=== PATIENT | male | born 1960 | race African-American/Black ===

== ENCOUNTER 2023-07-23 10:26 | Inpatient (IN) ==
[2023-07-23] MEDS ORDERED: ACETAMINOPHEN 1,000 MG/100 ML VIAL IV STA (10:36)
[2023-07-23] MEDS ORDERED: ONDANSETRON INJ 2 MG/ML 2 ML VIAL IV STA (10:36)
[2023-07-23] MEDS ORDERED: MoRPHine SULFATE 4 MG/ML 1 ML CARP\\VIAL IV STA (10:36)
[2023-07-23] MEDS ORDERED: CEFEPIME 2,000 MG/20 ML VIAL IV STA (10:36)
[2023-07-23] MEDS ORDERED: LIDOCAINE 2% JELLY 5 ML TUBE EXT ONE (10:36)
--- NOTE | 2023-07-23 10:43 | Emergency Department Note ---
Impression & Plan Sepsis, Cellulitis, Acute left flank pain, Atrial fibrillation with rapid ventricular response, Elevated lactic acid level, Leukocytosis ED Provider Note NAME: TAMERA ORELLANA AGE: 62 SEX: M : 1960 ARRIVES VIA: Ambulance INFORMANT: [Patient][nursing, guards] ED PROVIDER(S): [Manoj Campo MD] CHIEF COMPLAINT: Fever, weakness HISTORY OF PRESENT ILLNESS: The patient is a 62-year-old male who presents to the ER with 3 days of urinary frequency and back pain. He had a fever. 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 Patient complains of left flank pain. He states that the pain has been present since he has not felt well. He admits to a foul odor to the urine. He denies ever having issues with his kidneys or bladder. He does admit to being diabetic. The patient has a history of a clot in the right leg, he is not currently on blood thinners. He has noticed increasing pedal edema especially on the right. PMHx/PSHx/Social Hx: See Below PHYSICAL EXAM: GENERAL: Patient is in mild distress from pain. HEENT: No acute trauma, normocephalic atraumatic, mucous membranes dry, no nasal congestion. NECK: No stridor, no adenopathy, no meningismus, trachea is midline. LUNGS: Diminished breath sounds with some wheezing bilaterally, no crackles. Increased respiratory rate. HEART: Tachycardic with a regular rhythm, no obvious murmur. ABDOMEN: Soft, nontender, no peritonitis. Obese. EXTREMITIES: No cyanosis, full range of motion of all the joints without pain or difficulty. Moderate bilateral pedal edema, worse on the right. There is right leg warmth and erythema noted. The warmth and erythema extends from the foot to the knee. NEUROLOGIC: Oriented x 3, no acute motor or sensory deficits, no focal weakness. Poor historian. SKIN: No jaundice, no diaphoresis. Back: No flank discomfort with percussion. DIFFERENTIAL DIAGNOSIS: Sepsis or bacteremia, urinary obstruction, pyelonephritis, UTI, renal failure, pneumonia, diverticulitis or abscess, dehydration, among others. EMERGENCY DEPARTMENT PROCEDURES: MEDICAL DECISION MAKING: There is a moderate leukocytosis consistent with infection. A mild anemia was seen. The patient had a normal platelet count. INR was elevated at 2. The patient does have a lower sodium at 131. No renal failure. Lactic acid level was elevated consistent with infection. Repeat lactic acid level showed improvement. Magnesium was low at 1.5. There was some liver enzyme elevation. ECG showed a rapid atrial fibrillation without ST elevation. Cardiac enzyme testing x1 is slightly elevated. This troponin elevation could be secondary to cardiac injury or potentially just mismatch from his sepsis. Procalcitonin level was elevated consistent with bacterial infection. Chest film did not show pneumonia or CHF. Abdominal and pelvis CT did not show any urinary obstruction or acute surgical process. On exam, the patient did have a right lower extremity cellulitis. He was tachycardic. The patient was aggressively managed. He received IV cefepime as antibiotic coverage. He was given 2 L of IV saline. He received IV Zofran and IV morphine. He was given IV magnesium. He received IV Dilaudid for additional pain control as well as some IV Toradol. He received IV Tylenol. Patient was doing quite well. He was seen by the hospitalist team for admission. Vancomycin was started here in the ED for additional antibiotic cov erage and shortly thereafter, the patient was noted to be in a rapid atrial fibrillation. The vancomycin was held. Patient received a bolus of IV diltiazem was placed on a diltiazem drip. His blood pressure remained adequate. The patient is in need of a hospital stay. He is septic and now in a rapid atrial fibrillation. The source of the sepsis appears to be his right lower extremity. I did speak with the patient, the guards, case management as well as the on-call hospitalist. Prior/Outside records/notes reviewed: [employer] notations. ECG per my interpretation: Indication was sepsis and tachycardia. The ECG shows a rapid atrial fibrillation with a rate of 159. There is diffuse ST change/depression. There is no concerning ST elevation. No PVCs. The QTc is 458. Continuous Cardiac Monitoring per my interpretation: An order was placed for continuous cardiac monitoring. The monitor shows a rate of 155 with atrial fibrillation. Imaging/x-ray results per my interpretation: Chest ray does not show pneumonia or pneumothorax. No concerning CHF. Chronic Medical/Social conditions affecting care: Incarceration. Care/Management discussed with: Case management, on-call hospitalist Level of care consideration(s): After review of the information above and other included data: --requires escalation of care to admission Critical Care Note: I have personally spent 49 minutes of critical care time in the direct management of this patient. This includes bedside care, interpretation of diagnostic studies, and testing, discussion with consultants, patient, and family members, and other required patient management activities. This 49 minutes is in excess of all separately billable procedures. DISPOSITION: Admission Past Med/Surg History Medical History DM II (diabetes mellitus, type II), controlled History of fracture of right ankle HLD (hyperlipidemia) HTN (hypertension) Morbid obesity Surgical History Hx of right knee surgery Social History Smoking Status: Never smoker Hx Substance Use: Yes Non-Prescribed Medications: Marijuana Preferred Language: Romanian Feels Safe at Home: Yes Allergies Allergies Allergy/AdvReac Type Severity Reaction Status Date / Time lisinopril Allergy Intermediate Unknown Unverified 07/23/23 13:02 Home Meds Home Medications Medication Instructions Recorded Confirmed acetaminophen 500 mg tablet 500 mg PO TID PRN Other 07/23/23 07/23/23 albuterol sulfate 90 mcg/actuation 2 puff inhalation QID PRN Other 07/23/23 aerosol inhaler (Proventil HFA) amlodipine 10 mg tablet 10 mg PO DAILY 07/23/23 07/23/23 ciclesonide 160 mcg/actuation 1 puff inhalation BID 07/23/23 07/23/23 aerosol inhaler (Alvesco) hydrochlorothiazide 25 mg tablet 25 mg PO DAILY 07/23/23 07/23/23 losartan 50 mg tablet 50 mg PO DAILY 07/23/23 07/23/23 metformin 500 mg tablet 500 mg PO BID 07/23/23 07/23/23 rosuvastatin 5 mg tablet 5 mg PO DAILY 07/23/23 07/23/23 tamsulosin 0.4 mg capsule 0.8 mg PO HS 07/23/23 07/23/23 Results & Data (ED) Vital Signs Vital Signs - 24 hr 07/23/23 10:36 07/23/23 11:21 07/23/23 12:00 Pulse Rate 120 H 116 H 111 H Pulse Rate from SpO2 Sensor Respiratory Rate 36 H 20 Respiratory Effort / Characteristics Non-Labored Respiratory Depth Normal Blood Pressure 163/85 H Blood Pressure Mean 111 Pulse Oximetry 96 91 Oxygen Delivery Method Room Air Oxygen Flow Rate Sepsis Recent Fever Within 48 Hours Yes Sepsis New/Unexplained Change in Mental Status No Sepsis Action Taken by Nursing Physician Notified 07/23/23 13:48 07/23/23 14:14 07/23/23 14:43 Pulse Rate 146 H 142 H Pulse Rate from SpO2 Sensor 116 H Respiratory Rate 21 Respiratory Effort / Characteristics Respiratory Depth Blood Pressure 162/87 H 108/77 Blood Pressure Mean 112 87 Pulse Oximetry 94 100 Oxygen Delivery Method Nasal Cannula Oxygen Flow Rate 2 2 Sepsis Recent Fever Within 48 Hours Sepsis New/Unexplained Change in Mental Status Sepsis Action Taken by [facility] Medications Current Medication List: was personally reviewed by me Laboratory Data Attestation: I reviewed the patient's lab results. 07/23/23 10:45 07/23/23 10:45 Lab Results 07/23/23 07/23/23 07/23/23 Range/Units 10:45 10:45 10:45 WBC 16.20 H (4.8-10.8) K/ul RBC 4.82 (4.70-6.10) M/uL Hgb 13.6 L (14.0-18.0) g/dl Hct 41.8 L (42.0-52.0) % MCV 86.7 (80.0-100.0) fL MCH 28.2 (25.0-34.0) pg MCHC 32.5 (32.0-36.0) g/dL RDW Std Deviation 44.5 (36.4-46.3) fL RDW Coeff of Wilda 13.9 (11.5-14.5) % Plt Count 202 (130-400) K/uL MPV 9.9 (9.4-12.4) fL Immature Gran % (Auto) 4.0 % Neut % (Auto) 88.2 % Lymph % (Auto) 4.6 % [place] % (Auto) 2.8 % Eos % (Auto) 0.0 % Baso % (Auto) 0.4 % Neut # (Auto) 14.29 H (1.40-6.50) K/uL Lymph # (Auto) 0.74 L (1.20-3.40) K/uL [place] # (Auto) 0.45 (0.11-0.59) K/uL Eos # (Auto) 0.00 (0.00-0.50) K/uL Baso # (Auto) 0.07 (0.00-0.20) K/uL Immature Gran # (Auto) 0.65 H (0.01-0.20) K/uL Dohle Bodies 1+ PT 20.6 H (9.0-12.0) Seconds INR 2.0 H (0.9-1.1) APTT 33.6 H (21.0-31.0) Seconds PTT Ratio 1.2 Sodium 131 L (136-145) mmol/L Potassium 3.5 (3.5-5.1) mmol/L Chloride 98 (98-107) mmol/L Carbon Dioxide 24 (21-32) mmol/L Anion Gap 9 (3-11) BUN 20 (6-23) mg/dl Creatinine 1.25 (0.6-1.4) mg/dl Est Cr Clr Drug Dosing Not Reportable Est GFR ( Amer) 71.6 ml/min Est GFR (Non-Af Amer) 61.8 ml/min BUN/Creatinine Ratio 16.0 (10-20) Glucose 116 H (70-99(Fasting)) mg/dl Lactate (0.4-2.0) mmol/L Calcium 8.9 (8.6-10.3) mg/dl Magnesium 1.5 L (1.7-2.4) mg/dl Total Bilirubin 1.9 H (0.2-1.0) mg/dl Direct Bilirubin 0.8 H (0-0.2) mg/dl AST 39 (13-39) U/L ALT 27 (7-52) U/L Alkaline Phosphatase 73 (34-104) U/L Troponin I High Sens 57.7 H* (0-20) pg/ml Total Protein 7.4 (6.0-8.3) gm/dl Albumin 4.0 (3.4-5.0) gm/dl Procalcitonin (0-0.5) ng/ml Urine Color Urine Appearance (Clear) Urine pH (4.5-7.5) Ur Specific [place] (1.000-1.030) Urine Protein (Negative) Urine Glucose (UA) (Negative) Urine Ketones (Negative) Urine Blood (Negative) Urine Nitrite (Negative) Urine Bilirubin (Negative) Urine Urobilinogen (Negative) Ur Leukocyte Esterase (Negative) Urine WBC (Auto) (0-5) /hpf Urine RBC (Auto) (0-4) /hpf U Hyaline Cast (Auto) (0-5) /lpf U Epithel Cells (Auto) (0-5) /lpf Urine Bacteria (Auto) (Negative) Ur Renal Epithelial Cell SARS-CoV-2 (PCR) (Negative) Influenza Type A (PCR) (Neg) Influenza Type B (PCR) (Neg) RSV (RT-PCR) (Neg) 07/23/23 07/23/23 07/23/23 Range/Units 10:45 10:45 11:00 WBC (4.8-10.8) K/ul RBC (4.70-6.10) M/uL Hgb (14.0-18.0) g/dl Hct (42.0-52.0) % MCV (80.0-100.0) fL MCH (25.0-34.0) pg MCHC (32.0-36.0) g/dL RDW Std Deviation (36.4-46.3) fL RDW Coeff of Wilda (11.5-14.5) % Plt Count (130-400) K/uL MPV (9.4-12.4) fL Immature Gran % (Auto) % Neut % (Auto) % Lymph % (Auto) % [place] % (Auto) % Eos % (Auto) % Baso % (Auto) % Neut # (Auto) (1.40-6.50) K/uL Lymph # (Auto) (1.20-3.40) K/uL [place] # (Auto) (0.11-0.59) K/uL Eos # (Auto) (0.00-0.50) K/uL Baso # (Auto) (0.00-0.20) K/uL Immature Gran # (Auto) (0.01-0.20) K/uL Dohle Bodies PT (9.0-12.0) Seconds INR (0.9-1.1) APTT (21.0-31.0) Seconds PTT Ratio Sodium (136-145) mmol/L Potassium (3.5-5.1) mmol/L Chloride (98-107) mmol/L Carbon Dioxide (21-32) mmol/L Anion Gap (3-11) BUN (6-23) mg/dl Creatinine (0.6-1.4) mg/dl Est Cr Clr Drug Dosing Est GFR ( Amer) ml/min Est GFR (Non-Af Amer) ml/min BUN/Creatinine Ratio (10-20) Glucose (70-99(Fasting)) mg/dl Lactate 2.7 H* (0.4-2.0) mmol/L Calcium (8.6-10.3) mg/dl Magnesium (1.7-2.4) mg/dl Total Bilirubin (0.2-1.0) mg/dl Direct Bilirubin (0-0.2) mg/dl AST (13-39) U/L ALT (7-52) U/L Alkaline Phosphatase (34-104) U/L Troponin I High Sens (0-20) pg/ml Total Protein (6.0-8.3) gm/dl Albumin (3.4-5.0) gm/dl Procalcitonin 43.25 H (0-0.5) ng/ml Urine Color Dark Yellow Urine Appearance Clear (Clear) Urine pH 7.0 (4.5-7.5) Ur Specific [place] 1.027 (1.000-1.030) Urine Protein 2+ H (Negative) Urine Glucose (UA) Negative (Negative) Urine Ketones 2+ H (Negative) Urine Blood 3+ H (Negative) Urine Nitrite Positive A (Negative) Urine Bilirubin 1+ H (Negative) Urine Urobilinogen Positive H (Negative) Ur Leukocyte Esterase Trace H (Negative) Urine WBC (Auto) 1-5 (0-5) /hpf Urine RBC (Auto) 0-4 (0-4) /hpf U Hyaline Cast (Auto) 5-10 H (0-5) /lpf U Epithel Cells (Auto) >30 H (0-5) /lpf Urine Bacteria (Auto) 1+ H (Negative) Ur Renal Epithelial Cell Not Reportable SARS-CoV-2 (PCR) (Negative) Influenza Type A (PCR) (Neg) Influenza Type B (PCR) (Neg) RSV (RT-PCR) (Neg) 07/23/23 07/23/23 07/23/23 Range/Units 12:54 12:54 Unknown WBC (4.8-10.8) K/ul RBC (4.70-6.10) M/uL Hgb (14.0-18.0) g/dl Hct (42.0-52.0) % MCV (80.0-100.0) fL MCH (25.0-34.0) pg MCHC (32.0-36.0) g/dL RDW Std Deviation (36.4-46.3) fL RDW Coeff of Wilda (11.5-14.5) % Plt Count (130-400) K/uL MPV (9.4-12.4) fL Immature Gran % (Auto) % Neut % (Auto) % Lymph % (Auto) % [place] % (Auto) % Eos % (Auto) % Baso % (Auto) % Neut # (Auto) (1.40-6.50) K/uL Lymph # (Auto) (1.20-3.40) K/uL [place] # (Auto) (0.11-0.59) K/uL Eos # (Auto) (0.00-0.50) K/uL Baso # (Auto) (0.00-0.20) K/uL Immature Gran # (Auto) (0.01-0.20) K/uL Dohle Bodies PT (9.0-12.0) Seconds INR (0.9-1.1) APTT (21.0-31.0) Seconds PTT Ratio Sodium (136-145) mmol/L Potassium (3.5-5.1) mmol/L Chloride (98-107) mmol/L Carbon Dioxide (21-32) mmol/L Anion Gap (3-11) BUN (6-23) mg/dl Creatinine (0.6-1.4) mg/dl Est Cr Clr Drug Dosing Est GFR ( Amer) ml/min Est GFR (Non-Af Amer) ml/min BUN/Creatinine Ratio (10-20) Glucose (70-99(Fasting)) mg/dl Lactate 1.7 (0.4-2.0) mmol/L Calcium (8.6-10.3) mg/dl Magnesium (1.7-2.4) mg/dl Total Bilirubin (0.2-1.0) mg/dl Direct Bilirubin (0-0.2) mg/dl AST (13-39) U/L ALT (7-52) U/L Alkaline Phosphatase (34-104) U/L Troponin I High Sens 59.0 H* (0-20) pg/ml Total Protein (6.0-8.3) gm/dl Albumin (3.4-5.0) gm/dl Procalcitonin (0-0.5) ng/ml Urine Color Urine Appearance (Clear) Urine pH (4.5-7.5) Ur Specific [place] (1.000-1.030) Urine Protein (Negative) Urine Glucose (UA) (Negative) Urine Ketones (Negative) Urine Blood (Negative) Urine Nitrite (Negative) Urine Bilirubin (Negative) Urine Urobilinogen (Negative) Ur Leukocyte Esterase (Negative) Urine WBC (Auto) (0-5) /hpf Urine RBC (Auto) (0-4) /hpf U Hyaline Cast (Auto) (0-5) /lpf U Epithel Cells (Auto) (0-5) /lpf Urine Bacteria (Auto) (Negative) Ur Renal Epithelial Cell SARS-CoV-2 (PCR) NEGATIVE (Negative) Influenza Type A (PCR) Negative (Neg) Influenza Type B (PCR) Negative (Neg) RSV (RT-PCR) Negative (Neg) Administered Medications Diltiazem HCl 125 mg/ Dextrose 125 mls @ 5 mls/hr IV .Q24H NEGRITA; Protocol Stop: 08/22/23 14:14 Last Titration: 07/23/23 15:18 Dose: 7.5 mg/hr, 7.5 mls/hr Documented By: NRB Co-signed By: DAREK Admin: 07/23/23 14:24 Dose: 5 mg/hr, 5 mls/hr Documented By: NRB Co-signed By: ZA Metoprolol Tartrate (Metoprolol Tartrate 25 Mg Tab) 12.5 mg PO BID NEGRITA Stop: 08/22/23 14:24 Last Admin: 07/23/23 14:40 Dose: 12.5 mg Documented By: NRB Discontinued Medications Diltiazem HCl (Diltiazem Hcl 5 Mg/Ml 5 Ml Vial) 15 mg IV NOW STA Stop: 07/23/23 14:11 Last Admin: 07/23/23 14:16 Dose: 15 mg Documented By: KATHERINE Co-signed By: JANEL Hydromorphone HCl (Hydromorphone Inj 0.5 Mg/0.5 Ml Syr) 0.5 mg IV NOW STA Stop: 07/23/23 12:55 Last Admin: 07/23/23 13:43 Dose: 0.5 mg Documented By: KATHERINE Sodium Chloride (Nss) 1,000 mls @ 999 mls/hr IV .Q1H1M NEGRITA Stop: 07/23/23 11:45 Last Infusion: 07/23/23 13:38 Dose: 0 mls/hr Documented By: Admin: 07/23/23 12:01 Dose: 999 mls/hr Documented By: KATHERINE Cefepime HCl (Maxipime) 2,000 mg in 20 mls @ 5 mls/min IV NOW STA; Protocol Stop: 07/23/23 10:39 Last Admin: 07/23/23 11:59 Dose: 5 mls/min Documented By: KATHERINE Acetaminophen (Ofirmev) 1,000 mg in 100 mls @ 400 mls/hr IV NOW STA Stop: 07/23/23 10:50 Last Infusion: 07/23/23 11:57 Dose: 0 mls/hr Documented By: Admin: 07/23/23 10:51 Dose: 400 mls/hr Documented By: PETR Sodium Chloride (Nss) 1,000 mls @ 999 mls/hr IV .Q1H1M ONE Stop: 07/23/23 11:45 Last Infusion: 07/23/23 11:57 Dose: 0 mls/hr Documented By: Admin: 07/23/23 10:51 Dose: 999 mls/hr Documented By: PETR Magnesium Sulfate/Dextrose (Magnesium Sulfate / D5w) 1 gm in 100 mls @ 100 mls/hr IV NOW STA Stop: 07/23/23 12:29 Last Infusion: 07/23/23 13:01 Dose: 0 mls/hr Documented By: NRBenito Admin: 07/23/23 12:01 Dose: 100 mls/hr Documented By: KATHERINE Vancomycin HCl 2,750 mg/ (Sodium Chloride) 555 mls @ 200 mls/hr IV NOW ONE Stop: 07/23/23 14:54 Last Admin: 07/23/23 14:52 Dose: Not Given Documented By: NRB Ketorolac Tromethamine (Ketorolac Tromethamine 15 Mg/Ml Vial) 15 mg IV NOW STA Stop: 07/23/23 12:55 Last Admin: 07/23/23 13:40 Dose: 15 mg Documented By: NRB Lidocaine HCl (Lidocaine 2% Jelly 5 Ml Tube) 5 ml EXT NOW ONE Stop: 07/23/23 10:37 Last Admin: 07/23/23 12:44 Dose: Not Given Documented By: NRB Morphine Sulfate (Morphine Sulfate 4 Mg/Ml 1 Ml Carp\Vial) 4 mg IV NOW STA Stop: 07/23/23 10:37 Last Admin: 07/23/23 10:51 Dose: 4 mg Documented By: MES Ondansetron HCl (Ondansetron Inj 2 Mg/Ml 2 Ml Vial) 4 mg IV NOW STA Stop: 07/23/23 10:37 Last Admin: 07/23/23 10:51 Dose: 4 mg Documented By: MES Imaging Data Radiologist's Impression: Abdomen/Pelvis CT 07/23/23 10:[address] WITHOUT CONTRAST CT DOSE: 1467.66 mGy.cm HISTORY: Acute left-sided flank pain with fever and urinary incontinence poss urin obstr TECHNIQUE: Multiaxial CT images of the abdomen and pelvis were performed without contrast. A dose lowering technique was utilized adhering to the principles of ALARA. COMPARISON STUDY: None. FINDINGS: Cardiomegaly. Right hemidiaphragmatic elevation with the hepatic dome only partially imaged. There are a few scattered low suspicion solid nodules of the left lung base measuring up to 4 mm. No free air. Unremarkable unenhanced spleen. The liver is enlarged with hepatic steatosis. No evidence of cirrhosis. The gallbladder is mildly distended. Moderately atrophic pancreas. Unremarkable adrenal glands. Mild nonspecific bilateral perinephric stranding. No renal or ureteral calculi or hydronephrosis. Decompressed urinary bladder with Erazo catheter in place. No abdominal aortic aneurysm. Enlarged right iliac chain and right inguinal lymph nodes include right inguinal lymphadenopathy measuring up to 1.6 cm and right iliac chain lymph nodes measuring up to 1.4 cm. There is mild to moderate inflammatory stranding surrounding the right iliac and femoral veins. There is no bowel obstruction or bowel wall thickening. Mild to moderate colonic fecal retention. Colonic diverticulosis. Noninflamed appendix. Fat filled suprau mbilical hernia with diastases of 2.5 cm. Small fat filled umbilical hernia also noted containing a nonobstructed loop of ileum. Diastases recti. Degenerative changes of the spine, pelvis and hips. IMPRESSION: 1. No renal or ureteral calculi or hydronephrosis. 2. Right iliac and inguinal lymphadenopathy with adjacent inflammatory stranding. Findings should be correlated with lower extremity Doppler to exclude an underlying DVT. Additionally, follow-up ultrasound with possible tissue sampling of the lymph nodes should be considered in order to exclude a lymphoproliferative disorder. 3. No bowel obstruction or bowel wall thickening. 4. Hepatomegaly with hepatic steatosis. 5. Small fat filled umbilical hernia partially contains a loop of nonobstructed ileum. ACT 112: Positive. There are findings on this exam that require communication between the performing entity and the patient following Patient Test Result [place] Act [place] Act 112) guidelines. The above report was generated using voice recognition software. It may contain grammatical, syntax or spelling errors. Electronically signed by: Panfilo Melchor M.D. 07/23/2023 11:48 AM Chest X-Ray 07/23/23 10:37 XR chest 1V portable CLINICAL HISTORY: Sepsis. COMPARISON STUDY: No previous studies for comparison. FINDINGS: Postoperative findings within the spine are incidentally noted. There is no pneumothorax or pleural effusion. There is no evidence for pulmonary edema. There is mild cardiomegaly. IMPRESSION: No acute cardiopulmonary findings. Mild cardiomegaly. ACT 112: Negative or not required by law. Electronically signed by: Dev Fernandes M.D. 07/23/2023 11:31 AM Discharge Plan Visit Data Chief Complaint: Urinary Symptoms Stated Complaint: BACK PAIN, FEVER, ED Provider: Manoj Campo Discharge Problem: Sepsis, Cellulitis, Acute left flank pain, Atrial fibrillation with rapid ventricular response, Elevated lactic acid level, Leukocytosis Patient Disposition: Admitted As Inpatient Condition: Serious Forms Stand Alone Forms: My [employer] Prescriptions Prescriptions: No Action losartan 50 mg Tablet 50 mg PO DAILY metformin 500 mg Tablet 500 mg PO BID acetaminophen 500 mg Tablet 500 mg PO TID PRN (Reason: Other) Rx Instructions: Can take up to 4 times daily tamsulosin 0.4 mg Capsule 0.8 mg PO HS amlodipine 10 mg Tablet 10 mg PO DAILY hydrochlorothiazide 25 mg Tablet 25 mg PO DAILY albuterol sulfate [Proventil HFA] 90 mcg/actuation Hfa Aerosol Inhaler 2 puff INHALATION QID PRN (Reason: Other) rosuvastatin 5 mg Tablet 5 mg PO DAILY Alvesco 160 mcg/actuation Hfa Aerosol Inhaler 1 puff INHALATION BID Referrals Referrals: PCP,NO [Physician] -
[2023-07-23] MEDS ORDERED: SODIUM CHLORIDE 0.9% 1,000 ML IV SCH (10:45)
[2023-07-23] MEDS ORDERED: SODIUM CHLORIDE 0.9% 1,000 ML IV ONE (10:45)
[2023-07-23 11:14] LABS: Appearance Urine Clear (Clear); Blood Urine 3+ (Negative); Color Urine Dark Yellow; Epithelial Cell Urine Auto >30 /lpf (0-5); Glucose Urine UA Negative (Negative); Ketones Urine 2+ (Negative); Leukocyte Esterase Urine Trace (Negative); Nitrite Urine Positive (Negative); Protein Urine 2+ (Negative); RBC Urine Automated 0-4 /hpf (0-4); Specific Gravity Urine 1.027 (1.000-1.030); Urobilinogen Urine Positive (Negative)
[2023-07-23 11:21] LABS: Bilirubin Urine 1+ (Negative)
[2023-07-23 11:23] LABS: Hematocrit (blood only) 41.8 % (42.0-52.0); Hemoglobin 13.6 g/dl (14.0-18.0); Mean Corpuscular Hemoglobin 28.2 pg (25.0-34.0); Mean Corpuscular Hgb Conc 32.5 g/dL (32.0-36.0); Mean Corpuscular Volume 86.7 fL (80.0-100.0); Mean Platelet Volume 9.9 fL (9.4-12.4); Platelet Count 202 K/uL (130-400); RDW Coefficient of Variation 13.9 % (11.5-14.5); RDW Standard Deviation 44.5 fL (36.4-46.3); Red Blood Count 4.82 M/uL (4.70-6.10)
[2023-07-23 11:26] LABS: Alanine Aminotransferase 27 U/L (7-52); Alkaline Phosphatase 73 U/L (34-104); Anion Gap 9 (3-11); Aspartate Aminotransferase 39 U/L (13-39); Bilirubin Direct 0.8 mg/dl (0-0.2); Bilirubin,Total 1.9 mg/dl (0.2-1.0); Blood Urea Nitrogen 20 mg/dl (6-23); Calcium 8.9 mg/dl (8.6-10.3); Carbon Dioxide 24 mmol/L (21-32); Chloride 98 mmol/L (98-107); Est GFR (African American) 71.6 ml/min; Est GFR (Non-African American) 61.8 ml/min; Glucose 116 mg/dl (70-99(Fasting)); Magnesium 1.5 mg/dl (1.7-2.4); Potassium 3.5 mmol/L (3.5-5.1); Sodium 131 mmol/L (136-145); Total Protein 7.4 gm/dl (6.0-8.3)
[2023-07-23] MEDS ORDERED: MAGNESIUM SULFATE / D5W 1 GM/100 ML BAG IV STA (11:30)
--- NOTE | 2023-07-23 11:32 | XRay Report ---
XR chest 1V portable CLINICAL HISTORY: Sepsis. COMPARISON STUDY: No previous studies for comparison. FINDINGS: Postoperative findings within the spine are incidentally noted. There is no pneumothorax or pleural effusion. There is no evidence for pulmonary edema. There is mild cardiomegaly. IMPRESSION: No acute cardiopulmonary findings. Mild cardiomegaly. ACT 112: Negative or not required by law. Electronically signed by: Dev Fernandes M.D. 07/23/2023 11:31 AM
[2023-07-23 11:35] LABS: Partial Thromboplastin Ratio 1.2; Partial Thromboplastin Time 33.6 Seconds (21.0-31.0); Prothrombin Time 20.6 Seconds (9.0-12.0)
[2023-07-23 11:41] LABS: Bacteria Urine Automated 1+ (Negative)
[2023-07-23 11:43] LABS: Troponin I High Sensitivity 57.7 pg/ml (0-20)
[2023-07-23 11:47] LABS: Basophils # (auto) 0.07 K/uL (0.00-0.20); Basophils % (auto) 0.4 %; Dohle Bodies 1+; Immature Granulocytes # (auto) 0.65 K/uL (0.01-0.20); Lymphocytes # (auto) 0.74 K/uL (1.20-3.40); Lymphocytes % (auto) 4.6 %; Monocytes # (auto) 0.45 K/uL (0.11-0.59); Monocytes % (auto) 2.8 %; Neutrophils # (auto) 14.29 K/uL (1.40-6.50); Neutrophils % (auto) 88.2 %
--- NOTE | 2023-07-23 11:49 | CT Scan Report ---
ABDOMEN AND PELVIS CT WITHOUT CONTRAST CT DOSE: 1467.66 mGy.cm HISTORY: Acute left-sided flank pain with fever and urinary incontinence poss urin obstr TECHNIQUE: Multiaxial CT images of the abdomen and pelvis were performed without contrast. A dose lo wering technique was utilized adhering to the principles of ALARA. COMPARISON STUDY: None. FINDINGS: Cardiomegaly. Right hemidiaphragmatic elevation with the hepatic dome only partially imaged . There are a few scattered low suspicion solid nodules of the left lung base measuring up to 4 mm. N o free air. Unremarkable unenhanced spleen. The liver is enlarged with hepatic steatosis. No evidence of cirrhosi s. The gallbladder is mildly distended. Moderately atrophic pancreas. Unremarkable adrenal glands. Mi ld nonspecific bilateral perinephric stranding. No renal or ureteral calculi or hydronephrosis. Decom pressed urinary bladder with Erazo catheter in place. No abdominal aortic aneurysm. Enlarged right iliac chain and right inguinal lymph nodes include right inguinal lymphadenopathy measuring up to 1.6 cm and right iliac chain lymph nodes measuring up to 1. 4 cm. There is mild to moderate inflammatory stranding surrounding the right iliac and femoral veins. There is no bowel obstruction or bowel wall thickening. Mild to moderate colonic fecal retention. Col onic diverticulosis. Noninflamed appendix. Fat filled supraumbilical hernia with diastases of 2.5 cm. Small fat filled umbilical hernia also noted containing a nonobstructed loop of ileum. Diastases rec ti. Degenerative changes of the spine, pelvis and hips. IMPRESSION: 1. No renal or ureteral calculi or hydronephrosis. 2. Right iliac and inguinal lymphadenopathy with adjacent inflammatory stranding. Findings should be correlated with lower extremity Doppler to exclude an underlying DVT. Additionally, follow-up ultraso und with possible tissue sampling of the lymph nodes should be considered in order to exclude a lymph oproliferative disorder. 3. No bowel obstruction or bowel wall thickening. 4. Hepatomegaly with hepatic steatosis. 5. Small fat filled umbilical hernia partially contains a loop of nonobstructed ileum. ACT 112: Positive. There are findings on this exam that require communication between the performing entity and the patient following Patient Test Result [place] Act [place] Act 112) guidelines. The above report was generated using voice recognition software. It may contain grammatical, syntax o r spelling errors. Electronically signed by: Panfilo Melchor M.D. 07/23/2023 11:48 AM
[2023-07-23] MEDS ORDERED: VANCOMYCIN CONSULT ACTIVE PRN ×2 (12:25→18:41)
[2023-07-23] MEDS ORDERED: HYDROmorphone INJ 0.5 MG/0.5 ML SYR IV STA ×2 (12:54→13:15)
[2023-07-23] MEDS ORDERED: KETOROLAC TROMETHAMINE 15 MG/ML VIAL IV STA (12:54)
--- NOTE | 2023-07-23 13:26 | History & Physical Report ---
Date of Service July 23, 2023 Assessment & Plan (1) Sepsis: (2) Cellulitis: (3) Urinary tract infection: Plan: - Admit to med tele - Pt meets sepsis criteria with fever, tachycardia, source likely RLE cellulitis, r/o DVT pending, as well as UTI - Pt has received 2 L NSS so far, continue LR at 150 ml/hr. mild hyponatremia will be followed. Repeat BMP this afternoon - Troponin is elevated at 47 on admission, trending, likley demand ischemia as EKG without acute findings, no cardiac complaints, no shortness of breath. - Lactate initially elevated at 2.7, improved to 1.7, WBC 16.2, procal 43 - R ankle fracture 2013, R knee surgery in 2016 causes some enlargement in general in the RLE but this is much more swollen and tender in the calf compared to previously. - Follow doppler U/S to r/o DVT - CT abd/pelvis reviewed as above - BCx x 2, urine culture pending - Continue on cefepime IV and vancomycin IV with hx of DM and being in close quarters in facility - Check MRSA swab (4) Hypomagnesemia: Plan: - Replace mag as was 1.5 on admission with 2 g IV. - Trend with am labs (5) DM II (diabetes mellitus, type II), controlled: Plan: - Check A1C with am labs - Holding metformin for now, ISS with accuchecks achs (6) HLD (hyperlipidemia): Plan: - Chronic, stable, cont statin - Check lipid panel with am labs (7) HTN (hypertension): Plan: - Elevated currently likely due to pain, acute infection, will hold on po meds today, resume tomorrow if BP remains high and infection responds adequately to antibiotics. (8) Morbid obesity: Plan: - BMI of 45, diet and exercise to be encouraged throughout hospital stay DVT ppx: lovenox subq GI/FEN: HH/Diabetic diet, LR at 150 ml/hr x 1 more bag above Lines: 2 PIV CODE: FULL Dispo: From [facility] drug reha, likely to remain in the hospital x 1-2 days (9) New onset a-fib: Plan: After initial evaluation the patient - he went into from what we can tell, new onset afib with RVR with rates of 140-150. Pt is noted to have INR that is slightly high on admission at 2.0, but does not appear he is on any form of anticoagulation. - Started on diltiazem bolus and gtt in the ER - metoprolol 12.5 mg PO now first dose, then BID - Cardiology consulted - Check 2 D echo - Troponin 59-->57, trending q6H -CHADsVasc 2, will need to discuss formal anticoagulation with cards/day team History of Present Illness Chief Complaint: Weakness, fever Primary Care Provider: YURIDIA Traci This is a 62 yo black male with PMHx of obesity, HTN, HLD, DM II, marijuana use (denies other drug or alcohol use) currently in [facility] for drug rehab program x past 2 years, who presents to the hospital with 3 days of worsening RLE swelling, pain, weakness, and fever which started 2 days ago. States that he has been not feeling well enough to eat for the past 2 days, but has been tolerating fluids. He reports significant weakness, and was unable to walk today also due to pain. His R leg is significantly more swollen than the left, and states that there was minimal swelling in in 3 days ago, but that since R ankle fracture in 2013 and R knee surgery in 2016 the right leg has always been a little more swollen. He admits to hx of having DVT in the R leg previously. Surgical Hx: R ankle fixation s/p fracture, R knee surgery (not a total replacement) Social Hx: Incarcerated, Denies current alcohol or drug use, previous marijuana use Family Hx: Denies known family history. Allergies Allergy/AdvReac Type Severity Reaction Status Date / Time lisinopril Allergy Intermediate Unknown Unverified 07/23/23 13:02 Home Medications Medication Instructions Recorded Confirmed Type acetaminophen 500 mg tablet 500 mg PO TID PRN Other 07/23/23 07/23/23 History albuterol sulfate 90 mcg/actuation 2 puff inhalation QID PRN Other 07/23/23 07/23/23 History aerosol inhaler (Proventil HFA) amlodipine 10 mg tablet 10 mg PO DAILY 07/23/23 07/23/23 History ciclesonide 160 mcg/actuation 1 puff inhalation BID 07/23/23 07/23/23 History aerosol inhaler (Alvesco) hydrochlorothiazide 25 mg tablet 25 mg PO DAILY 07/23/23 07/23/23 History losartan 50 mg tablet 50 mg PO DAILY 07/23/23 07/23/23 History metformin 500 mg tablet 500 mg PO BID 07/23/23 07/23/23 History rosuvastatin 5 mg tablet 5 mg PO DAILY 07/23/23 07/23/23 History tamsulosin 0.4 mg capsule 0.8 mg PO HS 07/23/23 07/23/23 History Past Med/Surg History Medical History DM II (diabetes mellitus, type II), controlled History of fracture of right ankle HLD (hyperlipidemia) HTN (hypertension) Morbid obesity Surgical History Hx of right knee surgery Social History Smoking Status: Never smoker Hx Substance Use: Yes Non-Prescribed Medications: Marijuana Preferred Language: Citizen Of [place] Feels Safe at Home: Yes Review of Systems Review of Systems: Constitutional: +fever, sweats and chills, + diffuse weakness Eyes: No diplopia, no worsening or blurred vision ENT: normal hearing, no trouble swallowing Respiratory: No cough, sputum, dyspnea at rest or on exertion Cardiovascular: No chest pain, tightness or palpitations Abdomen: No pain, nausea, vomiting, diarrhea or constipation : denies dysuria Musculoskeletal: RLE swelling and warmth as per HPI, otherwise No joint pain Neurologic: +generalized weakness, no numbness/tingling, or balance problems Psychiatric: No anxiety or depression Skin: No rash or itch Physical Exam Physical Exam: General: awake, alert, Appears in mild distress, obese, black male Head: Normocephalic, atraumatic ENT: PERRL, EOMI, no pharyngeal exudate, mucous membranes slightly dry Chest: Clear to auscultation, on room air, no adventitious breath sounds Cardiac: +Sinus tachycardia, no murmur, no JVD, normal peripheral pulses, good capillary refill Abdominal: NABS x 4 quadrants, soft, nondistended, nontender to palpation, no rebound or guarding Extremities: RLE diffusely edematous up to groin, +warmth, + difficult to assess erythema due to skin color, no open wounds or obvious source of infection, LLE with trace edema as well, otherwise Normal inspection, no peripheral edema or erythema, calfs tender to palpation Psych: Normal mood and affect Neuro: AAO x 3, strength intact bilaterally and rated 5/5, no motor deficits, speech is clear, no peripheral sensory deficits Results & Data Results & Data Vital Signs (Past 12 Hours) Vital Signs Pulse Resp BP Pulse Ox O2 Del Method 07/23/23 11:21 116 H 07/23/23 10:36 120 H 36 H 163/85 H 96 Room Air Laboratory Results 07/23/23 10:45 Urine Culture - Pending Urine,Straight Cath 07/23/23 11:00 Aerobic Blood Culture - Pending Blood Anaerobic Blood Culture - Pending 07/23/23 10:45 Aerobic Blood Culture - Pending Blood Anaerobic Blood Culture - Pending 07/23/23 07/23/23 07/23/23 12:54 11:00 10:45 WBC RBC Hgb Hct MCV MCH MCHC RDW Std Deviation RDW Coeff of Wilda Plt Count MPV Immature Gran % (Auto) Neut % (Auto) Lymph % (Auto) [place] % (Auto) Eos % (Auto) Baso % (Auto) Neut # (Auto) Lymph # (Auto) [place] # (Auto) Eos # (Auto) Baso # (Auto) Immature Gran # (Auto) Dohle Bodies PT INR APTT PTT Ratio Sodium Potassium Chloride Carbon Dioxide Anion Gap BUN Creatinine Est Cr Clr Drug Dosing Est GFR ( Amer) Est GFR (Non-Af Amer) BUN/Creatinine Ratio Glucose Lactate 1.7 2.7 H* Calcium Magnesium Total Bilirubin Direct Bilirubin AST ALT Alkaline Phosphatase Troponin I High Sens Total Protein Albumin Procalcitonin Urine Color Dark Yellow Urine Appearance Clear Urine pH 7.0 Ur Specific [place] 1.027 Urine Protein 2+ H Urine Glucose (UA) Negative Urine Ketones 2+ H Urine Blood 3+ H Urine Nitrite Positive A Urine Bilirubin 1+ H Urine Urobilinogen Positive H Ur Leukocyte Esterase Trace H Urine WBC (Auto) 1-5 Urine RBC (Auto) 0-4 U Hyaline Cast (Auto) 5-10 H U Epithel Cells (Auto) >30 H Urine Bacteria (Auto) 1+ H Ur Renal Epithelial Cell Not Reportable 07/23/23 07/23/23 07/23/23 10:45 10:45 10:45 WBC RBC Hgb Hct MCV MCH MCHC RDW Std Deviation RDW Coeff of Wilda Plt Count MPV Immature Gran % (Auto) Neut % (Auto) Lymph % (Auto) [place] % (Auto) Eos % (Auto) Baso % (Auto) Neut # (Auto) Lymph # (Auto) [place] # (Auto) Eos # (Auto) Baso # (Auto) Immature Gran # (Auto) Dohle Bodies PT 20.6 H INR 2.0 H APTT 33.6 H PTT Ratio 1.2 Sodium 131 L Potassium 3.5 Chloride 98 Carbon Dioxide 24 Anion Gap 9 BUN 20 Creatinine 1.25 Est Cr Clr Drug Dosing Not Reportable Est GFR ( Amer) 71.6 Est GFR (Non-Af Amer) 61.8 BUN/Creatinine Ratio 16.0 Glucose 116 H Lactate Calcium 8.9 Magnesium 1.5 L Total Bilirubin 1.9 H Direct Bilirubin 0.8 H AST 39 ALT 27 Alkaline Phosphatase 73 Troponin I High Sens 57.7 H* Total Protein 7.4 Albumin 4.0 Procalcitonin 43.25 H Urine Color Urine Appearance Urine pH Ur Specific [place] Urine Protein Urine Glucose (UA) Urine Ketones Urine Blood Urine Nitrite Urine Bilirubin Urine Urobilinogen Ur Leukocyte Esterase Urine WBC (Auto) Urine RBC (Auto) U Hyaline Cast (Auto) U Epithel Cells (Auto) Urine Bacteria (Auto) Ur Renal Epithelial Cell 07/23/23 10:45 WBC 16.20 H RBC 4.82 Hgb 13.6 L Hct 41.8 L MCV 86.7 MCH 28.2 MCHC 32.5 RDW Std Deviation 44.5 RDW Coeff of Wilda 13.9 Plt Count 202 MPV 9.9 Immature Gran % (Auto) 4.0 Neut % (Auto) 88.2 Lymph % (Auto) 4.6 [place] % (Auto) 2.8 Eos % (Auto) 0.0 Baso % (Auto) 0.4 Neut # (Auto) 14.29 H Lymph # (Auto) 0.74 L [place] # (Auto) 0.45 Eos # (Auto) 0.00 Baso # (Auto) 0.07 Immature Gran # (Auto) 0.65 H Dohle Bodies 1+ PT INR APTT PTT Ratio Sodium Potassium Chloride Carbon Dioxide Anion Gap BUN Creatinine Est Cr Clr Drug Dosing Est GFR ( Amer) Est GFR (Non-Af Amer) BUN/Creatinine Ratio Glucose Lactate Calcium Magnesium Total Bilirubin Direct Bilirubin AST ALT Alkaline Phosphatase Troponin I High Sens Total Protein Albumin Procalcitonin Urine Color Urine Appearance Urine pH Ur Specific [place] Urine Protein Urine Glucose (UA) Urine Ketones Urine Blood Urine Nitrite Urine Bilirubin Urine Urobilinogen Ur Leukocyte Esterase Urine WBC (Auto) Urine RBC (Auto) U Hyaline Cast (Auto) U Epithel Cells (Auto) Urine Bacteria (Auto) Ur Renal Epithelial Cell Diagnostic Findings Abdomen/Pelvis CT 07/23/23 10:[address] WITHOUT CONTRAST CT DOSE: 1467.66 mGy.cm HISTORY: Acute left-sided flank pain with fever and urinary incontinence poss urin obstr TECHNIQUE: Multiaxial CT images of the abdomen and pelvis were performed without contrast. A dose lowering technique was utilized adhering to the principles of ALARA. COMPARISON STUDY: None. FINDINGS: Cardiomegaly. Right hemidiaphragmatic elevation with the hepatic dome only partially imaged. There are a few scattered low suspicion solid nodules of the left lung base measuring up to 4 mm. No free air. Unremarkable unenhanced spleen. The liver is enlarged with hepatic steatosis. No evidence of cirrhosis. The gallbladder is mildly distended. Moderately atrophic pancreas. Unremarkable adrenal glands. Mild nonspecific bilateral perinephric stranding. No renal or ureteral calculi or hydronephrosis. Decompressed urinary bladder with Erazo catheter in place. No abdominal aortic aneurysm. Enlarged right iliac chain and right inguinal lymph nodes include right inguinal lymphadenopathy measuring up to 1.6 cm and right iliac chain lymph nodes measuring up to 1.4 cm. There is mild to moderate inflammatory stranding surrounding the right iliac and femoral veins. There is no bowel obstruction or bowel wall thickening. Mild to moderate colonic fecal retention. Colonic diverticulosis. Noninflamed appendix. Fat filled supraumbilical hernia with diastases of 2.5 cm. Small fat filled umbilical hernia also noted containing a nonobstructed loop of ileum. Diastases recti. Degenerative changes of the spine, pelvis and hips. IMPRESSION: 1. No renal or ureteral calculi or hydronephrosis. 2. Right iliac and inguinal lymphadenopathy with adjacent inflammatory stranding. Findings should be correlated with lower extremity Doppler to exclude an underlying DVT. Additionally, follow-up ultrasound with possible tissue sampling of the lymph nodes should be considered in order to exclude a lymphoproliferative disorder. 3. No bowel obstruction or bowel wall thickening. 4. Hepatomegaly with hepatic steatosis. 5. Small fat filled umbilical hernia partially contains a loop of nonobstructed ileum. ACT 112: Positive. There are findings on this exam that require communication between the performing entity and the patient following Patient Test Result [place] Act [place] Act 112) guidelines. The above report was generated using voice recognition software. It may contain grammatical, syntax or spelling errors. Electronically signed by: Panfilo Melchor M.D. 07/23/2023 11:48 AM Chest X-Ray 07/23/23 10:37 XR chest 1V portable CLINICAL HISTORY: Sepsis. COMPARISON STUDY: No previous studies for comparison. FINDINGS: Postoperative findings within the spine are incidentally noted. There is no pneumothorax or pleural effusion. There is no evidence for pulmonary edema. There is mild cardiomegaly. IMPRESSION: No acute cardiopulmonary findings. Mild cardiomegaly. ACT 112: Negative or not required by law. Electronically signed by: Dev Fernandes M.D. 07/23/2023 11:31 AM Code Status & VTE Plan Code Status Full code - discussed with the patient at bedside VTE Prophylaxis Plan VTE Prophylaxis will be ordered: Yes Supervising Physician Co-Signing Physician Notes 62 yo black male with PMHx of obesity, HTN, HLD, DM II, marijuana use currently in [facility] for drug rehab program x past 2 years, who presents to the hospital with 3 days of worsening RLE swelling, pain, weakness and fever which started within the past 3 days Reported urinary frequency on ROS Reports chronic RLE swelling since ankle fracture 9 years ago Exam notable for obese man in painful distress, chronic edema of RLE, chronic changes with hyperpigmentation, some tenderness over right calf and medial thigh, no open wound, tachycardia, rigors Labs notable for leukocytosis, elevated lactate (now normalized), INR 2, Na 131, hypomagnesemia 1.5, Bilirubin 1.9, Elevated procal of 43.25 Sepsis Sources: Cellulitis, possible UTI Continue vanc and cefepime Follow up infectious workup Hold home metformin Check A1c. ISS Pain control F/u LE Doppler CT abd/P noted Rt iliac and inguinal lymphadenopathy with adjacent inflammatory stranding, hepatomegaly with hepatic steatosis Get RUQ USS Follow up LFT/INR EKG is showing Afib with RVR ER started cardizem drip Start lopressor Cards c/s. TTE Trend trop CHADVASc is 2. Recheck INR in AM as it is 2 at this time though not on warfarin/anticoag per med list. Patient reports he was on anticoag when he had DVT some years ago. Defer anticoag for now based on this
[2023-07-23] MEDS: VANCOMYCIN HCL 2,750 MG in SODIUM CHLORIDE 0.9% 500 ML IV ONE ×3 (13:44→17:49)
[2023-07-23] MEDS ORDERED: LACTATED RINGER'S 1,000 ML IV SCH (13:45)
[2023-07-23] MEDS ORDERED: dilTIAZem HCl 5 MG/ML 5 ML VIAL IV STA (14:10)
[2023-07-23] MEDS ORDERED: STAT IV Infusion **Titration per Protocol STA (14:10)
[2023-07-23] MEDS: dilTIAZem HCL 125 MG in DEXTROSE 5% 100 ML IV SCH (14:24)
[2023-07-23] MEDS ORDERED: METOPROLOL TARTRATE 25 MG TAB PO SCH (14:25)
[2023-07-23 14:46] LABS: Influenza A virus by PCR Negative (Neg); Influenza B virus by PCR Negative (Neg); RSV by PCR Negative (Neg); SARS CoV2 RNA(COVID-19) Ceph NEGATIVE (Negative)
[2023-07-23] MEDS: oxyCODONE HCL IR 5 MG TAB (IMMEDIATE RELEASE) PO PRN ×2 (15:59→23:17)
--- NOTE | 2023-07-23 15:59 | Cardiology Consultation ---
Date of Consultation July 23, 2023 Assessment & Plan (1) Septic shock: (2) Atrial fibrillation with rapid ventricular response: (3) New onset a-fib: (4) HTN (hypertension): (5) Morbid obesity: 62 year old male admitted from the [facility] with sepsis. Antibiotic coverage provided. Blood and urine cultures pending. Cardiology consultation requested due to new onset atrial fibrillation with a rapid ventricular response. Plan - Hold prior to arrival amlodipine, HCTZ, losartan - Agree with fluid resuscitation - Supplement potassium orally and magnesium IV - Continue IV diltiazem infusion for rate control for now - Add metoprolol tartrate 12.5 mg QID, as blood pressure permits - Add IV digoxin if unable to utilize metoprolol - Patient is "auto-anticoagulated" Hold off on adding anticoagulation therapy. - DVT/PE evaluation pending. - Echo pending. - Recommend evaluation for suspected underlying liver disease Supervising Physician Co-Signing Physician Notes Supervising Physician Attestation: I have personally performed a history and physical examination on the patient. I agree with the physician traffic assistant's findings and plan as documented with the following additions. Subjective: Patient seen in the emergency department, room B 6 with energy control officer present. Patient in bed, ill-appearing. Telemetry reveals atrial fibrillation with rate in the 120s at the time my assessment. Per his nurse, heart rate is much improved than what it had been prior to titrating diltiazem to 12.5 mg/h. Exam: Cardiovascular: Tachycardic, irregular rhythm, no murmurs, right lower extremity edema/lymphedema in appearance with superimposed cellulitis Data: INR 2 Assessment and Plan: Problem list as noted above -Maintain IV diltiazem as blood pressure allows. -Admit Toprol tartrate 12.5 mg 4 times daily -Antibiotics as per admitting team -Holding off on anticoagulation due to INR. Question if patient has underlying liver disease, or if coagulopathy is due to underlying sepsis. Jose Juan Beck, History of Present Illness Reason for Consultation: New onset atrial fibrillation with a rapid ventricular response Requesting Physician: Kailee Attending Physician: KACI History of Present Illness Information somewhat difficult to discern, obtained via interviewing the patient as able, chart review including ER provider documentation, admission H&P, and the EMS report. Patient enrolled in the drug rehabilitation program at the [facility] EMS summoned for a patient with groin and lower back pain, incontinence x 3 days, low grade fever. [facility] provider documentation notes 3 days of left flank pain, fever, urinary frequency, lethargy, worsening right lower extremity swelling and pain Patient febrile and tachycardic on presentation. Right lower extremity cellulitis suspected along with possible urinary tract infection. Procalcitonin 43.25 ng/mL Patient received fluid resuscitation with 2 L of normal saline solution, currently receiving LR at 150 mL/h Initial rhythm was sinus/sinus tachycardia with admission EKG revealing presumably new onset atrial fibrillation with a rapid ventricular response, 159 bpm with diffuse STT wave depression. Initial rate lowering measures included 15 mg of IV diltiazem followed by diltiazem infusion and oral metoprolol tartrate at 12.5 mg twice per day. INR notably 2.0. Patient denies current anticoagulation use. He notes "heavy" use of alcohol in the past. High-sensitivity troponin elevated at 57.7 and 59.0 pg/mL Admission chest x-ray showed no acute cardiopulmonary findings Serology negative for COVID, influenza, and RSV. Patient denies chest pain or discomfort, shortness of breath, or overt palpitations. Patient denies history of atrial fibrillation, arrhythmia, congestive heart failure, CAD/CA, heart murmur, rheumatic fever or scarlet fever. Past Medical and Surgical History: Morbid obesity History of right knee and right ankle surgery History of right lower extremity DVT Hypertension Dyslipidemia Type 2 diabetes mellitus Prior marijuana use Social History: Prior heavy alcohol use. Non-smoker. See above. Family History: Unable to be obtained. Allergies Allergy/AdvReac Type Severity Reaction Status Date / Time lisinopril Allergy Intermediate Unknown Unverified 07/23/23 13:02 Home Medications Medication Instructions Recorded Confirmed Type acetaminophen 500 mg tablet 500 mg PO TID PRN Other 07/23/23 07/23/23 History albuterol sulfate 90 mcg/actuation 2 puff inhalation QID PRN Other 07/23/23 07/23/23 History aerosol inhaler (Proventil HFA) amlodipine 10 mg tablet 10 mg PO DAILY 07/23/23 07/23/23 History ciclesonide 160 mcg/actuation 1 puff inhalation BID 07/23/23 07/23/23 History aerosol inhaler (Alvesco) hydrochlorothiazide 25 mg tablet 25 mg PO DAILY 07/23/23 07/23/23 History losartan 50 mg tablet 50 mg PO DAILY 07/23/23 07/23/23 History metformin 500 mg tablet 500 mg PO BID 07/23/23 07/23/23 History rosuvastatin 5 mg tablet 5 mg PO DAILY 07/23/23 07/23/23 History tamsulosin 0.4 mg capsule 0.8 mg PO HS 07/23/23 07/23/23 History Patient History Medical History DM II (diabetes mellitus, type II), controlled History of fracture of right ankle HLD (hyperlipidemia) HTN (hypertension) Morbid obesity Surgical History Hx of right knee surgery Social History Smoking Status: Never smoker Hx Substance Use: Yes Non-Prescribed Medications: Marijuana Preferred Language: [place] Feels Safe at Home: Yes Review of Systems Review of Systems: Complete Review of Systems unable to be obtained Physical Exam Physical Exam: General: Alert to person and place. Lethargic, intermittently falling asleep, snoring, without observed apneic episodes. HEENT: Normocephalic. Atraumatic. Eyes: PER. Conjunctiva pink, sclera clear. Neck: Unable to appreciate neck veins. Heart: Irregularly irregular at 130 bpm. No murmur appreciated. No rub. Lungs: Clear to auscultation anteriorly. Abdomen: Obese. Distended. +BS. Nontender. Extremities: Diffusely tender right lower extremity with stasis changes and 2-3+ edema. No open wounds. Left leg shackled to the bed. No cyanosis Limited neurological examination is without focal deficits. Pulses: radial=1/4, posterior tibial=0/4. Results & Data Vital Signs (Past 12 Hours) Vital Signs Pulse Resp BP Pulse Ox O2 Del Method O2 Flow Rate 07/23/23 14:43 142 H 21 108/77 100 Nasal Cannula 2 07/23/23 14:14 146 H 07/23/23 13:48 162/87 H 94 2 07/23/23 12:00 111 H 20 91 07/23/23 11:21 116 H 07/23/23 10:36 120 H 36 H 163/85 H 96 Room Air Laboratory Results Cardiac Enzymes 07/23/23 07/23/23 Range/Units 10:45 12:54 AST 39 (13-39) U/L Troponin I High Sens 57.7 H* 59.0 H* (0-20) pg/ml Coagulation 07/23/23 Range/Units 10:45 PT 20.6 H (9.0-12.0) Seconds APTT 33.6 H (21.0-31.0) Seconds CBC 07/23/23 Range/Units 10:45 WBC 16.20 H (4.8-10.8) K/ul RBC 4.82 (4.70-6.10) M/uL Hgb 13.6 L (14.0-18.0) g/dl Hct 41.8 L (42.0-52.0) % Plt Count 202 (130-400) K/uL Neut # (Auto) 14.29 H (1.40-6.50) K/uL Lymph # (Auto) 0.74 L (1.20-3.40) K/uL [place] # (Auto) 0.45 (0.11-0.59) K/uL Eos # (Auto) 0.00 (0.00-0.50) K/uL Baso # (Auto) 0.07 (0.00-0.20) K/uL Comprehensive Metabolic Panel 07/23/23 Range/Units 10:45 Sodium 131 L (136-145) mmol/L Potassium 3.5 (3.5-5.1) mmol/L Chloride 98 (98-107) mmol/L Carbon Dioxide 24 (21-32) mmol/L BUN 20 (6-23) mg/dl Creatinine 1.25 (0.6-1.4) mg/dl Glucose 116 H (70-99(Fasting)) mg/dl Calcium 8.9 (8.6-10.3) mg/dl Direct Bilirubin 0.8 H (0-0.2) mg/dl AST 39 (13-39) U/L ALT 27 (7-52) U/L Alkaline Phosphatase 73 (34-104) U/L Total Protein 7.4 (6.0-8.3) gm/dl Albumin 4.0 (3.4-5.0) gm/dl Intake and Output 07/23/23 07/23/23 07/23/23 06:59 14:59 22:59 Intake Total 0 / 9.125 9.125 / 2209.125 Balance 2200 / 2208.125 9.125 / 9.125 Intake: IV 2200 / 9.125 9.125 / 9.125 Acetaminophen 1,000 mg In 100 100 / 100 ml @ 400 mls/hr IV NOW STA Rx#: [id number] Magnesium Sulfate / D5w 1 gm In 100 / 100 100 ml @ 100 mls/hr IV NOW STA Rx#:[id number] Sodium Chloride 0.9% 1,000 ml @ 2000 / 2000 999 mls/hr IV .Q1H1M NEGRITA Rx#: [id number] dilTIAZem HCL 125 mg In 9.125 / 9.125 Dextrose 5% 100 ml @ 5 MG/HR 5 mls/hr IV .Q24H NEGRITA Rx#: [id number] Other: Weight 168.2 kg Weight Measurement Method Built in [facility] Patient Weight 07/24/23 06:59 Weight 168.2 kg
[2023-07-23] MEDS ORDERED: POTASSIUM CHLORIDE 10 MEQ TABCR PO ONE ×2 (16:48→20:12)
--- NOTE | 2023-07-23 17:51 | Ultrasound Report ---
US venous doppler LE BI CLINICAL HISTORY: swollen, hist clots TECHNIQUE: Right lower extremity real-time compression venous ultrasound with Color Doppler imaging. Utilizing real-time ultrasonic imaging multiple real time high-resolution ultrasonic images with comp ression and noncompression maneuvers of the deep venous system in addition to color doppler imaging w ere performed from the common femoral vein through the proximal calf veins. COMPARISON: None available at the time of this dictation. FINDINGS/IMPRESSION: A deep venous thrombosis in the right common femoral vein, superficial femoral vein, and popliteal ve in, this appears nonocclusive and is age-indeterminate. The calf vessels are not well evaluated due t o soft tissue swelling. No left-sided thrombus is seen. Incidental note is made of a large right ingu inal lymph node measuring 3.5 x 2.6 cm. There is suggestion of a fatty hilum. ACT 112: Negative or not required by law. Electronically signed by: David Snyder M.D. 07/23/2023 5:50 PM
[2023-07-23] MEDS ORDERED: ONDANSETRON INJ 2 MG/ML 2 ML VIAL IV PRN (18:41)
[2023-07-23] MEDS ORDERED: GLUCOSE 40% GEL 15 GM TUBE PO PRN (18:41)
[2023-07-23] MEDS ORDERED: GLUCAGON FOR INJ 1 MG VIAL SQ PRN (18:41)
[2023-07-23] MEDS ORDERED: CARBOHYDRATES FOR HYPOGLYCEMIA PO PRN (18:41)
[2023-07-23] MEDS ORDERED: GLUCOSE 10 TAB/TUBE PO PRN (18:41)
[2023-07-23] MEDS ORDERED: DEXTROSE 50% 50 ML SYRINGE IV PRN (18:41)
[2023-07-23] MEDS: ACETAMINOPHEN 325 MG TAB PO SCH ×2 (18:56→20:14)
[2023-07-23] MEDS ORDERED: Heparin IV Adult Wt-Based Standard *NO* Bolus Protocol IV STA (18:58)
[2023-07-23] MEDS: METOPROLOL TARTRATE 25 MG TAB PO SCH ×2 (20:15→22:11)
[2023-07-23] MEDS: CEFEPIME 2,000 MG in SYRINGE 0 ML IV SCH (20:33)
[2023-07-23] MEDS: HEPARIN SODIUM/DEXTROSE 25,000 UNITS/500 ML BAG IV SCH (20:50)
[2023-07-23] MEDS: MAGNESIUM SULFATE / D5W 1 GM/100 ML BAG IV SCH ×2 (20:58→22:09)
[2023-07-23] MEDS ORDERED: DAPTOmycin 725 MG in SYRINGE 0 ML IV SCH (21:00)
[2023-07-23 21:35] LABS: A calco-baum cmplx NotReported Not Detected (NotDetected); Bact fragilis Not Reported Not Detected (NotDetected); C auris Not Reported Not Detected (NotDetected); Calbicans Not Reported Not Detected (NotDetected); Candida glabrata Not Reported Not Detected (NotDetected); Candida krusei Not Reported Not Detected (NotDetected); Cneoformans/gatti Not Reported Not Detected (NotDetected); Cparapsilosis Not Reported Not Detected (NotDetected); E cloacae compx Not Reported Not Detected (NotDetected); Efaecalis Not Reported Not Detected (NotDetected); Efaecium Not Reported Not Detected (NotDetected); Enterobacterales Not Reported Not Detected (NotDetected); Escherichia coli Not Reported Not Detected (NotDetected); H influenzae Not Reported Not Detected (NotDetected); K aerogenes Not Reported Not Detected (NotDetected); Koxytoca Not Reported Not Detected (NotDetected); Kpneumoniae grp Not Reported Not Detected (NotDetected); Lmonocyt Not Reported Not Detected (NotDetected); N meningitidis Not Reported Not Detected (NotDetected); P aeruginosa Not Reported Not Detected (NotDetected); Proteus spp Not Reported Not Detected (NotDetected); Salmonella spp Not Reported Not Detected (NotDetected); Smarcescens Not Reported Not Detected (NotDetected); Staph lugdunensis Not Reported Not Detected (NotDetected); Staph spp. Not Reported Not Detected (NotDetected); Staphaureus Not Reported Not Detected (NotDetected); Staphepi Not Reported Not Detected (NotDetected); Stenmaltophilia Not Reported Not Detected (NotDetected); Strep agal(GrpB) Not Reported Not Detected (NotDetected); Strep pneum Not Reported Not Detected (NotDetected); Strep pyog (GrpA) Not Reported DETECTED (NotDetected); Strep spp Not Reported DETECTED (NotDetected); Streptococcus spp DETECTED (NotDetected)
[2023-07-23 21:48] LABS: BUN Creatinine Ratio 18.9 (10-20); Calcium 5.3 mg/dl (8.6-10.3); Creatinine Clr Calc Pharmacy 145.5 ml/min; Est GFR (African American) 106.5 ml/min; Est GFR (Non-African American) 91.9 ml/min; Potassium 2.9 mmol/L (3.5-5.1); Troponin I High Sensitivity 42.7 pg/ml (0-20)
[2023-07-23 22:01] LABS: INR 1.9 (0.9-1.1); Partial Thromboplastin Ratio 1.5; Prothrombin Time 19.8 Seconds (9.0-12.0)
[2023-07-23] MEDS ORDERED: STAT IV/IM STA (22:01)
[2023-07-23] MEDS: INSULIN ASPART PER UNIT CHARGE SC SCH ×2 (22:01→22:15)
[2023-07-23] MEDS ORDERED: POTASSIUM CHLORIDE CRTAB 20 MEQ TABCR PO STA (22:01)
[2023-07-23 22:03] LABS: Partial Thromboplastin Time 41.6 Seconds (21.0-31.0)
[2023-07-23 22:11] LABS: Streptococcus pyogenes (GrpA) DETECTED (NotDetected)
[2023-07-23] MEDS: TAMSULOSIN HCL 0.4 MG CAP PO SCH (22:11)
[2023-07-23] MEDS: POTASSIUM CHLORIDE / WTR 10 MEQ/100 ML PLCT IV SCH (23:47)
[2023-07-24] MEDS: CALCIUM GLUCONATE 10% 1,000 MG in SODIUM CHLOR 0.9% MINI-B 50 ML IV SCH ×2 (00:07→00:32)
[2023-07-24] MEDS: dilTIAZem HCL 125 MG in DEXTROSE 5% 100 ML IV SCH (00:56)
[2023-07-24] MEDS: POTASSIUM CHLORIDE / WTR 10 MEQ/100 ML PLCT IV SCH ×3 (01:46→05:48)
[2023-07-24 02:58] LABS: Hematocrit (blood only) 36.2 % (42.0-52.0); Hemoglobin 11.7 g/dl (14.0-18.0); Mean Corpuscular Hemoglobin 28.3 pg (25.0-34.0); Mean Corpuscular Hgb Conc 32.3 g/dL (32.0-36.0); Mean Corpuscular Volume 87.4 fL (80.0-100.0); Platelet Count 145 K/uL (130-400); RDW Coefficient of Variation 14.1 % (11.5-14.5); RDW Standard Deviation 45.6 fL (36.4-46.3); Red Blood Count 4.14 M/uL (4.70-6.10); White Blood Count 13.26 K/ul (4.8-10.8)
[2023-07-24] MEDS: LACTATED RINGER'S 1,000 ML IV SCH ×3 (03:29→09:17)
[2023-07-24 03:38] LABS: INR 1.5 (0.9-1.1); Partial Thromboplastin Ratio 2.3; Prothrombin Time 15.7 Seconds (9.0-12.0)
[2023-07-24 03:41] LABS: Partial Thromboplastin Time 63.8 Seconds (21.0-31.0)
[2023-07-24] MEDS: CEFEPIME 2,000 MG in SYRINGE 0 ML IV SCH (04:23)
[2023-07-24] MEDS: ACETAMINOPHEN 325 MG TAB PO SCH ×4 (04:24→20:27)
[2023-07-24 05:22] LABS: Albumin Globulin Ratio 1.1 (0.9-2); Albumin Level 3.3 gm/dl (3.4-5.0); BUN Creatinine Ratio 15.1 (10-20); Bilirubin,Total 2.7 mg/dl (0.2-1.0); Calcium 8.1 mg/dl (8.6-10.3); Chol HDL Ratio 4.4 (0-5); Creatinine Clr Calc Pharmacy 70.8 ml/min; Est GFR (African American) 44.6 ml/min; Est GFR (Non-African American) 38.4 ml/min; Globulin 3.1 gm/dl (2.5-4.0); Phosphorus 2.9 mg/dl (2.5-4.9); Potassium 4.3 mmol/L (3.5-5.1); Total Protein 6.4 gm/dl (6.0-8.3)
[2023-07-24] MEDS ORDERED: POTASSIUM CHLORIDE 10 MEQ / 100ML WTR IV ONE (05:47)
[2023-07-24] MEDS ORDERED: STAT IV/IM STA (06:49)
[2023-07-24] MEDS ORDERED: CALCIUM GLUCONATE 10% 1,000 MG in SODIUM CHLOR 0.9% MINI-B 50 ML IV ONE (07:00)
[2023-07-24 07:14] LABS: Estimated Average Glucose 131 mg/dl; Hemoglobin A1C 6.2 % (4.5-5.6)
[2023-07-24] MEDS: HEPARIN SODIUM/DEXTROSE 25,000 UNITS/500 ML BAG IV SCH ×2 (07:20→17:29)
--- NOTE | 2023-07-24 08:30 | Cardiology Progress Note ---
Date of Service July 24, 2023 Assessment & Plan (1) Septic shock: (2) Atrial fibrillation with rapid ventricular response: (3) New onset a-fib: (4) HTN (hypertension): (5) Morbid obesity: Plan: 62 year old male admitted from the [facility] with groin pain, incontinence, low-grade fever -> sepsis; bacteremia, gram-positive cocci in chains. Cardiology consultation requested due to new onset atrial fibrillation with a rapid ventricular response. Plan - Hold prior to arrival amlodipine, HCTZ, losartan - Maintain normokalemia and normomagnesemia. - Decrease IV diltiazem infusion to 5 mg/hr and wean off if able today. - Continue metoprolol tartrate 12.5 mg QID as blood pressure permits (hold for SBP < 90) - Utilize IV digoxin if hypotension does not permit the above. - IV heparin initiated after the venous duplex revealed age-indeterminate nonocclusive deep venous thrombosis in the right common femoral vein, superficial femoral vein, and popliteal vein. Admission and Anticipated Discharge Date Admission Date: July 23, 2023 Supervising Physician Co-Signing Physician Notes Supervising Physician Attestation: I have personally performed a history and physical examination on the patient. I agree with the physician assistant business manager's findings and plan as documented with the following additions. Subjective: Patient seen by the undersigned at approximately 1700 today having been seen by Malcolm this morning. At the time my assessment, the diltiazem infusion which had been at 12.5 mg/min yesterday afternoon had been titrated to off. Most recent vital signs performed at 1634 included blood pressure 133/73, and at the time of my assessment on telemetry atrial fibrillation with controlled rates in the range of 100 205 bpm observed. Patient still ill in appearance. Tmax 39 C 07/23/2023 at 20: 06. Exam: General: Ill in appearance Cardiovascular: Irregular rhythm, right lower extremity, severe edema Data: Venous duplex: A deep venous thrombosis in the right common femoral vein, superficial femoral vein, and popliteal vein, this appears nonocclusive and is age-indeterminate. The calf vessels are not well evaluated due to soft tissue swelling. No left- sided thrombus is seen. Incidental note is made of a large right inguinal lymph node measuring 3.5 x 2.6 cm. There is suggestion of a fatty hilum. CT of the abdomen and pelvis also revealed right iliac and inguinal lymphadenopathy EKG 07/24/2023 9:27 AM: Atrial fibrillation 88 bpm, mild nonspecific repolarization changes improved compared to 07/23/2023 2/2 blood cultures positive for group a beta strep Assessment and Plan: Group A beta streptococcal bacteremia Resultant sepsis-presumably due to cellulitis, occult abscess not excluded Atrial fibrillation Right lower extremity DVT Initially presented with coagulopathy, INR 2 which is trended down to 1.5 -Diltiazem infusion titrated off -Patient had a single systolic blood pressure was elevated at 167/75, remaining blood pressures today have been on the lower side, and he certainly looks like he is at risk for developing worsening sepsis and septic shock. -Continue metoprolol tartrate 12.5 mg 4 times daily. -I counseled the patient's nurse not to administer the previous dose of labetalol. -Discontinue plan to start ESTIMATOR BINDING amlodipine tomorrow in favor of metoprolol -LDL cholesterol 37 mg/dL, okay from my standpoint to resume rosuvastatin unless there is a concern or contraindication. -Infectious disease input noted and appreciated. Noted concern with regards to inguinal lymphadenopathy. Transthoracic echocardiogram performed admission without evidence of vegetation. Continue serial blood cultures. Consideration made with regards to transesophageal cardiogram if his blood cultures were to remain persistently positive. Patient morbidly obese and felt to have a high risk airway, and this would need to be taken into account with regards to benefits of the information versus risks as hospitalization progresses. -Agree with heparin for stroke prophylaxis and DVT prophylaxis. Question if INR had been high on admission due to underlying sepsis. DVT prophylaxis: [] I spent a total of [] minutes on the date of service in preparation, delivery, and documentation of the care provided to this patient, excluding any time spent in the performance of separately billed services. Jose Juan Beck, Subjective Chart reviewed. Patient interviewed and examined. Provider nurse and provider documentation reviewed. Spoke with patient's nurse this morning. Cardizem increased to 12.5 mg/hour overnight for rate control Telemetry reveals rate controlled atrial fibrillation, currently with heart rates in the 90s. Systolic blood pressure 86 Blood cultures revealing gram-positive cocci in chains. IV heparin initiated last evening after venous duplex revealed age-indeterminate nonocclusive deep venous thrombosis in the right common femoral vein, superficial femoral vein, and popliteal vein. No left-sided thrombus observed. Resting echocardiography on July 23, 2023, as interpreted by Dr. Beck, demonstrated the following: To hyperdynamic systolic function, EF 65 to 70%. Mild pulmonary hypertension, estimated PASP 40 mmHg. No regional wall motion abnormalities. Atrial fibrillation with rapid ventricular response present during echocardiogram study. Patient sleeping/snoring upon evaluation. Does eventually answer questions appropriately. No chest pain. No palpitations. No shortness of breath. Chronic back pain and chronic leg pain, both present for years. Review of Systems Review of Systems: Complete review of systems is otherwise as stated above, negative, or noncontributory Physical Exam Physical Exam: General: Alert to person and place. Lethargic, intermittently falling asleep, snoring, without observed apneic episodes. HEENT: Normocephalic. Atraumatic. Eyes: PER. Conjunctiva pink, sclera clear. Neck: Bearded. Thick. Unable to appreciate neck veins. Heart: Irregularly irregular at 90 bpm. No murmur appreciated. No rub. Lungs: Faint expiratory wheezing. Abdomen: Obese. Distended. +BS. Nontender. Extremities: Right lower extremity appears less swollen and erythematous, 1-2+ edema. Left leg shackled to the bed. No cyanosis. Limited neurological examination is without focal deficits. Pulses: radial=1/4, posterior tibial=0/4. Results & Data Vital Signs (Past 12 Hours) Vital Signs Temp Pulse Pulse Resp BP BP Pulse Ox 07/24/23 08:09 96 H 20 99/55 L 92 07/24/23 08:01 94 H 23 86/51 L 93 07/24/23 08:01 94 H 23 93 07/24/23 08:00 91 H 19 92 07/24/23 07:16 90/68 L 07/24/23 07:02 81/46 L 07/24/23 08:11 37.3 C 101 H 16 99/55 L 97 07/24/23 07:38 85 07/24/23 05:01 91 H 20 114/65 95 07/24/23 05:00 91 H 21 93/63 L 94 07/24/23 05:38 37.2 C 07/24/23 04:31 106/67 07/24/23 04:31 97 H 21 07/24/23 04:00 91 H 19 94 07/24/23 03:30 95 H 23 92 07/24/23 04:37 38.9 C H 07/24/23 03:00 88 21 97/72 L 96 07/24/23 02:30 95 H 20 111/76 94 07/24/23 02:00 88 21 103/65 94 07/23/23 23:00 78 07/23/23 23:59 07/23/23 22:00 93 07/24/23 01:30 83 20 110/68 93 07/24/23 01:00 88 24 94/75 L 96 07/24/23 00:30 81 19 118/73 97 07/24/23 00:00 72 18 103/77 96 07/23/23 23:40 83 22 122/71 96 07/23/23 23:00 87 20 115/64 94 07/23/23 22:30 90 15 112/65 95 07/23/23 22:00 98 H 21 125/85 95 07/23/23 21:30 106 H 20 111/73 95 07/23/23 21:54 07/23/23 21:15 98 H 22 96 07/23/23 21:00 101 H 23 105/68 95 07/23/23 20:45 98 H 18 104/74 96 07/23/23 20:33 98 H 25 H 114/90 96 07/23/23 20:30 100 H 24 95 Pulse Ox O2 Del Method O2 Del Method O2 Flow Rate O2 Flow Rate 07/24/23 08:09 07/24/23 08:01 07/24/23 08:01 07/24/23 08:00 07/24/23 07:16 07/24/23 07:02 07/24/23 08:11 Nasal Cannula 2 07/24/23 07:38 07/24/23 05:01 07/24/23 05:00 07/24/23 05:38 07/24/23 04:31 07/24/23 04:31 07/24/23 04:00 07/24/23 03:30 07/24/23 04:37 07/24/23 03:00 Nasal Cannula 2 07/24/23 02:30 Nasal Cannula 2 07/24/23 02:00 Nasal Cannula 2 07/23/23 23:00 07/23/23 23:59 Nasal Cannula 2 07/23/23 22:00 Nasal Cannula 2 07/24/23 01:30 Nasal Cannula 2 07/24/23 01:00 Nasal Cannula 2 07/24/23 00:30 07/24/23 00:00 Nasal Cannula 2 07/23/23 23:40 Nasal Cannula 2 07/23/23 23:00 Nasal Cannula 2 07/23/23 22:30 07/23/23 22:00 07/23/23 21:30 07/23/23 21:54 96 Nasal Cannula 2 07/23/23 21:15 Nasal Cannula 2 07/23/23 21:00 Nasal Cannula 2 07/23/23 20:45 07/23/23 20:33 Nasal Cannula 2 07/23/23 20:30 Laboratory Results Cardiac Enzymes 07/23/23 07/23/23 07/23/23 Range/Units 10:45 12:54 20:48 AST 39 (13-39) U/L Troponin I High Sens 57.7 H* 59.0 H* 42.7 H D (0-20) pg/ml 07/24/23 07/24/23 Range/Units 02:40 04:36 AST Cancelled 121 H (13-39) U/L Troponin I High Sens (0-20) pg/ml Coagulation 07/23/23 07/23/23 07/24/23 Range/Units 10:45 20:48 02:40 PT 20.6 H 19.8 H 15.7 H (9.0-12.0) Seconds APTT 33.6 H 41.6 H* 63.8 H* (21.0-31.0) Seconds Lipids 07/24/23 07/24/23 Range/Units 02:40 04:36 Triglycerides Cancelled 149 Cholesterol Cancelled 84 HDL Cholesterol Cancelled 19 Cholesterol/HDL Ratio Cancelled 4.4 CBC 07/23/23 07/24/23 Range/Units 10:45 02:40 WBC 16.20 H 13.26 H (4.8-10.8) K/ul RBC 4.82 4.14 L (4.70-6.10) M/uL Hgb 13.6 L 11.7 L (14.0-18.0) g/dl Hct 41.8 L 36.2 L (42.0-52.0) % Plt Count 202 145 (130-400) K/uL Neut # (Auto) 14.29 H (1.40-6.50) K/uL Lymph # (Auto) 0.74 L (1.20-3.40) K/uL [place] # (Auto) 0.45 (0.11-0.59) K/uL Eos # (Auto) 0.00 (0.00-0.50) K/uL Baso # (Auto) 0.07 (0.00-0.20) K/uL Comprehensive Metabolic Panel 07/23/23 07/23/23 07/24/23 Range/Units 10:45 20:48 02:40 Sodium 131 L 132 L Cancelled (136-145) mmol/L Potassium 3.5 2.9 L Cancelled (3.5-5.1) mmol/L Chloride 98 111 H Cancelled (98-107) mmol/L Carbon Dioxide 24 17 L Cancelled (21-32) mmol/L BUN 20 17 Cancelled (6-23) mg/dl Creatinine 1.25 0.90 D Cancelled (0.6-1.4) mg/dl Glucose 116 H 149 H Cancelled (70-99(Fasting)) mg/dl Calcium 8.9 5.3 L* D Cancelled (8.6-10.3) mg/dl Direct Bilirubin 0.8 H (0-0.2) mg/dl AST 39 Cancelled (13-39) U/L ALT 27 Cancelled (7-52) U/L Alkaline Phosphatase 73 Cancelled (34-104) U/L Total Protein 7.4 Cancelled (6.0-8.3) gm/dl Albumin 4.0 Cancelled (3.4-5.0) gm/dl 07/24/23 Range/Units 04:36 Sodium 132 L (136-145) mmol/L Potassium 4.3 D (3.5-5.1) mmol/L Chloride 103 (98-107) mmol/L Carbon Dioxide 21 (21-32) mmol/L BUN 28 H (6-23) mg/dl Creatinine 1.85 H D (0.6-1.4) mg/dl Glucose 141 H (70-99(Fasting)) mg/dl Calcium 8.1 L D (8.6-10.3) mg/dl Direct Bilirubin (0-0.2) mg/dl AST 121 H (13-39) U/L ALT 37 (7-52) U/L Alkaline Phosphatase 60 (34-104) U/L Total Protein 6.4 (6.0-8.3) gm/dl Albumin 3.3 L (3.4-5.0) gm/dl Intake and Output 07/23/23 07/24/23 07/24/23 22:59 06:59 14:59 Intake Total 297.625 / 4125.000 1627.375 / 4125.000 691.083 / 691.083 Output Total 500 / 500 Balance 297.625 / 3625.000 1127.375 / 3625.000 691.083 / 691.083 Intake: IV 117.625 / 3945.000 1627.375 / 3945.000 691.083 / 691.083 Calcium Gluconate 10% 1,000 mg 120 / 120 60 / 60 In Sodium Chlor 0.9% Mini-B 50 ml @ 240 mls/hr IV ONE ONE Rx#: [id number] Heparin Sodium/Dextrose 25,000 451.5 / 451.5 units In 500 ml @ 2,150 UNITS/ HR 43 mls/hr IV .[id number] PENDING SALE TO [facility] Rx #:[id number] Lactated Ringer's 1,000 ml @ 1000 / 1000 150 mls/hr IV .[id number] PENDING SALE TO [facility] Rx#: [id number] Magnesium Sulfate / D5w 1 gm In 100 / 200 100 / 200 100 ml @ 50 mls/hr IV Q2H PENDING SALE TO [facility] Rx#:[id number] Potassium Chloride / Wtr 10 meq 300 / 300 100 / 100 In 100 ml @ 100 mls/hr IV Q1H PENDING SALE TO [facility] Rx#:[id number] dilTIAZem HCL 125 mg In 17.625 / 125.000 107.375 / 125.000 79.583 / 79.583 Dextrose 5% 100 ml @ 5 MG/HR 5 mls/hr IV .Q24H PENDING SALE TO [facility] Rx#: [id number] Oral 180 / 180 Output: Urine Amount (Catheter) 500 / 500 Erazo/Indwelling 500 / 500 Other: Weight 168.2 kg Weight Measurement Method Built in [facility] Patient Weight 07/25/23 06:59 Weight 168.2 kg
[2023-07-24] MEDS: INSULIN ASPART PER UNIT CHARGE SC SCH ×4 (08:37→20:19)
[2023-07-24] MEDS: METOPROLOL TARTRATE 25 MG TAB PO SCH ×4 (08:38→20:27)
[2023-07-24] MEDS ORDERED: LOSARTAN POTASSIUM 50 MG TAB PO SCH (09:00)
[2023-07-24] MEDS ORDERED: amLODIPine BESYLATE 5 MG TAB PO SCH (09:00)
[2023-07-24] MEDS ORDERED: ENOXAPARIN INJ 40 MG/0.4 ML SYR SQ SCH (09:00)
[2023-07-24] MEDS ORDERED: hydroCHLOROthiazide 25 MG TAB PO SCH (09:00)
[2023-07-24] MEDS: oxyCODONE HCL IR 5 MG TAB (IMMEDIATE RELEASE) PO PRN (11:49)
[2023-07-24] MEDS: ceFAZolin 2000MG 2,000 MG/15 ML SYR IV SCH ×2 (11:49→20:27)
[2023-07-24] MEDS ORDERED: LABETALOL HCL IV 5 MG/ML 20ML IV STA (15:59)
[2023-07-24] MEDS ORDERED: amLODIPine BESYLATE 5 MG TAB PO ONE (16:02)
--- NOTE | 2023-07-24 16:05 | Infectious Disease Consult ---
Date of Service July 24, 2023 Telehealth Information I performed this visit using a real-time telehealth connection between my location and the patients location ([facility]). After connecting through interactive tele-video, patient was identified by name and date of and/or wristband check.Patient (or authorized healthcare administrative representative) was informed that this was a telemedicine visit and it was being conducted confidentially over secure lines. My office door was closed and no one else was present in the room with me.Patient (or authorized healthcare administrative representative) provided consent to proceed with the visit, expressed an understanding of privacy and security of the telemedicine visit, and gave permission to have a hospital administrative representative in the room in order to assist with the visit and to conduct portions of the visit, as needed. I informed the patient (or authorized healthcare administrative representative) that I reviewed their record and presented the opportunity for them to ask any questions regarding the visit today. The patient agreed to participate. Assessment & Plan (1) Bacteremia: Plan: Repeat blood cultures to ensure clearance. If still positive, he may need repeat imaging and KODAK. (2) Cellulitis: Plan: Continue IV cefazolin. In the meantime, add linezolid 600mg po bid for toxin suppression. He should have a general surgery evaluation and a low threshold for surgical exploration of his right inguinal region/thigh if any clinical worsening. Final abx plans will depend on clinical course and clearance of bacteremia. History of Present Illness History of Present Illness Mr. Majano is a 62yo male with a h/o morbid obesity (168kg) and DM. He is a prisoner and was brought to the [facility] ED yesterday 07/23/23 with a 3 day h/o progressive RLE swelling, pain, erythema, fever and malaise. He was found to be febrile with Afib and RVR with cellulitis in his right thigh. He denies any trauma there, but does note a h/o prior ankle fracture in that leg as well as knee fracture requiring surgical "reconstruction" in 2013 and 2015 respectively. Blood cultures on admission turned positive for GAS. Today he reports feeling no better, still feels weak with diffuse body aches and RLE pain, no appetite. No N/V or diarrhea. Allergies Allergy/AdvReac Type Severity Reaction Status Date / Time lisinopril Allergy Intermediate Unknown Unverified 07/23/23 13:02 Home Medications Medication Instructions Recorded Confirmed Type acetaminophen 500 mg tablet 500 mg PO TID PRN Other 07/23/23 07/23/23 History albuterol sulfate 90 mcg/actuation 2 puff inhalation QID PRN Other 07/23/23 07/23/23 History aerosol inhaler (Proventil HFA) amlodipine 10 mg tablet 10 mg PO DAILY 07/23/23 07/23/23 History ciclesonide 160 mcg/actuation 1 puff inhalation BID 07/23/23 07/23/23 History aerosol inhaler (Alvesco) hydrochlorothiazide 25 mg tablet 25 mg PO DAILY 07/23/23 07/23/23 History losartan 50 mg tablet 50 mg PO DAILY 07/23/23 07/23/23 History metformin 500 mg tablet 500 mg PO BID 07/23/23 07/23/23 History rosuvastatin 5 mg tablet 5 mg PO DAILY 07/23/23 07/23/23 History tamsulosin 0.4 mg capsule 0.8 mg PO HS 07/23/23 07/23/23 History Patient History Medical History DM II (diabetes mellitus, type II), controlled History of fracture of right ankle HLD (hyperlipidemia) HTN (hypertension) Morbid obesity Surgical History Hx of right knee surgery Social History Smoking Status: Never smoker Hx Alcohol Use: No Hx Substance Use: Yes Non-Prescribed Medications: Marijuana Preferred Language: Surinamese Communication Ability: Effective Aircraft Sheet Metal Mechanic Required: No Current Living Situation: Other Current Living Situation Comment: [facility] Other Information That Helps Us Care for You: No Feels Safe at Home: Yes Safety Concerns: Feels Safe At This Time Review of Systems Gen- Malaise, fever, generlaized weakness HEENT- No sore throat, DAVEY Respirations-- No SOB or cough, but feels tired with any exertion CV- No chest pain Abd- No N/V or diarrhea. Positive for anorexia. - No dysuria MSK- RLE pain, swelling, redness especially near inguinal area SKin- No rash Physical Exam Gen- Tired-appearing, NAD HEENT- OP clear Neck-- ROM intact Lungs- Normal rate of breathing MSK-- RLE with pain to palpation, erythema near proximal thigh and inguinal region. ROM of knee intact. Ext- RLE with 2-3+ edema Skin- No rash Results & Data Vital Signs (Past 12 Hours) Vital Signs Temp Pulse Pulse Resp BP BP Pulse Ox 07/24/23 11:27 36.8 C 98 H 22 167/75 H 90 07/24/23 09:44 83 07/24/23 09:39 07/24/23 09:34 37.0 C 79 18 94/66 L 92 07/24/23 09:24 37.3 C 99 H 16 97 07/24/23 08:09 96 H 20 99/55 L 92 07/24/23 08:01 94 H 23 86/51 L 93 07/24/23 08:01 94 H 23 93 07/24/23 08:00 91 H 19 92 07/24/23 07:16 90/68 L 07/24/23 07:02 81/46 L 07/24/23 08:24 07/24/23 08:11 37.3 C 101 H 16 99/55 L 97 07/24/23 07:38 85 07/24/23 05:01 91 H 20 114/65 95 07/24/23 05:00 91 H 21 93/63 L 94 07/24/23 05:38 37.2 C 07/24/23 04:31 106/67 07/24/23 04:31 97 H 21 07/24/23 04:00 91 H 19 94 07/24/23 04:37 38.9 C H O2 Del Method O2 Flow Rate 07/24/23 11:27 Nasal Cannula 07/24/23 09:44 07/24/23 09:39 Nasal Cannula 2 07/24/23 09:34 Nasal Cannula 2 07/24/23 09:24 Nasal Cannula 07/24/23 08:09 07/24/23 08:01 07/24/23 08:01 07/24/23 08:00 07/24/23 07:16 07/24/23 07:02 07/24/23 08:24 Nasal Cannula 2 07/24/23 08:11 Nasal Cannula 2 07/24/23 07:38 07/24/23 05:01 07/24/23 05:00 07/24/23 05:38 07/24/23 04:31 07/24/23 04:31 07/24/23 04:00 07/24/23 04:37 Laboratory Results WBC 16.2 -> 13.26 Hgb 11.7 Platelets 145 Creatinine 1.85 BUN 28 Total bili 2.7 AST 121 ALT 37 UA with 1-5 WBC, 0-4 RBC Diagnostic Findings MRSA swab negative RVP negative Blood cultures 07/23/23 with 4 of 4 bottles GAS TTE from 07/23/23 reviewed: No obvious vegetations CT abdomen/pelvis from 07/23/23 reviewed by me: hepatomegaly, fatty liver, right inguinal LAD Doppler US from 07/23/23 with DVT (2) Cellulitis Laterality: right Site of cellulitis: extremity Site of cellulitis of extremity: lower extremity Qualified Code(s): L03.115 - Cellulitis of right lower limb
--- NOTE | 2023-07-24 16:10 | Hospitalist Progress Note ---
Date of Service July 24, 2023 Assessment & Plan (1) Sepsis: (2) Cellulitis: (3) Urinary tract infection: (4) Hypomagnesemia: (5) DM II (diabetes mellitus, type II), controlled: (6) HLD (hyperlipidemia): (7) HTN (hypertension): (8) Morbid obesity: (9) New onset a-fib: Plan Mr. Rea is a 62 year old gentleman with past medical history notable for hypertension #Bacteremia 2/2 group a beta strep #Sepsis 2/2 bacteremia, source unclear #Abnormal UA #?Cellulitis - Pt meets sepsis criteria with fever, tachycardia, source likely RLE cellulitis/UTI - Pt has received 2 L NSS so far, continue LR at 150 ml/hr. mild hyponatremia will be followed. Repeat BMP this afternoon - Troponin is elevated at 47 on admission, trending, likley demand ischemia as EKG without acute findings, no cardiac complaints, no shortness of breath. - Lactate initially elevated at 2.7, improved to 1.7, WBC 16.2, procal 43 - R ankle fracture 2013, R knee surgery in 2016 causes some enlargement in general in the RLE but this is much more swollen and tender in the calf compared to previously. - CT abd/pelvis reviewed as above - BCx x 2 + - Transition to cefazolin given bacteremia -ID consult #Right LLE DVT -lymphedema and age-indeterminate DVT present -started on IV heparin, continue in interim with plans to transition to PO regimen prior to dispo given known DVT/a fib #Elevated INR like related to infectious process as level improving with no intervention other than ongoing management of acute processes #New onset atrial fibrillation After initial evaluation the patient - he went into from what we can tell, new onset afib with RVR with rates of 140-150 CHADsVasc 2 likely iso sepsis/bacteremia -Received Diltazem drip, started on metoprolol 12.5mg QID #Elevated troponin -likely demand iso bacteremia and a fib -Downtrended -Monitor on telemetry #Hypertension Relative hypotension due to likely shock, resolved with abx/fluid bolus Regimen: amlodioine 10mg, HCTZ 25mg, losartan 50mg -start amlodipine 10mg, reintroduce other agents as SARWAT improves #HLD - Chronic, stable, cont statin - Check lipid panel with am labs #DMTII -A1C 6.2% - Holding metformin for now, ISS with accuchecks achs #hypomagnesemia - Replace mag as was 1.5 on admission with 2 g IV. - Trend with am labs #Morbid obesity - BMI of 45, diet and exercise to be encouraged throughout hospital stay DVT ppx: heparin GI/FEN: HH/Diabetic diet, LR at 150 ml/hr x 1 more bag above Lines: 2 PIV CODE: FULL Dispo: From [facility], likely to remain in the hospital 3-4 days dueto bacteremia Admission and Anticipated Discharge Date Admission Date: July 23, 2023 Subjective admitted yesterday afternoon Patient diaphoretic and reports feeling generally unwell, endorses subjective fever Answers short brief questions, but did not engage in open ended conversation Review of Systems Review of Systems: All systems reviewed & are unremarkable except as noted in Subjective Physical Exam Constitutional: increased BP, laying supine, diaphoretic, appears uncomfortable Respiratory: normal respiratory effort, lungs clear to auscultation Cardiovascular: irregularly irregular Gastrointestinal (Abdomen): nontender, BS+ Musculoskeletal: notable RLE edema, patient reports chronic Results & Data Results & Data Vital Signs (Past 12 Hours) Vital Signs Temp Pulse Pulse Resp BP BP Pulse Ox 07/24/23 11:27 36.8 C 98 H 22 167/75 H 90 07/24/23 09:44 83 07/24/23 09:39 07/24/23 09:34 37.0 C 79 18 94/66 L 92 07/24/23 09:24 37.3 C 99 H 16 97 07/24/23 08:09 96 H 20 99/55 L 92 07/24/23 08:01 94 H 23 86/51 L 93 07/24/23 08:01 94 H 23 93 07/24/23 08:00 91 H 19 92 07/24/23 07:16 90/68 L 07/24/23 07:02 81/46 L 07/24/23 08:24 07/24/23 08:11 37.3 C 101 H 16 99/55 L 97 07/24/23 07:38 85 07/24/23 05:01 91 H 20 114/65 95 07/24/23 05:00 91 H 21 93/63 L 94 07/24/23 05:38 37.2 C 07/24/23 04:31 106/67 07/24/23 04:31 97 H 21 07/24/23 04:00 91 H 19 94 07/24/23 04:37 38.9 C H O2 Del Method O2 Flow Rate 07/24/23 11:27 Nasal Cannula 07/24/23 09:44 07/24/23 09:39 Nasal Cannula 2 07/24/23 09:34 Nasal Cannula 2 07/24/23 09:24 Nasal Cannula 07/24/23 08:09 07/24/23 08:01 07/24/23 08:01 07/24/23 08:00 07/24/23 07:16 07/24/23 07:02 07/24/23 08:24 Nasal Cannula 2 07/24/23 08:11 Nasal Cannula 2 07/24/23 07:38 07/24/23 05:01 07/24/23 05:00 07/24/23 05:38 07/24/23 04:31 07/24/23 04:31 07/24/23 04:00 07/24/23 04:37 Laboratory Results Short CBC 07/24/23 Range/Units 02:40 WBC 13.26 H (4.8-10.8) K/ul Hgb 11.7 L (14.0-18.0) g/dl Hct 36.2 L (42.0-52.0) % Plt Count 145 (130-400) K/uL BMP 07/23/23 07/24/23 07/24/23 20:48 02:40 04:36 Sodium 132 L Cancelled 132 L Potassium 2.9 L Cancelled 4.3 D Chloride 111 H Cancelled 103 Carbon Dioxide 17 L Cancelled 21 BUN 17 Cancelled 28 H Creatinine 0.90 D Cancelled 1.85 H D Glucose 149 H Cancelled 141 H Calcium 5.3 L* D Cancelled 8.1 L D Liver Function 07/24/23 07/24/23 Range/Units 02:40 04:36 Total Bilirubin Cancelled 2.7 H AST Cancelled 121 H ALT Cancelled 37 Alkaline Phosphatase Cancelled 60 Albumin Cancelled 3.3 L Medications Administered Home Medications Medication Instructions Recorded Confirmed Last Taken acetaminophen 500 mg tablet 500 mg PO TID PRN Other 07/23/23 07/23/23 Unknown albuterol sulfate 90 mcg/actuation 2 puff inhalation QID PRN Other 07/23/23 07/23/23 Unknown aerosol inhaler (Proventil HFA) amlodipine 10 mg tablet 10 mg PO DAILY 07/23/23 07/23/23 Unknown ciclesonide 160 mcg/actuation 1 puff inhalation BID 07/23/23 07/23/23 Unknown aerosol inhaler (Alvesco) hydrochlorothiazide 25 mg tablet 25 mg PO DAILY 07/23/23 07/23/23 Unknown losartan 50 mg tablet 50 mg PO DAILY 07/23/23 07/23/23 Unknown metformin 500 mg tablet 500 mg PO BID 07/23/23 07/23/23 Unknown rosuvastatin 5 mg tablet 5 mg PO DAILY 07/23/23 07/23/23 Unknown tamsulosin 0.4 mg capsule 0.8 mg PO HS 07/23/23 07/23/23 Unknown Active Medications Generic Name Dose Route Start Last Admin Trade Name Freq PRN Reason Stop Dose Admin Acetaminophen 650 mg 07/23/23 13:45 07/24/23 12:47 Acetaminophen 325 Mg Tab PO 08/22/23 13:44 650 mg Q6H NEGRITA Administration Diltiazem HCl 125 mg/ Dextrose 125 mls @ 0 mls/hr 07/23/23 14:15 07/24/23 08:34 IV 08/22/23 14:14 0 mg/hr .Q0M NEGRITA 0 mls/hr Titration Protocol 0 MG/HR Heparin Sodium/Dextrose 25,000 units in 500 mls @ 43 mls/hr 07/23/23 20:30 07/24/23 15:26 Heparin Sodium/Dextrose IV 08/22/23 20:29 2,150 units/hr .[id number] NEGRITA 43 mls/hr Titration Protocol 2,150 UNITS/HR Cefazolin Sodium 2,000 mg in 15 mls @ 3.75 mls/min 07/24/23 11:00 07/24/23 11:49 Ancef 2000mg IV 08/07/23 10:59 3.75 mls/min Q8H NEGRITA Administration Protocol Insulin Aspart 0 units 07/23/23 19:00 07/24/23 12:52 Insulin Aspart Per Unit Charge SC 08/22/23 18:59 Not Given ACHS NEGRITA Metoprolol Tartrate 12.5 mg 07/23/23 17:00 07/24/23 11:50 Metoprolol Tartrate 25 Mg Tab PO 08/22/23 16:59 12.5 mg QID NEGRITA Administration Oxycodone HCl 5 mg 07/23/23 13:43 07/24/23 11:49 Oxycodone Hcl Ir 5 Mg Tab (Immediate Release) PO 08/06/23 13:42 5 mg Q4H PRN Administration Moderate Pain (Scale 4, 5, 6) Tamsulosin HCl 0.8 mg 07/23/23 21:00 07/23/23 22:11 Tamsulosin Hcl 0.4 Mg Cap PO 08/22/23 20:59 0.8 mg HS NEGRITA Administration
[2023-07-24] MEDS: TAMSULOSIN HCL 0.4 MG CAP PO SCH (20:28)
--- NOTE | 2023-07-24 21:12 | Electrocardiogram Report ---
Test Reason : Blood Pressure : / mmHG Vent. Rate : 114 BPM Atrial Rate : 114 BPM P-R Int : 142 ms QRS Dur : 086 ms QT Int : 328 ms P-R-T Axes : -09 005 -20 degrees QTc Int : 452 ms Sinus tachycardia with Premature supraventricular complexes Minimal voltage criteria for LVH, may be normal variant ( R in aVL ) Possible Inferior infarct , age undetermined Nonspecific ST and T wave abnormality Abnormal ECG No previous ECGs available Confirmed by Dom Platt ([id number]) on 07/24/2023 9:11:58 PM Referred By: Traci SHI Confirmed By:Dom Platt
--- NOTE | 2023-07-24 21:19 | Electrocardiogram Report ---
Test Reason : Blood Pressure : / mmHG Vent. Rate : 159 BPM Atrial Rate : 000 BPM P-R Int : 000 ms QRS Dur : 090 ms QT Int : 282 ms P-R-T Axes : 000 058 224 degrees QTc Int : 458 ms Atrial fibrillation with rapid ventricular response Nonspecific ST and T wave abnormality Abnormal ECG No previous ECGs available Confirmed by Dom Platt ([id number]) on 07/24/2023 9:18:37 PM Referred By: Traci SHI Confirmed By:Dom Platt
[2023-07-24] MEDS: LINEZOLID 600 MG TAB PO SCH (21:23)
--- NOTE | 2023-07-24 23:22 | Electrocardiogram Report ---
Test Reason : Blood Pressure : / mmHG Vent. Rate : 088 BPM Atrial Rate : 234 BPM P-R Int : 000 ms QRS Dur : 086 ms QT Int : 348 ms P-R-T Axes : 000 050 070 degrees QTc Int : 421 ms Atrial fibrillation Nonspecific T wave abnormality Abnormal ECG When compared with ECG of 23-JUL-2023 14:09, Vent. rate has decreased BY [address] no longer depressed in Inferior leads ST no longer depressed in Lateral leads Confirmed by Dom Platt ([id number]) on 07/24/2023 11:22:16 PM Referred By: Traci SHI Confirmed By:Dom Platt
[2023-07-25] MEDS: ACETAMINOPHEN 325 MG TAB PO SCH ×4 (01:42→20:22)
[2023-07-25] MEDS: ceFAZolin 2000MG 2,000 MG/15 ML SYR IV SCH ×3 (01:43→17:59)
[2023-07-25] MEDS: oxyCODONE HCL IR 5 MG TAB (IMMEDIATE RELEASE) PO PRN ×3 (01:47→17:04)
[2023-07-25] MEDS: HEPARIN SODIUM/DEXTROSE 25,000 UNITS/500 ML BAG IV SCH ×2 (04:36→17:06)
[2023-07-25 06:35] LABS: Hematocrit (blood only) 33.7 % (42.0-52.0); Hemoglobin 11.2 g/dl (14.0-18.0); Mean Corpuscular Hemoglobin 28.5 pg (25.0-34.0); Mean Corpuscular Hgb Conc 33.2 g/dL (32.0-36.0); Mean Corpuscular Volume 85.8 fL (80.0-100.0); Mean Platelet Volume 11.1 fL (9.4-12.4); Platelet Count 130 K/uL (130-400); RDW Standard Deviation 44.3 fL (36.4-46.3); Red Blood Count 3.93 M/uL (4.70-6.10); White Blood Count 10.46 K/ul (4.8-10.8)
[2023-07-25 07:10] LABS: Albumin Globulin Ratio 0.9 (0.9-2); Albumin Level 2.9 gm/dl (3.4-5.0); BUN Creatinine Ratio 10.1 (10-20); Bilirubin,Total 2.6 mg/dl (0.2-1.0); Calcium 8.1 mg/dl (8.6-10.3); Creatinine Clr Calc Pharmacy 28.7 ml/min; Est GFR (African American) 14.9 ml/min; Est GFR (Non-African American) 12.9 ml/min; Globulin 3.1 gm/dl (2.5-4.0); Magnesium 2.2 mg/dl (1.7-2.4)
[2023-07-25 07:15] LABS: INR 1.2 (0.9-1.1); Partial Thromboplastin Ratio 2.1; Prothrombin Time 12.9 Seconds (9.0-12.0)
[2023-07-25] MEDS: LACTATED RINGER'S 1,000 ML IV SCH ×2 (08:00→16:59)
[2023-07-25] MEDS: LINEZOLID 600 MG TAB PO SCH ×2 (08:11→20:19)
[2023-07-25] MEDS: METOPROLOL TARTRATE 25 MG TAB PO SCH ×4 (08:11→20:19)
[2023-07-25] MEDS: INSULIN ASPART PER UNIT CHARGE SC SCH ×4 (08:50→20:10)
[2023-07-25] MEDS ORDERED: amLODIPine BESYLATE 5 MG TAB PO SCH (09:00)
--- NOTE | 2023-07-25 09:59 | Hospitalist Progress Note ---
Date of Service July 25, 2023 Assessment & Plan (1) Sepsis: (2) Cellulitis: (3) Urinary tract infection: (4) Hypomagnesemia: (5) DM II (diabetes mellitus, type II), controlled: (6) HLD (hyperlipidemia): (7) HTN (hypertension): (8) Morbid obesity: (9) New onset a-fib: Plan Mr. Rea is a 62 year old gentleman with past medical history notable for hypertension, HLD, DMTII, and chronic RLE edema 2/2 trauma who is admitted for sepsis on 07/23. Patient found to be in a fib rvr and being managed on PO metoprolol after being on dilit drip throughout the evening of 07/23. Today, patient appears better generally, but noted to be in exquisite back pain which is concerning given infectious work up has resulted with bacteremia [group a beta strep] Additionally, there is notable increase in Cr, which is likely secondary to prerenal etiology given low pressures/shock. Plan for Gen surgery to review RLE for any surgical intervetion, Nephrology to monitor renal functions, Cards to continue to aid in A fib RVR managment, and MRI with possible biopsy if suggestive of osteomyelitis. #Acute lower back pain -Concern for vertebral osteomyelitis given degree of pain on exam and inability to move -Pain control -Continue IV abx as below -MRI lumbar spine #Nonoliguric SARWAT -Cr up to 4.57, likely prerenal iso shock -Strict I/Os, pacheco in place -avoid nephrotoxic agents -Nephrology consult as well as prelim urine studies #Bacteremia 2/2 group a beta strep #Sepsis 2/2 bacteremia, source unclear #Abnormal UA #?Cellulitis - Pt meets sepsis criteria with fever, tachycardia, source likely RLE cellulitis/UTI - Pt has received 2 L NSS so far, continue LR at 150 ml/hr. mild hyponatremia will be followed. Repeat BMP this afternoon - Troponin is elevated at 47 on admission, trending, likley demand ischemia as EKG without acute findings, no cardiac complaints, no shortness of breath. - Lactate initially elevated at 2.7, improved to 1.7, WBC 16.2, procal 43 - R ankle fracture 2013, R knee surgery in 2016 causes some enlargement in general in the RLE but this is much more swollen and tender in the calf compared to previously. - CT abd/pelvis reviewed as above - BCx x 2 + - Continue Cefazolin with addition of Linezolid 600mg BID per ID - Gen surg: no surgical intervention on RLE - MRI as above, r/o vertebral osteo #Right LLE DVT -lymphedema and age-indeterminate DVT present -cotninue IV heparin, continue in interim with plans to transition to PO regimen prior to dispo given known DVT/a fib #Elevated INR *improving like related to infectious process as level improving with no intervention other than ongoing management of acute processes #New onset atrial fibrillation After initial evaluation the patient - he went into from what we can tell, new onset afib with RVR with rates of 140-150 CHADsVasc 2 likely iso sepsis/bacteremia -Received Diltazem drip, d/c 07/24 -Continue on metoprolol 12.5mg QID, titrate as able #Elevated troponin*improved -likely demand iso bacteremia and a fib -Downtrended -Monitor on telemetry #Hypertension Relative hypotension due to likely shock, resolved with abx/fluid bolus Regimen: amlodipine 10mg, HCTZ 25mg, losartan 50mg -Discontinue amlodipine to avoid given overlap of edema #HLD - Chronic, stable, cont statin #DMTII -A1C 6.2% - Holding metformin for now, ISS with accuchecks achs #hypomagnesemia - Replace mag as was 1.5 on admission with 2 g IV. - Trend with am labs #Morbid obesity - BMI of 45, diet and exercise to be encouraged throughout hospital stay DVT ppx: heparin GI/FEN: HH/Diabetic diet, LR at 150 ml/hr x 1 more bag above Lines: 2 PIV CODE: FULL Dispo: From [facility] drug rehab, dispo contingent on further work up Admission and Anticipated Discharge Date Admission Date: July 23, 2023 Subjective Patient evaluated at bedside, movement precipitated acute low back pain in which he could not sit up right Difficulty moving and endorsing sharp pain across lumbar region with radiation to legs Denies chest pain, palpitations, SOB, or other concerns out side of acute pain Review of Systems Review of Systems: All systems reviewed & are unremarkable except as noted in Subjective Physical Exam Constitutional: WD/WN, vitals as above Respiratory: normal respiratory effort, lungs clear to auscultation Cardiovascular: irregularly irregular, no murmur, tachy Musculoskeletal: ROM of legs limited secondary to pain, no tenderness to palpation across spine, no sensory deficit. Chronic nonpitting RLE, stable since day prior Results & Data Results & Data Vital Signs (Past 12 Hours) Vital Signs Temp Pulse Pulse Resp BP Pulse Ox O2 Del Method 07/25/23 07:35 36.8 C 105 H 20 137/78 92 Nasal Cannula 07/25/23 02:24 36.9 C 94 H 18 127/76 96 Nasal Cannula 07/24/23 23:01 37.6 C H 106 H 20 103/65 93 CPAP 07/24/23 22:34 91 H 23 91 O2 Flow Rate 07/25/23 07:35 2 07/25/23 02:24 07/24/23 23:01 07/24/23 22:34 3
[2023-07-25] MEDS ORDERED: HYDROmorphone INJ 1 MG/ML SYRINGE IV STA (10:10)
[2023-07-25] MEDS ORDERED: GABAPENTIN 300 MG CAP PO ONE (10:31)
--- NOTE | 2023-07-25 10:33 | Surgery Consultation ---
Date of Consultation July 25, 2023 Assessment & Plan (1) Bacteremia: (2) Cellulitis: I do not see anything that would require surgical intervention. There is no necrotic skin that would need debrided. There is no definite abscess although examination is difficult due to his body habitus. The swelling certainly is from the lower extremity DVT. Multiple reasons for having the right inguinal lymphadenopathy as well. Recommend repeat imaging once the DVT and cellulitis have resolved. If the right groin lymphadenopathy persists this may need biopsy. Keep leg elevated when not ambulating. Continue IV antibiotics. Please call if there is any change in his status or questions or new concerns. (3) Leukocytosis: (4) Morbid obesity: (5) Right leg DVT: History of Present Illness Attending Physician: Jacqui Valiente MD History of Present Illness Requested to see patient regarding right lower extremity cellulitis. 62-year-old inmate with multiple medical problems including type 2 diabetes hypertension morbid obesity atrial fibrillation. He came in because he could no longer walk secondary to right lower extremity pain. He is noted to have a right lower extremity DVT as well as lymphadenopathy and cellulitis Allergies Allergy/AdvReac Type Severity Reaction Status Date / Time lisinopril Allergy Intermediate Unknown Unverified 07/23/23 13:02 Home Medications Medication Instructions Recorded Confirmed Type acetaminophen 500 mg tablet 500 mg PO TID PRN Other 07/23/23 07/23/23 History albuterol sulfate 90 mcg/actuation 2 puff inhalation QID PRN Other 07/23/23 07/23/23 History aerosol inhaler (Proventil HFA) amlodipine 10 mg tablet 10 mg PO DAILY 07/23/23 07/23/23 History ciclesonide 160 mcg/actuation 1 puff inhalation BID 07/23/23 07/23/23 History aerosol inhaler (Alvesco) hydrochlorothiazide 25 mg tablet 25 mg PO DAILY 07/23/23 07/23/23 History losartan 50 mg tablet 50 mg PO DAILY 07/23/23 07/23/23 History metformin 500 mg tablet 500 mg PO BID 07/23/23 07/23/23 History rosuvastatin 5 mg tablet 5 mg PO DAILY 07/23/23 07/23/23 History tamsulosin 0.4 mg capsule 0.8 mg PO HS 07/23/23 07/23/23 History Patient History Medical History DM II (diabetes mellitus, type II), controlled History of fracture of right ankle HLD (hyperlipidemia) HTN (hypertension) Morbid obesity Surgical History Hx of right knee surgery Social History Smoking Status: Never smoker Hx Alcohol Use: No Hx Substance Use: Yes Non-Prescribed Medications: Marijuana Preferred Language: Divehi Communication Ability: Effective Public Health Veterinarian Required: No Current Living Situation: Other Current Living Situation Comment: [facility] Other Information That Helps Us Care for You: No Feels Safe at Home: Yes Safety Concerns: Feels Safe At This Time Physical Exam Constitutional: WD/WN, vitals as above no acute distress and not ill appearing Eyes: PERRL, conjunctivae normal, anicteric sclerae EOM intact bilaterally ENMT: external ear and nose normal, oropharynx normal Ears: no hearing impairment Neck: trachea midline, no thyromegaly Respiratory: normal respiratory effort; no respiratory distress and does not use accessory muscles Cardiovascular: Rate/Rhythm: regular rate and regular rhythm Gastrointestinal (Abdomen): normal bowel sounds, soft, nontender, no hepatosplenomegaly Psychiatric: Orientation: alert, oriented x 3 and cooperative Lymphatic: Right lower extremity swelling right greater than left. Due to his morbid obesity I am unable to palpate the right inguinal lymphadenopathy. He does have some cellulitis. There is no skin breakdown or obvious abscess. Results & Data Vital Signs (Past 12 Hours) Vital Signs Temp Pulse Pulse Resp BP Pulse Ox O2 Del Method 07/25/23 07:35 36.8 C 105 H 20 137/78 92 Nasal Cannula 07/25/23 02:24 36.9 C 94 H 18 127/76 96 Nasal Cannula 07/24/23 23:01 37.6 C H 106 H 20 103/65 93 CPAP 07/24/23 22:34 91 H 23 91 O2 Flow Rate 07/25/23 07:35 2 07/25/23 02:24 07/24/23 23:01 07/24/23 22:34 3 PG Care Time/CCT Total # of Minutes Spent Total Time Spent with Patient: Total time spent is greater than 50% in coordination of care (as documented) at patient's floor/unit and/or counseling patient: Coding Level of Care Code 03642 OFFICE CONSULT LVL Diagnoses Bacteremia R78.81 Cellulitis L03.115 Laterality: right Site of cellulitis: extremity Site of cellulitis of extremity: lower extremity Leukocytosis D72.829 Leukocytosis type: unspecified Morbid obesity E66.01 Right leg DVT I82.401 (2) Cellulitis Laterality: right Site of cellulitis: extremity Site of cellulitis of extremity: lower extremity Qualified Code(s): L03.115 - Cellulitis of right lower limb (3) Leukocytosis Leukocytosis type: unspecified Qualified Code(s): D72.829 - Elevated white blood cell count, unspecified
--- NOTE | 2023-07-25 13:10 | Nephrology Consultation ---
Date of Consultation July 25, 2023 Assessment & Plan (1) Acute kidney injury: Conner >>likley ATN, there may be a prerenal element. - He denies any renal problems in the past, and denies any OTC or NSAIDS - His BP continues to be soft - At the moment he is making urine , electrolyte are safe.No indications for dialysis, but cannot deny this completely at the moment. - Conservative measures for now. - Continue to hold ARB, Diuretics - Daily BMP, Input and output and daily weights prefebly on the same scale. - His Bp will improve as his heart rate is better controlled. - Renally dose Abx. - Renal diet. - If his oral intake improves, decrease the Iv to 75 mls/hr. - (2) Bacteremia: (3) Septic shock: (4) Atrial fibrillation with rapid ventricular response: History of Present Illness Reason for Consultation: Acute kidney injury Attending Physician: Jacqui Valiente MD History of Present Illness 62 yo black male, admitted on 07/23 with 3 days of worsening RLE swelling, pain, weakness, and fever wiith poor oral intake ove the last few days. His R leg was significantly more swollen than the left, doppler studies were significant for R indetermitent DVT. Infectious work up has resulted with bacteremia [group a beta strep].Patient found to be in a fib rvr and being managed on PO metoprolol after being on dilit drip throughout the evening of 07/23.He complains of back pain,concerns for Osteomyelitis and is awaiting MRI. His admitting sCR was normal at 0.9 with sodium of 132 and k of 2.9, This has progressively worsened over the last 48 hr, Scr is 4.5 today with BUN of 46.K and bicarbonate is wnl, UOP has been @ 500 mls, His R LL has trace to 1+ edema with dusky colour, likley 2/ to chronic Lympedema. PMHx of obesity, HTN, HLD, DM II, marijuana use (denies other drug or alcohol use) currently in [facility] for drug rehab program x past 2 years. Allergies Allergy/AdvReac Type Severity Reaction Status Date / Time lisinopril Allergy Intermediate Unknown Unverified 07/23/23 13:02 Home Medications Medication Instructions Recorded Confirmed Type acetaminophen 500 mg tablet 500 mg PO TID PRN Other 07/23/23 07/23/23 History albuterol sulfate 90 mcg/actuation 2 puff inhalation QID PRN Other 07/23/23 07/23/23 History aerosol inhaler (Proventil HFA) amlodipine 10 mg tablet 10 mg PO DAILY 07/23/23 07/23/23 History ciclesonide 160 mcg/actuation 1 puff inhalation BID 07/23/23 07/23/23 History aerosol inhaler (Alvesco) hydrochlorothiazide 25 mg tablet 25 mg PO DAILY 07/23/23 07/23/23 History losartan 50 mg tablet 50 mg PO DAILY 07/23/23 07/23/23 History metformin 500 mg tablet 500 mg PO BID 07/23/23 07/23/23 History rosuvastatin 5 mg tablet 5 mg PO DAILY 07/23/23 07/23/23 History tamsulosin 0.4 mg capsule 0.8 mg PO HS 07/23/23 07/23/23 History Patient History Medical History DM II (diabetes mellitus, type II), controlled History of fracture of right ankle HLD (hyperlipidemia) HTN (hypertension) Morbid obesity Surgical History Hx of right knee surgery Social History Smoking Status: Never smoker Hx Alcohol Use: No Hx Substance Use: Yes Non-Prescribed Medications: Marijuana Preferred Language: Montserratian Communication Ability: Effective Interface Analyst Required: No Current Living Situation: Other Current Living Situation Comment: [facility] Other Information That Helps Us Care for You: No Feels Safe at Home: Yes Safety Concerns: Feels Safe At This Time Review of Systems Review of Systems: All systems reviewed & are unremarkable except as noted in HPI & below Physical Exam Physical Exam: General: awake, alert,Comfortable, obese, black male Head: Normocephalic, atraumatic ENT: PERRL, EOMI, no pharyngeal exudate, mucous membranes slightly dry Chest: Clear to auscultation, on room air, no adventitious breath sounds Cardiac: +Sinus tachycardia, no murmur, no JVD, normal peripheral pulses, good capillary refill Abdominal: NABS x 4 quadrants, soft, nondistended, Extremities: RLE diffusely edematous up to groin, LLE with trace edema as well, otherwise s Results & Data Vital Signs (Past 12 Hours) Vital Signs Temp Pulse Resp BP Pulse Ox O2 Del Method O2 Flow Rate 07/25/23 12:10 36.5 C 94 H 23 118/75 93 CPAP 07/25/23 07:35 36.8 C 105 H 20 137/78 92 Nasal Cannula 2 07/25/23 02:24 36.9 C 94 H 18 127/76 96 Nasal Cannula Laboratory Results 07/25/23 05:48 07/25/23 05:48
--- NOTE | 2023-07-25 13:51 | Cardiology Progress Note ---
Date of Service July 25, 2023 Assessment & Plan (1) Septic shock: (2) Atrial fibrillation with rapid ventricular response: (3) New onset a-fib: (4) HTN (hypertension): (5) Morbid obesity: (6) Acute kidney injury: Plan Hold prior to arrival amlodipine, HCTZ, losartan Continue metoprolol tartrate 12.5 mg QID as blood pressure permits (hold for SBP < 90) IV diltiazem discontinued. Continue IV heparin. ID input appreciated. Transthoracic echocardiogram without evidence of vegetation. Follow repeat blood cultures. Consideration for possible transesophageal echocardiogram if blood cultures persistently positive. Morbidly obese patient with high risk airway noted. Acute renal failure with creatinine > 4. Hold IVF. Nephrology input appreciated. Admission and Anticipated Discharge Date Admission Date: July 23, 2023 Subjective Patient seen and examined at the bedside. Sedated due to IV Dilaudid prior to MRI. Wearing CPAP. Review of Systems Review of Systems: Unobtainable due to reduced consciousness Physical Exam Constitutional: + morbidly obese Cardiovascular: Rate/Rhythm: + tachycardic and + irregularly irregular Vessels: no JVD Extremities: + edema (+ Right lower extremity edema) Gastrointestinal (Abdomen): Inspection/Auscultation: abdomen normal to inspection and normal bowel sounds; abdomen not distended Results & Data Vital Signs (Past 12 Hours) Vital Signs Temp Pulse Resp BP Pulse Ox O2 Del Method O2 Flow Rate 07/25/23 12:10 36.5 C 94 H 23 118/75 93 CPAP 07/25/23 07:35 36.8 C 105 H 20 137/78 92 Nasal Cannula 2 07/25/23 02:24 36.9 C 94 H 18 127/76 96 Nasal Cannula Laboratory Results Cardiac Enzymes 07/25/23 Range/Units 05:48 AST 127 H (13-39) U/L Coagulation 07/25/23 Range/Units 05:48 PT 12.9 H (9.0-12.0) Seconds APTT 60.0 H* (21.0-31.0) Seconds CBC 07/25/23 Range/Units 05:48 WBC 10.46 (4.8-10.8) K/ul RBC 3.93 L (4.70-6.10) M/uL Hgb 11.2 L (14.0-18.0) g/dl Hct 33.7 L (42.0-52.0) % Plt Count 130 (130-400) K/uL Comprehensive Metabolic Panel 07/25/23 Range/Units 05:48 Sodium 132 L (136-145) mmol/L Potassium 4.0 (3.5-5.1) mmol/L Chloride 102 (98-107) mmol/L Carbon Dioxide 21 (21-32) mmol/L BUN 46 H (6-23) mg/dl Creatinine 4.57 H* D (0.6-1.4) mg/dl Glucose 121 H (70-99(Fasting)) mg/dl Calcium 8.1 L (8.6-10.3) mg/dl AST 127 H (13-39) U/L ALT 34 (7-52) U/L Alkaline Phosphatase 60 (34-104) U/L Total Protein 6.0 (6.0-8.3) gm/dl Albumin 2.9 L (3.4-5.0) gm/dl Intake and Output 07/24/23 07/25/23 07/25/23 22:59 06:59 14:59 Intake Total 587.433 / 3376.849 790.583 / 3376.849 674.250 / 674.250 Output Total 100 / 325 100 / 325 Balance 487.433 / 3051.849 690.583 / 3051.849 674.250 / 674.250 Intake: IV 587.433 / 2736.849 390.583 / 2736.849 674.250 / 674.250 Heparin Sodium/Dextrose 25,000 587.433 / 1429.516 390.583 / 1429.516 132.583 / 132.583 units In 500 ml @ 2,150 UNITS/ HR 43 mls/hr IV .[id number] [facility] Rx #:[id number] Lactated Ringer's 1,000 ml @ 541.667 / 541.667 125 mls/hr IV .Q8H [facility] Rx#: [id number] dilTIAZem HCL 125 mg In 0 / 0 Dextrose 5% 100 ml @ 0 MG/HR IV .Q0M [facility] Rx#:[id number] Oral 400 / 640 Output: Urine Amount (Catheter) 100 / 325 100 / 325 Erazo/Indwelling 100 / 325 100 / 325 Other: Other Intake Source sips Weight 168.6 kg Weight Measurement Method Built in [facility]
[2023-07-25 14:08] LABS: Creatinine Urine Random 162.8 mg/dl; Protein Creatinine Ratio Urine 1.2 (0-0.2); Total Protein Urine Random 199.7 mg/dl (0-11.9); Urine Potassium 46.7 mmol/L
[2023-07-25] MEDS ORDERED: ALBUTEROL 0.083% NEBU SOLN 3 ML VIAL NEB STA (14:32)
--- NOTE | 2023-07-25 14:52 | XRay Report ---
XR chest 1V portable HISTORY: 62 years-old Male Wheezing, increased O2 demand. Acute shortness of breath with wheezing an d hypoxia COMPARISON: 07/23/2023 TECHNIQUE: AP view of the chest FINDINGS: Cardiac silhouette is enlarged. Pulmonary vascular congestion. Developing interstitial coarsening. No pneumothorax or large pleural effusion. Cervical spinal fusion hardware. Degenerative changes of the shoulders and spine. IMPRESSION: Cardiomegaly with pulmonary vascular congestion and developing interstitial coarsening ahley ggestive of pulmonary edema. ACT 112: Negative or not required by law. The above report was generated using voice recognition software. It may contain grammatical, syntax o r spelling errors. Electronically signed by: Panfilo Melchor M.D. 07/25/2023 2:51 PM
--- NOTE | 2023-07-25 16:33 | Magnetic Resonance Report ---
MR lumbar spine wo con CLINICAL HISTORY: 62 years-old Male with vertebral osteomyelitis?. Acute low back pain with lower ex tremity numbness. COMPARISON: CT abdomen and pelvis 07/23/2023. TECHNIQUE: Multiplanar, multi sequence MRI of the lumbar spine was performed without intravenous cont rast. FINDINGS: Limited exam secondary to patient body habitus and motion artifact. Conus medullaris termin ates at L1. There is moderate marrow edema involving the pedicles and facets at L5-S1 bilaterally. Mo derate associated paravertebral edema. No acute fracture, subluxation or endplate erosion. T12-L1: Mild facet arthrosis. No central canal or neural foraminal stenosis. L1-L2: Mild facet arthrosis. No central canal or neural foraminal stenosis. L2-L3: Ligamentum flavum thickening with moderate facet arthrosis. Small posterior annular disc bulg e. Mild right foraminal narrowing. Central canal and left neuroforamen are patent. L3-L4: Ligamentum flavum thickening with moderate facet arthrosis. Mild intervertebral disc space na rrowing with small circumferential annular disc bulging. The central canal is patent. Fqzm-wf-hqvklsg e right with moderate left foraminal narrowing. L4-L5: Tmes-rz-ziprpaos intervertebral disc space narrowing with spondylotic spurring and small post erior disc osteophyte complex. Ligamentum flavum thickening with aexsmhtc-wy-ftnolb facet arthrosis. Mild central canal stenosis with AP dimension of the thecal sac measuring 9 mm. Mild left with modera te right lateral recess narrowing. Csuh-cs-fturewhu left with reltndib-vb-ayqemk right foraminal narr owing. L5-S1: Opnv-hk-yeazywca intervertebral disc space narrowing with spondylotic spurring, posterior cristofer ular disc bulge with small disc osteophyte complex, eccentric to the right. Ligamentum flavum thicken ing with severe facet arthrosis and small facet effusions. Central canal is patent. Moderate right la teral recess narrowing. Sofo-wg-xxyrsrmy bilateral foraminal stenosis. IMPRESSION: 1. No acute fracture, subluxation or endplate erosion. 2. Moderate marrow edema within the facets and pedicles at L5-S1 is likely reactive with adjacent sof t tissue edema within the paraspinal musculature. 3. Discogenic degeneration with facet arthrosis as above resulting in multilevel foraminal narrowing. 4. No high-grade central canal stenosis. ACT 112: Negative or not required by law. The above report was generated using voice recognition software. It may contain grammatical, syntax o r spelling errors. Dictated: 07/25/2023 1:52 PM Transcribed: 07/25/2023 2:44 PM Ronaldo [id number] [email or web address] Electronically signed by: Panfilo Melchor M.D. 07/25/2023 4:32 PM
[2023-07-25] MEDS ORDERED: FUROSEMIDE 40 MG/4 ML VIAL IV ONE (16:59)
--- NOTE | 2023-07-25 17:01 | Communication Note ---
Date of Service: July 25, 2023 Patient with acute hypoxic respiratory failure 2/2 ongoing fluid resuscitation, CXR with vascular congestion and edema. discussed next steps with nephrology--plan to d/c IVF and start IV lasix 100mg given oliguric SARWAT Monitor BP closely
[2023-07-25 17:53] LABS: BUN Creatinine Ratio 9.7 (10-20); Calcium 8.2 mg/dl (8.6-10.3); Creatinine Clr Calc Pharmacy 24.1 ml/min; Est GFR (African American) 12.1 ml/min; Est GFR (Non-African American) 10.4 ml/min
[2023-07-25] MEDS: TAMSULOSIN HCL 0.4 MG CAP PO SCH (20:18)
[2023-07-26] MEDS: ACETAMINOPHEN 325 MG TAB PO SCH ×4 (02:20→18:10)
[2023-07-26] MEDS: oxyCODONE HCL IR 5 MG TAB (IMMEDIATE RELEASE) PO PRN ×4 (02:20→20:26)
[2023-07-26] MEDS: ceFAZolin 2000MG 2,000 MG/15 ML SYR IV SCH ×3 (02:23→23:25)
[2023-07-26] MEDS: HEPARIN SODIUM/DEXTROSE 25,000 UNITS/500 ML BAG IV SCH ×2 (04:33→16:13)
[2023-07-26 06:42] LABS: Hematocrit (blood only) 34.8 % (42.0-52.0); Hemoglobin 11.6 g/dl (14.0-18.0); Mean Corpuscular Hemoglobin 28.1 pg (25.0-34.0); Mean Corpuscular Hgb Conc 33.3 g/dL (32.0-36.0); Mean Corpuscular Volume 84.3 fL (80.0-100.0); Mean Platelet Volume 11.3 fL (9.4-12.4); Platelet Count 143 K/uL (130-400); RDW Coefficient of Variation 14.4 % (11.5-14.5); Red Blood Count 4.13 M/uL (4.70-6.10); White Blood Count 12.38 K/ul (4.8-10.8)
[2023-07-26 06:59] LABS: Creatinine Clr Calc Pharmacy 19.4 ml/min; Est GFR (African American) 9.3 ml/min; Magnesium 2.3 mg/dl (1.7-2.4); Phosphorus 5.7 mg/dl (2.5-4.9)
[2023-07-26 08:07] LABS: Partial Thromboplastin Time 56.9 Seconds (21.0-31.0)
[2023-07-26] MEDS: LINEZOLID 600 MG TAB PO SCH ×2 (08:52→20:27)
[2023-07-26] MEDS: METOPROLOL TARTRATE 25 MG TAB PO SCH ×4 (08:52→20:27)
[2023-07-26] MEDS: INSULIN ASPART PER UNIT CHARGE SC SCH ×4 (08:57→20:22)
--- NOTE | 2023-07-26 09:01 | Hospitalist Progress Note ---
Date of Service July 26, 2023 Assessment & Plan (1) Sepsis: (2) Cellulitis: (3) Urinary tract infection: (4) Hypomagnesemia: (5) DM II (diabetes mellitus, type II), controlled: (6) HLD (hyperlipidemia): (7) HTN (hypertension): (8) Morbid obesity: (9) New onset a-fib: Plan Mr. Rea is a 62 year old gentleman with past medical history notable for hypertension, HLD, DMTII, and chronic RLE edema 2/2 trauma who is admitted for sepsis on 07/23. Patient found to be in a fib rvr and being managed on PO metoprolol after being on dilit drip throughout the evening of 07/23. Today, patient appears better generally, but noted to be in exquisite back pain which is concerning given infectious work up has resulted with bacteremia [group a beta strep] Additionally, there is notable increase in Cr, which is likely secondary to prerenal etiology given low pressures/shock. Plan for Gen surgery to review RLE for any surgical intervetion, Nephrology to monitor renal functions, Cards to continue to aid in A fib RVR managment, and MRI with possible biopsy if suggestive of osteomyelitis. #Acute hypoxic respiratory failure iso IVF hydration/oliguric SARWAT -CXR with pulm edema, required 2L NC -Trial 100mg IV lasix, UOP with 875 in 24 hours s/p lasix -Continue 100mg lasix IV BID after discussion on phone with Nephrology, augmentation with metolazone limited 2/2 hyponatremia #Acute lower back pain -Concern for vertebral osteomyelitis given degree of pain on exam and inability to move -Pain control -Continue IV abx as below -MRI lumbar spine: paravertebral marrow edema. no end plate erosion, -Ortho spine consult for review -Dilaudid prn #Oliguric SARWAT, likely evolving ATN 2/2 ischemia from hypotension/shock #Hypervolemic Hyponatremia -Cr uptrending, however, increased UOP s/p IV lasix trial -FeNA prior to lasix 0.9% consistent with prerenal eitology, iso lucia ck/hypotension -Strict I/Os, pacheco in place -No urgent/emergent dialysis needs at this time based upon electrolytes, VS, and increased UOP -avoid nephrotoxic agents -Nephrology consult, continue to appreciate further recommendations--100mg BID IV lasix, assess daily for HD #Bacteremia 2/2 group a beta strep #Sepsis 2/2 bacteremia, source unclear #Abnormal UA #?Cellulitis - Pt meets sepsis criteria with fever, tachycardia, source likely RLE cellulitis/UTI - Pt has received 2 L NSS so far, continue LR at 150 ml/hr. mild hyponatremia will be followed. Repeat BMP this afternoon - Troponin is elevated at 47 on admission, trending, likley demand ischemia as EKG without acute findings, no cardiac complaints, no shortness of breath. - Lactate initially elevated at 2.7, improved to 1.7, WBC 16.2, procal 43 - R ankle fracture 2013, R knee surgery in 2016 causes some enlargement in general in the RLE but this is much more swollen and tender in the calf compared to previously. - CT abd/pelvis reviewed as above - BCx x 2 + - Continue Cefazolin with addition of Linezolid 600mg BID per ID - Gen surg: no surgical intervention on RLE - MRI as above, r/o vertebral osteo #Right LLE DVT -lymphedema and age-indeterminate DVT present -continue IV heparin, continue in interim with plans to transition to PO regimen prior to dispo given known DVT/a fib #Elevated INR *improving like related to infectious process as level improving with no intervention other than ongoing management of acute processes #New onset atrial fibrillation After initial evaluation the patient - he went into from what we can tell, new onset afib with RVR with rates of 140-150 CHADsVasc 2 likely iso sepsis/bacteremia -Received Diltazem drip, d/c 07/24 -Continue on metoprolol 12.5mg QID, titrate as able #Elevated troponin*improved -likely demand iso bacteremia and a fib -Downtrended -Monitor on telemetry #Hypertension Relative hypotension due to likely shock, resolved with abx/fluid bolus Regimen: amlodipine 10mg, HCTZ 25mg, losartan 50mg -Discontinue amlodipine to avoid given overlap of edema -Hold hctx and losartan #HLD - Chronic, stable, cont statin #DMTII -A1C 6.2% - Holding metformin for now, ISS with accuchecks achs #hypomagnesemia - Replace mag as was 1.5 on admission with 2 g IV. - Trend with am labs #Morbid obesity - BMI of 45, diet and exercise to be encouraged throughout hospital stay DVT ppx: heparin GI/FEN: HH/Diabetic diet, LR at 150 ml/hr x 1 more bag above Lines: 2 PIV CODE: FULL Admission and Anticipated Discharge Date Admission Date: July 23, 2023 Subjective NAEO UOP responsive to Lasix, 875 in 24 hours (output 325 on 07/25), remains net positive ~8L since admission 2/2 aggressive IVF hydration; no emergent electrolyte disturbances Saturating well on 2L NC Patient with increased pain from back which limits evaluation and discussion Review of Systems Review of Systems: All systems reviewed & are unremarkable except as noted in Subjective Physical Exam Constitutional: liable blood pressures Respiratory: crackles bibabsilar, 2L NC Cardiovascular: tachycardic irregularly irregular Gastrointestinal (Abdomen): nontender, soft Musculoskeletal: grossly edematous b/l lower extremities R>L Results & Data Results & Data Vital Signs (Past 12 Hours) Vital Signs Temp Pulse Pulse Resp BP Pulse Ox O2 Del Method 07/26/23 07:40 Nasal Cannula 07/26/23 07:39 36.4 C L 86 20 148/66 H 96 Nasal Cannula 07/26/23 03:27 CPAP 07/25/23 21:00 07/26/23 02:40 36.5 C 82 20 111/64 96 CPAP 07/26/23 02:29 82 23 94 07/25/23 22:30 72 14 94 07/25/23 22:41 36.8 C 94 H 20 95/59 L 93 CPAP O2 Del Method O2 Flow Rate O2 Flow Rate 07/26/23 07:40 2 07/26/23 07:39 2 07/26/23 03:27 07/25/23 21:00 Nasal Cannula, Oxyhood 2 07/26/23 02:40 07/26/23 02:29 3 07/25/23 22:30 3 07/25/23 22:41 Laboratory Results Short CBC 07/26/23 Range/Units 05:34 WBC 12.38 H (4.8-10.8) K/ul Hgb 11.6 L (14.0-18.0) g/dl Hct 34.8 L (42.0-52.0) % Plt Count 143 (130-400) K/uL BMP 07/25/23 07/26/23 16:47 05:34 Sodium 128 L 130 L Potassium 4.0 4.0 Chloride 100 98 Carbon Dioxide 19 L 20 L BUN 53 H 61 H Creatinine 5.44 H* D 6.76 H* D Glucose 126 H 130 H Calcium 8.2 L 8.0 L Medications Administered Home Medications Medication Instructions Recorded Confirmed Last Taken acetaminophen 500 mg tablet 500 mg PO TID PRN Other 07/23/23 07/23/23 Unknown albuterol sulfate 90 mcg/actuation 2 puff inhalation QID PRN Other 07/23/23 07/23/23 Unknown aerosol inhaler (Proventil HFA) amlodipine 10 mg tablet 10 mg PO DAILY 07/23/23 07/23/23 Unknown ciclesonide 160 mcg/actuation 1 puff inhalation BID 07/23/23 07/23/23 Unknown aerosol inhaler (Alvesco) hydrochlorothiazide 25 mg tablet 25 mg PO DAILY 07/23/23 07/23/23 Unknown losartan 50 mg tablet 50 mg PO DAILY 07/23/23 07/23/23 Unknown metformin 500 mg tablet 500 mg PO BID 07/23/23 07/23/23 Unknown rosuvastatin 5 mg tablet 5 mg PO DAILY 07/23/23 07/23/23 Unknown tamsulosin 0.4 mg capsule 0.8 mg PO HS 07/23/23 07/23/23 Unknown Active Medications Generic Name Dose Route Start Last Admin Trade Name Alexisq PRN Reason Stop Dose Admin Acetaminophen 650 mg 07/23/23 13:45 07/26/23 08:51 Acetaminophen 325 Mg Tab PO 08/22/23 13:44 650 mg Q6H [facility] Administration Diltiazem HCl 125 mg/ Dextrose 125 mls @ 0 mls/hr 07/23/23 14:15 07/25/23 10:38 IV 08/22/23 14:14 Infused .Q0M [facility] Titration Protocol 0 MG/HR Heparin Sodium/Dextrose 25,000 units in 500 mls @ 43 mls/hr 07/23/23 20:30 07/26/23 08:08 Heparin Sodium/Dextrose IV 08/22/23 20:29 2,150 units/hr .[id number] [facility] 43 mls/hr Titration Protocol 2,150 UNITS/HR Cefazolin Sodium 2,000 mg in 15 mls @ 3.75 mls/min 07/24/23 11:00 07/26/23 10:11 Ancef 2000mg IV 11/10/23 10:59 3.75 mls/min Q8H [facility] Administration Protocol Insulin Aspart 0 units 07/23/23 19:00 07/26/23 08:57 Insulin Aspart Per Unit Charge SC 08/22/23 18:59 Not Given ACHS [facility] Linezolid 600 mg 07/24/23 21:00 07/26/23 08:52 Linezolid 600 Mg Tab PO 07/31/23 20:59 600 mg BID [facility] Administration Metoprolol Tartrate 12.5 mg 07/23/23 17:00 07/26/23 08:52 Metoprolol Tartrate 25 Mg Tab PO 08/22/23 16:59 12.5 mg QID [facility] Administration Tamsulosin HCl 0.8 mg 07/23/23 21:00 07/25/23 20:18 Tamsulosin Hcl 0.4 Mg Cap PO 08/22/23 20:59 0.8 mg HS [facility] Administration
[2023-07-26] MEDS ORDERED: HYDROmorphone INJ 0.5 MG/0.5 ML SYR IV PRN (09:43)
[2023-07-26] MEDS ORDERED: HYDROmorphone INJ 1 MG/ML SYRINGE IV STA (09:44)
--- NOTE | 2023-07-26 11:27 | Nephrology Progress Note ---
Date of Service July 26, 2023 Assessment & Plan (1) Acute kidney injury: Plan: Conner >>aileenley ATN, there may be a prerenal element.- He denies any renal problems in the past, and denies any OTC or NSAIDS, IV fluid were stopped yesterday 2/ pulmonary congestion, He responded well to Lasix challenge , He is comfortable with 2l oxygen and BP and HR are better controlled, - Renal fucntion have declined as expected, this in not 2/ lasix, his ATN has not peaked yet, Expect this to further decline before getting better, - Start on 100 mg IV lasix BID from today. - At the moment he is making urine , electrolyte are safe.No indications for dialysis, but cannot deny this completely at the moment. - Conservative measures for now. - Continue to hold ARB, Diuretics - Daily BMP, Input and output and daily weights prefebly on the same scale. - No iv fluids. (2) Bacteremia: Plan: WBC has worsened, - renally dose Abx (3) Septic shock: Admission and Anticipated Discharge Date Admission Date: July 23, 2023 Subjective Ill appearing c/o pain back, on 2l oxygen UOP responsive to Lasix, 875 in 24 hours (output 325 on 07/25), remains net positive ~8L R LL Edema 2+ Review of Systems Review of Systems: All systems reviewed & are unremarkable except as noted in HPI & below Physical Exam Physical Exam: General: awake, alert,Comfortable, obese, black male Head: Normocephalic, atraumatic ENT: PERRL, EOMI, no pharyngeal exudate, mucous membranes slightly dry Chest: Clear to auscultation, on room air, no adventitious breath sounds Cardiac: +Sinus tachycardia, no murmur, no JVD, normal peripheral pulses, good capillary refill Abdominal: NABS x 4 quadrants, soft, nondistended, Extremities: RLE diffusely edematous up to groin, LLE with trace edema as well, otherwise Results & Data Vital Signs (Past 12 Hours) Vital Signs Temp Pulse Pulse Resp BP Pulse Ox O2 Del Method 07/26/23 11:12 36.6 C 106 H 20 117/73 92 Nasal Cannula 07/26/23 07:40 Nasal Cannula 07/26/23 07:39 36.4 C L 86 20 148/66 H 96 Nasal Cannula 07/26/23 03:27 CPAP 07/26/23 02:40 36.5 C 82 20 111/64 96 CPAP 07/26/23 02:29 82 23 94 O2 Flow Rate 07/26/23 11:12 2 07/26/23 07:40 2 07/26/23 07:39 2 07/26/23 03:27 07/26/23 02:40 07/26/23 02:29 3 Laboratory Results 07/26/23 05:34 07/26/23 05:34
[2023-07-26] MEDS ORDERED: FUROSEMIDE 40 MG/4 ML VIAL IV SCH (12:15)
[2023-07-26] MEDS: FUROSEMIDE 40 MG/4 ML VIAL IV SCH ×2 (12:34→18:12)
--- NOTE | 2023-07-26 12:46 | Electrocardiogram Report ---
Test Reason : Blood Pressure : / mmHG Vent. Rate : 097 BPM Atrial Rate : 227 BPM P-R Int : 000 ms QRS Dur : 090 ms QT Int : 350 ms P-R-T Axes : 000 054 067 degrees QTc Int : 444 ms Atrial fibrillation Nonspecific T wave abnormality Abnormal ECG When compared with ECG of 24-JUL-2023 09:27, No significant change was found Confirmed by Deniz Maurice ([id number]) on 07/26/2023 12:46:10 PM Referred By: Traci SHI Confirmed By:Rajinder Maurice
--- NOTE | 2023-07-26 14:10 | Cardiology Progress Note ---
Date of Service July 26, 2023 Assessment & Plan (1) Septic shock: (2) New onset a-fib: (3) Acute kidney injury: (4) Right leg DVT: (5) Morbid obesity: Plan ARF with creatiniine >6 today. IV fluids discontinued. Diuretic therapy as per nephrology. Hold outpatient meds including amlodipine, HCTZ, losartan Continue metoprolol tartrate 12.5 mg QID as blood pressure permits (hold for SBP < 90) IV diltiazem discontinued. Continue IV heparin. ID input appreciated. Transthoracic echocardiogram without evidence of vegetation. Repeat blood cultures drawn 07/24 negative x 24 hours. Consideration for possible transesophageal echocardiogram if blood cultures persistently posi tive. Morbidly obese patient with high risk airway noted. Admission and Anticipated Discharge Date Admission Date: July 23, 2023 Subjective Patient seen and examined at the bedside. More alert today. Creatinine continues to trend up >6. Telemetry reveals rate controlled atrial fibrillation with heart rate 80-90's. RLE edema unchanged. SOB improved. No CP. Review of Systems Review of Systems: All systems reviewed & are unremarkable except as noted in Subjective Physical Exam Constitutional: + morbidly obese Respiratory: no respiratory distress and no labored breathing Auscultation: + diminished lung sounds; no rhonchi and no wheezes Cardiovascular: Rate/Rhythm: + tachycardic and + irregularly irregular Vessels: no JVD Extremities: + edema (+ Right lower extremity edema) Gastrointestinal (Abdomen): Inspection/Auscultation: abdomen normal to inspection and normal bowel sounds; abdomen not distended Neurologic: CN's II-XI intact bilaterally and moves all extremities; no focal motor deficits Results & Data Vital Signs (Past 12 Hours) Vital Signs Temp Pulse Pulse Resp BP Pulse Ox O2 Del Method 07/26/23 11:12 36.6 C 106 H 20 117/73 92 Nasal Cannula 07/26/23 07:40 Nasal Cannula 07/26/23 07:39 36.4 C L 86 20 148/66 H 96 Nasal Cannula 07/26/23 03:27 CPAP 07/26/23 02:40 36.5 C 82 20 111/64 96 CPAP 07/26/23 02:29 82 23 94 O2 Flow Rate 07/26/23 11:12 2 07/26/23 07:40 2 07/26/23 07:39 2 07/26/23 03:27 07/26/23 02:40 07/26/23 02:29 3 Laboratory Results Coagulation 07/26/23 Range/Units 05:34 APTT 56.9 H* (21.0-31.0) Seconds CBC 07/26/23 Range/Units 05:34 WBC 12.38 H (4.8-10.8) K/ul RBC 4.13 L (4.70-6.10) M/uL Hgb 11.6 L (14.0-18.0) g/dl Hct 34.8 L (42.0-52.0) % Plt Count 143 (130-400) K/uL Comprehensive Metabolic Panel 07/25/23 07/26/23 Range/Units 16:47 05:34 Sodium 128 L 130 L (136-145) mmol/L Potassium 4.0 4.0 (3.5-5.1) mmol/L Chloride 100 98 (98-107) mmol/L Carbon Dioxide 19 L 20 L (21-32) mmol/L BUN 53 H 61 H (6-23) mg/dl Creatinine 5.44 H* D 6.76 H* D (0.6-1.4) mg/dl Glucose 126 H 130 H (70-99(Fasting)) mg/dl Calcium 8.2 L 8.0 L (8.6-10.3) mg/dl Intake and Output 07/25/23 07/26/23 07/26/23 22:59 06:59 14:59 Intake Total 849.917 / 2016.517 492.35 / 2016.517 154.083 / 154.083 Output Total 225 / 525 300 / 525 550 / 550 Balance 624.917 / 1491.517 192.35 / 1491.517 -395.917 / -395.917 Intake: IV 509.917 / 1676.517 492.35 / 1676.517 154.083 / 154.083 Heparin Sodium/Dextrose 25,000 367.417 / 992.350 492.35 / 992.350 154.083 / 154.083 units In 500 ml @ 2,150 UNITS/ HR 43 mls/hr IV .[id number] [facility] Rx #:[id number] Lactated Ringer's 1,000 ml @ 75 142.5 / 684.167 mls/hr IV .[id number] [facility] Rx#: [id number] Oral 340 / 340 Output: Urine Amount (Catheter) 225 / 525 300 / 525 550 / 550 Erazo/Indwelling 225 / 525 300 / 525 550 / 550 Other: Other Intake Source sips Weight 168.8 kg Weight Measurement Method Built in [facility]
[2023-07-26] MEDS: TAMSULOSIN HCL 0.4 MG CAP PO SCH (20:26)
[2023-07-26] MEDS ORDERED: ceFAZolin 2000MG 2,000 MG/15 ML SYR IV SCH (23:00)
[2023-07-27] MEDS: ACETAMINOPHEN 325 MG TAB PO SCH ×4 (02:43→20:45)
[2023-07-27] MEDS: HEPARIN SODIUM/DEXTROSE 25,000 UNITS/500 ML BAG IV SCH ×2 (03:09→14:43)
[2023-07-27] MEDS: oxyCODONE HCL IR 5 MG TAB (IMMEDIATE RELEASE) PO PRN ×3 (06:19→14:44)
[2023-07-27 07:20] LABS: Partial Thromboplastin Ratio 2.2
[2023-07-27 07:26] LABS: Partial Thromboplastin Time 60.8 Seconds (21.0-31.0)
[2023-07-27 07:56] LABS: Hematocrit (blood only) 34.6 % (42.0-52.0); Hemoglobin 11.6 g/dl (14.0-18.0); Mean Corpuscular Hemoglobin 27.8 pg (25.0-34.0); Mean Corpuscular Hgb Conc 33.5 g/dL (32.0-36.0); Mean Corpuscular Volume 82.8 fL (80.0-100.0); Mean Platelet Volume 11.7 fL (9.4-12.4); Platelet Count 167 K/uL (130-400); RDW Coefficient of Variation 13.9 % (11.5-14.5); RDW Standard Deviation 42.3 fL (36.4-46.3); Red Blood Count 4.18 M/uL (4.70-6.10); White Blood Count 13.99 K/ul (4.8-10.8)
[2023-07-27 08:08] LABS: BUN Creatinine Ratio 9.5 (10-20); Calcium 7.9 mg/dl (8.6-10.3); Creatinine Clr Calc Pharmacy 15.7 ml/min; Est GFR (African American) 7.2 ml/min; Est GFR (Non-African American) 6.2 ml/min; Magnesium 2.6 mg/dl (1.7-2.4); Phosphorus 7.6 mg/dl (2.5-4.9); Potassium 4.1 mmol/L (3.5-5.1)
[2023-07-27] MEDS: INSULIN ASPART PER UNIT CHARGE SC SCH ×4 (08:50→20:47)
[2023-07-27] MEDS: METOPROLOL TARTRATE 25 MG TAB PO SCH ×4 (08:51→20:44)
[2023-07-27] MEDS: LINEZOLID 600 MG TAB PO SCH ×2 (08:51→20:43)
[2023-07-27] MEDS: FUROSEMIDE 40 MG/4 ML VIAL IV SCH ×2 (08:51→17:34)
--- NOTE | 2023-07-27 10:38 | Nephrology Progress Note ---
Date of Service July 27, 2023 Assessment & Plan Admission and Anticipated Discharge Date Admission Date: July 23, 2023 Subjective Assessment & Plan (1) Acute kidney injury: Plan: Conner from ATN in the setting of sepsis. He denies any renal problems in the past, and denies any OTC or NSAIDS, IV fluid were stopped yesterday 2/ pulmonary congestion, He responded well to Lasix challenge , He is comfortable with 2l oxygen and BP and HR are better controlled, Renal function have declined as expected, this in not 2/ lasix, his ATN has not peaked yet, Expect this to further decline before getting better, continue 100 mg IV lasix BID. At the moment he is making urine , electrolyte are safe. No indications for dialysis today but quite possible he will need dialysis. at current rate of worsening he might need tomorrow. BUN > 100 and/or creat > 10 will be indications for dialysis will keep him NPO after midnight today just in case. I explained the situation and he has agreed to do dialysis if needed. Continue to hold ARB, Diuretics Daily BMP, Input and output and daily weights No iv fluids. Subjective Ill appearing c/o pain in the left LE now but was c/o back pain before. 1575 ml urine yesterday. 700 ml overnight shift. But labs continue to worsen. Review of Systems Review of Systems: All systems reviewed & are unremarkable except as noted in HPI & below Physical Exam Physical Exam: General: awake, alert,Comfortable, obese, black male Head: Normocephalic, atraumatic ENT: PERRL, EOMI, no pharyngeal exudate, mucous membranes slightly dry Chest: Clear to auscultation, on room air, no adventitious breath sounds Cardiac: +Sinus tachycardia, no murmur, no JVD, normal peripheral pulses, good capillary refill Abdominal: NABS x 4 quadrants, soft, nondistended, Extremities: RLE diffusely edematous up to groin, LLE with trace edema as well, otherwise Results & Data Vital Signs (Past 12 Hours) Vital Signs Temp Pulse Pulse Resp BP BP Pulse Ox 07/27/23 07:50 36.4 C L 81 20 142/73 H 96 07/27/23 07:28 83 07/27/23 03:01 94 H 28 H 93 07/27/23 02:49 36.6 C 104 H 20 129/73 92 07/26/23 22:43 76 18 93 07/26/23 22:45 36.8 C 88 20 126/82 95 O2 Del Method O2 Flow Rate 07/27/23 07:50 Nasal Cannula 2 07/27/23 07:28 07/27/23 03:01 3 07/27/23 02:49 Room Air 07/26/23 22:43 3 07/26/23 22:45 CPAP
[2023-07-27] MEDS: ceFAZolin 2000MG 2,000 MG/15 ML SYR IV SCH ×2 (10:53→23:15)
--- NOTE | 2023-07-27 11:49 | Cardiology Progress Note ---
Date of Service July 27, 2023 Assessment & Plan (1) Septic shock: (2) New onset a-fib: (3) Acute kidney injury: (4) Right leg DVT: (5) Morbid obesity: Plan ARF with creatinine 8.3 today. IV fluids discontinued. Diuretic therapy as per nephrology. Possible HD in a.m. 07/28/2023, pending review of a.m. labs. Hold outpatient meds including amlodipine, HCTZ, losartan Patient converted to sinus rhythm overnight. Continue metoprolol tartrate 12.5 mg QID as blood pressure permits (hold for SBP < 90) Continue IV heparin. ID input appreciated. Transthoracic echocardiogram without evidence of vegetation. Repeat blood cultures drawn 07/24 and 07/25 negative. Continue antibiotic therapy. Admission and Anticipated Discharge Date Admission Date: July 23, 2023 Subjective Patient seen and examined at the bedside. 700 cc diuresis overnight per discussion with nursing. Patient converted to normal sinus rhythm. Denies chest pain. Complains mostly of lower extremity discomfort and back pain. Creatinine continues to trend upward. Review of Systems Review of Systems: All systems reviewed & are unremarkable except as noted in Subjective Physical Exam Constitutional: + morbidly obese Respiratory: no respiratory distress and no labored breathing Auscultation: + diminished lung sounds; no rhonchi and no wheezes Cardiovascular: Rate/Rhythm: + tachycardic and + irregularly irregular Vessels: no JVD Extremities: + edema (+ Right lower extremity edema) Gastrointestinal (Abdomen): Inspection/Auscultation: abdomen normal to inspection and normal bowel sounds; abdomen not distended Neurologic: CN's II-XI intact bilaterally and moves all extremities; no focal motor deficits Results & Data Vital Signs (Past 12 Hours) Vital Signs Temp Pulse Pulse Resp BP BP Pulse Ox 07/27/23 11:00 36.6 C 83 22 146/66 H 96 07/27/23 10:37 07/27/23 07:50 36.4 C L 81 20 142/73 H 96 07/27/23 07:28 83 07/27/23 03:01 94 H 28 H 93 07/27/23 02:49 36.6 C 104 H 20 129/73 92 O2 Del Method O2 Flow Rate 07/27/23 11:00 Nasal Cannula 2 07/27/23 10:37 Nasal Cannula 2 07/27/23 07:50 Nasal Cannula 2 07/27/23 07:28 07/27/23 03:01 3 07/27/23 02:49 Room Air Laboratory Results Coagulation 07/27/23 Range/Units 06:13 APTT 60.8 H* (21.0-31.0) Seconds CBC 07/27/23 Range/Units 06:13 WBC 13.99 H (4.8-10.8) K/ul RBC 4.18 L (4.70-6.10) M/uL Hgb 11.6 L (14.0-18.0) g/dl Hct 34.6 L (42.0-52.0) % Plt Count 167 (130-400) K/uL Comprehensive Metabolic Panel 07/27/23 Range/Units 06:13 Sodium 128 L (136-145) mmol/L Potassium 4.1 (3.5-5.1) mmol/L Chloride 96 L (98-107) mmol/L Carbon Dioxide 19 L (21-32) mmol/L BUN 79 H (6-23) mg/dl Creatinine 8.33 H* D (0.6-1.4) mg/dl Glucose 132 H (70-99(Fasting)) mg/dl Calcium 7.9 L (8.6-10.3) mg/dl Intake and Output 07/26/23 07/27/23 07/27/23 22:59 06:59 14:59 Intake Total 619.184 / 1120.134 346.867 / 1120.134 194.933 / 194.933 Output Total 375 / 1575 600 / 1575 Balance 244.184 / -454.866 -253.133 / -454.866 194.933 / 194.933 Intake: IV 469.184 / 970.134 346.867 / 970.134 194.933 / 194.933 Heparin Sodium/Dextrose 25,000 469.184 / 970.134 346.867 / 970.134 194.933 / 194.933 units In 500 ml @ 2,150 UNITS/ HR 43 mls/hr IV .[id number] [facility] Rx #:[id number] Oral 150 / 150 Output: Urine Amount (Catheter) 375 / 1575 600 / 1575 Erazo/Indwelling 375 / 1575 600 / 1575 Other: Other Intake Source sips Weight 167.5 kg Weight Measurement Method Built in [facility]
--- NOTE | 2023-07-27 13:45 | Hospitalist Progress Note ---
Date of Service July 27, 2023 Assessment & Plan (1) Sepsis: (2) Cellulitis: (3) Urinary tract infection: (4) Hypomagnesemia: (5) DM II (diabetes mellitus, type II), controlled: (6) HLD (hyperlipidemia): (7) HTN (hypertension): (8) Morbid obesity: (9) New onset a-fib: Plan Mr. Rea is a 62 year old gentleman with past medical history notable for hypertension, HLD, DMTII, and chronic RLE edema 2/2 trauma who is admitted for sepsis on 07/23. Patient found to be in a fib rvr and being managed on PO metoprolol after being on dilit drip throughout the evening of 07/23. Today, patient appears better generally, but noted to be in exquisite back pain which is concerning given infectious work up has resulted with bacteremia [group a beta strep] Additionally, there is notable increase in Cr, which is likely secondary to prerenal etiology given low pressures/shock. Plan for Gen surgery to review RLE for any surgical intervetion, Nephrology to monitor renal functions, Cards to continue to aid in A fib RVR managment, and MRI with possible biopsy if suggestive of osteomyelitis. #Acute hypoxic respiratory failure iso IVF hydration/oliguric SRAWAT -CXR with pulm edema, required 2L NC -Trial 100mg IV lasix, UOP with 875 in 24 hours s/p lasix -Continue 100mg lasix IV BID after discussion on phone with Nephrology, augmentation with metolazone limited 2/2 hyponatremia #Acute lower back pain -Concern for vertebral osteomyelitis given degree of pain on exam and inability to move -Pain control -Continue IV abx as below -MRI lumbar spine: paravertebral marrow edema. no end plate erosion, -Ortho spine consult for review -Dilaudid prn, increased dosing #Oliguric SARWAT, likely evolving ATN 2/2 ischemia from hypotension/shock #Hypervolemic Hyponatremia -Cr uptrending, however, increased UOP s/p IV lasix trial -FeNA prior to lasix 0.9% consistent with prerenal eitology, iso shock/hypotension -Strict I/Os, pacheco in place -No urgent/emergent dialysis needs at this time based upon electrolytes, VS, and increased UOP -avoid nephrotoxic agents -Nephrology consult, continue to appreciate further recommendations--100mg BID IV lasix, assess daily for HD *NPO at midnight in case of probably HD in am #Bacteremia 2/2 group a beta strep #Sepsis 2/2 bacteremia, source unclear #Abnormal UA #?Cellulitis - Pt meets sepsis criteria with fever, tachycardia, source likely RLE cellulitis/UTI - Pt has received 2 L NSS so far, continue LR at 150 ml/hr. mild hyponatremia will be followed. Repeat BMP this afternoon - Troponin is elevated at 47 on admission, trending, likley demand ischemia as EKG without acute findings, no cardiac complaints, no shortness of breath. - Lactate initially elevated at 2.7, improved to 1.7, WBC 16.2, procal 43 - R ankle fracture 2013, R knee surgery in 2016 causes some enlargement in general in the RLE but this is much more swollen and tender in the calf compared to previously. - CT abd/pelvis reviewed as above - BCx x 2 + - Continue Cefazolin with addition of Linezolid 600mg BID per ID - Gen surg: no surgical intervention on RLE - Consider repeat imaging with bone scan if no HD or contrast exam if HD #Right LLE DVT -lymphedema and age-indeterminate DVT present -continue IV heparin, continue in interim with plans to transition to PO regimen prior to dispo given known DVT/a fib #Elevated INR *improving like related to infectious process as level improving with no intervention other than ongoing management of acute processes #New onset atrial fibrillation After initial evaluation the patient - he went into from what we can tell, new onset afib with RVR with rates of 140-150 CHADsVasc 2 likely iso sepsis/bacteremia -Received Diltazem drip, d/c 07/24 -Continue on metoprolol 12.5mg QID, titrate as able #Elevated troponin*improved -likely demand iso bacteremia and a fib -Downtrended -Monitor on telemetry #Hypertension Relative hypotension due to likely shock, resolved with abx/fluid bolus Regimen: amlodipine 10mg, HCTZ 25mg, losartan 50mg -Discontinue amlodipine to avoid given overlap of edema -Hold hctx and losartan #HLD - Chronic, stable, cont statin #DMTII -A1C 6.2% - Holding metformin for now, ISS with accuchecks achs #hypomagnesemia - Replace mag as was 1.5 on admission with 2 g IV. - Trend with am labs #Morbid obesity - BMI of 45, diet and exercise to be encouraged throughout hospital stay DVT ppx: heparin GI/FEN: HH/Diabetic diet Lines: 2 PIV CODE: FULL Admission and Anticipated Discharge Date Admission Date: July 23, 2023 Subjective Continued back pain, out of proportion to exam Cr increasing, UOP documented as 1575 for 07/27 thus far Review of Systems Review of Systems: All systems reviewed & are unremarkable except as noted in Subjective Physical Exam Constitutional: WD/WN, vitals as above Respiratory: decreased breathsounds Cardiovascular: RRR, no murmur, no edema Musculoskeletal: significant, stable RLE edema Results & Data Results & Data Vital Signs (Past 12 Hours) Vital Signs Temp Pulse Pulse Resp BP BP Pulse Ox 07/27/23 11:00 36.6 C 83 22 146/66 H 96 07/27/23 10:37 07/27/23 07:50 36.4 C L 81 20 142/73 H 96 07/27/23 07:28 83 07/27/23 03:01 94 H 28 H 93 07/27/23 02:49 36.6 C 104 H 20 129/73 92 O2 Del Method O2 Flow Rate 07/27/23 11:00 Nasal Cannula 2 07/27/23 10:37 Nasal Cannula 2 07/27/23 07:50 Nasal Cannula 2 07/27/23 07:28 07/27/23 03:01 3 07/27/23 02:49 Room Air Laboratory Results Short CBC 07/27/23 Range/Units 06:13 WBC 13.99 H (4.8-10.8) K/ul Hgb 11.6 L (14.0-18.0) g/dl Hct 34.6 L (42.0-52.0) % Plt Count 167 (130-400) K/uL BMP 07/27/23 06:13 Sodium 128 L Potassium 4.1 Chloride 96 L Carbon Dioxide 19 L BUN 79 H Creatinine 8.33 H* D Glucose 132 H Calcium 7.9 L Medications Administered Home Medications Medication Instructions Recorded Confirmed Last Taken acetaminophen 500 mg tablet 500 mg PO TID PRN Other 07/23/23 07/23/23 Unknown albuterol sulfate 90 mcg/actuation 2 puff inhalation QID PRN Other 07/23/23 07/23/23 Unknown aerosol inhaler (Proventil HFA) amlodipine 10 mg tablet 10 mg PO DAILY 07/23/23 07/23/23 Unknown ciclesonide 160 mcg/actuation 1 puff inhalation BID 07/23/23 07/23/23 Unknown aerosol inhaler (Alvesco) hydrochlorothiazide 25 mg tablet 25 mg PO DAILY 07/23/23 07/23/23 Unknown losartan 50 mg tablet 50 mg PO DAILY 07/23/23 07/23/23 Unknown metformin 500 mg tablet 500 mg PO BID 07/23/23 07/23/23 Unknown rosuvastatin 5 mg tablet 5 mg PO DAILY 07/23/23 07/23/23 Unknown tamsulosin 0.4 mg capsule 0.8 mg PO HS 07/23/23 07/23/23 Unknown Active Medications Generic Name Dose Route Start Last Admin Trade Name Freq PRN Reason Stop Dose Admin Acetaminophen 650 mg 07/23/23 13:45 07/27/23 12:49 Acetaminophen 325 Mg Tab PO 08/22/23 13:44 650 mg Q6H NEGRITA Administration Furosemide 100 mg 07/26/23 12:15 07/27/23 08:51 Furosemide 40 Mg/4 Ml Vial IV 08/25/23 12:14 100 mg [id number] NEGRITA Administration Diltiazem HCl 125 mg/ Dextrose 125 mls @ 0 mls/hr 07/23/23 14:15 07/25/23 10:38 IV 08/22/23 14:14 Infused .Q0M NEGRITA Titration Protocol 0 MG/HR Heparin Sodium/Dextrose 25,000 units in 500 mls @ 43 mls/hr 07/23/23 20:30 07:41 Heparin Sodium/Dextrose IV 08/22/23 20:29 2,150 units/hr .[id number] NEGRITA 43 mls/hr Titration Protocol 2,150 UNITS/HR Cefazolin Sodium 2,000 mg in 15 mls @ 3.75 mls/min 07/26/23 23:00 07/27/23 10:53 Ancef 2000mg IV 08/07/23 10:59 3.75 mls/min Q12H NEGRITA Administration Protocol Insulin Aspart 0 units 07/23/23 19:00 07/27/23 12:45 Insulin Aspart Per Unit Charge SC 08/22/23 18:59 1 units ACHS NEGRITA Administration Linezolid 600 mg 07/24/23 21:00 07/27/23 08:51 Linezolid 600 Mg Tab PO 07/31/23 20:59 600 mg BID NEGRITA Administration Metoprolol Tartrate 12.5 mg 07/23/23 17:00 07/27/23 12:47 Metoprolol Tartrate 25 Mg Tab PO 08/22/23 16:59 12.5 mg QID NEGRITA Administration Oxycodone HCl 10 mg 07/26/23 09:44 07/27/23 10:48 Oxycodone Hcl Ir 5 Mg Tab (Immediate Release) PO 08/06/23 13:42 10 mg Q4H PRN Administration Moderate Pain (Scale 4, 5, 6) Tamsulosin HCl 0.8 mg 07/23/23 21:00 07/26/23 20:26 Tamsulosin Hcl 0.4 Mg Cap PO 08/22/23 20:59 0.8 mg HS NEGRITA Administration
[2023-07-27] MEDS ORDERED: DOCUSATE SODIUM 100 MG CAP PO ONE (14:17)
[2023-07-27] MEDS: HYDROmorphone INJ 1 MG/ML SYRINGE IV PRN ×2 (17:39→23:21)
--- NOTE | 2023-07-27 17:45 | Orthopedic Consultation ---
Date of Service July 27, 2023 History of Present Illness Reason for Consultation: . Low back pain Requesting Physician: . Attending Physician: Jacqui Valiente MD .62 year old gentleman with history of hypertension, HLD, DMTII, and chronic RLE edema 2/2 trauma who is admitted for sepsis on 07/23. Patient found to be in A-fib and being managed on PO metoprolol after being on drip throughout the evening of 07/23. Patient is status post an injury to the right lower extremity with chronic edema, but it is an ambulator with a cane. 5 days previous he developed acute onset of low back pain along with the sepsis. Patient reports he has not had this back pain before, and it will start in his lower lumbar spine but then radiate into the posterior aspect of the left thigh. She can mobilize in the bed to some degree but this causes an exacerbation of his back pain. Along with the medical issues noted, infectious work up has resulted with bacteremia, group a beta strep. Exam indicates the patient having pain lumbosacral region, his neurologic exam is somewhat compromised secondary to low back pain on exertion, but he has appropriate range strength for EHL, left leg with appropriate ankle plantar dorsiflexion and knee extension but with some back pain and also hip flexion. Right leg due to the edema is somewhat more compromised with these maneuvers once again worsening his low back pain. Right leg with generalized edema. WBC: 13.99 MRI lumbar spine without contrast: July 25, 2023 CLINICAL HISTORY: 62 years-old Male with vertebral osteomyelitis?. Acute low back pain with lower extremity numbness. COMPARISON: CT abdomen and pelvis 07/23/2023. TECHNIQUE: Multiplanar, multi sequence MRI of the lumbar spine was performed without intravenous contrast. FINDINGS: Limited exam secondary to patient body habitus and motion artifact. Conus medullaris terminates at L1. There is moderate marrow edema involving the pedicles and facets at L5-S1 bilaterally. Moderate associated paravertebral edema. No acute fracture, subluxation or endplate erosion. T12-L1: Mild facet arthrosis. No central canal or neural foraminal stenosis. L1-L2: Mild facet arthrosis. No central canal or neural foraminal stenosis. L2-L3: Ligamentum flavum thickening with moderate facet arthrosis. Small posterior annular disc bulge. Mild right foraminal narrowing. Central canal and left neuroforamen are patent. L3-L4: Ligamentum flavum thickening with moderate facet arthrosis. Mild intervertebral disc space narrowing with small circumferential annular disc bulging. The central canal is patent. Xoxd-sj-qchwasvf right with moderate left foraminal narrowing. L4-L5: Riys-ua-tmtfrkhw intervertebral disc space narrowing with spondylotic spurring and small posterior disc osteophyte complex. Ligamentum flavum thickening with chtsyndo-ox-mdahht facet arthrosis. Mild central canal stenosis with AP dimension of the thecal sac measuring 9 mm. Mild left with moderate right lateral recess narrowing. Waho-tf-ccryyxqd left with rirzuhcs-kv-havimq right foraminal narrowing. L5-S1: Kuqv-mo-xngumaay intervertebral disc space narrowing with spondylotic spurring, posterior annular disc bulge with small disc osteophyte complex, eccentric to the right. Ligamentum flavum thickening with severe facet arthrosis and small facet effusions. Central canal is patent. Moderate right lateral recess narrowing. Tplm-on-ahjoiftv bilateral foraminal stenosis. IMPRESSION: 1. No acute fracture, subluxation or endplate erosion. 2. Moderate marrow edema within the facets and pedicles at L5-S1 is likely reactive with adjacent soft tissue edema within the paraspinal musculature. 3. Discogenic degeneration with facet arthrosis as above resulting in multilevel foraminal narrowing. 4. No high-grade central canal stenosis. Impression: 5-day history of low back pain acute onset along with sepsis and medical issues as mentioned in history. Plan: Today I talked with the patient, my review of the MRI reveals degenerative changes at L3-4 and L4-5 but no critical areas of stenosis, there is moderate foraminal narrowing bilaterally at L5-S1. Edema noted in the pedicles at L5 bilaterally with some associated edema but no evidence of discitis or osteomyelitis noted. Recommend obtaining MRI with contrast when medically able with renal function. Recommend appropriate reasonable medication but also try to mobilize the patient to some degree relative to his current low back pain symptoms. Allergies Allergy/AdvReac Type Severity Reaction Status Date / Time lisinopril Allergy Intermediate Unknown Unverified 07/23/23 13:02 Home Medications Medication Instructions Recorded Confirmed Type acetaminophen 500 mg tablet 500 mg PO TID PRN Other 07/23/23 07/23/23 History albuterol sulfate 90 mcg/actuation 2 puff inhalation QID PRN Other 07/23/23 07/23/23 History aerosol inhaler (Proventil HFA) amlodipine 10 mg tablet 10 mg PO DAILY 07/23/23 07/23/23 History ciclesonide 160 mcg/actuation 1 puff inhalation BID 07/23/23 07/23/23 History aerosol inhaler (Alvesco) hydrochlorothiazide 25 mg tablet 25 mg PO DAILY 07/23/23 07/23/23 History losartan 50 mg tablet 50 mg PO DAILY 07/23/23 07/23/23 History metformin 500 mg tablet 500 mg PO BID 07/23/23 07/23/23 History rosuvastatin 5 mg tablet 5 mg PO DAILY 07/23/23 07/23/23 History tamsulosin 0.4 mg capsule 0.8 mg PO HS 07/23/23 07/23/23 History Past Med/Surg History Medical History DM II (diabetes mellitus, type II), controlled History of fracture of right ankle HLD (hyperlipidemia) HTN (hypertension) Morbid obesity Surgical History Hx of right knee surgery Social History Smoking Status: Never smoker Hx Alcohol Use: No Hx Substance Use: Yes Non-Prescribed Medications: Marijuana Preferred Language: [place] Communication Ability: Effective Consulting Manager Required: No Current Living Situation: Other Current Living Situation Comment: [facility] Other Information That Helps Us Care for You: No Feels Safe at Home: Yes Safety Concerns: Feels Safe At This Time Review of Systems All systems reviewed & are unremarkable except as noted in HPI & below. Physical Exam . Results & Data Results & Data Laboratory Results . Diagnostic Findings . PG Care Time/CCT Total # of Minutes Spent Total Time Spent with Patient: Total time spent is greater than 50% in coordination of care (as documented) at patient's floor/unit and/or counseling patient: Coding Level of Care Code 55560 IN/OBS CONSULT LVL 3,45M Diagnoses
[2023-07-27] MEDS: ACETAMINOPHEN 325 MG TAB PO PRN (20:41)
[2023-07-27] MEDS: TAMSULOSIN HCL 0.4 MG CAP PO SCH (20:42)
[2023-07-27] MEDS: DOCUSATE SODIUM 100 MG CAP PO SCH (20:43)
[2023-07-28] MEDS: ACETAMINOPHEN 325 MG TAB PO SCH ×4 (01:56→20:02)
[2023-07-28] MEDS: HEPARIN SODIUM/DEXTROSE 25,000 UNITS/500 ML BAG IV SCH ×3 (01:58→17:46)
[2023-07-28] MEDS: oxyCODONE HCL IR 5 MG TAB (IMMEDIATE RELEASE) PO PRN ×4 (02:04→23:19)
[2023-07-28 05:16] LABS: Hematocrit (blood only) 32.8 % (42.0-52.0); Hemoglobin 11.2 g/dl (14.0-18.0); Mean Corpuscular Hemoglobin 28.2 pg (25.0-34.0); Mean Corpuscular Hgb Conc 34.1 g/dL (32.0-36.0); Mean Corpuscular Volume 82.6 fL (80.0-100.0); Mean Platelet Volume 10.9 fL (9.4-12.4); Platelet Count 236 K/uL (130-400); RDW Coefficient of Variation 14.7 % (11.5-14.5); RDW Standard Deviation 44.6 fL (36.4-46.3); Red Blood Count 3.97 M/uL (4.70-6.10); White Blood Count 18.77 K/ul (4.8-10.8)
[2023-07-28 05:44] LABS: BUN Creatinine Ratio 10.1 (10-20); Calcium 7.8 mg/dl (8.6-10.3); Creatinine Clr Calc Pharmacy 13.7 ml/min; Est GFR (African American) 6.1 ml/min; Est GFR (Non-African American) 5.3 ml/min; Magnesium 2.8 mg/dl (1.7-2.4); Phosphorus 9.6 mg/dl (2.5-4.9); Potassium 4.2 mmol/L (3.5-5.1)
[2023-07-28 06:01] LABS: Partial Thromboplastin Ratio 2.7
[2023-07-28 06:28] LABS: Partial Thromboplastin Time 77.3 Seconds (21.0-31.0)
--- NOTE | 2023-07-28 07:36 | Hospitalist Progress Note ---
Date of Service July 28, 2023 Assessment & Plan (1) Sepsis: (2) Cellulitis: (3) Urinary tract infection: (4) Hypomagnesemia: (5) DM II (diabetes mellitus, type II), controlled: (6) HLD (hyperlipidemia): (7) HTN (hypertension): (8) Morbid obesity: (9) New onset a-fib: Plan Mr. 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 Patient found to be in a fib rvr and now being managed on PO metoprolol after converted to NSR while on dilit drip the evening of 07/23. Patient found to have DVT in RLE and placed on heparin drip as well. On 07/24, patient was noted to be in exquisite back pain which is concerning given infectious work up has resulted with bacteremia [group a beta strep]. MRI imaging limited to noncontrast given progressive renal injury; this did not reveal discitis or signs overtly suggestive for vertebral osteomyelitis, but still concerning nonetheless. Ortho Spine evaluated patient for any acute neural compression, but there was no notable stenosis on imaging to correlate to pain on exam. Evaluation limited with MRI or CT 2/2 poor renal function. Patient's acute renal failure is likely secondary to prerenal etiology given low pressures/shock resulting in ATN. Patient has not responded favorably to lasix challenge, with plateaued UOP and uptrending Cr. It was decided to place temporary HD line at bedside for intermittent hemodialysis. Given there is anticipation of renal recovery, any contrast use at this time is not advised to prevent further insult to kidneys. Plan to obtain bone scan once stable from renal standpoint to aid in assessment of ?osteomyletities. Blood Cultures from 07/23 with Group A Strep B, Urine culture negative. ECHO with no clear sign of vegetations. To ensure no persistent bacteremia, blood cultures were obtained on 07/24 and 07/25 without growth to date. However, there was an increase in WBC on 07/28, prompting repeat blood cultures, though suspicion is high that leukocytosis potentially reactive iso progressive renal failure and other acute issues discussed below. #Acute hypoxic respiratory failure iso IVF hydration/oliguric SARWAT *resolved -CXR with pulm edema, required 2L NC, now on room air -CTM, oxygen prn, encourage mobilization -Pending HD, discussed below #Acute lower back pain -Concern for vertebral osteomyelitis, even retroperitoneal abscess as DDx, given degree of pain on exam and inability to move 2/2 pain -Pain control and mobilization as able -Continue IV abx as below -MRI lumbar spine: paravertebral marrow edema. no end plate erosion, no signs of osteomyelitis, however insufficient 2/2 lack of contrast iso ARF -Ortho spine consult: No surgical intervention at this time, consider bone scan if persistent -Nephrology: No contrast use as MRI/CT contrast can hinder renal recovery--bone scan when stable from renal standpoint #Oliguric SARWAT, likely evolving ATN 2/2 ischemia from hypotension/shock #Azotemia #Hypervolemic Hyponatremia -Cr uptrending, however, increased UOP s/p IV lasix trial -FeNA prior to lasix 0.9% consistent with prerenal eitology, iso shock/hypotension -Strict I/Os, pacheco in place -Failed to demonstrate strong response to lasix challenge -avoid nephrotoxic agents -Nephrology consult: HD cath placement 07/28, plan for intermittent dialysis #Leukocytosis -Afebrile, non-tachycardic (remains in NSR since 07/26) -Likely secondary to worsening renal failure/azotemia, however, given ongoing back pain/known bacteremia will obtain repeat blood cultures #Bacteremia 2/2 group a beta strep #Sepsis 2/2 bacteremia, source unclear *improved #Abnormal UA #?Cellulitis - sepsis criteria with fever, elevated lactate, tachycardia, source likely RLE cellulitis/UTI on admission, *resolved - BCx x 2 + 07/23, 07/24 and 07/25 NGTD; UA NGTD (denied urinary symptoms) - Continue Cefazolin with addition of Linezolid 600mg BID per ID - Gen surg: no surgical intervention on RLE (no fluid collections, predominately chronic changes of RLE) #Right LLE DVT - R ankle fracture 2013, R knee surgery in 2016 causes some enlargement in general in the RLE but this is much more swollen and tender in the calf compared to previously. -lymphedema and age-indeterminate DVT present -continue IV heparin, continue in interim given renal dysfunction with plans to transition to PO regimen prior to dispo given known DVT/a fib #New onset atrial fibrillation with RVR, now sinus After initial evaluation the patient - he went into from what we can tell, new onset afib with RVR with rates of 140-150 CHADsVasc 2 likely iso sepsis/bacteremia -Received Diltazem drip, d/c 07/24 -Continue on metoprolol 12.5mg QID, titrate as able/necessary #Elevated troponin*improved -likely demand iso bacteremia and a fib -Downtrended -Monitor on telemetry #Hypertension Relative hypotension due to likely shock, resolved with abx/fluid bolus Regimen: amlodipine 10mg, HCTZ 25mg, losartan 50mg -Discontinue amlodipine to avoid given overlap of edema -Hold hctx and losartan #HLD - Chronic, stable, cont statin #Controlled DMTII -A1C 6.2% 07/24 - Holding metformin for now, ISS with accuchecks achs #hypomagnesemia *resolved - Replace mag as was 1.5 on admission with 2 g IV. - Trend with am labs, hold replacement iso ARF, potential HD #Morbid obesity - BMI of 45, diet and exercise to be encouraged throughout hospital stay DVT ppx: heparin GI/FEN: HH/Diabetic diet Lines: 2 PIV, pending HD line CODE: FULL Admission and Anticipated Discharge Date Admission Date: July 23, 2023 Subjective NAEO Still with poor UOP and uptrending Cr on labs Evaluated patient s/p pain medication, denies any new pain outside of back concerns; verbalizes understanding about dialysis needs and agreeable Review of Systems Review of Systems: All systems reviewed & are unremarkable except as noted in Subjective Physical Exam Constitutional: lethargic, responsive; falls asleep midconversation Respiratory: normal respiratory effort, lungs clear to auscultation no crackles appreciated, on room air Cardiovascular: RRR, no murmur Gastrointestinal (Abdomen): distended abdomen, however, soft; BS+ Musculoskeletal: RLE remains with stable nonpitting edema, nontender to touch BLE movement limited 2/2 pain in lumbar spine Results & Data Results & Data Vital Signs (Past 12 Hours) Vital Signs Temp Pulse Pulse Resp BP BP Pulse Ox 07/28/23 07:19 36.3 C L 71 20 120/36 L 93 07/28/23 02:42 36.5 C 76 20 113/68 95 07/27/23 23:32 80 07/27/23 22:45 36.3 C L 83 20 129/75 93 07/27/23 21:25 87 16 91 07/27/23 22:04 O2 Del Method O2 Flow Rate 07/28/23 07:19 Room Air 07/28/23 02:42 Room Air 07/27/23 23:32 07/27/23 22:45 Room Air 07/27/23 21:25 3 07/27/23 22:04 Room Air, Nasal Cannula, CPAP Laboratory Results Short CBC 07/27/23 07/28/23 Range/Units 06:13 04:46 WBC 13.99 H 18.77 H (4.8-10.8) K/ul Hgb 11.6 L 11.2 L (14.0-18.0) g/dl Hct 34.6 L 32.8 L (42.0-52.0) % Plt Count 167 236 (130-400) K/uL BMP 07/27/23 07/28/23 06:13 04:46 Sodium 128 L 127 L Potassium 4.1 4.2 Chloride 96 L 93 L Carbon Dioxide 19 L 17 L BUN 79 H 96 H Creatinine 8.33 H* D 9.54 H* D Glucose 132 H 123 H Calcium 7.9 L 7.8 L Medications Administered Home Medications Medication Instructions Recorded Confirmed Last Taken acetaminophen 500 mg tablet 500 mg PO TID PRN Other 07/23/23 07/23/23 Unknown albuterol sulfate 90 mcg/actuation 2 puff inhalation QID PRN Other 07/23/23 07/23/23 Unknown aerosol inhaler (Proventil HFA) amlodipine 10 mg tablet 10 mg PO DAILY 07/23/23 07/23/23 Unknown ciclesonide 160 mcg/actuation 1 puff inhalation BID 07/23/23 07/23/23 Unknown aerosol inhaler (Alvesco) hydrochlorothiazide 25 mg tablet 25 mg PO DAILY 07/23/23 07/23/23 Unknown losartan 50 mg tablet 50 mg PO DAILY 07/23/23 07/23/23 Unknown metformin 500 mg tablet 500 mg PO BID 07/23/23 07/23/23 Unknown rosuvastatin 5 mg tablet 5 mg PO DAILY 07/23/23 07/23/23 Unknown tamsulosin 0.4 mg capsule 0.8 mg PO HS 07/23/23 07/23/23 Unknown Active Medications Generic Name Dose Route Start Last Admin Trade Name Yahaira PRN Reason Stop Dose Admin Acetaminophen 650 mg 07/23/23 13:45 07/28/23 01:56 Acetaminophen 325 Mg Tab PO 08/22/23 13:44 650 mg Q6H NEGRITA Administration Docusate Sodium 100 mg 07/27/23 21:00 07/27/23 20:43 Docusate Sodium 100 Mg Cap PO 08/26/23 20:59 100 mg BID NEGRITA Administration Furosemide 100 mg 07/26/23 12:15 07/27/23 17:34 Furosemide 40 Mg/4 Ml Vial IV 08/25/23 12:14 100 mg [id number] NEGRITA Administration Hydromorphone HCl 1 mg 07/27/23 10:46 07/27/23 23:21 Hydromorphone Inj 1 Mg/Ml Syringe IV 08/09/23 09:42 1 mg Q6H PRN Administration Pain Diltiazem HCl 125 mg/ Dextrose 125 mls @ 0 mls/hr 07/23/23 14:15 07/25/23 10:38 IV 08/22/23 14:14 Infused .Q0M NEGRITA Titration Protocol 0 MG/HR Heparin Sodium/Dextrose 25,000 units in 500 mls @ 41 mls/hr 07/23/23 20:30 07/28/23 07:22 Heparin Sodium/Dextrose IV 08/22/23 20:29 2,050 units/hr .[id number] NEGRITA 41 mls/hr Titration Protocol 2,050 UNITS/HR Cefazolin Sodium 2,000 mg in 15 mls @ 3.75 mls/min 07/26/23 23:00 07/27/23 23:15 Ancef 2000mg IV 08/07/23 10:59 3.75 mls/min Q12H NEGRITA Administration Protocol Insulin Aspart 0 units 07/23/23 19:00 07/27/23 20:47 Insulin Aspart Per Unit Charge SC 08/22/23 18:59 Not Given ACHS NEGRITA Linezolid 600 mg 07/24/23 21:00 07/27/23 20:43 Linezolid 600 Mg Tab PO 07/31/23 20:59 600 mg BID NEGRITA Administration Metoprolol Tartrate 12.5 mg 07/23/23 17:00 07/27/23 20:44 Metoprolol Tartrate 25 Mg Tab PO 08/22/23 16:59 12.5 mg QID NEGRITA Administration Oxycodone HCl 10 mg 07/26/23 09:44 07/28/23 02:04 Oxycodone Hcl Ir 5 Mg Tab (Immediate Release) PO 08/06/23 13:42 10 mg Q4H PRN Administration Moderate Pain (Scale 4, 5, 6) Tamsulosin HCl 0.8 mg 07/23/23 21:00 07/27/23 20:42 Tamsulosin Hcl 0.4 Mg Cap PO 08/22/23 20:59 0.8 mg HS NEGRITA Administration
--- NOTE | 2023-07-28 07:47 | Cardiology Progress Note ---
Date of Service July 28, 2023 Assessment & Plan (1) Septic shock: (2) New onset a-fib: (3) Acute kidney injury: (4) Right leg DVT: (5) Morbid obesity: Plan IMPRESSION/PLAN: Medically complex acutely ill 62-year-old male admitted on 04/22 with sepsis and new onset atrial fibrillation with RVR. Acute renal failure with creatinine of 9.5 and BUN of 96 today. IV fluids and diuretic therapy as per nephrology. Currently n.p.o. for potential dialysis today 07/28/2023. Hold outpatient medications including amlodipine, HCTZ, losartan Patient converted to sinus rhythm (07/26 - 07/27)--maintaining sinus rhythm on telemetry. Remain OFF diltiazem gtt. Continue metoprolol tartrate 12.5 mg QID as blood pressure permits (hold for SBP < 90) Continue IV heparin. ID input appreciated. Transthoracic echocardiogram without evidence of vegetation. Repeat blood cultures drawn 07/24 and 07/25 negative. Continue antibiotic therapy. Case discussed with Dr. Herrera-- will follow. Admission and Anticipated Discharge Date Admission Date: July 23, 2023 Supervising Physician Co-Signing Physician Notes Patient seen examined the bedside. Creatinine continues to trend upward. Planning hemodialysis today. Haim in sinus rhythm on telemetry. No chest pain. Right lower extremity edema unchanged. Continues to note chronic back pain. PE: VSS. Gen: NAD, AAO x3. Heart: Regular rhythm, normal S1-S2. No murmur. Lungs: Diminished breath sounds at the bases bilateral. Extremities: 3+ RLE edema. A/P: Agree with above CLASSROOM ASSISTANT history, physical exam, assessment and plan. Remains in sinus rhythm. Transition metoprolol to tartrate to metoprolol succinate 25 mg twice daily. Placed temporary dialysis catheter today. Continue IV heparin. Subjective 62-year-old male admitted from [facility] with sepsis on 07/23/2023. Cardiology consulted due to new onset atrial fibrillation with RVR. 07/23/2023: Amlodipine, hydrochlorothiazide, losartan held IV diltiazem started for rate control. Metoprolol tartrate 12.5 mg 4 times daily started. No anticoagulation was started due to "auto anticoagulation" 07/24/2023: Diltiazem drip weaned. Metoprolol tartrate 12.5 mg 4 times daily continued. Heparin drip initiated after the venous duplex revealed an age-indeterminate nonocclusive DVT of the right common femoral vein, superficial femoral vein, popliteal vein 07/25/2023: IV diltiazem discontinued. SARWAT on blood work, nephrology consulted. Patient experienced acute hypoxic respiratory failure secondary to fluid resuscitation. Chest x-ray with vascular congestion and edema. Nephrology discontinued IV fluids and patient was started on Lasix 100 mg daily 07/26/2023: Nephrology increase Lasix to 100 mg twice daily--patient continues to make urine but renal function continues to decline. Echo without evidence of vegetation. Blood cultures drawn on 07/24 negative x24 hours 07/27/2023: Serum creatinine continues to decline: 6 >> 8. Patient was made n.p.o. at midnight with concerns for possible dialysis in the morning (07/28) Blood cultures drawn 07/24 and 07/25 negative 07/28/2023: Patient seen and examined at the bedside. Minimal urine output over night. Patient converted to normal sinus rhythm and maintaining per telemetry.. Denies chest pain. Complains mostly of lower extremity discomfort and back pain. Creatinine continues to trend upward. (Scr 6 >> 8 >> 9.5. BUN 96) Tele: SR 70-80s Review of Systems Review of Systems: All systems reviewed & are unremarkable except as noted in HPI & below Physical Exam Constitutional: + morbidly obese; no acute distress Respiratory: no respiratory distress and no labored breathing Auscultation: + diminished lung sounds; no rhonchi and no wheezes Cardiovascular: Rate/Rhythm: regular rate and regular rhythm Vessels: no JVD Extremities: + edema (+ Right lower extremity edema) Gastrointestinal (Abdomen): Inspection/Auscultation: abdomen normal to inspection and normal bowel sounds; abdomen not distended Skin: no rashes, warm and dry Neurologic: CN's II-XI intact bilaterally and moves all extremities; no focal motor deficits Psychiatric: A+Ox3, euthymic affect Results & Data Vital Signs (Past 12 Hours) Vital Signs Temp Pulse Pulse Resp BP BP Pulse Ox 07/28/23 07:19 36.3 C L 71 20 120/36 L 93 07/28/23 02:42 36.5 C 76 20 113/68 95 07/27/23 23:32 80 07/27/23 22:45 36.3 C L 83 20 129/75 93 07/27/23 21:25 87 16 91 07/27/23 22:04 O2 Del Method O2 Flow Rate 07/28/23 07:19 Room Air 07/28/23 02:42 Room Air 07/27/23 23:32 07/27/23 22:45 Room Air 07/27/23 21:25 3 07/27/23 22:04 Room Air, Nasal Cannula, CPAP Laboratory Results Coagulation 07/28/23 Range/Units 04:46 APTT 77.3 H* (21.0-31.0) Seconds CBC 07/27/23 07/28/23 Range/Units 06:13 04:46 WBC 13.99 H 18.77 H (4.8-10.8) K/ul RBC 4.18 L 3.97 L (4.70-6.10) M/uL Hgb 11.6 L 11.2 L (14.0-18.0) g/dl Hct 34.6 L 32.8 L (42.0-52.0) % Plt Count 167 236 (130-400) K/uL Comprehensive Metabolic Panel 07/27/23 07/28/23 Range/Units 06:13 04:46 Sodium 128 L 127 L (136-145) mmol/L Potassium 4.1 4.2 (3.5-5.1) mmol/L Chloride 96 L 93 L (98-107) mmol/L Carbon Dioxide 19 L 17 L (21-32) mmol/L BUN 79 H 96 H (6-23) mg/dl Creatinine 8.33 H* D 9.54 H* D (0.6-1.4) mg/dl Glucose 132 H 123 H (70-99(Fasting)) mg/dl Calcium 7.9 L 7.8 L (8.6-10.3) mg/dl Intake and Output 07/27/23 07/28/23 07/28/23 22:59 06:59 14:59 Intake Total 392.783 / 1686.799 496.650 / 1686.799 25.283 / 25.283 Output Total 325 / 1225 250 / 1225 Balance 67.783 / 461.799 246.650 / 461.799 25.283 / 25.283 Intake: IV 192.783 / 1186.799 496.650 / 1186.799 25.283 / 25.283 Heparin Sodium/Dextrose 25,000 192.783 / 1186.799 496.650 / 1186.799 25.283 / 25.283 units In 500 ml @ 2,150 UNITS/ HR 43 mls/hr IV .[id number] [facility] Rx #:[id number] Oral 200 / 500 Output: Urine Amount (Catheter) 325 / 1225 250 / 1225 Reazo/Indwelling 325 / 1225 250 / 1225 Other: Other Intake Source NPO
[2023-07-28] MEDS ORDERED: Nursing to Pharmacy Communication SCH ×4 (08:30→18:45)
[2023-07-28] MEDS: METOPROLOL TARTRATE 25 MG TAB PO SCH ×2 (08:37→14:38)
[2023-07-28] MEDS: LINEZOLID 600 MG TAB PO SCH ×2 (08:37→20:06)
[2023-07-28] MEDS: DOCUSATE SODIUM 100 MG CAP PO SCH ×2 (08:38→20:06)
[2023-07-28] MEDS: INSULIN ASPART PER UNIT CHARGE SC SCH ×5 (08:38→19:42)
[2023-07-28] MEDS: FUROSEMIDE 40 MG/4 ML VIAL IV SCH (08:40)
--- NOTE | 2023-07-28 10:25 | Nephrology Progress Note ---
Date of Service July 28, 2023 Assessment & Plan Admission and Anticipated Discharge Date Admission Date: July 23, 2023 Subjective Assessment & Plan (1) Acute kidney injury: Plan: Conner from ATN in the setting of sepsis. He denies any renal problems in the past, and denies any OTC or NSAIDS, IV fluid were stopped yesterday 2/ pulmonary congestion, He responded well to Lasix challenge , He is comfortable with 2l oxygen and BP and HR are better controlled, Renal function have declined as expected, this in not due to lasix, his ATN has not peaked yet continue 100 mg IV lasix BID. At the moment he is making urine , electrolyte are safe. Blood c/s from 07/23 +ve and also ? about Discitis and osteomyelitis so its better Daily BMP, Input and output and daily weights No iv fluids. urine about 1200--1500 ml per day last few days. But labs continue to worsen. Dialysis today. Place temp HD cath and dialysis after that. case discussed with primary team and plan discussed. Sometime next week ofelia place perm cath if he still needs dialysis till then. Given CONNER--better to avoid CT contrast and the Mri Contrast. Subjective c/o pain in the left LE and back pain. Ortho did see the patient. urine about 1200--1500 ml per day last few days. But labs continue to worsen. Review of Systems Review of Systems: All systems reviewed & are unremarkable except as noted in HPI & below Physical Exam Physical Exam: General: awake, alert,Comfortable, obese, black male Head: Normocephalic, atraumatic ENT: PERRL, EOMI, no pharyngeal exudate, mucous membranes slightly dry Chest: Clear to auscultation, on room air, no adventitious breath sounds Cardiac: +Sinus tachycardia, no murmur, no JVD, normal peripheral pulses, good capillary refill Abdominal: NABS x 4 quadrants, soft, nondistended, Extremities: RLE diffusely edematous up to groin, LLE with trace edema as well, otherwise Results & Data Vital Signs (Past 12 Hours) Vital Signs Temp Pulse Pulse Resp BP BP Pulse Ox 07/28/23 08:00 07/28/23 07:40 76 07/28/23 07:19 36.3 C L 71 20 120/36 L 93 07/28/23 02:42 36.5 C 76 20 113/68 95 07/27/23 23:32 80 07/27/23 22:45 36.3 C L 83 20 129/75 93 O2 Del Method 07/28/23 08:00 Room Air 07/28/23 07:40 07/28/23 07:19 Room Air 07/28/23 02:42 Room Air 07/27/23 23:32 07/27/23 22:45 Room Air
[2023-07-28] MEDS: ceFAZolin 2000MG 2,000 MG/15 ML SYR IV SCH ×2 (11:17→22:12)
[2023-07-28] MEDS ORDERED: HEPARIN SODIUM/DEXTROSE 25,000 UNITS/500 ML BAG IV SCH (11:45)
--- NOTE | 2023-07-28 15:02 | Procedure Note ---
Procedure Note Date of Service July 28, 2023 Note Procedure date: Noted above Procedure: Temporary hemodialysis catheter Pre-procedure indication: Need for temporary hemodialysis access Post-procedure Diagnosis: same as above Prior to Procedure: Informed Consent: The risks, benefits, indications, potential complications, and alternatives were explained to the patient and informed consent obtained. Attending Staff: Rachid Moncada DO Resident/APC: Not applicable Skin Prep: Chlorhexidine Anesthesia: 4 mL 1% lidocaine without epinephrine The identity of the patient was confirmed and a bedside time out was performed. Description of Procedure: After sterile prep and sterile drape utilizing standard sterile technique the superficial skin of the right internal jugular area was anesthetized. The target vessel was identified and entered with an 18- gauge needle. Dark venous blood return was noted. A guidewire was inserted through the needle and into the vessel. The needle was withdrawn and a skin dayan was made. A tissue dilator was advanced via Seldinger technique and r emoved. A double lumen catheter was inserted via Seldinger technique and the guidewire removed. All ports ophelia and flushed easily. A Biopatch was placed, and the catheter was secured via nylon suture. A sterile dressing was then applied. Complications: None Estimated blood loss: Trace Patient tolerated the procedure well. Procedure Date: Noted Above Procedure: Procedural Ultrasound Indication: Central venous access Attending: Rachid Moncada DO Resident/Physician Blindstitch Hemmer: Not applicable Artery visualized: Yes Vein visualized: Yes Compressible Vein: Yes Vein patent: Yes Guidewire or Short Catheter seen in vein prior to dilation: Yes Line confirmed in Vein with ultrasound: Yes Lung Sliding on side of attempt (if applicable): NA If no lung sliding or not obtained has CXR been ordered: Yes, no pneumothorax adequate position Impression: Successful central venous access placement Images obtained are saved for permanent record Coding CPT Codes Tubes, Drains, and Vasc Access - Tubes, Drains, and Vasc Access: [id number] Insertion Of Non-tunneled Catheter Age 6 Yrs> ([id number]) Tubes, Drains, and Vasc Access - Tubes, Drains, and Vasc Access: [id number] Ultrasound Guidance For Vascular ([id number]) [facility] Procedure Codes (Charges) Tubes, Drains, and Vasc Access Procedure 1: Tubes, Drains, and Vasc Access: [id number] Insertion Of Non-tunneled Catheter Age 6 Yrs> Procedure 2: Tubes, Drains, and Vasc Access: [id number] Ultrasound Guidance For Vascular
--- NOTE | 2023-07-28 15:29 | XRay Report ---
SINGLE VIEW CHEST CLINICAL HISTORY: Central venous catheter placement. FINDINGS: An AP, portable, upright chest radiograph is compared to study dated 07/25/2023 The examina tion is degraded by portable technique and apical lordotic positioning. A right internal jugular cent ral venous catheter is been placed. The tip projects over the SVC. The heart is enlarged. There is pu lmonary vascular congestion. There is bibasilar scarring/atelectasis. No airspace consolidation or la rge pleural effusion is identified. No pneumothorax is seen. The skeletal structures are osteopenic. The bony thorax is grossly intact. Fusion hardware is noted in the cervical spine. IMPRESSION: 1. A right internal jugular central venous catheter has been placed as above. No pneumothorax is iden tified post procedure. 2. Cardiomegaly with pulmonary vascular congestion. 3. No airspace consolidation or large pleural effusion is identified. ACT 112: Negative or not required by law. Electronically signed by: Manoj Christiansen M.D. 07/28/2023 3:28 PM
[2023-07-28 15:43] LABS: Partial Thromboplastin Ratio 1.2; Partial Thromboplastin Time 35.2 Seconds (21.0-31.0)
[2023-07-28] MEDS: HYDROmorphone INJ 1 MG/ML SYRINGE IV PRN (18:28)
[2023-07-28] MEDS ORDERED: INSULIN ASPART PER UNIT CHARGE SC SCH (18:45)
[2023-07-28] MEDS: TAMSULOSIN HCL 0.4 MG CAP PO SCH (20:05)
[2023-07-28] MEDS: METOPROLOL SUCC 25MG EXT REL TAB PO SCH (20:05)
[2023-07-28 21:10] LABS: BUN Creatinine Ratio 9.6 (10-20); Calcium 7.9 mg/dl (8.6-10.3); Creatinine Clr Calc Pharmacy 16.6 ml/min; Est GFR (African American) 7.8 ml/min; Est GFR (Non-African American) 6.7 ml/min
--- NOTE | 2023-07-28 22:13 | XRay Report ---
SINGLE VIEW CHEST CLINICAL HISTORY: Central venous catheter exchange. FINDINGS: An AP, portable, upright chest radiograph is compared to study performed earlier the same d ay 07/28/2023. A right internal jugular central venous catheter is is in place. The tip projects over the cavoatrial junction. The heart is enlarged. There is pulmonary vascular congestion. There is bib asilar scarring/atelectasis. No airspace consolidation or large pleural effusion is identified. No pn eumothorax is seen. The skeletal structures are osteopenic. The bony thorax is grossly intact. Fusion hardware is noted in the cervical spine. IMPRESSION: 1. A right internal jugular central venous catheter is in place as above. No pneumothorax is identifi ed post procedure. 2. Cardiomegaly with pulmonary vascular congestion. This has worsened as compared to previous. 3. No airspace consolidation or large pleural effusion is identified. ACT 112: Negative or not required by law. Electronically signed by: Manoj Christiansen M.D. 07/28/2023 10:12 PM
[2023-07-28 23:31] LABS: Partial Thromboplastin Ratio 3.8
[2023-07-28 23:36] LABS: Partial Thromboplastin Time 108.5 Seconds (21.0-31.0)
[2023-07-29] MEDS: ACETAMINOPHEN 325 MG TAB PO SCH ×4 (01:27→19:52)
[2023-07-29] MEDS: HEPARIN SODIUM/DEXTROSE 25,000 UNITS/500 ML BAG IV SCH ×4 (06:03→21:05)
--- NOTE | 2023-07-29 07:00 | Cardiology Progress Note ---
Date of Service July 29, 2023 Assessment & Plan (1) Septic shock: (2) New onset a-fib: (3) Acute kidney injury: (4) Right leg DVT: (5) Morbid obesity: Plan IMPRESSION/PLAN: Medically complex acutely ill 62-year-old male admitted on 04/22 with sepsis and new onset atrial fibrillation with RVR. Course complicated by acute renal failure with peak creatinine of 9.5 and BUN of 96 (07/28/2023). Started on HD via temp cath. With removal of 1.5L. Hold outpatient medications including amlodipine, HCTZ, losartan Patient converted to sinus rhythm (07/26 - 07/27)--maintaining sinus rhythm on telemetry. Remain OFF diltiazem gtt. Continue metoprolol succinate 25 mg twice daily (transitioned from tartrate 07/28) Continue IV heparin. Case discussed with Dr. Herrera-- will follow. Admission and Anticipated Discharge Date Admission Date: July 23, 2023 Subjective 62-year-old male admitted from [facility] with sepsis on 07/23/2023. Cardiology consulted due to new onset atrial fibrillation with RVR. 07/23/2023: Amlodipine, hydrochlorothiazide, losartan held IV diltiazem started for rate control. Metoprolol tartrate 12.5 mg 4 times daily started. No anticoagulation was started due to "auto anticoagulation" 07/24/2023: Diltiazem drip weaned. Metoprolol tartrate 12.5 mg 4 times daily continued. Heparin drip initiated after the venous duplex revealed an age-indeterminate nonocclusive DVT of the right common femoral vein, superficial femoral vein, popliteal vein 07/25/2023: IV diltiazem discontinued. SARWAT on blood work, nephrology consulted. Patient experienced acute hypoxic respiratory failure secondary to fluid resuscitation. Chest x-ray with vascular congestion and edema. Nephrology discontinued IV fluids and patient was started on Lasix 100 mg daily 07/26/2023: Nephrology increase Lasix to 100 mg twice daily--patient continues to make urine but renal function continues to decline. Echo without evidence of vegetation. Blood cultures drawn on 07/24 negative x24 hours 07/27/2023: Serum creatinine continues to decline: 6 >> 8. Patient was made n.p.o. at midnight with concerns for possible dialysis in the morning (07/28) Blood cultures drawn 07/24 and 07/25 negative 07/28/2023: Tolerated metoprolol tartrate, transition to metoprolol succinate 25 mg twice daily Temporary dialysis catheter placed by critical care. Underwent dialysis removing 1.5 L. Serum creatinine lowered to 7.85 (peaked at 9.54) 07/29/2023: Tele: SR 70-80s Physical Exam Constitutional: + morbidly obese; no acute distress Respiratory: no respiratory distress and no labored breathing Auscultation: + diminished lung sounds; no rhonchi and no wheezes Cardiovascular: Rate/Rhythm: regular rate, regular rhythm, + tachycardic and + irregularly irregular Vessels: no JVD Extremities: + edema (+ Right lower extremity edema) Gastrointestinal (Abdomen): Inspection/Auscultation: abdomen normal to inspection and normal bowel sounds; abdomen not distended Skin: no rashes, warm and dry Neurologic: CN's II-XI intact bilaterally and moves all extremities; no focal motor deficits Psychiatric: A+Ox3, euthymic affect Results & Data Vital Signs (Past 12 Hours) Vital Signs Temp Pulse Resp BP BP Pulse Ox O2 Del Method 07/29/23 03:10 36.6 C 84 18 152/71 H 95 Room Air 07/28/23 23:19 Room Air 07/28/23 23:08 36.4 C L 88 20 133/71 95 Room Air 07/28/23 20:47 37.0 C 88 20 129/75 94 Room Air 07/28/23 19:47 Room Air
[2023-07-29 07:07] LABS: Hematocrit (blood only) 31.9 % (42.0-52.0); Mean Corpuscular Hemoglobin 28.3 pg (25.0-34.0); Mean Corpuscular Hgb Conc 34.5 g/dL (32.0-36.0); Mean Platelet Volume 10.3 fL (9.4-12.4); Platelet Count 273 K/uL (130-400); RDW Standard Deviation 45.3 fL (36.4-46.3); Red Blood Count 3.89 M/uL (4.70-6.10); White Blood Count 19.35 K/ul (4.8-10.8)
[2023-07-29 07:24] LABS: BUN Creatinine Ratio 9.7 (10-20); Calcium 7.9 mg/dl (8.6-10.3); Creatinine Clr Calc Pharmacy 15.6 ml/min; Est GFR (African American) 7.1 ml/min; Est GFR (Non-African American) 6.1 ml/min; Potassium 3.9 mmol/L (3.5-5.1)
[2023-07-29 07:34] LABS: Basophils # (auto) 0.18 K/uL (0.00-0.20); Basophils % (auto) 0.9 %; Echinocytes 2+; Eosinophils # (auto) 0.52 K/uL (0.00-0.50); Eosinophils % (auto) 2.7 %; Immature Granulocytes % (auto) 9.8 %; Lymphocytes # (auto) 1.85 K/uL (1.20-3.40); Lymphocytes % (auto) 9.6 %; Monocytes # (auto) 1.76 K/uL (0.11-0.59); Monocytes % (auto) 9.1 %; Neutrophils # (auto) 13.14 K/uL (1.40-6.50); Neutrophils % (auto) 67.9 %
[2023-07-29 07:47] LABS: Partial Thromboplastin Ratio 2.3
[2023-07-29 07:49] LABS: Partial Thromboplastin Time 65.2 Seconds (21.0-31.0)
[2023-07-29] MEDS: METOPROLOL SUCC 25MG EXT REL TAB PO SCH ×2 (08:57→20:17)
[2023-07-29] MEDS: DOCUSATE SODIUM 100 MG CAP PO SCH ×2 (08:57→20:17)
[2023-07-29] MEDS: LINEZOLID 600 MG TAB PO SCH ×2 (08:57→20:16)
[2023-07-29] MEDS: INSULIN ASPART PER UNIT CHARGE SC SCH ×4 (08:57→20:30)
[2023-07-29] MEDS: HYDROmorphone INJ 1 MG/ML SYRINGE IV PRN ×2 (09:00→17:40)
--- NOTE | 2023-07-29 09:55 | Hospitalist Progress Note ---
Date of Service July 29, 2023 Assessment & Plan (1) Sepsis: (2) Cellulitis: (3) Urinary tract infection: (4) Hypomagnesemia: (5) DM II (diabetes mellitus, type II), controlled: (6) HLD (hyperlipidemia): (7) HTN (hypertension): (8) Morbid obesity: (9) New onset a-fib: Plan Mr. 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 Patient found to be in a fib rvr and now being managed on PO metoprolol after converted to NSR while on dilit drip the evening of 07/23. Patient found to have DVT in RLE and placed on heparin drip as well. On 07/24, patient was noted to be in exquisite back pain which is concerning given infectious work up has resulted with bacteremia [group a beta strep]. MRI imaging limited to noncontrast given progressive renal injury; this did not reveal discitis or signs overtly suggestive for vertebral osteomyelitis, but still concerning nonetheless. Ortho Spine evaluated patient for any acute neural compression, but there was no notable stenosis on imaging to correlate to pain on exam. Evaluation limited with MRI or CT 2/2 poor renal function. Patient's acute renal failure is likely secondary to prerenal etiology given low pressures/shock resulting in ATN. After no evidence of response to initial lasix challenge, with plateaued UOP and uptrending Cr, it was decided to place temporary HD line at bedside for intermittent hemodialysis. Given there is anticipation of renal recovery, any contrast use at this time is not advised to prevent further insult to kidneys. Plan to obtain further imaging once stable from renal standpoint to aid in assessment of ?osteomyelitis/discitis. Blood Cultures from 07/23 with Group A Strep B, Urine culture negative. ECHO with no clear sign of vegetations. To ensure no persistent bacteremia, blood cultures were obtained on 07/24 and 07/25 without growth to date. However, there was an increase in WBC on 07/28, prompting repeat blood cultures which are still negative, though suspicion is high that leukocytosis potentially reactive iso progressive renal failure and other acute issues discussed below. WBC trend 16-->13-->10-->12-->14-->18-->19.35 today. #Acute hypoxic respiratory failure iso IVF hydration/oliguric SARWAT *resolved -CXR with pulm edema, required 2L NC, now on room air -CTM, oxygen prn, encourage mobilization -HD, discussed below #Acute lower back pain -Concern for vertebral osteomyelitis, even retroperitoneal abscess as DDx, given degree of pain on exam and inability to move 2/2 pain -Pain control and mobilization as able -Continue IV abx as below -MRI lumbar spine: paravertebral marrow edema. no end plate erosion, no signs of osteomyelitis, however insufficient 2/2 lack of contrast iso ARF -Ortho spine consult: No surgical intervention at this time, consider bone scan if persistent -Nephrology: No contrast use as MRI/CT contrast can hinder renal recovery--further imaging may be considered when stable from renal standpoint #Oliguric SARWAT, likely evolving ATN 2/2 ischemia from hypotension/shock #Azotemia #Hypervolemic Hyponatremia -Cr uptrending, however, increased UOP s/p IV lasix trial -FeNA prior to lasix 0.9% consistent with prerenal eitology, iso shock/hypotension -Strict I/Os, pacheco in place -Failed to demonstrate strong response to lasix challenge -avoid nephrotoxic agents -Nephrology consult: HD cath placement 07/28, plan for intermittent dialysis #Leukocytosis -Afebrile, non-tachycardic (remains in NSR since 07/26) -Likely secondary to worsening renal failure/azotemia, however, given ongoing back pain/known bacteremia will obtain repeat blood cultures #Bacteremia 2/2 group a beta strep #Sepsis 2/2 bacteremia, source unclear *improved #Abnormal UA #?Cellulitis - sepsis criteria with fever, elevated lactate, tachycardia, source likely RLE cellulitis/UTI on admission, *resolved - BCx NGTD; UA NGTD (denied urinary symptoms) - Continue Cefazolin with addition of Linezolid 600mg BID per ID - Gen surg: no surgical intervention on RLE (no fluid collections, predominately chronic changes of RLE) #Right LLE DVT - R ankle fracture 2013, R knee surgery in 2016 causes some enlargement in general in the RLE but this is much more swollen and tender in the calf compared to previously. -lymphedema and age-indeterminate DVT present -continue IV heparin, continue in interim given renal dysfunction with plans to transition to PO regimen prior to dispo given known DVT/a fib #New onset atrial fibrillation with RVR, now sinus After initial evaluation the patient - he went into from what we can tell, new onset afib with RVR with rates of 140-150 CHADsVasc 2 likely iso sepsis/bacteremia -Received Diltazem drip, d/c 07/24 -Continue on metoprolol 12.5mg QID, titrate as able/necessary #Elevated troponin*improved -likely demand iso bacteremia and a fib -Downtrended -Monitor on telemetry #Hypertension Relative hypotension due to likely shock, resolved with abx/fluid bolus Regimen: amlodipine 10mg, HCTZ 25mg, losartan 50mg -Discontinue amlodipine to avoid given overlap of edema -Hold hctx and losartan #HLD - Chronic, stable, cont statin #Controlled DMTII -A1C 6.2% 07/24 - Holding metformin for now, ISS with accuchecks achs #hypomagnesemia *resolved - Replace mag as was 1.5 on admission with 2 g IV. - Trend with am labs, hold replacement iso ARF, potential HD #Morbid obesity - BMI of 45, diet and exercise to be encouraged throughout hospital stay DVT ppx: heparin GI/FEN: HH/Diabetic diet Lines: 2 PIV, HD line R neck CODE: FULL I spent a total [id number] coordinating, documenting, and providing care for this patient excluding time spent in the performance of separately billed services Blanca Beard DO [facility] Hospitalist Admission and Anticipated Discharge Date Admission Date: July 23, 2023 Subjective 62-year-old incarcerated male presented for sepsis. He started hemodialysis yesterday with a temporary dialysis catheter in place in the right neck Another session of hemodialysis occurred today which was uneventful per patient Patient reports persistent pain in his lower back that comes across the lower back without radiation down his legs Pacheco catheter in place with renal issues and he appears to be making more urine today he had approximately 1300 cc of fluid out overnight and an extra 600 in the bag at bedside He appears a little groggy and reports he recently had pain medication. Per med rec he has been using oral oxycodone 10 mg frequently with hydromorphone 1 mg IV for breakthrough. Poor appetite. Physical Exam Physical Exam: CONSTITUTIONAL: WNWD, vitals as above, generally well-appearing, NAD EYES: normal conjunctivae, no scleral icterus ENT: external ear and nose normal, MMM NECK: trachea midline, right HD catheter in place. RESPIRATORY: clear to auscultation bilaterally, no crackles, rales or wheezes, normal respiratory effort CARDIOVASCULAR: regular rate and rhythm, S1 and 2 heard without murmurs, gallops or rubs, no JVD, 3+ pitting edema in lower extremities, appears more prominent on the right leg but this may be related to his position. Extremities are warm and well perfused. CHEST: inspection of chest was normal GASTROINTESTINAL: soft, nontender, ND, no guarding MUSCULOSKELETAL: generalized weakness, cannot move legs around much limiting exam, head is normocephalic and atraumatic SKIN: warm and dry NEUROLOGIC: CN 2-12 grossly intact, unable to elicit knee DTRs 2/2 weakness and rotated position of legs, no sensory deficit, normal cognition, normal speech, no tremor PSYCHIATRIC: alert cooperative and oriented to person, place and time. Appears to have recently received pain medication as reaction time is slower than normal. Results & Data Results & Data Vital Signs (Past 12 Hours) Vital Signs Temp Pulse Pulse Pulse Resp BP Pulse Ox 07/29/23 08:24 85 07/29/23 07:44 36.6 C 90 18 174/77 H 93 07/29/23 03:10 36.6 C 84 18 152/71 H 95 07/28/23 23:19 07/28/23 23:08 36.4 C L 88 20 133/71 95 O2 Del Method 07/29/23 08:24 07/29/23 07:44 Room Air 07/29/23 03:10 Room Air 07/28/23 23:19 Room Air 07/28/23 23:08 Room Air Laboratory Results Short CBC 07/29/23 Range/Units 06:39 WBC 19.35 H (4.8-10.8) K/ul Hgb 11.0 L (14.0-18.0) g/dl Hct 31.9 L (42.0-52.0) % Plt Count 273 (130-400) K/uL BMP 07/28/23 07/29/23 20:02 06:39 Sodium 131 L 130 L Potassium 4.0 3.9 Chloride 96 L 95 L Carbon Dioxide 21 21 BUN 75 H D 82 H Creatinine 7.85 H* D 8.47 H* D Glucose 111 H 126 H Calcium 7.9 L 7.9 L Diagnostic Findings Chest X-Ray 07/28/23 17:32 SINGLE VIEW CHEST CLINICAL HISTORY: Central venous catheter exchange. FINDINGS: An AP, portable, upright chest radiograph is compared to study performed earlier the same day 07/28/2023. A right internal jugular central venous catheter is is in place. The tip projects over the cavoatrial junction. The heart is enlarged. There is pulmonary vascular congestion. There is bibasilar scarring/atelectasis. No airspace consolidation or large pleural effusion is identified. No pneumothorax is seen. The skeletal structures are osteopenic. The bony thorax is grossly intact. Fusion hardware is noted in the cervical spine. IMPRESSION: 1. A right internal jugular central venous catheter is in place as above. No pneumothorax is identified post procedure. 2. Cardiomegaly with pulmonary vascular congestion. This has worsened as compared to previous. 3. No airspace consolidation or large pleural effusion is identified. ACT 112: Negative or not required by law. Electronically signed by: Manoj Christiansen M.D. 07/28/2023 10:12 PM Medications Administered Current Inpatient Medications Acetaminophen (Acetaminophen 325 Mg Tab) 650 mg PO Q6H [facility] Stop: 08/22/23 13:44 Last Admin: 07/29/23 09:00 Dose: 650 mg Acetaminophen (Acetaminophen 325 Mg Tab) 650 mg PO Q4H PRN PRN Reason: Moderate Pain (Scale 4, 5, 6) Stop: 08/22/23 18:40 Dextrose (Dextrose 50% 50 Ml Syringe) 25 - 50 ml IV UD PRN; Protocol PRN Reason: Hypoglycemia Protocol Stop: 08/22/23 18:40 Docusate Sodium (Docusate Sodium 100 Mg Cap) 100 mg PO BID [facility] Stop: 08/26/23 20:59 Last Admin: 07/29/23 08:57 Dose: 100 mg Glucagon (Glucagon For Inj 1 Mg Vial) 1 mg SQ UD PRN; Protocol PRN Reason: Hypoglycemia Protocol Stop: 08/22/23 18:40 Glucose (Glucose 10 Tab/Tube) 4 - 8 tab PO UD PRN; Protocol PRN Reason: Hypoglycemia Treatment Stop: 08/22/23 18:40 Glucose (Glucose 40% Gel 15 Gm Tube) 15 - 30 gm PO UD PRN; Protocol PRN Reason: Hypoglycemia Protocol Stop: 08/22/23 18:40 Hydromorphone HCl (Hydromorphone Inj 1 Mg/Ml Syringe) 1 mg IV Q6H PRN PRN Reason: Pain Stop: 08/09/23 09:42 Last Admin: 07/29/23 09:00 Dose: 1 mg Heparin Sodium/Dextrose (Heparin Sodium/Dextrose) 25,000 units in 500 mls @ 36 mls/hr IV .[id number] [facility]; Protocol Stop: 08/22/23 20:29 Last Titration: 07/29/23 07:45 Dose: 1,800 units/hr, 36 mls/hr Cefazolin Sodium (Ancef 2000mg) 2,000 mg in 15 mls @ 3.75 mls/min IV Q12H [facility]; Protocol Stop: 08/07/23 10:59 Last Admin: 07/28/23 22:12 Dose: 3.75 mls/min Insulin Aspart (Insulin Aspart Per Unit Charge) 0 units SC ACHS [facility] Stop: 08/27/23 19:44 Last Admin: 07/29/23 08:57 Dose: Not Given Linezolid (Linezolid 600 Mg Tab) 600 mg PO BID [facility] Stop: 07/31/23 20:59 Last Admin: 07/29/23 08:57 Dose: 600 mg Metoprolol Succinate (Metoprolol Succ 25mg Ext Rel Tab) 25 mg PO BID [facility] Stop: 08/27/23 20:59 Last Admin: 07/29/23 08:57 Dose: 25 mg Miscellaneous (Carbohydrates For Hypoglycemia ) 15 - 30 gm PO UD PRN PRN Reason: Hypoglycemia Protocol Stop: 08/22/23 18:40 Ondansetron HCl (Ondansetron Inj 2 Mg/Ml 2 Ml Vial) 4 mg IV Q4H PRN PRN Reason: Nausea And Vomiting Stop: 08/22/23 18:40 Oxycodone HCl (Oxycodone Hcl Ir 5 Mg Tab (Immediate Release)) 10 mg PO Q4H PRN PRN Reason: Moderate Pain (Scale 4, 5, 6) Stop: 08/06/23 13:42 Last Admin: 07/28/23 23:19 Dose: 10 mg Rosuvastatin Calcium (Rosuvastatin Calcium 5 Mg Tab) 5 mg PO DAILY [facility] Stop: 08/23/23 08:59 Tamsulosin HCl (Tamsulosin Hcl 0.4 Mg Cap) 0.8 mg PO [facility] Stop: 08/22/23 20:59 Last Admin: 07/28/23 20:05 Dose: 0.8 mg
--- NOTE | 2023-07-29 10:46 | Dialysis Progress Note ---
Date of Service July 29, 2023 Assessment & Plan Admission and Anticipated Discharge Date Admission Date: July 23, 2023 Subjective Assessment & Plan (1) Acute kidney injury: Plan: Conner from ATN in the setting of sepsis. He denies any renal problems in the past, and denies any OTC or NSAIDS, IV fluid were stopped 2/ pulmonary congestion, He responded well to Lasix challenge , He is comfortable with 2l oxygen and BP and HR are better controlled, Renal function have declined as expected, this in not due to lasix, his ATN has not peaked yet continue 100 mg IV lasix BID. At the moment he is making urine , electrolyte are safe. Blood c/s from 07/23 +ve and also ? about Discitis and osteomyelitis so its better Daily BMP, Input and output and daily weights labs continue to worsen. Dialysis yesterday and today. 3.5 hrs and take 3 kilo off. temp HD cath working better today. Sometime next week will place perm cath if he still needs dialysis till then. However WBC is rising. need to figure out why ? BP was high but now with dialysis BP is down to 116/70. No need to add any BP meds for now. Dialysis again tomorrow for 3 hrs and then will be TTS schedule. Given CONNER--better to avoid CT contrast and the Mri Contrast. Subjective Seen in dialysis. Cath working fine. BP is good. No pain now but had pain meds and now Sleepy. Review of Systems Review of Systems: All systems reviewed & are unremarkable except as noted in HPI & below Physical Exam Physical Exam: General: awake, alert,Comfortable, obese, black male Head: Normocephalic, atraumatic ENT: PERRL, EOMI, no pharyngeal exudate, mucous membranes slightly dry Chest: Clear to auscultation, on room air, no adventitious breath sounds Cardiac: +Sinus tachycardia, no murmur, no JVD, normal peripheral pulses, good capillary refill Abdominal: NABS x 4 quadrants, soft, nondistended, Extremities: RLE diffusely edematous up to groin, LLE with trace edema as well, otherwise Results & Data Vital Signs (Past 12 Hours) Vital Signs Temp Pulse Pulse Pulse Resp BP Pulse Ox 07/29/23 09:11 36.5 C 97 H 07/29/23 08:24 85 07/29/23 07:44 36.6 C 90 18 174/77 H 93 07/29/23 03:10 36.6 C 84 18 152/71 H 95 07/28/23 23:19 07/28/23 23:08 36.4 C L 88 20 133/71 95 O2 Del Method 07/29/23 09:11 07/29/23 08:24 07/29/23 07:44 Room Air 07/29/23 03:10 Room Air 07/28/23 23:19 Room Air 07/28/23 23:08 Room Air
--- NOTE | 2023-07-29 12:04 | Cardiology Progress Note ---
Date of Service July 29, 2023 Assessment & Plan (1) Septic shock: (2) New onset a-fib: (3) Acute kidney injury: (4) Right leg DVT: (5) Morbid obesity: Plan Hold outpatient meds including amlodipine, HCTZ, losartan Patient remains in sinus rhythm. Metoprolol tartrate transition to metoprolol succinate yesterday 07/28/2023. Continue 25 mg twice daily. Continue IV heparin. ID input appreciated. Transthoracic echocardiogram without evidence of vegetation. Repeat blood cultures drawn 07/24 and 07/25 negative. Continue antibiotic therapy. Admission and Anticipated Discharge Date Admission Date: July 23, 2023 Subjective Patient seen and examined at the bedside on hemodialysis. Edema unchanged. Denies chest pain or shortness of breath. Remains in sinus rhythm on telemetry. Review of Systems Review of Systems: All systems reviewed & are unremarkable except as noted in Subjective Physical Exam Constitutional: + morbidly obese Respiratory: no respiratory distress and no labored breathing Auscultation: + diminished lung sounds; no rhonchi and no wheezes Cardiovascular: Rate/Rhythm: regular rate and regular rhythm Heart Sounds: normal S1 and normal S2; no murmur Vessels: no JVD Extremities: + edema (+ Right lower extremity edema) Gastrointestinal (Abdomen): Inspection/Auscultation: abdomen normal to inspection and normal bowel sounds; abdomen not distended Neurologic: CN's II-XI intact bilaterally and moves all extremities; no focal motor deficits Results & Data Vital Signs (Past 12 Hours) Vital Signs Temp Pulse Pulse Pulse Resp BP BP 07/29/23 11:00 80 88/62 L 07/29/23 10:30 83 116/64 07/29/23 10:00 85 107/63 07/29/23 09:30 74 111/95 07/29/23 09:11 36.5 C 97 H 07/29/23 08:24 85 07/29/23 07:44 36.6 C 90 18 174/77 H 07/29/23 03:10 36.6 C 84 18 152/71 H Pulse Ox O2 Del Method 07/29/23 11:00 07/29/23 10:30 07/29/23 10:00 07/29/23 09:30 07/29/23 09:11 07/29/23 08:24 07/29/23 07:44 93 Room Air 07/29/23 03:10 95 Room Air Laboratory Results Coagulation 07/28/23 07/28/23 07/29/23 Range/Units 14:28 22:32 06:39 APTT 35.2 H 108.5 H* 65.2 H* (21.0-31.0) Seconds CBC 07/29/23 Range/Units 06:39 WBC 19.35 H (4.8-10.8) K/ul RBC 3.89 L (4.70-6.10) M/uL Hgb 11.0 L (14.0-18.0) g/dl Hct 31.9 L (42.0-52.0) % Plt Count 273 (130-400) K/uL Neut # (Auto) 13.14 H (1.40-6.50) K/uL Lymph # (Auto) 1.85 (1.20-3.40) K/uL [place] # (Auto) 1.76 H (0.11-0.59) K/uL Eos # (Auto) 0.52 H (0.00-0.50) K/uL Baso # (Auto) 0.18 (0.00-0.20) K/uL Comprehensive Metabolic Panel 07/28/23 07/29/23 Range/Units 20:02 06:39 Sodium 131 L 130 L (136-145) mmol/L Potassium 4.0 3.9 (3.5-5.1) mmol/L Chloride 96 L 95 L (98-107) mmol/L Carbon Dioxide 21 21 (21-32) mmol/L BUN 75 H D 82 H (6-23) mg/dl Creatinine 7.85 H* D 8.47 H* D (0.6-1.4) mg/dl Glucose 111 H 126 H (70-99(Fasting)) mg/dl Calcium 7.9 L 7.9 L (8.6-10.3) mg/dl Intake and Output 07/28/23 07/29/23 07/29/23 22:59 06:59 14:59 Intake Total 174.366 / 731.649 365.267 / 731.649 61.2 / 61.2 Output Total 725 / 1300 Balance 174.366 / -568.351 -359.733 / -568.351 61.2 / 61.2 Intake: IV 174.366 / 731.649 365.267 / 731.649 61.2 / 61.2 Heparin Sodium/Dextrose 25,000 174.366 / 731.649 365.267 / 731.649 61.2 / 61.2 units In 500 ml @ 1,800 UNITS/ HR 36 mls/hr IV .[id number] [facility] Rx #:[id number] Output: Urine Amount (Catheter) 725 / 1300 [place]/Indwelling 725 / 1300 Other: Weight 167.5 kg 170 kg 170 kg Weight Measurement Method Built in [facility] Patient Weight 07/30/23 06:59 Weight 170 kg
[2023-07-29] MEDS: oxyCODONE HCL IR 5 MG TAB (IMMEDIATE RELEASE) PO PRN (13:10)
[2023-07-29] MEDS: ceFAZolin 2000MG 2,000 MG/15 ML SYR IV SCH ×2 (13:11→22:26)
[2023-07-29 18:13] LABS: BUN Creatinine Ratio 8.3 (10-20); Calcium 8.2 mg/dl (8.6-10.3); Creatinine Clr Calc Pharmacy 20.7 ml/min; Est GFR (Non-African American) 8.7 ml/min; Potassium 3.9 mmol/L (3.5-5.1)
[2023-07-29] MEDS: TAMSULOSIN HCL 0.4 MG CAP PO SCH (20:17)
[2023-07-30] MEDS: ACETAMINOPHEN 325 MG TAB PO SCH ×4 (00:45→19:40)
[2023-07-30] MEDS: oxyCODONE HCL IR 5 MG TAB (IMMEDIATE RELEASE) PO PRN ×3 (03:10→22:19)
[2023-07-30 06:15] LABS: Hematocrit (blood only) 33.8 % (42.0-52.0); Hemoglobin 11.4 g/dl (14.0-18.0); Mean Corpuscular Hemoglobin 28.4 pg (25.0-34.0); Mean Corpuscular Hgb Conc 33.7 g/dL (32.0-36.0); Mean Corpuscular Volume 84.3 fL (80.0-100.0); Mean Platelet Volume 9.7 fL (9.4-12.4); Platelet Count 348 K/uL (130-400); RDW Coefficient of Variation 14.9 % (11.5-14.5); RDW Standard Deviation 45.6 fL (36.4-46.3); Red Blood Count 4.01 M/uL (4.70-6.10)
[2023-07-30 06:50] LABS: BUN Creatinine Ratio 8.2 (10-20); C Reactive Protein 25.53 mg/dl (0-0.5); Calcium 8.2 mg/dl (8.6-10.3); Creatinine Clr Calc Pharmacy 18.7 ml/min; Est GFR (African American) 8.9 ml/min; Est GFR (Non-African American) 7.6 ml/min; Magnesium 2.5 mg/dl (1.7-2.4); Phosphorus 7.1 mg/dl (2.5-4.9); Potassium 3.9 mmol/L (3.5-5.1)
[2023-07-30 06:52] LABS: ALC (manual) 2.06 K/uL (1.2-3.4); ANC (manual) 15.86 K/uL (1.4-6.5); Eosinophils # (manual) 0.82 K/uL (0-0.50); Eosinophils % (manual) 4 %; Lymphocytes # (manual) 2.06 K/uL (1.2-3.4); Lymphocytes % (manual) 10 %; Metamyelocytes # (manual) 0.62 K/uL (0-0); Metamyelocytes % (manual) 3 %; Monocytes # (manual) 1.03 K/uL (0.11-0.59); Monocytes % (manual) 5 %; Myelocytes # (manual) 0.21 K/uL (0-0); Myelocytes % (manual) 1 %; Neutrophils # (manual) 15.86 K/uL (1.40-6.50); Neutrophils % (manual) 77 %
[2023-07-30 07:08] LABS: Thyroid Stimulating Hormone 0.247 uIu/ml (0.300-4.500)
[2023-07-30 07:20] LABS: Partial Thromboplastin Ratio 2.4
[2023-07-30 07:22] LABS: Partial Thromboplastin Time 67.5 Seconds (21.0-31.0)
[2023-07-30 07:54] LABS: T4 Free Thyroxine 0.82 ng/dl (0.61-1.60)
[2023-07-30] MEDS: DOCUSATE SODIUM 100 MG CAP PO SCH ×2 (08:51→20:28)
[2023-07-30] MEDS: METOPROLOL SUCC 25MG EXT REL TAB PO SCH ×2 (08:51→20:28)
[2023-07-30] MEDS: LINEZOLID 600 MG TAB PO SCH ×2 (08:51→20:29)
[2023-07-30] MEDS: INSULIN ASPART PER UNIT CHARGE SC SCH ×4 (08:54→20:29)
[2023-07-30] MEDS: HEPARIN SODIUM/DEXTROSE 25,000 UNITS/500 ML BAG IV SCH ×3 (09:00→23:50)
--- NOTE | 2023-07-30 09:29 | Hospitalist Progress Note ---
Date of Service July 30, 2023 Assessment & Plan (1) Sepsis: (2) Cellulitis: (3) Urinary tract infection: (4) Hypomagnesemia: (5) DM II (diabetes mellitus, type II), controlled: (6) HLD (hyperlipidemia): (7) HTN (hypertension): (8) Morbid obesity: (9) New onset a-fib: Plan Mr. 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 Patient found to be in a fib rvr and now being managed on PO metoprolol after converted to NSR while on dilit drip the evening of 07/23. Patient found to have DVT in RLE and placed on heparin drip as well. On 07/24, patient was noted to be in exquisite back pain which is concerning given infectious work up has resulted with bacteremia [group a beta strep]. MRI imaging limited to noncontrast given progressive renal injury; this did not reveal discitis or signs overtly suggestive for vertebral osteomyelitis, but still concerning nonetheless. Ortho Spine evaluated patient for any acute neural compression, but there was no notable stenosis on imaging to correlate to pain on exam. Evaluation limited with MRI or CT 2/2 poor renal function. Patient's acute renal failure is likely secondary to prerenal etiology given low pressures/shock resulting in ATN. After no evidence of response to initial lasix challenge, with plateaued UOP and uptrending Cr, it was decided to place temporary HD line at bedside for intermittent hemodialysis. Given there is anticipation of renal recovery, any contrast use at this time is not advised to prevent further insult to kidneys. Plan to obtain further imaging once stable from renal standpoint to aid in assessment of ?osteomyelitis/discitis. Blood Cultures from 07/23 with Group A Strep B, Urine culture negative. ECHO with no clear sign of vegetations. To ensure no persistent bacteremia, blood cultures were obtained on 07/24 and 07/25 without growth to date. However, there was an increase in WBC on 07/28, prompting repeat blood cultures which are still negative, though suspicion is high that leukocytosis potentially reactive iso progressive renal failure and other acute issues discussed below. WBC trend 16-->13-->10-->12-->14-->18-->19.35 -->20.6 today. Acute renal failure unlikely to cause this per nephrology, acute DVT will and on heparin drip. Added ADAM farrell today, consider post thrombotic syndrome with inflammation contributing? Patho consult for peripheral smear. Discuss with Dr. Morgan that we are actually therapeutic on heparin drip even with therapeutic PTT given patient's size. Will discuss with radiology if there is benefit to repeating L spine MRI wtih contrast prior to HD on Thursday morning. Repeat UA now given pacheco catheter in place to ensure no hospital acquired complication. #Acute hypoxic respiratory failure iso IVF hydration/oliguric SARWAT *resolved -CXR with pulm edema, required 2L NC, now on room air -oxygen prn, encourage mobilization which is very suboptimal at this point. He was unable to even sit on the side of the bed wtih PT today. -continue to optimize fluid management with hemodialysis #Acute lower back pain -Concern for vertebral osteomyelitis, even retroperitoneal abscess as DDx, given degree of pain on exam and inability to move 2/2 pain -Pain control and mobilization as able -Continue abx as outlined below. -MRI lumbar spine: paravertebral marrow edema. no end plate erosion, no signs of osteomyelitis, however insufficient 2/2 lack of contrast iso ARF -Ortho spine consult: No surgical intervention at this time, consider bone scan if persistent. Will discuss with radiologist regarding utility of repeating L spine MRI with contrast this Sat just prior to HD. -Nephrology: No contrast use as MRI/CT contrast can hinder renal recovery--further imaging may be considered when stable from renal standpoint #Oliguric SARWAT, likely evolving ATN 2/2 ischemia from hypotension/shock #Azotemia #Hypervolemic Hyponatremia -Cr uptrending, however, increased UOP s/p IV lasix trial -FeNA prior to lasix 0.9% consistent with prerenal eitology, iso shock/hypotension -Strict I/Os, pacheco in place -Failed to demonstrate strong response to lasix challenge -avoid nephrotoxic agents -Nephrology consult: HD cath placement 07/28, plan for intermittent dialysis, cont T/Th/Sat #Leukocytosis -Afebrile, non-tachycardic (remains in NSR since 07/26) -plan as discussed above. #Bacteremia 2/2 group a beta strep #Sepsis 2/2 bacteremia, source unclear *improved #Abnormal UA #?Cellulitis - sepsis criteria with fever, elevated lactate, tachycardia, source likely RLE cellulitis/UTI on admission, *resolved - BCx NGTD; UA NGTD (denied urinary symptoms) - Continue Cefazolin with addition of Linezolid 600mg BID per ID - Gen surg: no surgical intervention on RLE (no fluid collections, predominately chronic changes of RLE) #Right LLE DVT - R ankle fracture 2013, R knee surgery in 2016 causes some enlargement in general in the RLE but this is much more swollen and tender in the calf compared to previously. -lymphedema and age-indeterminate DVT present -continue IV heparin, continue in interim given renal dysfunction with plans to transition to PO regimen prior to dispo given known DVT/a fib #New onset atrial fibrillation with RVR, now sinus After initial evaluation the patient - he went into from what we can tell, new onset afib with RVR with rates of 140-150 CHADsVasc 2 likely iso sepsis/bacteremia -Received Diltazem drip, d/c 07/24 -Continue on metoprolol 12.5mg QID, titrate as able/necessary #Elevated troponin*improved -likely demand iso bacteremia and a fib -Downtrended -Monitor on telemetry #Hypertension Relative hypotension due to likely shock, resolved with abx/fluid bolus Regimen: amlodipine 10mg, HCTZ 25mg, losartan 50mg -Discontinue amlodipine to avoid given overlap of edema -Hold hctx and losartan #HLD - Chronic, stable, cont statin #Controlled DMTII -A1C 6.2% 07/24 - Holding metformin for now, ISS with accuchecks achs #hypomagnesemia *resolved - Replace mag as was 1.5 on admission with 2 g IV. - Trend with am labs, hold replacement iso ARF, potential HD #Morbid obesity - BMI of 45, diet and exercise to be encouraged throughout hospital stay DVT ppx: heparin GI/FEN: HH/Diabetic diet Lines: 2 PIV, HD line R neck CODE: FULL I spent a total [id number] coordinating, documenting, and providing care for this patient excluding time spent in the performance of separately billed services Blanca Beard DO [facility] Hospitalist Admission and Anticipated Discharge Date Admission Date: July 23, 2023 Subjective 62-year-old incarcerated male presented for sepsis. pain is reportedly improved today in back doing well with dialysis and no issues reported today denies pain in his right leg but swelling is still present RN was able to apply ADAM hose ongoing constipation, increased his regimen, reports o BM since admission. Physical Exam Physical Exam: CONSTITUTIONAL: WNWD, vitals as above, generally well-appearing, NAD EYES: normal conjunctivae, no scleral icterus ENT: external ear and nose normal, MMM NECK: trachea midline, right HD catheter in place. RESPIRATORY: clear to auscultation bilaterally, no crackles, rales or wheezes, normal respiratory effort CARDIOVASCULAR: regular rate and rhythm, S1 and 2 heard without murmurs, gallops or rubs, no JVD, 3+ pitting edema in lower extremities, appears more prominent on the right leg Extremities are warm and well perfused. CHEST: inspection of chest was normal GASTROINTESTINAL: soft, nontender, ND, no guarding MUSCULOSKELETAL: generalized weakness, cannot move legs around much limiting exam, head is normocephalic and atraumatic SKIN: warm and dry NEUROLOGIC: CN 2-12 grossly intact, unable to elicit knee DTRs 2/2 weakness and rotated position of legs, no sensory deficit, normal cognition, normal speech, no tremor PSYCHIATRIC: alert cooperative and oriented to person, place and time. Appears brighter and more with the conversation today. Results & Data Results & Data Vital Signs (Past 12 Hours) Vital Signs Temp Pulse Pulse Resp BP Pulse Ox O2 Del Method 07/30/23 08:52 37.0 C 88 18 157/80 H 95 Room Air 07/30/23 02:51 36.8 C 85 16 117/65 97 Nasal Cannula 07/29/23 23:17 37.2 C 92 H 18 172/65 H 95 Room Air 07/29/23 22:03 Nasal Cannula, CPAP 07/29/23 21:58 87 O2 Flow Rate 07/30/23 08:52 07/30/23 02:51 2 07/29/23 23:17 07/29/23 22:03 2 07/29/23 21:58 Laboratory Results Short CBC 07/30/23 Range/Units 05:41 WBC 20.60 H (4.8-10.8) K/ul Hgb 11.4 L (14.0-18.0) g/dl Hct 33.8 L (42.0-52.0) % Plt Count 348 (130-400) K/uL BMP 07/29/23 07/30/23 17:13 05:41 Sodium 133 L 133 L Potassium 3.9 3.9 Chloride 97 L 97 L Carbon Dioxide 24 23 BUN 53 H D 58 H Creatinine 6.35 H* D 7.04 H* D Glucose 111 H 130 H Calcium 8.2 L 8.2 L Medications Administered Current Inpatient Medications Acetaminophen (Acetaminophen 325 Mg Tab) 650 mg PO Q6H [facility]GR[facility] Stop: 08/22/23 13:44 Last Admin: 07/30/23 08:53 Dose: 650 mg Acetaminophen (Acetaminophen 325 Mg Tab) 650 mg PO Q4H PRN PRN Reason: Moderate Pain (Scale 4, 5, 6) Stop: 08/22/23 18:40 Dextrose (Dextrose 50% 50 Ml Syringe) 25 - 50 ml IV UD PRN; Protocol PRN Reason: Hypoglycemia Protocol Stop: 08/22/23 18:40 Docusate Sodium (Docusate Sodium 100 Mg Cap) 100 mg PO BID NEGRITA Stop: 08/26/23 20:59 Last Admin: 07/30/23 08:51 Dose: 100 mg Glucagon (Glucagon For Inj 1 Mg Vial) 1 mg SQ UD PRN; Protocol PRN Reason: Hypoglycemia Protocol Stop: 08/22/23 18:40 Glucose (Glucose 10 Tab/Tube) 4 - 8 tab PO UD PRN; Protocol PRN Reason: Hypoglycemia Treatment Stop: 08/22/23 18:40 Glucose (Glucose 40% Gel 15 Gm Tube) 15 - 30 gm PO UD PRN; Protocol PRN Reason: Hypoglycemia Protocol Stop: 08/22/23 18:40 Hydromorphone HCl (Hydromorphone Inj 1 Mg/Ml Syringe) 0.5 mg IV Q6H PRN PRN Reason: Pain Stop: 08/09/23 09:42 Heparin Sodium/Dextrose (Heparin Sodium/Dextrose) 25,000 units in 500 mls @ 36 mls/hr IV .[id number] [facility]; Protocol Stop: 08/22/23 20:29 Last Admin: 07/30/23 09:00 Dose: 1,800 units/hr, 36 mls/hr Cefazolin Sodium (Ancef 2000mg) 2,000 mg in 15 mls @ 3.75 mls/min IV Q12H [facility]; Protocol Stop: 08/07/23 10:59 Last Admin: 07/29/23 22:26 Dose: 3.75 mls/min Insulin Aspart (Insulin Aspart Per Unit Charge) 0 units SC ACHS [facility] Stop: 08/27/23 19:44 Last Admin: 07/30/23 08:54 Dose: 3 units Linezolid (Linezolid 600 Mg Tab) 600 mg PO BID [facility] Stop: 07/31/23 20:59 Last Admin: 07/30/23 08:51 Dose: 600 mg Metoprolol Succinate (Metoprolol Succ 25mg Ext Rel Tab) 25 mg PO BID [facility] Stop: 08/27/23 20:59 Last Admin: 07/30/23 08:51 Dose: 25 mg Miscellaneous (Carbohydrates For Hypoglycemia ) 15 - 30 gm PO UD PRN PRN Reason: Hypoglycemia Protocol Stop: 08/22/23 18:40 Ondansetron HCl (Ondansetron Inj 2 Mg/Ml 2 Ml Vial) 4 mg IV Q4H PRN PRN Reason: Nausea And Vomiting Stop: 08/22/23 18:40 Oxycodone HCl (Oxycodone Hcl Ir 5 Mg Tab (Immediate Release)) 10 mg PO Q4H PRN PRN Reason: Moderate Pain (Scale 4, 5, 6) Stop: 08/06/23 13:42 Last Admin: 07/30/23 03:10 Dose: 10 mg Rosuvastatin Calcium (Rosuvastatin Calcium 5 Mg Tab) 5 mg PO DAILY [facility] Stop: 08/23/23 08:59 Tamsulosin HCl (Tamsulosin Hcl 0.4 Mg Cap) 0.8 mg PO HS [facility] Stop: 08/22/23 20:59 Last Admin: 07/29/23 20:17 Dose: 0.8 mg
[2023-07-30] MEDS ORDERED: SODIUM CHLORIDE 0.9% 1,000 ML IV PRN (09:40)
--- NOTE | 2023-07-30 10:42 | Dialysis Progress Note ---
Date of Service July 30, 2023 Assessment & Plan Admission and Anticipated Discharge Date Admission Date: July 23, 2023 Subjective Subjective Assessment & Plan (1) Acute kidney injury: Plan: Conner from ATN in the setting of sepsis. He denies any renal problems in the past, and denies any OTC or NSAIDS, IV fluid were stopped 2/ pulmonary congestion, He responded well to Lasix challenge , He is comfortable with 2l oxygen and BP and HR are better controlled, Renal function have declined as expected, this in not due to lasix, his ATN has not peaked yet continue 100 mg IV lasix BID. At the moment he is making urine , electrolyte are safe. Blood c/s from 07/23 +ve and also ? about Discitis and osteomyelitis Daily BMP, Input and output and daily weights labs continue to worsen. Dialysis today. 3 hrs and take 3 kilo off. temp HD cath working fine. Sometime next week will place perm cath if he still needs dialysis till then. However WBC is rising. need to figure out why ? No need to add any BP meds for now. Dialysis again Thursday and then will be TTS schedule. Given CONNER--better to avoid CT contrast. However if we absolutely need to give Contrast for further workup--would rather do MRI contrast ( newer types) and do dialysis right after Contrast so will have to plan the timing. Discussed with Dr Beard and also notified Dialysis nurse. Subjective Seen in dialysis. Cath working fine. BP is good. No pain now but had pain meds and now Sleepy. Urine output getting lower but we are also dialyzing and taking fluid off Review of Systems Review of Systems: All systems reviewed & are unremarkable except as noted in HPI & below Physical Exam Physical Exam: General: awake, alert,Comfortable, obese, black male Head: Normocephalic, atraumatic ENT: PERRL, EOMI, no pharyngeal exudate, mucous membranes slightly dry Chest: Clear to auscultation, on room air, no adventitious breath sounds Cardiac: +Sinus tachycardia, no murmur, no JVD, normal peripheral pulses, good capillary refill Abdominal: NABS x 4 quadrants, soft, nondistended, Extremities: RLE diffusely edematous up to groin, LLE with trace edema as well, otherwise Results & Data Vital Signs (Past 12 Hours) Vital Signs Temp Pulse Pulse Pulse Resp BP Pulse Ox 07/30/23 10:09 86 07/30/23 09:24 37.6 C H 86 07/30/23 08:55 07/30/23 08:52 37.0 C 88 18 157/80 H 95 07/30/23 02:51 36.8 C 85 16 117/65 97 07/29/23 23:17 37.2 C 92 H 18 172/65 H 95 O2 Del Method O2 Flow Rate 07/30/23 10:09 07/30/23 09:24 07/30/23 08:55 Nasal Cannula 2 07/30/23 08:52 Room Air 07/30/23 02:51 Nasal Cannula 2 07/29/23 23:17 Room Air
[2023-07-30 11:22] LABS: HBSAG NON-REACTIVE (NON-REACTIVE); Hepatitis B Surface Ab, Quant <5 mIU/mL (> OR = 10)
[2023-07-30] MEDS: ceFAZolin 2000MG 2,000 MG/15 ML SYR IV SCH ×2 (13:00→22:10)
--- NOTE | 2023-07-30 16:41 | Cardiology Progress Note ---
Date of Service July 30, 2023 Assessment & Plan (1) New onset a-fib: (2) Acute kidney injury: (3) Right leg DVT: (4) Morbid obesity: Plan Hold outpatient meds including amlodipine, HCTZ, losartan Patient remains in sinus rhythm. Metoprolol tartrate transition to metoprolol succinate 07/28/2023. Continue 25 mg twice daily. Continue IV heparin. Transition to PO anticoagulation regimen when able. ID input appreciated. Transthoracic echocardiogram without evidence of v egetation. Repeat blood cultures drawn 07/24 and 07/25 negative. Continue antibiotic therapy. Admission and Anticipated Discharge Date Admission Date: July 23, 2023 Subjective Patient seen and examined at bedside. Remains in sinus rhythm. Right lower extremity edema improved. 3 L removed on hemodialysis today. Review of Systems Review of Systems: All systems reviewed & are unremarkable except as noted in Subjective Physical Exam Constitutional: + morbidly obese Respiratory: no respiratory distress and no labored breathing Auscultation: + diminished lung sounds; no rhonchi and no wheezes Cardiovascular: Rate/Rhythm: regular rate, regular rhythm, + tachycardic and + irregularly irregular Heart Sounds: normal S1 and normal S2; no murmur Vessels: no JVD Extremities: + edema (+ Right lower extremity edema) Gastrointestinal (Abdomen): Inspection/Auscultation: abdomen normal to inspection and normal bowel sounds; abdomen not distended Neurologic: CN's II-XI intact bilaterally and moves all extremities; no focal motor deficits Results & Data Vital Signs (Past 12 Hours) Vital Signs Temp Pulse Pulse Pulse Resp BP BP 07/30/23 16:34 93 H 07/30/23 16:26 37.6 C H 93 H 18 158/75 H 07/30/23 12:50 37.2 C 88 139/63 07/30/23 12:30 86 128/52 L 07/30/23 12:00 84 140/68 07/30/23 11:30 85 114/62 07/30/23 11:00 82 129/66 07/30/23 10:30 85 125/60 07/30/23 10:09 86 07/30/23 10:00 83 129/60 07/30/23 09:31 84 124/59 L 07/30/23 09:24 37.6 C H 86 07/30/23 08:55 07/30/23 08:52 37.0 C 88 18 157/80 H Pulse Ox O2 Del Method O2 Flow Rate 07/30/23 16:34 07/30/23 16:26 91 Room Air 07/30/23 12:50 07/30/23 12:30 07/30/23 12:00 07/30/23 11:30 07/30/23 11:00 07/30/23 10:30 07/30/23 10:09 07/30/23 10:00 07/30/23 09:31 07/30/23 09:24 07/30/23 08:55 Nasal Cannula 2 07/30/23 08:52 95 Room Air Laboratory Results Coagulation 07/30/23 Range/Units 05:41 APTT 67.5 H* (21.0-31.0) Seconds CBC 07/30/23 Range/Units 05:41 WBC 20.60 H (4.8-10.8) K/ul RBC 4.01 L (4.70-6.10) M/uL Hgb 11.4 L (14.0-18.0) g/dl Hct 33.8 L (42.0-52.0) % Plt Count 348 (130-400) K/uL Comprehensive Metabolic Panel 07/29/23 07/30/23 Range/Units 17:13 05:41 Sodium 133 L 133 L (136-145) mmol/L Potassium 3.9 3.9 (3.5-5.1) mmol/L Chloride 97 L 97 L (98-107) mmol/L Carbon Dioxide 24 23 (21-32) mmol/L BUN 53 H D 58 H (6-23) mg/dl Creatinine 6.35 H* D 7.04 H* D (0.6-1.4) mg/dl Glucose 111 H 130 H (70-99(Fasting)) mg/dl Calcium 8.2 L 8.2 L (8.6-10.3) mg/dl Intake and Output 07/30/23 07/30/23 07/30/23 06:59 14:59 22:59 Intake Total 475.8 / 475.8 Output Total 325 / 1150 Balance -325 / -655.6 475.8 / 475.8 Intake: IV 475.8 / 475.8 Heparin Sodium/Dextrose 25,000 475.8 / 475.8 units In 500 ml @ 1,800 UNITS/ HR 36 mls/hr IV .[id number] [facility] [place] Rx #:[id number] Output: Urine Amount (Catheter) 325 / 475 Erazo/Indwelling 325 / 475 Other: Hemodialysis Ultrafiltration 3,000 Amount Weight 170.1 kg 170.1 kg Weight Measurement Method Built in [facility] Built in [facility] Patient Weight 07/31/23 06:59 Weight 170.1 kg
[2023-07-30] MEDS: TAMSULOSIN HCL 0.4 MG CAP PO SCH (20:28)
[2023-07-30] MEDS: POLYETHYLENE (MIRALAX) 17 GM PACK PO SCH (20:29)
[2023-07-30] MEDS: SENNA 8.6 MG TAB PO SCH (20:29)
[2023-07-31] MEDS: ACETAMINOPHEN 325 MG TAB PO SCH ×4 (00:59→20:13)
[2023-07-31 06:52] LABS: ALC (manual) 1.22 K/uL (1.2-3.4); ANC (manual) 15.23 K/uL (1.4-6.5); Eosinophils # (manual) 0.41 K/uL (0-0.50); Eosinophils % (manual) 2 %; Hematocrit (blood only) 32.9 % (42.0-52.0); Hemoglobin 10.8 g/dl (14.0-18.0); Lymphocytes # (manual) 1.22 K/uL (1.2-3.4); Lymphocytes % (manual) 6 %; Mean Corpuscular Hemoglobin 27.8 pg (25.0-34.0); Mean Corpuscular Hgb Conc 32.8 g/dL (32.0-36.0); Mean Corpuscular Volume 84.6 fL (80.0-100.0); Mean Platelet Volume 9.5 fL (9.4-12.4); Metamyelocytes # (manual) 1.02 K/uL (0-0); Metamyelocytes % (manual) 5 %; Monocytes # (manual) 1.83 K/uL (0.11-0.59); Monocytes % (manual) 9 %; Myelocytes # (manual) 0.61 K/uL (0-0); Myelocytes % (manual) 3 %; Neutrophils # (manual) 15.23 K/uL (1.40-6.50); Neutrophils % (manual) 75 %; Platelet Count 379 K/uL (130-400); RDW Coefficient of Variation 14.9 % (11.5-14.5); RDW Standard Deviation 45.8 fL (36.4-46.3); Red Blood Count 3.89 M/uL (4.70-6.10); White Blood Count 20.31 K/ul (4.8-10.8)
[2023-07-31 07:02] LABS: Partial Thromboplastin Ratio 2.2
[2023-07-31 07:05] LABS: Partial Thromboplastin Time 61.3 Seconds (21.0-31.0)
[2023-07-31] MEDS: INSULIN ASPART PER UNIT CHARGE SC SCH ×4 (08:49→21:04)
[2023-07-31] MEDS: METOPROLOL SUCC 25MG EXT REL TAB PO SCH ×2 (08:50→20:14)
[2023-07-31] MEDS: LINEZOLID 600 MG TAB PO SCH (08:50)
[2023-07-31] MEDS: POLYETHYLENE (MIRALAX) 17 GM PACK PO SCH ×3 (08:50→20:17)
[2023-07-31] MEDS: DOCUSATE SODIUM 100 MG CAP PO SCH ×2 (08:50→20:15)
[2023-07-31] MEDS: oxyCODONE HCL IR 5 MG TAB (IMMEDIATE RELEASE) PO PRN ×3 (08:52→22:11)
--- NOTE | 2023-07-31 09:34 | XRay Report ---
XR chest 1V portable CLINICAL HISTORY: r/o HAP, increasing WBC, elevation in temp COMPARISON STUDY: Chest radiograph July 28, 2023. FINDINGS: Anterior cervical spine fusion is noted. A right internal jugular central venous catheter i s in place. There is no pneumothorax or pleural effusion. Opacity within the right lung base is likel y related to patient rotation. This is similar to prior exam. Pulmonary vascular congestion is unchan ged. There has been no significant change in appearance of the chest. Cardiomegaly is again noted. IMPRESSION: 1. Cardiomegaly with stable pulmonary vascular congestion. 2. Opacity at the medial right lung base, likely related to patient rotation. ACT 112: Negative or not required by law. Electronically signed by: Dev Fernandes M.D. 07/31/2023 9:31 AM
[2023-07-31 10:34] LABS: Appearance Urine Turbid (Clear); Bacteria Urine Automated Negative (Negative); Bilirubin Urine Negative (Negative); Blood Urine 3+ (Negative); Color Urine Yellow; Epithelial Cell Urine Auto >30 /lpf (0-5); Glucose Urine UA Negative (Negative); Ketones Urine Negative (Negative); Leukocyte Esterase Urine 1+ (Negative); Nitrite Urine Negative (Negative); Protein Urine 2+ (Negative); RBC Urine Automated >30 /hpf (0-4); Specific Gravity Urine 1.011 (1.000-1.030); Urobilinogen Urine Negative (Negative); WBC Urine Automated >30 /hpf (0-5); pH Urine 5.5 (4.5-7.5)
--- NOTE | 2023-07-31 10:36 | Hospitalist Progress Note ---
Date of Service July 31, 2023 Assessment & Plan (1) Sepsis: (2) Cellulitis: (3) Urinary tract infection: (4) Hypomagnesemia: (5) DM II (diabetes mellitus, type II), controlled: (6) HLD (hyperlipidemia): (7) HTN (hypertension): (8) Morbid obesity: (9) New onset a-fib: Plan Mr. 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 Patient found to be in a fib rvr and now being managed on PO metoprolol after converted to NSR while on dilit drip the evening of 07/23. Patient found to have DVT in RLE and placed on heparin drip as well. On 07/24, patient was noted to be in exquisite back pain which is concerning given infectious work up has resulted with bacteremia [group a beta strep]. MRI imaging limited to noncontrast given progressive renal injury; this did not reveal discitis or signs overtly suggestive for vertebral osteomyelitis, but still concerning nonetheless. Ortho Spine evaluated patient for any acute neural compression, but there was no notable stenosis on imaging to correlate to pain on exam. Evaluation limited with MRI or CT 2/2 poor renal function. Patient's acute renal failure is likely secondary to prerenal etiology given low pressures/shock resulting in ATN. After no evidence of response to initial lasix challenge, with plateaued UOP and uptrending Cr, it was decided to place temporary HD line at bedside for intermittent hemodialysis. Given there is anticipation of renal recovery, any contrast use at this time is not advised to prevent further insult to kidneys. Plan to obtain further imaging once stable from renal standpoint to aid in assessment of ?osteomyelitis/discitis. Blood Cultures from 07/23 with Group A Strep B, Urine culture negative. ECHO with no clear sign of vegetations. To ensure no persistent bacteremia, blood cultures were obtained on 07/24 and 07/25 without growth to date. However, there was an increase in WBC on 07/28, prompting repeat blood cultures which are still negative, though suspicion is high that leukocytosis potentially reactive iso progressive renal failure and other acute issues discussed below. WBC trend 16-->13-->10-->12-->14-->18-->19.35 -->20.6 -->20.3 today. Acute renal failure unlikely to cause this per nephrology, acute DVT will and on heparin drip. Cont ADAM farrell, consider post thrombotic syndrome with inflammation contributing? Patho consult for peripheral smear favors this leukocytosis to be reactive, however, there is no baseline available for comparison. If not improved, may consider further studies. Discuss with Dr. Morgan that we are actually therapeutic on heparin drip even with therapeutic PTT given patient's size. Will proceed with L spine MRI with contrast this evening followed by HD in am. Coordinated with radiology and nephrology. Repeat UA now given pacheco catheter in place to ensure no hospital acquired complication-->sample appears contaminated? urine culture pending. #Acute hypoxic respiratory failure iso IVF hydration/oliguric SARWAT *resolved -CXR with pulm edema, required 2L NC, now on room air -oxygen prn, encourage mobilization which is very suboptimal at this point. Able to sit on side of bed but is a max assist. -continue to optimize fluid management with hemodialysis #Acute lower back pain -Concern for vertebral osteomyelitis, even retroperitoneal abscess as DDx, given degree of pain on exam and inability to move 2/2 pain -Pain control and mobilization as able -Continue abx as outlined below. -MRI lumbar spine: paravertebral marrow edema. no end plate erosion, no signs of osteomyelitis, however insufficient 2/2 lack of contrast iso ARF -Ortho spine consult: No surgical intervention at this time, consider bone scan if persistent. Will discuss with radiologist regarding utility of repeating L spine MRI with contrast this Sat just prior to HD. -Nephrology: No contrast use as MRI/CT contrast can hinder renal recovery--further imaging as above. #Oliguric SARWAT, likely evolving ATN 2/2 ischemia from hypotension/shock #Azotemia #Hypervolemic Hyponatremia -Cr uptrending, however, increased UOP s/p IV lasix trial -FeNA prior to lasix 0.9% consistent with prerenal eitology, iso shock/hypote nsion -Strict I/Os, pacheco in place -Failed to demonstrate strong response to lasix challenge -avoid nephrotoxic agents -Nephrology consult: HD cath placement 07/28, plan for intermittent dialysis, c ont T//Sat #Leukocytosis -Afebrile, non-tachycardic (remains in NSR since 07/26) -plan as discussed above. #Bacteremia 2/2 group a beta strep #Sepsis 2/2 bacteremia, source unclear *improved #Abnormal UA #?Cellulitis - sepsis criteria with fever, elevated lactate, tachycardia, source likely RLE cellulitis/UTI on admission, *resolved - BCx NGTD; UA NGTD (denied urinary symptoms) - Continue Cefazolin with addition of Linezolid 600mg BID per ID - Gen surg: no surgical intervention on RLE (no fluid collections, predominately chronic changes of RLE) #Right LLE DVT - R ankle fracture 2013, R knee surgery in 2016 causes some enlargement in general in the RLE but this is much more swollen and tender in the calf compared to previously. -lymphedema and age-indeterminate DVT present -continue IV heparin, continue in interim given renal dysfunction with plans to transition to PO regimen prior to dispo given known DVT/a fib #New onset atrial fibrillation with RVR, remains in sinus rhythm at this point. After initial evaluation the patient - he went into from what we can tell, new onset afib with RVR with rates of 140-150 CHADsVasc 2 likely iso sepsis/bacteremia -Received Diltazem drip, d/c 07/24 -Continue on metoprolol 12.5mg QID, titrate as able/necessary -convert to apixaban in next 24-48 hours. #Elevated troponin*improved -likely demand iso bacteremia and a fib -Downtrended -Monitor on telemetry -consider further evaluation as outpatient. #Hypertension Relative hypotension due to likely shock, resolved with abx/fluid bolus Regimen: amlodipine 10mg, HCTZ 25mg, losartan 50mg -Discontinue amlodipine to avoid given overlap of edema -Hold hctx and losartan in setting of renal failure #HLD - Chronic, stable, cont statin #Controlled DMTII -A1C 6.2% 07/24 - Holding metformin for now, ISS with accuchecks achs #hypomagnesemia *resolved - Replace mag as was 1.5 on admission with 2 g IV. - Trend with am labs, hold replacement iso ARF, potential HD #Morbid obesity - BMI of 45, diet and exercise to be encouraged throughout hospital stay DVT ppx: heparin GI/FEN: HH/Diabetic diet Lines: 2 PIV, HD line R neck CODE: FULL I spent a total [id number] coordinating, documenting, and providing care for this patient excluding time spent in the performance of separately billed services DO Byron [facility] Hospitalist Admission and Anticipated Discharge Date Admission Date: July 23, 2023 Subjective 62-year-old incarcerated male presented for sepsis. difficult to assess symptoms as patient is very drowsy after receiving pain meds RN reports patient was screaming out in pain this morning prior to being medicated. She also reports he was able to sit up on the side of the bed Swelling in the right leg is improved. No pain reported by patient. Planning for MRI with contrast this evening followed by HD first thing in the morning to clear the contrast Coordinated this with nephrology and radiology providers. Cont bowel regimen until results. Physical Exam Physical Exam: CONSTITUTIONAL: WNWD, vitals as above, NAD EYES: normal conjunctivae, no scleral icterus ENT: external ear and nose normal, MMM NECK: trachea midline, right HD catheter in place. RESPIRATORY: clear to auscultation bilaterally, no crackles, rales or wheezes, normal respiratory effort CARDIOVASCULAR: regular rate and rhythm, S1 and 2 heard without murmurs, gallops or rubs, no JVD, ADAM hose on right leg with trace edema bilateral lower extremities. CHEST: inspection of chest was normal GASTROINTESTINAL: soft, nontender, ND, no guarding MUSCULOSKELETAL: generalized weakness, cannot move legs around much limiting exam, head is normocephalic and atraumatic SKIN: warm and dry NEUROLOGIC: CN 2-12 grossly intact, unable to elicit knee DTRs 2/2 weakness and rotated position of legs, no sensory deficit, normal cognition, normal speech, no tremor PSYCHIATRIC: somnolent, drowsy, unable to cooperate with exam, appears overmedicated. Results & Data Results & Data Vital Signs (Past 12 Hours) Vital Signs Temp Pulse Pulse Pulse Resp BP Pulse Ox 07/31/23 09:58 07/31/23 08:21 37.3 C 89 18 172/83 H 96 07/31/23 07:34 84 07/31/23 03:44 37.3 C 87 17 171/82 H 96 07/30/23 23:40 86 16 154/76 H 95 07/30/23 23:29 37.3 C 87 18 194/76 H 96 O2 Del Method O2 Flow Rate 07/31/23 09:58 Room Air 07/31/23 08:21 Room Air 07/31/23 07:34 07/31/23 03:44 Room Air 07/30/23 23:40 Nasal Cannula 2 07/30/23 23:29 Nasal Cannula 2 Laboratory Results Short CBC 07/31/23 Range/Units 05:33 WBC 20.31 H (4.8-10.8) K/ul Hgb 10.8 L (14.0-18.0) g/dl Hct 32.9 L (42.0-52.0) % Plt Count 379 (130-400) K/uL Urine 07/31/23 Range/Units 10:08 Urine Color Yellow Urine Appearance Turbid A (Clear) Urine pH 5.5 (4.5-7.5) Ur Specific [place] 1.011 (1.000-1.030) Urine Protein 2+ H (Negative) Urine Glucose (UA) Negative (Negative) Diagnostic Findings Chest X-Ray 07/31/23 08:53 XR chest 1V portable CLINICAL HISTORY: r/o HAP, increasing WBC, elevation in temp COMPARISON STUDY: Chest radiograph July 28, 2023. FINDINGS: Anterior cervical spine fusion is noted. A right internal jugular central venous catheter is in place. There is no pneumothorax or pleural effusion. Opacity within the right lung base is likely related to patient rotation. This is similar to prior exam. Pulmonary vascular congestion is unchanged. There has been no significant change in appearance of the chest. Cardiomegaly is again noted. IMPRESSION: 1. Cardiomegaly with stable pulmonary vascular congestion. 2. Opacity at the medial right lung base, likely related to patient rotation. ACT 112: Negative or not required by law. Electronically signed by: Dev Fernandes M.D. 07/31/2023 9:31 AM Medications Administered Current Inpatient Medications Acetaminophen (Acetaminophen 325 Mg Tab) 650 mg PO Q6H [facility] Stop: 08/22/23 13:44 Last Admin: 07/31/23 08:52 Dose: 650 mg Acetaminophen (Acetaminophen 325 Mg Tab) 650 mg PO Q4H PRN PRN Reason: Moderate Pain (Scale 4, 5, 6) Stop: 08/22/23 18:40 Dextrose (Dextrose 50% 50 Ml Syringe) 25 - 50 ml IV UD PRN; Protocol PRN Reason: Hypoglycemia Protocol Stop: 08/22/23 18:40 Docusate Sodium (Docusate Sodium 100 Mg Cap) 100 mg PO BID [facility] Stop: 08/26/23 20:59 Last Admin: 07/31/23 08:50 Dose: 100 mg Glucagon (Glucagon For Inj 1 Mg Vial) 1 mg SQ UD PRN; Protocol PRN Reason: Hypoglycemia Protocol Stop: 08/22/23 18:40 Glucose (Glucose 10 Tab/Tube) 4 - 8 tab PO UD PRN; Protocol PRN Reason: Hypoglycemia Treatment Stop: 08/22/23 18:40 Glucose (Glucose 40% Gel 15 Gm Tube) 15 - 30 gm PO UD PRN; Protocol PRN Reason: Hypoglycemia Protocol Stop: 08/22/23 18:40 Hydromorphone HCl (Hydromorphone Inj 1 Mg/Ml Syringe) 0.5 mg IV Q6H PRN PRN Reason: Pain Stop: 08/09/23 09:42 Heparin Sodium/Dextrose (Heparin Sodium/Dextrose) 25,000 units in 500 mls @ 36 mls/hr IV .[id number] [facility]; Protocol Stop: 08/22/23 20:29 Last Titration: 07/31/23 07:08 Dose: 1,800 units/hr, 36 mls/hr Cefazolin Sodium (Ancef 2000mg) 2,000 mg in 15 mls @ 3.75 mls/min IV Q12H [facility]; Protocol Stop: 08/07/23 10:59 Last Admin: 07/30/23 22:10 Dose: 3.75 mls/min Insulin Aspart (Insulin Aspart Per Unit Charge) 0 units SC ACHS [facility] Stop: 08/27/23 19:44 Last Admin: 07/31/23 08:49 Dose: Not Given Linezolid (Linezolid 600 Mg Tab) 600 mg PO BID [facility] Stop: 07/31/23 20:59 Last Admin: 07/31/23 08:50 Dose: 600 mg Metoprolol Succinate (Metoprolol Succ 25mg Ext Rel Tab) 25 mg PO BID [facility] Stop: 08/27/23 20:59 Last Admin: 07/31/23 08:50 Dose: 25 mg Miscellaneous (Carbohydrates For Hypoglycemia ) 15 - 30 gm PO UD PRN PRN Reason: Hypoglycemia Protocol Stop: 08/22/23 18:40 Ondansetron HCl (Ondansetron Inj 2 Mg/Ml 2 Ml Vial) 4 mg IV Q4H PRN PRN Reason: Nausea And Vomiting Stop: 08/22/23 18:40 Oxycodone HCl (Oxycodone Hcl Ir 5 Mg Tab (Immediate Release)) 10 mg PO Q4H PRN PRN Reason: Moderate Pain (Scale 4, 5, 6) Stop: 08/06/23 13:42 Last Admin: 07/31/23 08:52 Dose: 10 mg Polyethylene Glycol (Polyethylene (Miralax) 17 Gm Pack) 17 gm PO TID [facility] Stop: 08/29/23 20:59 Last Admin: 07/31/23 08:50 Dose: 17 gm Rosuvastatin Calcium (Rosuvastatin Calcium 5 Mg Tab) 5 mg PO DAILY [facility] Stop: 08/23/23 08:59 Sennosides (Senna 8.6 Mg Tab) 17.2 mg PO [facility] Stop: 08/29/23 20:59 Last Admin: 07/30/23 20:29 Dose: 17.2 mg Tamsulosin HCl (Tamsulosin Hcl 0.4 Mg Cap) 0.8 mg PO [facility] Stop: 08/22/23 20:59 Last Admin: 07/30/23 20:28 Dose: 0.8 mg
--- NOTE | 2023-07-31 10:54 | Nephrology Progress Note ---
Date of Service July 31, 2023 Assessment & Plan Admission and Anticipated Discharge Date Admission Date: July 23, 2023 Subjective Assessment & Plan (1) Acute kidney injury: Plan: Conner from ATN in the setting of sepsis. He denies any renal problems in the past, and denies any OTC or NSAIDS, IV fluid were stopped 2/ pulmonary congestion, He responded well to Lasix challenge , He is comfortable with 2l oxygen and BP and HR are better controlled, continue 100 mg IV lasix BID. Daily BMP, Input and output and daily weights labs continue to worsen. he is getting MRI with contrast tonight and dialysis will be done within 12 hrs in AM tomorrow. 4hrs 2k bath and take 3 kilo off. Sometime next week will place perm cath if he still needs dialysis till then. However WBC is rising. need to figure out why ?--getting MRI with contrast BP labile. drops with dialysis and also lot of pain so difficult to manage. can raise the BB dose to 50 bid. Given CONNER--better to avoid CT contrast. Subjective Cath working fine. No pain now but had pain meds and now Sleepy. Urine output getting lower but we are also dialyzing and taking fluid off Review of Systems Review of Systems: All systems reviewed & are unremarkable except as noted in HPI & below Physical Exam Physical Exam: General: awake, alert,Comfortable, obese, black male Head: Normocephalic, atraumatic ENT: PERRL, EOMI, no pharyngeal exudate, mucous membranes slightly dry Chest: Clear to auscultation, on room air, no adventitious breath sounds Cardiac: +Sinus tachycardia, no murmur, no JVD, normal peripheral pulses, good capillary refill Abdominal: NABS x 4 quadrants, soft, nondistended, Extremities: RLE diffusely edematous up to groin, LLE with trace edema as well, otherwise Results & Data Vital Signs (Past 12 Hours) Vital Signs Temp Pulse Pulse Pulse Resp BP Pulse Ox 07/31/23 09:58 07/31/23 08:21 37.3 C 89 18 172/83 H 96 07/31/23 07:34 84 07/31/23 03:44 37.3 C 87 17 171/82 H 96 07/30/23 23:40 86 16 154/76 H 95 07/30/23 23:29 37.3 C 87 18 194/76 H 96 O2 Del Method O2 Flow Rate 07/31/23 09:58 Room Air 07/31/23 08:21 Room Air 07/31/23 07:34 07/31/23 03:44 Room Air 07/30/23 23:40 Nasal Cannula 2 07/30/23 23:29 Nasal Cannula 2
[2023-07-31 10:56] LABS: Granular Casts Urine >30 /lpf (0)
[2023-07-31 10:58] LABS: Cast Urine Automated 0 /lpf (0-5)
[2023-07-31 11:12] LABS: Albumin Level 2.9 gm/dl (3.4-5.0); Bilirubin Direct 0.3 mg/dl (0-0.2); Bilirubin,Total 0.9 mg/dl (0.2-1.0); Total Protein 7.5 gm/dl (6.0-8.3)
[2023-07-31] MEDS: ceFAZolin 2000MG 2,000 MG/15 ML SYR IV SCH ×2 (12:45→22:36)
[2023-07-31] MEDS: HEPARIN SODIUM/DEXTROSE 25,000 UNITS/500 ML BAG IV SCH ×3 (14:31→21:07)
[2023-07-31] MEDS ORDERED: WARFARIN SOD 5 MG TAB PO SCH (16:00)
[2023-07-31] MEDS: TAMSULOSIN HCL 0.4 MG CAP PO SCH (20:16)
[2023-07-31] MEDS ORDERED: GADOBUTROL 65ML VIAL IV ONE (21:28)
[2023-07-31] MEDS: SENNA 8.6 MG TAB PO SCH (22:10)
--- NOTE | 2023-07-31 23:02 | Magnetic Resonance Report ---
Exam(s): MRI L SPINE W/WO Contrast IV Amt: 17cc gadavist EXAM: MR Lumbar Spine Without and With Intravenous Contrast CLINICAL HISTORY: Reason for exam: rule out verterbral osteomyelitis/epidural abscess. TECHNIQUE: Magnetic resonance images of the lumbar spine without and with intravenous contrast in multiple planes. CONTRAST: Patient received 17cc gadavist of IV contrast COMPARISON: Comparison made to prior lumbar spine MRI from July 25, 2023. FINDINGS: Vertebrae: There are 5 lumbar type vertebral bodies with a mild generalized curved to the right and normal lumbar lordosis. There is normal vertebral body height and alignment. The vertebral body bone marrow signal is normal. No acute fracture. There is extensive inflammation about the facet joints L5-S1. There is significant increased signal within the L5-S1 disc concerning for discitis. Spinal cord: The conus is normal size, shape and signal characteristics, terminating at L1 to. No abnormal enhancement. Soft tissues: There is an enhancing fluid collection extending from L3- S1 concerning for dorsal epidural abscess. There is increased fluid signal within the interspinous process at L1-2, L2-3 and L3-4 with increased enhancement. There is extensive inflammation of the paraspinous muscles with enhancement. There is an enhancing fluid collection in the right and left paraspinous muscles adjacent to the L5- S1 facet joints. Mild prevertebral soft tissue swelling at L5-S1 concerning for phlegmon/abscess. Possible small ventral epidural abscess/phlegmon at L5. IMPRESSION: Findings concerning for infection of the L5-S1 facet joints, paraspinous muscles and interspinous bursa with dorsal epidural phlegmon/abscess extending from L3-S1. Small abscesses about the L5-S1 facet joints. Findings concerning for discitis at L5-S1 with mild prevertebral phlegmon/abscess. Possible small ventral epidural abscess/phlegmon at L5. Communications: Verify Receipt Electronically signed by: Qing Nash MD 07/31/23 23:00 PM
[2023-08-01] MEDS: ACETAMINOPHEN 325 MG TAB PO SCH ×4 (02:41→19:30)
[2023-08-01] MEDS: HEPARIN SODIUM/DEXTROSE 25,000 UNITS/500 ML BAG IV SCH ×2 (04:11→21:07)
[2023-08-01] MEDS ORDERED: EPOETIN ALFA 4,000 UNIT/ML VIAL IV ONE (07:00)
[2023-08-01] MEDS ORDERED: SODIUM CHLORIDE 0.9% 1,000 ML IV PRN (07:00)
--- NOTE | 2023-08-01 07:47 | Hospitalist Progress Note ---
Date of Service August 01, 2023 Assessment & Plan (1) Sepsis: (2) Cellulitis: (3) Urinary tract infection: (4) Hypomagnesemia: (5) DM II (diabetes mellitus, type II), controlled: (6) HLD (hyperlipidemia): (7) HTN (hypertension): (8) Morbid obesity: (9) New onset a-fib: Plan Mr. 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 Patient found to be in a fib rvr and now being managed on PO metoprolol after converted to NSR while on Dilt drip the evening of 07/23. Patient found to have DVT in RLE and placed on heparin drip as well. On 07/24, patient was noted to be in exquisite back pain which is concerning given infectious work up has resulted with bacteremia [group a beta strep]. MRI imaging limited to noncontrast given progressive renal injury; this did not reveal discitis or signs overtly suggestive for vertebral osteomyelitis, but still concerning nonetheless. Ortho Spine evaluated patient for any acute neural compression, but there was no notable stenosis on imaging to correlate to pain on exam. Evaluation limited with MRI or CT 2/2 poor renal function. Patient's acute renal failure is likely secondary to prerenal etiology given low pressures/shock resulting in ATN. After no evidence of response to initial lasix challenge, with plateaued UOP and uptrending Cr, it was decided to place temporary HD line at bedside for intermittent hemodialysis. Given there is anticipation of renal recovery, any contrast use at this time is not advised to prevent further insult to kidneys. Plan to obtain further imaging once stable from renal standpoint to aid in assessment of ?osteomyelitis/discitis. Blood Cultures from 07/23 with Group A Strep B, Urine culture negative. ECHO with no clear sign of vegetations. To ensure no persistent bacteremia, blood cultures were obtained on 07/24 and 07/25 without growth to date. However, there was an increase in WBC on 07/28, prompting repeat blood cultures which are still negative WBC trend 16-->13-->10-->12-->14-->18-->19.35 -->20.6 -->20. Repeat MRI L spine with contrast reveals epidural abscess and discitis L3-S1. No surgery indicated at this time. Cont current antibiotic regimen. #Acute hypoxic respiratory failure iso IVF hydration/oliguric SARWAT *resolved -CXR with pulm edema, required 2L NC, now on room air -oxygen prn, encourage mobilization which is very suboptimal at this point. Able to sit on side of bed but is a max assist. -continue to optimize fluid management with hemodialysis #Acute lower back pain 2/2 epidural abscess/discitis -Pain control and mobilization as able -Continue abx as outlined below. -MRI lumbar spine (07/25): paravertebral marrow edema. no end plate erosion, no signs of osteomyelitis, however insufficient 2/2 lack of contrast iso ARF -Ortho spine consult: No surgical intervention at this time, consider bone scan if persistent. -MRI L spine with contrast (07/31): epidural abscesses L3-S1 and discitis--> cont current abx. -per [facility] ortho spine, an elevation in WBC is not an indication for surgery. This may be re-evaluated if neurologic deficit results or he becomes septic. #Oliguric SARWAT, likely evolving ATN 2/2 ischemia from hypotension/shock #Azotemia #Hypervolemic Hyponatremia -Cr uptrending, however, increased UOP s/p IV lasix trial -FeNA prior to lasix 0.9% consistent with prerenal etiology, iso shock/hypotension -Strict I/Os, pacheco in place -Failed to demonstrate strong response to lasix challenge -avoid nephrotoxic agents -Nephrology consult: HD cath placement 07/28, plan for intermittent dialysis, cont T//Sat #Leukocytosis -Afebrile, non-tachycardic (remains in NSR since 07/26) -plan as discussed above. #Bacteremia 2/2 group a beta strep #Sepsis 2/2 bacteremia 2/2 epidural abscess - sepsis criteria with fever, elevated lactate, tachycardia, source likely RLE cellulitis/UTI on admission, *resolved - BCx NGTD; UA NGTD (denied urinary symptoms) - Continue Cefazolin with addition of Linezolid 600mg BID per ID - Gen surg: no surgical intervention on RLE (no fluid collections, predominately chronic changes of RLE) #Right LLE DVT - R ankle fracture 2013, R knee surgery in 2016 causes some enlargement in general in the RLE but this is much more swollen and tender in the calf compared to previously. -lymphedema and age-indeterminate DVT present -started on coumadin 07/31 with 5mg, but one dose caused his INR to go to 4.7 today. Held coumadin and heparin drip and trend INR in am. Restart coumadin at 2.5mg when INR <3.5. -continue IV heparin, continue in interim given renal dysfunction with plans to transition to PO regimen prior to dispo given known DVT/a fib #New onset atrial fibrillation with RVR, remains in sinus rhythm at this point. After initial evaluation the patient - he went into from what we can tell, new onset afib with RVR with rates of 140-150 CHADsVasc 2 likely iso sepsis/bacteremia -Received Diltazem drip, d/c 07/24 -Continue on metoprolol 12.5mg QID, titrate as able/necessary -convert to apixaban in next 24-48 hours. #Elevated troponin*improved -likely demand iso bacteremia and a fib -Downtrended -Monitor on telemetry -consider further evaluation as outpatient. #Hypertension Relative hypotension due to likely shock, resolved with abx/fluid bolus Regimen: amlodipine 10mg, HCTZ 25mg, losartan 50mg -Discontinue amlodipine to avoid given overlap of edema -Hold hctx and losartan in setting of renal failure #HLD - Chronic, stable, cont statin #Controlled DMTII -A1C 6.2% 07/24 -inpt BSG at goal - Holding metformin for now, ISS with accuchecks achs #hypomagnesemia *resolved #Morbid obesity - BMI of 45, diet and exercise to be encouraged throughout hospital stay DVT ppx: heparin/coumadin GI/FEN: renal/Diabetic diet Lines: 2 PIV, HD line R neck CODE: FULL I spent a total [id number] coordinating, documenting, and providing care for this patient excluding time spent in the performance of separately billed services Blanca Beard DO [facility] Hospitalist Admission and Anticipated Discharge Date Admission Date: July 23, 2023 Subjective 62-year-old incarcerated male presented for sepsis. Evaluated while undergoing dialysis We discussed the MRI results from last night, patient understands he has an epidural abscess which means an infection He reports back pain slightly better with the Dilaudid but he prefers the oxycodone as it last longer I did contact orthospine Dr. Valencia at [facility] this morning. After reviewing the films and discussing the case together he did not recommend any surgical drainage at this time If any change in neurologic function or a worsening sepsis picture occurs, this may be reevaluated. Physical Exam Physical Exam: CONSTITUTIONAL: WNWD, vitals as above, NAD EYES: normal conjunctivae, no scleral icterus ENT: external ear and nose normal, MMM NECK: trachea midline, right HD catheter in place. RESPIRATORY: clear to auscultation bilaterally, no crackles, rales or wheezes, normal respiratory effort CARDIOVASCULAR: regular rate and rhythm, S1 and 2 heard without murmurs, gallops or rubs, no JVD, ADAM hose on right leg with trace edema bilateral lower extremities. CHEST: inspection of chest was normal GASTROINTESTINAL: soft, nontender, ND, no guarding MUSCULOSKELETAL: generalized weakness, limited mobility of legs but this is equal throughout, head is normocephalic and atraumatic SKIN: warm and dry NEUROLOGIC: CN 2-12 grossly intact, unable to elicit knee DTRs 2/2 weakness and rotated position of legs, no sensory deficit, normal cognition, normal speech, no tremor PSYCHIATRIC: Alert, oriented, cooperative Results & Data Results & Data Vital Signs (Past 12 Hours) Vital Signs Temp Pulse Pulse Resp BP BP Pulse Ox 08/01/23 03:42 36.6 C 85 18 153/79 H 95 08/01/23 02:45 33 H 08/01/23 01:23 85 07/31/23 23:26 36.6 C 79 18 159/81 H 93 07/31/23 22:30 78 28 H 91 O2 Del Method O2 Flow Rate 08/01/23 03:42 BiPAP 08/01/23 02:45 3 08/01/23 01:23 07/31/23 23:26 BiPAP 07/31/23 22:30 3 Laboratory Results Liver Function 07/31/23 Range/Units 05:33 Total Bilirubin 0.9 (0.2-1.0) mg/dl Direct Bilirubin 0.3 H (0-0.2) mg/dl AST 46 H (13-39) U/L ALT 3 L (7-52) U/L Alkaline Phosphatase 155 H (34-104) U/L Albumin 2.9 L (3.4-5.0) gm/dl Urine 07/31/23 Range/Units 10:08 Urine Color Yellow Urine Appearance Turbid A (Clear) Urine pH 5.5 (4.5-7.5) Ur Specific [place] 1.011 (1.000-1.030) Urine Protein 2+ H (Negative) Urine Glucose (UA) Negative (Negative) Diagnostic Findings Lumbar Spine MRI 07/31/23 09:00 CR Exam(s): MRI L SPINE W/WO Contrast IV Amt: 17cc gadavist EXAM: MR Lumbar Spine Without and With Intravenous Contrast CLINICAL HISTORY: Reason for exam: rule out verterbral osteomyelitis/epidural abscess. TECHNIQUE: Magnetic resonance images of the lumbar spine without and with intravenous contrast in multiple planes. CONTRAST: Patient received 17cc gadavist of IV contrast COMPARISON: Comparison made to prior lumbar spine MRI from July 25, 2023. FINDINGS: Vertebrae: There are 5 lumbar type vertebral bodies with a mild generalized curved to the right and normal lumbar lordosis. There is normal vertebral body height and alignment. The vertebral body bone marrow signal is normal. No acute fracture. There is extensive inflammation about the facet joints L5-S1. There is significant increased signal within the L5-S1 disc concerning for discitis. Spinal cord: The conus is normal size, shape and signal characteristics, terminating at L1 to. No abnormal enhancement. Soft tissues: There is an enhancing fluid collection extending from L3- S1 concerning for dorsal epidural abscess. There is increased fluid signal within the interspinous process at L1-2, L2-3 and L3-4 with increased enhancement. There is extensive inflammation of the paraspinous muscles with enhancement. There is an enhancing fluid collection in the right and left paraspinous muscles adjacent to the L5- S1 facet joints. Mild prevertebral soft tissue swelling at L5-S1 concerning for phlegmon/abscess. Possible small ventral epidural abscess/phlegmon at L5. IMPRESSION: Findings concerning for infection of the L5-S1 facet joints, paraspinous muscles and interspinous bursa with dorsal epidural phlegmon/abscess extending from L3-S1. Small abscesses about the L5-S1 facet joints. Findings concerning for discitis at L5-S1 with mild prevertebral phlegmon/abscess. Possible small ventral epidural abscess/phlegmon at L5. Communications: Verify Receipt Electronically signed by: Qing Nash MD 07/31/23 23:00 PM Medications Administered Current Inpatient Medications Acetaminophen (Acetaminophen 325 Mg Tab) 650 mg PO Q6H NEGRITA Stop: 08/22/23 13:44 Last Admin: 08/01/23 02:41 Dose: 650 mg Acetaminophen (Acetaminophen 325 Mg Tab) 650 mg PO Q4H PRN PRN Reason: Moderate Pain (Scale 4, 5, 6) Stop: 08/22/23 18:40 Dextrose (Dextrose 50% 50 Ml Syringe) 25 - 50 ml IV UD PRN; Protocol PRN Reason: Hypoglycemia Protocol Stop: 08/22/23 18:40 Docusate Sodium (Docusate Sodium 100 Mg Cap) 100 mg PO BID NEGRITA Stop: 08/26/23 20:59 Last Admin: 07/31/23 20:15 Dose: 100 mg Glucagon (Glucagon For Inj 1 Mg Vial) 1 mg SQ UD PRN; Protocol PRN Reason: Hypoglycemia Protocol Stop: 08/22/23 18:40 Glucose (Glucose 10 Tab/Tube) 4 - 8 tab PO UD PRN; Protocol PRN Reason: Hypoglycemia Treatment Stop: 08/22/23 18:40 Glucose (Glucose 40% Gel 15 Gm Tube) 15 - 30 gm PO UD PRN; Protocol PRN Reason: Hypoglycemia Protocol Stop: 08/22/23 18:40 Hydromorphone HCl (Hydromorphone Inj 1 Mg/Ml Syringe) 0.5 mg IV Q6H PRN PRN Reason: Pain Stop: 08/09/23 09:42 Heparin Sodium/Dextrose (Heparin Sodium/Dextrose) 25,000 units in 500 mls @ 36 mls/hr IV .[id number] [facility]; Protocol Stop: 08/22/23 20:29 Last Titration: 08/01/23 07:06 Dose: 1,800 units/hr, 36 mls/hr Cefazolin Sodium (Ancef 2000mg) 2,000 mg in 15 mls @ 3.75 mls/min IV Q12H [facility]; Protocol Stop: 08/07/23 10:59 Last Admin: 07/31/23 22:36 Dose: 3.75 mls/min Sodium Chloride (Nss) 1,000 mls @ 0 mls/hr IV .Q0M PRN PRN Reason: For Hemodialysis Use ONLY Stop: 08/01/23 12:59 Insulin Aspart (Insulin Aspart Per Unit Charge) 0 units SC ACHS [facility] Stop: 08/27/23 19:44 Last Admin: 07/31/23 21:04 Dose: Not Given Metoprolol Succinate (Metoprolol Succ 25mg Ext Rel Tab) 25 mg PO BID [facility] Stop: 08/27/23 20:59 Last Admin: 07/31/23 20:14 Dose: 25 mg Miscellaneous (Carbohydrates For Hypoglycemia ) 15 - 30 gm PO UD PRN PRN Reason: Hypoglycemia Protocol Stop: 08/22/23 18:40 Ondansetron HCl (Ondansetron Inj 2 Mg/Ml 2 Ml Vial) 4 mg IV Q4H PRN PRN Reason: Nausea And Vomiting Stop: 08/22/23 18:40 Oxycodone HCl (Oxycodone Hcl Ir 5 Mg Tab (Immediate Release)) 5 mg PO Q4H PRN PRN Reason: Moderate Pain (Scale 4, 5, 6) Stop: 08/06/23 13:42 Last Admin: 07/31/23 22:11 Dose: 5 mg Polyethylene Glycol (Polyethylene (Miralax) 17 Gm Pack) 17 gm PO TID [facility] Stop: 08/29/23 20:59 Last Admin: 07/31/23 20:17 Dose: 17 gm Rosuvastatin Calcium (Rosuvastatin Calcium 5 Mg Tab) 5 mg PO DAILY [facility] Stop: 08/23/23 08:59 Sennosides (Senna 8.6 Mg Tab) 17.2 mg PO HS [facility] Stop: 08/29/23 20:59 Last Admin: 07/31/23 22:10 Dose: 17.2 mg Tamsulosin HCl (Tamsulosin Hcl 0.4 Mg Cap) 0.8 mg PO HS [facility] Stop: 08/22/23 20:59 Last Admin: 07/31/23 20:16 Dose: 0.8 mg Warfarin Sodium (Warfarin Sod 5 Mg Tab) 5 mg PO DAILY@1600 [facility] Stop: 08/30/23 15:59 Last Admin: 07/31/23 17:42 Dose: 5 mg
[2023-08-01 07:53] LABS: Albumin Level 2.8 gm/dl (3.4-5.0); BUN Creatinine Ratio 8.1 (10-20); Calcium 8.5 mg/dl (8.6-10.3); Creatinine Clr Calc Pharmacy 19.7 ml/min; Est GFR (African American) 9.4 ml/min; Est GFR (Non-African American) 8.1 ml/min; Phosphorus 7.9 mg/dl (2.5-4.9); Potassium 4.4 mmol/L (3.5-5.1)
[2023-08-01 08:10] LABS: INR 4.7 (0.9-1.1); Partial Thromboplastin Ratio 2.7; Prothrombin Time 47.1 Seconds (9.0-12.0)
[2023-08-01 08:14] LABS: Partial Thromboplastin Time 75.7 Seconds (21.0-31.0)
[2023-08-01] MEDS: HYDROmorphone INJ 1 MG/ML SYRINGE IV PRN ×2 (09:08→20:44)
[2023-08-01] MEDS: INSULIN ASPART PER UNIT CHARGE SC SCH ×4 (10:01→20:43)
[2023-08-01] MEDS: METOPROLOL SUCC 25MG EXT REL TAB PO SCH ×2 (11:14→20:47)
[2023-08-01] MEDS: DOCUSATE SODIUM 100 MG CAP PO SCH ×2 (11:14→20:46)
[2023-08-01] MEDS: ceFAZolin 2000MG 2,000 MG/15 ML SYR IV SCH (11:30)
[2023-08-01] MEDS: oxyCODONE HCL IR 5 MG TAB (IMMEDIATE RELEASE) PO PRN ×2 (13:23→19:30)
[2023-08-01] MEDS: POLYETHYLENE (MIRALAX) 17 GM PACK PO SCH ×3 (14:17→20:45)
--- NOTE | 2023-08-01 14:48 | Dialysis Progress Note ---
Date of Service August 01, 2023 Assessment & Plan (1) Acute kidney injury: Plan: SARWAT -D >>nettie COTO, there may be a prerenal element.- He denies any renal problems in the past, and denies any OTC or NSAIDS, IV fluid were stopped 2/2 pulmonary congestion, He responded well to Lasix challenge , He is comfortable with 2l oxygen and BP and HR are better controlled, first HD on 07/28; today is 4th tx, again done primarily for removal of gadolinium improvement in creatinine today reflects 07/30 dialysis getting HD today due primarily to contrast for MRI study - continue 100 mg IV lasix BID . - At the moment he is making urine (1.5L yesterday) , electrolytes are safe. -reassess on 08/03 for further dialysis needs or not - Continue to hold ARB - Daily BMP, Input and output and daily weights preferably on the same scale - No iv fluids. (2) Bacteremia: Plan: WBC had worsened; last + cx 07/23 group B strep - renally dose Abx -f/u mri >> concern for abscess and discitis Admission and Anticipated Discharge Date Admission Date: July 23, 2023 Subjective seen on dialysis at 0920. had mri yesterday and for HD today to help as we can to clear contrast. ongoing back pain; denies sob or worsening edema. anxious about his health status Review of Systems 2 Review of Systems: All systems reviewed & are unremarkable except as noted in Subjective Physical Exam 2 Constitutional: well developed, + morbidly obese and cooperative; no acute distress Eyes: EOM intact bilaterally ENMT: Ears: no external ear abnormality Nose: no external nose abnormality Mouth: + dry oral mucous membranes Neck: no nuchal rigidity Respiratory: normal respiratory effort Auscultation: + diminished lung sounds Cardiovascular: Rate/Rhythm: regular rate and regular rhythm Extremities: + edema (trace ble) Gastrointestinal (Abdomen): Inspection/Auscultation: normal bowel sounds P ercussion/Palpation: abdomen soft; abdomen nontender Musculoskeletal: Extremities: strength 5/5 throughout Skin: no rashes, warm and dry Neurologic: julien, fluent speech, no tremor Results & Data Vital Signs (Past 12 Hours) Vital Signs Temp Pulse Pulse Pulse Resp BP BP 08/01/23 13:25 36.5 C 86 08/01/23 13:16 36.9 C 90 18 186/77 H 08/01/23 13:00 84 170/83 H 08/01/23 12:30 86 174/92 H 08/01/23 12:00 82 156/54 H 08/01/23 11:30 82 168/87 H 08/01/23 11:00 80 164/80 H 08/01/23 10:30 81 157/86 H 08/01/23 10:00 83 150/83 H 08/01/23 09:30 86 159/78 H 08/01/23 09:15 36.6 C 89 08/01/23 08:07 77 08/01/23 08:00 08/01/23 07:37 36.6 C 80 20 176/89 H 08/01/23 03:42 36.6 C 85 18 153/79 H 08/01/23 02:45 33 H BP Pulse Ox O2 Del Method O2 Flow Rate 08/01/23 13:25 164/80 H 08/01/23 13:16 91 Room Air 08/01/23 13:00 08/01/23 12:30 08/01/23 12:00 08/01/23 11:30 08/01/23 11:00 08/01/23 10:30 08/01/23 10:00 08/01/23 09:30 08/01/23 09:15 08/01/23 08:07 08/01/23 08:00 Room Air 08/01/23 07:37 95 BiPAP 08/01/23 03:42 95 BiPAP 08/01/23 02:45 3 Laboratory Results 07/31/23 05:33 08/01/23 06:07
[2023-08-01 16:01] LABS: Partial Thromboplastin Ratio 3.2
[2023-08-01 16:04] LABS: Partial Thromboplastin Time 89.8 Seconds (21.0-31.0)
[2023-08-01] MEDS: TAMSULOSIN HCL 0.4 MG CAP PO SCH (20:46)
[2023-08-01] MEDS: SENNA 8.6 MG TAB PO SCH (20:48)
[2023-08-01] MEDS: ceFAZolin 1000MG 1,000 MG/7.5 ML SYR IV SCH (22:33)
[2023-08-02] MEDS: ACETAMINOPHEN 325 MG TAB PO SCH ×4 (01:15→20:38)
[2023-08-02] MEDS: oxyCODONE HCL IR 5 MG TAB (IMMEDIATE RELEASE) PO PRN ×4 (04:58→17:35)
[2023-08-02] MEDS: HYDROmorphone INJ 1 MG/ML SYRINGE IV PRN ×2 (05:41→11:43)
[2023-08-02 06:32] LABS: Hemoglobin 10.4 g/dl (14.0-18.0); Mean Corpuscular Hemoglobin 28.1 pg (25.0-34.0); Mean Corpuscular Hgb Conc 33.5 g/dL (32.0-36.0); Mean Corpuscular Volume 83.8 fL (80.0-100.0); Mean Platelet Volume 9.3 fL (9.4-12.4); Platelet Count 408 K/uL (130-400); RDW Coefficient of Variation 14.6 % (11.5-14.5); RDW Standard Deviation 44.9 fL (36.4-46.3); White Blood Count 16.25 K/ul (4.8-10.8)
[2023-08-02 06:41] LABS: Albumin Level 2.9 gm/dl (3.4-5.0); BUN Creatinine Ratio 9.3 (10-20); Calcium 8.4 mg/dl (8.6-10.3); Creatinine Clr Calc Pharmacy 31.5 ml/min; Est GFR (African American) 16.1 ml/min; Est GFR (Non-African American) 13.9 ml/min; Magnesium 2.2 mg/dl (1.7-2.4); Phosphorus 5.6 mg/dl (2.5-4.9); Potassium 4.3 mmol/L (3.5-5.1)
[2023-08-02 06:43] LABS: INR 2.3 (0.9-1.1); Prothrombin Time 23.5 Seconds (9.0-12.0)
[2023-08-02 06:57] LABS: ALC (manual) 1.46 K/uL (1.2-3.4); ANC (manual) 13.81 K/uL (1.4-6.5); Eosinophils # (manual) 0.16 K/uL (0-0.50); Eosinophils % (manual) 1 %; Lymphocytes # (manual) 1.46 K/uL (1.2-3.4); Lymphocytes % (manual) 9 %; Metamyelocytes # (manual) 0.16 K/uL (0-0); Metamyelocytes % (manual) 1 %; Monocytes # (manual) 0.49 K/uL (0.11-0.59); Monocytes % (manual) 3 %; Myelocytes # (manual) 0.16 K/uL (0-0); Myelocytes % (manual) 1 %; Neutrophils # (manual) 13.81 K/uL (1.40-6.50); Neutrophils % (manual) 85 %; RBC Morphology Unremarkable
[2023-08-02] MEDS: POLYETHYLENE (MIRALAX) 17 GM PACK PO SCH ×3 (08:04→20:38)
[2023-08-02] MEDS: DOCUSATE SODIUM 100 MG CAP PO SCH ×2 (08:04→20:38)
[2023-08-02] MEDS: METOPROLOL SUCC 25MG EXT REL TAB PO SCH ×2 (08:04→20:38)
[2023-08-02] MEDS: INSULIN ASPART PER UNIT CHARGE SC SCH (08:32)
--- NOTE | 2023-08-02 08:57 | Hospitalist Progress Note ---
Date of Service August 02, 2023 Assessment & Plan (1) Sepsis: (2) Cellulitis: (3) Urinary tract infection: (4) Hypomagnesemia: (5) DM II (diabetes mellitus, type II), controlled: (6) HLD (hyperlipidemia): (7) HTN (hypertension): (8) Morbid obesity: (9) New onset a-fib: (10) Constipation: Plan Mr. 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 Patient found to be in a fib rvr and now being managed on PO metoprolol after converted to NSR while on Dilt drip the evening of 07/23. Patient found to have DVT in RLE and placed on heparin drip as well. On 07/24, patient was noted to be in exquisite back pain which is concerning given infectious work up has resulted with bacteremia [group a beta strep]. MRI imaging limited to noncontrast given progressive renal injury; this did not reveal discitis or signs overtly suggestive for vertebral osteomyelitis, but still concerning nonetheless. Ortho Spine evaluated patient for any acute neural compression, but there was no notable stenosis on imaging to correlate to pain on exam. Evaluation limited with MRI or CT 2/2 poor renal function. Patient's acute renal failure is likely secondary to prerenal etiology given low pressures/shock resulting in ATN. After no evidence of response to initial lasix challenge, with plateaued UOP and uptrending Cr, it was decided to place temporary HD line at bedside for intermittent hemodialysis. Given there is anticipation of renal recovery, any contrast use at this time is not advised to prevent further insult to kidneys. Plan to obtain further imaging once stable from renal standpoint to aid in assessment of ?osteomyelitis/discitis. Blood Cultures from 07/23 with Group A Strep B, Urine culture negative. ECHO with no clear sign of vegetations. To ensure no persistent bacteremia, blood cultures were obtained on 07/24 and 07/25 without growth to date. However, there was an increase in WBC on 07/28, prompting repeat blood cultures which are still negative WBC trend 16-->13-->10-->12-->14-->18-->19.35 -->20.6 -->20--16. Repeat MRI L spine with contrast reveals epidural abscess and discitis L3-S1. No surgery indicated at this time. Cont current antibiotic regimen. Consult pain management to assist with pain despite narcotic use. Still very weak and appears poorly motivated to move on his own volition, max assist per nursing. Constipation: ongoing for >1 week. Likely related to narcotics and minimal movement. Continues on miralax, senna, docusate. Trying to minimize narcotic use but this is difficult given his stated level of pain. Suppository PRN. #Acute hypoxic respiratory failure iso IVF hydration/oliguric SARWAT *resolved -CXR with pulm edema, required 2L NC, now on room air -oxygen prn, encourage mobilization which is very suboptimal at this point. Able to sit on side of bed but is a max assist. -continue to optimize fluid management with hemodialysis #Acute lower back pain 2/2 epidural abscess/discitis -Pain control and mobilization as able -Continue abx as outlined below. -MRI lumbar spine (07/25): paravertebral marrow edema. no end plate erosion, no signs of osteomyelitis, however insufficient 2/2 lack of contrast iso ARF -Ortho spine consult: No surgical intervention at this time, consider bone scan if persistent. -MRI L spine with contrast (07/31): epidural abscesses L3-S1 and discitis--> cont current abx. -per [facility] ortho spine, an elevation in WBC is not an indication for surgery. This may be re-evaluated if neurologic deficit results or he becomes septic. #Oliguric SARWAT, likely evolving ATN 2/2 ischemia from hypotension/shock #Azotemia #Hypervolemic Hyponatremia -Cr uptrending, however, increased UOP s/p IV lasix trial -FeNA prior to lasix 0.9% consistent with prerenal etiology, iso shock/hypotension -Strict I/Os, pacheco in place -Failed to demonstrate strong response to lasix challenge -avoid nephrotoxic agents -Nephrology consult: HD cath placement 07/28, plan for intermittent dialysis, cont T//Sat #Leukocytosis-*improving -Afebrile, non-tachycardic (remains in NSR since 07/26) -plan as discussed above. #Bacteremia 2/2 group a beta strep #Sepsis 2/2 bacteremia 2/2 epidural abscess - sepsis criteria with fever, elevated lactate, tachycardia, source likely RLE cellulitis/UTI on admission, *resolved - BCx NGTD; UA NGTD (denied urinary symptoms) - Continue Cefazolin with addition of Linezolid 600mg BID per ID - Gen surg: no surgical intervention on RLE (no fluid collections, predominately chronic changes of RLE) #Right LLE DVT - R ankle fracture 2013, R knee surgery in 2016 causes some enlargement in general in the RLE but this is much more swollen and tender in the calf compared to previously. -lymphedema and age-indeterminate DVT present -started on coumadin 07/31 with 5mg, but one dose caused his INR to go to 4.7 today. Held coumadin and heparin drip and trend INR in am. Restart coumadin at 2.5mg when INR <3.5. -continue IV heparin, continue in interim given renal dysfunction with plans to transition to PO regimen prior to dispo given known DVT/a fib 08/02: cont IV heparin and gave warfarin 2.5mg today, trend INR daily and stop heparin when INR 2-3 x 2 days. #New onset atrial fibrillation with RVR, remains in sinus rhythm at this point. After initial evaluation the patient - he went into from what we can tell, new onset afib with RVR with rates of 140-150 CHADsVasc 2 likely iso sepsis/bacteremia -Received Diltazem drip, d/c 07/24 -Continue on metoprolol 12.5mg QID, titrate as able/necessary -convert to apixaban in next 24-48 hours. #Elevated troponin*improved -likely demand iso bacteremia and a fib -Downtrended -Monitor on telemetry -consider further evaluation as outpatient. #Hypertension Relative hypotension due to likely shock, resolved with abx/fluid bolus Regimen: amlodipine 10mg, HCTZ 25mg, losartan 50mg -Discontinue amlodipine to avoid given overlap of edema -Hold hctx and losartan in setting of renal failure #HLD - Chronic, stable, cont statin #Controlled DMTII -A1C 6.2% 07/24 -inpt BSG at goal - Holding metformin for now, ISS with accuchecks reveals no need for insulin coverage. Stop BSG checks at this time. #hypomagnesemia *resolved #Morbid obesity - BMI of 45, diet and exercise to be encouraged throughout hospital stay DVT ppx: heparin/coumadin GI/FEN: renal/Diabetic diet Lines: 2 PIV, HD line R neck CODE: FULL I spent a total [id number] coordinating, documenting, and providing care for this patient excluding time spent in the performance of separately billed services DO [facility] Hospital[facility] Admission and Anticipated Discharge Date Admission Date: July 23, 2023 Subjective 62-year-old incarcerated male presented for sepsis. reports back pain is severe noted to be resting comfortably when I walked in the room but then began to writhe around in bed as if cant get comfortable states he has tried multiple different positions but cant get comfortable. still unable to ambulate or sit up much on side of bed per primary RN he is a max assist poor motivation to move around on own volition for the last several days in seeing him. still no BM after over a week. Physical Exam Physical Exam: CONSTITUTIONAL: WNWD, vitals as above, NAD EYES: normal conjunctivae, no scleral icterus ENT: external ear and nose normal, MMM NECK: trachea midline, right HD catheter in place. RESPIRATORY: clear to auscultation bilaterally, no crackles, rales or wheezes, normal respiratory effort CARDIOVASCULAR: regular rate and rhythm, S1 and 2 heard without murmurs, gallops or rubs, no JVD, ADAM hose on right leg with trace edema bilateral lower extremities. CHEST: inspection of chest was normal GASTROINTESTINAL: soft, nontender, ND, no guarding MUSCULOSKELETAL: generalized weakness, limited mobility of legs but this is equal throughout, head is normocephalic and atraumatic SKIN: warm and dry NEUROLOGIC: CN 2-12 grossly intact, unable to elicit knee DTRs 2/2 weakness and rotated position of legs, no sensory deficit, normal cognition, normal speech, no tremor PSYCHIATRIC: Alert, oriented, cooperative Results & Data Results & Data Vital Signs (Past 12 Hours) Vital Signs Temp Pulse Pulse Pulse Pulse Resp BP 08/02/23 07:37 36.5 C 88 18 183/91 H 08/02/23 07:22 93 H 08/02/23 03:06 36.8 C 84 18 163/80 H 08/02/23 00:57 85 20 08/01/23 23:05 89 08/01/23 22:30 36.8 C 86 20 163/81 H Pulse Ox O2 Del Method O2 Flow Rate 08/02/23 07:37 91 Room Air 08/02/23 07:22 08/02/23 03:06 95 CPAP 08/02/23 00:57 95 3 08/01/23 23:05 08/01/23 22:30 93 Room Air Laboratory Results Short CBC 08/02/23 Range/Units 05:27 WBC 16.25 H (4.8-10.8) K/ul Hgb 10.4 L (14.0-18.0) g/dl Hct 31.0 L (42.0-52.0) % Plt Count 408 H (130-400) K/uL BMP 08/02/23 05:27 Sodium 134 L Potassium 4.3 Chloride 100 Carbon Dioxide 27 BUN 40 H Creatinine 4.30 H D Glucose 131 H Calcium 8.4 L Liver Function 08/02/23 Range/Units 05:27 Albumin 2.9 L (3.4-5.0) gm/dl Medications Administered Current Inpatient Medications Acetaminophen (Acetaminophen 325 Mg Tab) 650 mg PO Q6H NEGRITA Stop: 08/22/23 13:44 Last Admin: 08/02/23 08:03 Dose: 650 mg Acetaminophen (Acetaminophen 325 Mg Tab) 650 mg PO Q4H PRN PRN Reason: Moderate Pain (Scale 4, 5, 6) Stop: 08/22/23 18:40 Docusate Sodium (Docusate Sodium 100 Mg Cap) 100 mg PO BID NEGRITA Stop: 08/26/23 20:59 Last Admin: 08/02/23 08:04 Dose: 100 mg Hydromorphone HCl (Hydromorphone Inj 1 Mg/Ml Syringe) 0.5 mg IV Q6H PRN PRN Reason: Pain Stop: 08/09/23 09:42 Last Admin: 08/02/23 05:41 Dose: 0.5 mg Heparin Sodium/Dextrose (Heparin Sodium/Dextrose) 25,000 units in 500 mls @ 34 mls/hr IV .[id number] [facility]; Protocol Stop: 08/22/23 20:29 Last Titration: 08/01/23 12:57 Dose: Infused Cefazolin Sodium (Ancef 1000mg) 1,000 mg in 7.5 mls @ 2.5 mls/min IV Q24H [facility]; Protocol Stop: 08/07/23 10:59 Last Admin: 08/01/23 22:33 Dose: 2.5 mls/min Metoprolol Succinate (Metoprolol Succ 25mg Ext Rel Tab) 25 mg PO BID [facility] Stop: 08/27/23 20:59 Last Admin: 08/02/23 08:04 Dose: 25 mg Ondansetron HCl (Ondansetron Inj 2 Mg/Ml 2 Ml Vial) 4 mg IV Q4H PRN PRN Reason: Nausea And Vomiting Stop: 08/22/23 18:40 Oxycodone HCl (Oxycodone Hcl Ir 5 Mg Tab (Immediate Release)) 5 mg PO Q4H PRN PRN Reason: Moderate Pain (Scale 4, 5, 6) Stop: 08/06/23 13:42 Last Admin: 08/02/23 04:58 Dose: 5 mg Polyethylene Glycol (Polyethylene (Miralax) 17 Gm Pack) 17 gm PO TID [facility] Stop: 08/29/23 20:59 Last Admin: 08/02/23 08:04 Dose: 17 gm Rosuvastatin Calcium (Rosuvastatin Calcium 5 Mg Tab) 5 mg PO DAILY [facility] Stop: 08/23/23 08:59 Sennosides (Senna 8.6 Mg Tab) 17.2 mg PO HS [facility] Stop: 08/29/23 20:59 Last Admin: 08/01/23 20:48 Dose: 17.2 mg Tamsulosin HCl (Tamsulosin Hcl 0.4 Mg Cap) 0.8 mg PO HS [facility] Stop: 08/22/23 20:59 Last Admin: 08/01/23 20:46 Dose: 0.8 mg Warfarin Sodium (Warfarin Sod 2.5 Mg Tab) 2.5 mg PO DAILY@1600 [facility] Stop: 09/01/23 15:59
[2023-08-02] MEDS: WARFARIN SOD 2.5 MG TAB PO SCH (17:36)
[2023-08-02] MEDS ORDERED: GLYCERIN ADULT 12 SUPP/BOX SUPP PR PRN (19:02)
[2023-08-02] MEDS: TAMSULOSIN HCL 0.4 MG CAP PO SCH (20:38)
[2023-08-02] MEDS: SENNA 8.6 MG TAB PO SCH (20:38)
[2023-08-03] MEDS: ceFAZolin 1000MG 1,000 MG/7.5 ML SYR IV SCH ×2 (01:06→22:09)
[2023-08-03] MEDS: ACETAMINOPHEN 325 MG TAB PO SCH ×4 (01:06→20:01)
[2023-08-03 06:46] LABS: Hemoglobin 10.4 g/dl (14.0-18.0); Mean Corpuscular Hgb Conc 32.5 g/dL (32.0-36.0); Mean Platelet Volume 9.3 fL (9.4-12.4); Platelet Count 461 K/uL (130-400); RDW Coefficient of Variation 14.7 % (11.5-14.5); RDW Standard Deviation 46.5 fL (36.4-46.3); Red Blood Count 3.72 M/uL (4.70-6.10); White Blood Count 15.65 K/ul (4.8-10.8)
[2023-08-03 06:56] LABS: Albumin Level 2.8 gm/dl (3.4-5.0); BUN Creatinine Ratio 9.7 (10-20); Calcium 8.6 mg/dl (8.6-10.3); Creatinine Clr Calc Pharmacy 25.9 ml/min; Est GFR (African American) 13.2 ml/min; Est GFR (Non-African American) 11.4 ml/min; Potassium 4.4 mmol/L (3.5-5.1)
[2023-08-03 07:21] LABS: INR 1.7 (0.9-1.1); Prothrombin Time 18.5 Seconds (9.0-12.0)
[2023-08-03] MEDS: DOCUSATE SODIUM 100 MG CAP PO SCH ×2 (08:51→20:02)
[2023-08-03] MEDS: METOPROLOL SUCC 25MG EXT REL TAB PO SCH ×2 (08:51→20:02)
[2023-08-03] MEDS: POLYETHYLENE (MIRALAX) 17 GM PACK PO SCH ×3 (08:51→20:35)
--- NOTE | 2023-08-03 10:50 | Nephrology Progress Note ---
Date of Service August 03, 2023 Assessment & Plan Admission and Anticipated Discharge Date Admission Date: July 23, 2023 Subjective Assessment & Plan (1) Acute kidney injury: Plan: SARWAT --from ATN.- He denies any renal problems in the past, and denies any OTC or NSAIDS, IV fluid were stopped 2/2 pulmonary congestion, He responded well to Lasix challenge , He is comfortable with 2l oxygen and BP and HR are better controlled, first HD on 07/28 At the moment he is making urine , electrolytes are safe. No dialysis today. Will do tomorrow. Creat already rising without dialysis so will need tomorrow - Continue to hold ARB - Daily BMP, Input and output and daily weights preferably on the same scale - No iv fluids. BP seems high now persistently---Add amlodipine 5 daily + continue BB (2) Bacteremia: Plan: WBC had worsened. last + cx 07/23 group B strep renally dose Abx f/u mri --concern for abscess and discitis. Now WBC trending down. Subjective Feels sleepy--pain meds. Still c/o back pain. had mri and HD over the weekend. Ongoing back pain; denies sob or worsening edema. Bp is now consistently high Review of Systems Review of Systems: All systems reviewed & are unremarkable except as noted in Subjective Physical Exam Constitutional: well developed, + morbidly obese and cooperative; no acute distress Eyes: EOM intact bilaterally ENMT: Ears: no external ear abnormality Nose: no external nose abnormality Mouth: + dry oral mucous membranes Neck: no nuchal rigidity Respiratory: normal respiratory effort Auscultation: + diminished lung sounds Cardiovascular: Rate/Rhythm: regular rate and regular rhythm Extremities: + edema (trace ble) Gastrointestinal (Abdomen): Inspection/Auscultation: normal bowel sounds Percussion/Palpation: abdomen soft; abdomen nontender Musculoskeletal: Extremities: strength 5/5 throughout Skin: no rashes, warm and dry Neurologic: julien, fluent speech, no tremor Results & Data Vital Signs (Past 12 Hours) Vital Signs Temp Pulse Pulse Pulse Pulse Resp BP 08/03/23 09:45 83 08/03/23 07:28 36.9 C 87 19 194/91 H 08/03/23 03:22 174/72 H 08/03/23 03:05 36.8 C 82 18 189/91 H 08/02/23 23:13 37.1 C 85 20 178/91 H 08/02/23 23:00 83 Pulse Ox O2 Del Method 08/03/23 09:45 08/03/23 07:28 92 Room Air 08/03/23 03:22 08/03/23 03:05 94 Room Air 08/02/23 23:13 95 Room Air, CPAP 08/02/23 23:00
--- NOTE | 2023-08-03 11:02 | Hospitalist Progress Note ---
Date of Service August 03, 2023 Assessment & Plan (1) Sepsis: (2) Cellulitis: (3) Urinary tract infection: (4) Hypomagnesemia: (5) DM II (diabetes mellitus, type II), controlled: (6) HLD (hyperlipidemia): (7) HTN (hypertension): (8) Morbid obesity: (9) New onset a-fib: (10) Constipation: Plan Mr. 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 Patient found to be in a fib rvr and now being managed on PO metoprolol after converted to NSR while on Dilt drip the evening of 07/23. Patient found to have DVT in RLE and placed on heparin drip as well. On 07/24, patient was noted to be in exquisite back pain which is concerning given infectious work up has resulted with bacteremia [group a beta strep]. MRI imaging limited to noncontrast given progressive renal injury; this did not reveal discitis or signs overtly suggestive for vertebral osteomyelitis, but still concerning nonetheless. Ortho Spine evaluated patient for any acute neural compression, but there was no notable stenosis on imaging to correlate to pain on exam. Evaluation limited with MRI or CT 2/2 poor renal function. Patient's acute renal failure is likely secondary to prerenal etiology given low pressures/shock resulting in ATN. After no evidence of response to initial lasix challenge, with plateaued UOP and uptrending Cr, it was decided to place temporary HD line at bedside for intermittent hemodialysis. Given there is anticipation of renal recovery, any contrast use at this time is not advised to prevent further insult to kidneys. Plan to obtain further imaging once stable from renal standpoint to aid in assessment of ?osteomyelitis/discitis. Blood Cultures from 07/23 with Group A Strep B, Urine culture negative. ECHO with no clear sign of vegetations. To ensure no persistent bacteremia, blood cultures were obtained on 07/24 and 07/25 without growth to date. However, there was an increase in WBC on 07/28, prompting repeat blood cultures which are still negative WBC trend has improved. Repeat MRI L spine with contrast reveals epidural abscess and discitis L3-S1. No surgery indicated at this time. Cont current antibiotic regimen. Consult pain management to assist with pain despite narcotic use. Still very weak and appears poorly motivated to move on his own volition, max assist per nursing. Ortho spine re-evaluated today and feels I&D is urgent to avoid further risk of neurologic compromise. Notably patient has been unable to walk since admission. PREOP EVAL: The patient is going for intermediate risk surgery tomorrow with increased risk for perioperative complications based on his elevated creatinine requiring hemodialysis. He is not a diabetic, but does have prediabetes and is on metformin for this. He does have HTN on medical therapy, which was uncontrolled this admission requiring additional agents. Notably his pain was also not well controlled and may have been contributing to his elevations in BP. His RCRI score is 1-2 putting him at a 1.3-3.6% risk for post operative complications. He was very functional prior to this admission. Per his report, he was ambulating with a cane and was very active, denying any symptoms of chest pain or shortness of breath. Per ortho spine, forgoing this surgery puts him at risk for further neurologic decline. Given this risk, it is felt to proceed with the I&D while temporarily holding heparin perioperatively. Given his elevated risk, appreciate cardiology recommendations prior to proceeding, however. Constipation: ongoing for >1 week. Likely related to narcotics and minimal movement. Continues on miralax, senna, docusate. Trying to minimize narcotic use but this is difficult given his stated level of pain. Suppository PRN. --resolved overnight. #Acute hypoxic respiratory failure iso IVF hydration/oliguric SARWAT *resolved -CXR with pulm edema, required 2L NC, now on room air -oxygen prn, encourage mobilization which is very suboptimal at this point. Able to sit on side of bed but is a max assist. -continue to optimize fluid management with hemodialysis #Acute lower back pain 2/2 epidural abscess/discitis -Pain control and mobilization as able -Continue abx as outlined below. -MRI lumbar spine (07/25): paravertebral marrow edema. no end plate erosion, no signs of osteomyelitis, however insufficient 2/2 lack of contrast iso ARF -Ortho spine consult: No surgical intervention at this time, consider bone scan if persistent. -MRI L spine with contrast (07/31): epidural abscesses L3-S1 and discitis--> cont current abx. -per [facility] ortho spine who evaluated his images in consideration for transfer on 07/01 resfused surgery. -plan for washout 08/[address] Kelley. #Oliguric SARWAT, likely evolving ATN 2/2 ischemia from hypotension/shock #Azotemia #Hypervolemic Hyponatremia -Nephrology consult: HD cath placement 07/28, plan for intermittent dialysis, cont T/Th/Sat -ongoing hemodialysis #Leukocytosis-*improving -Afebrile, non-tachycardic (remains in NSR since 07/26) -plan as discussed above. #Bacteremia 2/2 group a beta strep #Sepsis 2/2 bacteremia 2/2 epidural abscess - sepsis criteria with fever, elevated lactate, tachycardia, source likely RLE cellulitis/UTI on admission, *resolved - BCx NGTD; UA NGTD (denied urinary symptoms) - Continue Cefazolin with addition of Linezolid 600mg BID per ID - Gen surg: no surgical intervention on RLE (no fluid collections, predominately chronic changes of RLE) #Right LLE DVT - R ankle fracture 2013, R knee surgery in 2016 causes some enlargement in general in the RLE but this is much more swollen and tender in the calf compared to previously. -lymphedema and age-indeterminate DVT present -started on coumadin 07/31 with 5mg, but one dose caused his INR to go to 4.7 today. Held coumadin and heparin drip and trend INR in am. Restart coumadin at 2.5mg when INR <3.5. -continue IV heparin, continue in interim given renal dysfunction with plans to transition to PO regimen prior to dispo given known DVT/a fib 08/02: cont IV heparin and gave warfarin 2.5mg today, trend INR daily and stop heparin when INR 2-3 x 2 days. 08/03: heparin had been active in the computer but held in the room today incorrectly. RN addressed with event report and heparin was restarted per protocol. Vit K given. Plan to cont heparin until tomorrow am when it will temporarily be held for surgery--likely to be restarted tomorrow evening immediately post op. #New onset atrial fibrillation with RVR, remains in sinus rhythm at this point. After initial evaluation the patient - he went into from what we can tell, new onset afib with RVR with rates of 140-150 CHADsVasc 2 likely iso sepsis/bacteremia -Received Diltazem drip, d/c 07/24 -Continue on metoprolol 12.5mg QID, titrate as able/necessary -continues on heparin drip with plans to bridge to coumadin as noted above post operatively. #Elevated troponin*improved -likely demand iso bacteremia and a fib -Downtrended -Monitor on telemetry -consider further evaluation as outpatient. #Hypertension Relative hypotension due to likely shock, resolved with abx/fluid bolus Regimen: amlodipine 10mg, HCTZ 25mg, losartan 50mg -Discontinue amlodipine to avoid given overlap of edema -Hold hctx and losartan in setting of renal failure #HLD - Chronic, stable, cont statin #Controlled DMTII -A1C 6.2% 07/24 -inpt BSG at goal - Holding metformin for now, ISS with accuchecks reveals no need for insulin coverage. Stop BSG checks at this time. #hypomagnesemia *resolved #Morbid obesity - BMI of 45, diet and exercise to be encouraged throughout hospital stay DVT ppx: heparin/coumadin GI/FEN: renal/Diabetic diet Lines: 2 PIV, HD line R neck CODE: FULL I spent a total [id number] coordinating, documenting, and providing care for this patient excluding time spent in the performance of separately billed services Blanca Beard DO [facility] Hospitalist Admission and Anticipated Discharge Date Admission Date: July 23, 2023 Subjective 62-year-old incarcerated male presented for sepsis. reports back pain is somewhat improved but still painful Denies any pain in his right leg with swelling greatly improved Finally had a BM overnight and 2 soft BMs today after suppository. Relistor also given overnight Mishap with his heparin which was held all day despite being active in the computer This was restarted again around [address] Kelley regarding epidural abscesses and he plans to take him for I&D tomorrow afternoon. We coordinated when to hold the heparin and gave vitamin K this evening to reverse any warfarin effects ongoing. Regarding preoperative assessment, this patient was functional walking with a cane and denying any chest pain or shortness of breath in the last 6 months He presented with an infection in new onset atrial fibrillation and converted to sinus rhythm on 07/27. Remains in sinus rhythm. He is on HD and tolerating this well which does increase risk of operation He also has an acute DVT in the right leg, no S/Sx of PE, and has been on anticoagulation since 07/23. RLE swelling and pain have improved. Physical Exam Physical Exam: CONSTITUTIONAL: WNWD, vitals as above, NAD EYES: normal conjunctivae, no scleral icterus ENT: external ear and nose normal, MMM NECK: trachea midline, right HD catheter in place. RESPIRATORY: clear to auscultation bilaterally, no crackles, rales or wheezes, normal respiratory effort CARDIOVASCULAR: regular rate and rhythm, S1 and 2 heard without murmurs, gallops or rubs, no JVD, ADAM hose on right leg with trace edema bilateral lower extremities. CHEST: inspection of chest was normal GASTROINTESTINAL: soft, nontender, ND, no guarding MUSCULOSKELETAL: generalized weakness, limited mobility of legs but this is equal throughout, head is normocephalic and atraumatic SKIN: warm and dry NEUROLOGIC: CN 2-12 grossly intact, unable to elicit knee DTRs 2/2 weakness and rotated position of legs, no sensory deficit, normal cognition, normal speech, no tremor PSYCHIATRIC: Alert, oriented, cooperative Results & Data Results & Data Vital Signs (Past 12 Hours) Vital Signs Temp Pulse Pulse Pulse Pulse Resp BP 08/03/23 09:45 83 08/03/23 07:28 36.9 C 87 19 194/91 H 08/03/23 03:22 174/72 H 08/03/23 03:05 36.8 C 82 18 189/91 H 08/02/23 23:13 37.1 C 85 20 178/91 H Pulse Ox O2 Del Method 08/03/23 09:45 08/03/23 07:28 92 Room Air 08/03/23 03:22 08/03/23 03:05 94 Room Air 08/02/23 23:13 95 Room Air, CPAP Laboratory Results Short CBC 08/03/23 Range/Units 06:15 WBC 15.65 H (4.8-10.8) K/ul Hgb 10.4 L (14.0-18.0) g/dl Hct 32.0 L (42.0-52.0) % Plt Count 461 H (130-400) K/uL BMP 08/03/23 06:15 Sodium 132 L Potassium 4.4 Chloride 99 Carbon Dioxide 28 BUN 49 H Creatinine 5.06 H* D Glucose 148 H Calcium 8.6 Liver Function 08/03/23 Range/Units 06:15 Albumin 2.8 L (3.4-5.0) gm/dl Medications Administered Current Inpatient Medications Acetaminophen (Acetaminophen 325 Mg Tab) 650 mg PO Q6H [facility] Stop: 08/22/23 13:44 Last Admin: 08/03/23 07:47 Dose: 650 mg Acetaminophen (Acetaminophen 325 Mg Tab) 650 mg PO Q4H PRN PRN Reason: Moderate Pain (Scale 4, 5, 6) Stop: 08/22/23 18:40 Amlodipine Besylate (Amlodipine Besylate 5 Mg Tab) 5 mg PO QAM [facility] Stop: 09/02/23 10:59 Docusate Sodium (Docusate Sodium 100 Mg Cap) 100 mg PO BID [facility] Stop: 08/26/23 20:59 Last Admin: 08/03/23 08:51 Dose: 100 mg Epoetin Artemio (Epoetin Artemio 4,000 Unit/Ml Vial) 4,000 units IV ONE ONE Stop: 08/04/23 07:01 Glycerin (Glycerin Adult 12 Supp/Box Supp) 1 supp PA DAILY PRN PRN Reason: Constipation Stop: 09/01/23 19:01 Last Admin: 08/03/23 04:37 Dose: 1 supp Hydromorphone HCl (Hydromorphone Inj 1 Mg/Ml Syringe) 0.5 mg IV Q6H PRN PRN Reason: Pain Stop: 08/09/23 09:42 Last Admin: 08/02/23 11:43 Dose: 0.5 mg Heparin Sodium/Dextrose (Heparin Sodium/Dextrose) 25,000 units in 500 mls @ 34 mls/hr IV .[id number] [facility]; Protocol Stop: 08/22/23 20:29 Last Titration: 08/01/23 12:57 Dose: Infused Cefazolin Sodium (Ancef 1000mg) 1,000 mg in 7.5 mls @ 2.5 mls/min IV Q24H [facility]; Protocol Stop: 08/07/23 10:59 Last Admin: 08/03/23 01:06 Dose: 2.5 mls/min Sodium Chloride (Nss) 1,000 mls @ 0 mls/hr IV .Q0M PRN PRN Reason: For Hemodialysis Use ONLY Stop: 08/04/23 12:59 Metoprolol Succinate (Metoprolol Succ 25mg Ext Rel Tab) 25 mg PO BID [facility] Stop: 08/27/23 20:59 Last Admin: 08/03/23 08:51 Dose: 25 mg Ondansetron HCl (Ondansetron Inj 2 Mg/Ml 2 Ml Vial) 4 mg IV Q4H PRN PRN Reason: Nausea And Vomiting Stop: 08/22/23 18:40 Oxycodone HCl (Oxycodone Hcl Ir 5 Mg Tab (Immediate Release)) 5 mg PO Q4H PRN PRN Reason: Moderate Pain (Scale 4, 5, 6) Stop: 08/06/23 13:42 Last Admin: 08/02/23 17:35 Dose: 5 mg Polyethylene Glycol (Polyethylene (Miralax) 17 Gm Pack) 17 gm PO TID [facility] Stop: 08/29/23 20:59 Last Admin: 08/03/23 08:51 Dose: 17 gm Rosuvastatin Calcium (Rosuvastatin Calcium 5 Mg Tab) 5 mg PO DAILY [facility] Stop: 08/23/23 08:59 Sennosides (Senna 8.6 Mg Tab) 17.2 mg PO HS [facility] Stop: 08/29/23 20:59 Last Admin: 08/02/23 20:38 Dose: 17.2 mg Tamsulosin HCl (Tamsulosin Hcl 0.4 Mg Cap) 0.8 mg PO HS [facility] Stop: 08/22/23 20:59 Last Admin: 08/02/23 20:38 Dose: 0.8 mg Warfarin Sodium (Warfarin Sod 2.5 Mg Tab) 2.5 mg PO DAILY@1600 [facility] Stop: 09/01/23 15:59 Last Admin: 08/02/23 17:36 Dose: 2.5 mg
--- NOTE | 2023-08-03 11:12 | Pain Management Consultation ---
Date of Consultation August 03, 2023 Assessment & Plan (1) Spinal epidural abscess: (2) Leukocytosis: Leukocytosis type: unspecified Qualified Code(s): D72.829 - Elevated white blood cell count, unspecified (3) Acute kidney injury: Plan 1. Patient states pain is fairly well controlled on current regimen thus will not make any changes with the exception of increasing his bowel regimen. Recommend utilization of Relistor (0.075mg/kg q2d for CrCl <60ml/min =12mg q2d) to augment bowel movement. 2. Recommend orthospine consult for consideration of I&D. 3. No interventional pain management options exist for the patient as current. 4. Please call should she have any questions thank you for this consultation. History of Present Illness Attending Physician: Blanca Beard, History of Present Illness 62-year-old male with history of obesity hypertension hyperlipidemia diabetes and low back pain. Epidural abscess from L3-S1 noted on MR from 07/31/2023. Discussion with [facility] [place] relayed that there was no available beds for transfer. ID has been consulted for assistance with antibiotic coverage. Pain ranges between the 7 and 9 out of 10 currently 8 out of 10 sharp stabbing shooting in the left lower extremity. He denies any bowel incontinence and has a Erazo in situ. He reports that his pain is fairly adequately controlled at baseline. He denies motor weakness or foot drop at this time he is not ambulating due to prisoner status. He does admit that he has not had a significant bowel movement for a number of days. Pain Assessment Full Body Front + Back: 2 1. 2. 3. [facility] Combined Pain Scale: 8-Debilitating - Impairs activity. Can't maintain a conversation. Pain scale - at its best (0-10): 7 Pain scale - at its worst (0-10): 9 Allergies Allergy/AdvReac Type Severity Reaction Status Date / Time lisinopril Allergy Intermediate Unknown Unverified 07/23/23 13:02 Home Medications Medication Instructions Recorded Confirmed Type acetaminophen 500 mg tablet 500 mg PO TID PRN Other 07/23/23 07/23/23 History albuterol sulfate 90 mcg/actuation 2 puff inhalation QID PRN Other 07/23/23 07/23/23 History aerosol inhaler (Proventil HFA) amlodipine 10 mg tablet 10 mg PO DAILY 07/23/23 07/23/23 History ciclesonide 160 mcg/actuation 1 puff inhalation BID 07/23/23 07/23/23 History aerosol inhaler (Alvesco) hydrochlorothiazide 25 mg tablet 25 mg PO DAILY 07/23/23 07/23/23 History losartan 50 mg tablet 50 mg PO DAILY 07/23/23 07/23/23 History metformin 500 mg tablet 500 mg PO BID 07/23/23 07/23/23 History rosuvastatin 5 mg tablet 5 mg PO DAILY 07/23/23 07/23/23 History tamsulosin 0.4 mg capsule 0.8 mg PO HS 07/23/23 07/23/23 History Pain History Pain Intensity Pain scale - at its best (0-10): 7 Pain scale - at its worst (0-10): 9 Patient History Medical History (Updated 08/03/23 @ 13:27 by Mitra Cavanaugh DO) Spinal epidural abscess DM II (diabetes mellitus, type II), controlled HLD (hyperlipidemia) HTN (hypertension) Morbid obesity History of fracture of right ankle Surgical History Hx of right knee surgery Social History Smoking Status: Never smoker Hx Alcohol Use: No Hx Substance Use: Yes Non-Prescribed Medications: Marijuana Preferred Language: Dutch Communication Ability: Effective Import/Export Administrator Required: No Current Living Situation: Other Current Living Situation Comment: [facility] Other Information That Helps Us Care for You: No Feels Safe at Home: Yes Safety Concerns: Feels Safe At This Time Physical Exam 2 Physical Exam: Constitutional: Well-developed, well-nourished, obese Psych: Awake, alert, and oriented 3 with normal affect and mood. Recent memory appears grossly intact Eyes: Pupils are equally round and reactive to light with normal size pupils, eyelids appear normal Ear, nose, mouth, and throat: Moist nasal and oral membranes, lips and tongues appear normal, no external ear abnormalities are noted Neck: The trachea is midline without deviation and no thyromegaly is noted Respiratory: Normal respiratory effort without distress, no audible wheezes or rhonchi CV: Normal S1 and S2, temporary hemodialysis catheter insitu Chest: Deferred GI/abdomen: Non-tender without guarding, slight distention Musculoskeletal: Head is normocephalic and atraumatic, gait not observed Lumbar: Lordotic curve: Slight loss of lumbar lordotic curve Range of motion is decreased in all planes Tenderness: Moderately tender over the axial midline L3-S1 Straight leg raise: Negative bilaterally Strength: Strength is equal bilaterally with 5 out of 5 strength in all planes Sensation of lower extremities: Intact bilaterally Deep tendon reflexes: Rated at 1+ in bilateral L4 and S1 Myofascial spasm: Mild lumbar spasm. No discrete trigger points noted Greater trochanters: Nontender bilaterally Sacroiliac joints: Nontender bilaterally Pathologic reflexes noted: None Skin: No rashes, lesions, ulcers, or induration noted Neuro: No nystagmus noted, the tongue is midline, the patient is able to rotate their head bilaterally : Deferred Results (Pain Clinic) Diagnostic Review MRI: enhanced, non enhanced, reports reviewed, images reviewed and findings discussed with patient MRI Findings: ADDENDUM ADDENDUM: 07/31/23 23:05 Verify Receipt Verified receipt with Nurse Saleh on 07/31 23:05 (-04:00) Electronically signed by: Qing Nash MD Electronically signed by: Qing Nash MD 07/31/23 23:00 PM 07/31/23 ADDENDUM END Exam(s): MRI L SPINE W/WO Contrast IV Amt: 17cc gadavist EXAM: MR Lumbar Spine Without and With Intravenous Contrast CLINICAL HISTORY: Reason for exam: rule out verterbral osteomyelitis/epidural abscess. TECHNIQUE: Magnetic resonance images of the lumbar spine without and with intravenous contrast in multiple planes. CONTRAST: Patient received 17cc gadavist of IV contrast COMPARISON: Comparison made to prior lumbar spine MRI from July 25, 2023. FINDINGS: Vertebrae: There are 5 lumbar type vertebral bodies with a mild generalized curved to the right and normal lumbar lordosis. There is normal vertebral body height and alignment. The vertebral body bone marrow signal is normal. No acute fracture. There is extensive inflammation about the facet joints L5-S1. There is significant increased signal within the L5-S1 disc concerning for discitis. Spinal cord: The conus is normal size, shape and signal characteristics, terminating at L1 to. No abnormal enhancement. Soft tissues: There is an enhancing fluid collection extending from L3- S1 concerning for dorsal epidural abscess. There is increased fluid signal within the interspinous process at L1-2, L2-3 and L3-4 with increased enhancement. There is extensive inflammation of the paraspinous muscles with enhancement. There is an enhancing fluid collection in the right and left paraspinous muscles adjacent to the L5- S1 facet joints. Mild prevertebral soft tissue swelling at L5-S1 concerning for phlegmon/abscess. Possible small ventral epidural abscess/phlegmon at L5. IMPRESSION: Findings concerning for infection of the L5-S1 facet joints, paraspinous muscles and interspinous bursa with dorsal epidural phlegmon/abscess extending from L3-S1. Small abscesses about the L5-S1 facet joints. Findings concerning for discitis at L5-S1 with mild prevertebral phlegmon/abscess. Possible small ventral epidural abscess/phlegmon at L5.
[2023-08-03] MEDS: amLODIPine BESYLATE 5 MG TAB PO SCH (12:26)
[2023-08-03] MEDS: oxyCODONE HCL IR 5 MG TAB (IMMEDIATE RELEASE) PO PRN ×2 (13:31→21:13)
[2023-08-03] MEDS ORDERED: METHYLNALTREXONE BROMIDE 12 MG/0.6 ML VIAL SQ SCH (13:45)
[2023-08-03] MEDS ORDERED: LINEZOLID 600 MG/300 ML D5W IV SCH (15:00)
[2023-08-03] MEDS: LINEZOLID 600 MG/300 ML BAG IV SCH (15:40)
[2023-08-03] MEDS ORDERED: PHYTONADIONE 2.5 MG in DEXTROSE 5% 50 ML IV ONE (17:30)
[2023-08-03 18:25] LABS: Partial Thromboplastin Ratio 1.4; Partial Thromboplastin Time 39.2 Seconds (21.0-31.0)
[2023-08-03] MEDS: HEPARIN SODIUM/DEXTROSE 25,000 UNITS/500 ML BAG IV SCH (18:37)
[2023-08-03] MEDS: TAMSULOSIN HCL 0.4 MG CAP PO SCH (20:03)
[2023-08-03] MEDS: SENNA 8.6 MG TAB PO SCH (20:03)
[2023-08-04 01:55] LABS: Partial Thromboplastin Ratio 1.5
[2023-08-04 02:02] LABS: Partial Thromboplastin Time 43.6 Seconds (21.0-31.0)
[2023-08-04] MEDS: LINEZOLID 600 MG/300 ML BAG IV SCH ×2 (02:22→13:13)
[2023-08-04] MEDS: ACETAMINOPHEN 325 MG TAB PO SCH ×4 (02:29→22:32)
[2023-08-04 05:38] LABS: Albumin Level 2.8 gm/dl (3.4-5.0); BUN Creatinine Ratio 11.9 (10-20); Calcium 8.8 mg/dl (8.6-10.3); Creatinine Clr Calc Pharmacy 28.4 ml/min; Est GFR (African American) 14.7 ml/min; Est GFR (Non-African American) 12.7 ml/min; Phosphorus 5.7 mg/dl (2.5-4.9); Potassium 4.8 mmol/L (3.5-5.1)
[2023-08-04 05:43] LABS: INR 1.6 (0.9-1.1); Prothrombin Time 17.5 Seconds (9.0-12.0)
[2023-08-04] MEDS ORDERED: SODIUM CHLORIDE 0.9% 1,000 ML IV PRN (07:00)
[2023-08-04] MEDS ORDERED: EPOETIN ALFA 4,000 UNIT/ML VIAL IV ONE (07:00)
[2023-08-04] MEDS: DOCUSATE SODIUM 100 MG CAP PO SCH ×2 (08:00→22:23)
[2023-08-04] MEDS: POLYETHYLENE (MIRALAX) 17 GM PACK PO SCH ×2 (08:00→13:02)
[2023-08-04] MEDS ORDERED: PHYTONADIONE PED 1 MG/0.5ML AMP/SYRG IV STA (08:40)
[2023-08-04] MEDS ORDERED: PHYTONADIONE 2.5 MG in DEXTROSE 5% 50 ML IV ONE (08:45)
[2023-08-04] MEDS: METOPROLOL SUCC 25MG EXT REL TAB PO SCH ×3 (10:21→22:23)
[2023-08-04] MEDS: amLODIPine BESYLATE 5 MG TAB PO SCH ×2 (10:21→13:14)
[2023-08-04] MEDS ORDERED: hydrALAZINE HCL 20 MG/ML VIAL IV STA (10:33)
--- NOTE | 2023-08-04 10:33 | Hospitalist Progress Note ---
Date of Service August 04, 2023 Assessment & Plan (1) Sepsis: (2) Cellulitis: (3) Urinary tract infection: (4) Hypomagnesemia: (5) DM II (diabetes mellitus, type II), controlled: (6) HLD (hyperlipidemia): (7) HTN (hypertension): (8) Morbid obesity: (9) New onset a-fib: (10) Constipation: Plan Mr. 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 Patient found to be in a fib rvr and now being managed on PO metoprolol after converted to NSR while on Dilt drip the evening of 07/23. Patient found to have DVT in RLE and placed on heparin drip as well. On 07/24, patient was noted to be in exquisite back pain which is concerning given infectious work up has resulted with bacteremia [group a beta strep]. MRI imaging limited to noncontrast given progressive renal injury; this did not reveal discitis or signs overtly suggestive for vertebral osteomyelitis, but still concerning nonetheless. Ortho Spine evaluated patient for any acute neural compression, but there was no notable stenosis on imaging to correlate to pain on exam. Evaluation limited with MRI or CT 2/2 poor renal function. Patient's acute renal failure is likely secondary to prerenal etiology given low pressures/shock resulting in ATN. After no evidence of response to initial lasix challenge, with plateaued UOP and uptrending Cr, it was decided to place temporary HD line at bedside for intermittent hemodialysis. Given there is anticipation of renal recovery, any contrast use at this time is not advised to prevent further insult to kidneys. Plan to obtain further imaging once stable from renal standpoint to aid in assessment of ?osteomyelitis/discitis. Blood Cultures from 07/23 with Group A Strep B, Urine culture negative. ECHO with no clear sign of vegetations. To ensure no persistent bacteremia, blood cultures were obtained on 07/24 and 07/25 without growth to date. However, there was an increase in WBC on 07/28, prompting repeat blood cultures which are still negative WBC trend has improved. Repeat MRI L spine with contrast reveals epidural abscess and discitis L3-S1. No surgery indicated at this time. Cont current antibiotic regimen. Consult pain management to assist with pain despite narcotic use. Still very weak and appears poorly motivated to move on his own volition, max assist per nursing. Ortho spine re-evaluated and feels I&D is urgent to avoid further risk of neurologic compromise. Notably patient has been unable to walk since admission. Plan for lumbar decompression with I&D later this afternoon. Restart heparin postop PREOP EVAL: The patient is going for intermediate risk surgery tomorrow with increased risk for perioperative complications based on his elevated creatinine requiring hemodialysis. He is not a diabetic, but does have prediabetes and is on metformin for this. He does have HTN on medical therapy, which was uncontrolled this admission requiring additional agents. Notably his pain was also not well controlled and may have been contributing to his elevations in BP. His RCRI score is 1-2 putting him at a 1.3-3.6% risk for post operative complications. He was very functional prior to this admission. Per his report, he was ambulating with a cane and was very active, denying any symptoms of chest pain or shortness of breath. Per ortho spine, forgoing this surgery puts him at risk for further neurologic decline. Given this risk, it is felt to proceed with the I&D while temporarily holding heparin perioperatively. Given his elevated risk, appreciate cardiology recommendations prior to proceeding, however. Constipation: ongoing for >1 week. Likely related to narcotics and minimal movement. Continues on miralax, senna, docusate. *resolved #Acute hypoxic respiratory failure iso IVF hydration/oliguric SARWAT *resolved -CXR with pulm edema, required 2L NC, now on room air -oxygen prn, encourage mobilization which is very suboptimal at this point. Able to sit on side of bed but is a max assist. -continue to optimize fluid management with hemodialysis #Acute lower back pain 2/2 epidural abscess/discitis -Pain control and mobilization as able -Continue abx as outlined below. -MRI lumbar spine (07/25): paravertebral marrow edema. no end plate erosion, no signs of osteomyelitis, however insufficient 2/2 lack of contrast iso ARF -Ortho spine consult: No surgical intervention at this time, consider bone scan if persistent. -MRI L spine with contrast (07/31): epidural abscesses L3-S1 and discitis--> cont current abx. -per [facility] [place] who evaluated his images in consideration for transfer on 07/01 refused surgery. -plan for washout 08/[address] Kelley. #Oliguric SARWAT, likely evolving ATN 2/2 ischemia from hypotension/shock #Azotemia #Hypervolemic Hyponatremia -Nephrology consult: HD cath placement 07/28, plan for intermittent dialysis, cont T//Sat -ongoing hemodialysis #Bacteremia 2/2 group a beta strep #Sepsis 2/2 bacteremia 2/2 epidural abscess - sepsis criteria with fever, elevated lactate, tachycardia, source likely RLE cellulitis/UTI on admission, *resolved - BCx NGTD; UA NGTD (denied urinary symptoms) - Continue Cefazolin with addition of Linezolid 600mg BID per ID - Gen surg: no surgical intervention on RLE (no fluid collections, predominately chronic changes of RLE) #Right LLE DVT - R ankle fracture 2013, R knee surgery in 2016 causes some enlargement in general in the RLE but this is much more swollen and tender in the calf compared to previously. -lymphedema and age-indeterminate DVT present -started on coumadin 07/31 with 5mg, but one dose caused his INR to go to 4.7 today. Held coumadin and heparin drip and trend INR in am. Restart coumadin at 2.5mg when INR <3.5. -continue IV heparin, continue in interim given renal dysfunction with plans to transition to PO regimen prior to dispo given known DVT/a fib 08/02: cont IV heparin and gave warfarin 2.5mg today, trend INR daily and stop heparin when INR 2-3 x 2 days. 08/03: heparin had been active in the computer but held in the room today incorrectly. RN addressed with event report and heparin was restarted per protocol. Vit K given. Plan to cont heparin until tomorrow am when it will temporarily be held for surgery--likely to be restarted tomorrow evening immediately post op. 08/04: heparin held at 0500, additional 2.5mg IV vit K given. Resume heparin post op. Hold off on restarting warfarin until ortho spine feels no further washouts are needed. #New onset atrial fibrillation with RVR, remains in sinus rhythm at this point. After initial evaluation the patient - he went into from what we can tell, new onset afib with RVR with rates of 140-150 CHADsVasc 2 likely iso sepsis/bacteremia -Received Diltazem drip, d/c 07/24 -Continue on metoprolol 25mg PO BID -AC with heparin/coumadin as noted above #Elevated troponin*improved -likely demand iso bacteremia and a fib -Downtrended -Monitor on telemetry -consider further evaluation as outpatient. #Hypertension Relative hypotension due to likely shock, resolved with abx/fluid bolus Regimen prior to arrival: amlodipine 10mg, HCTZ 25mg, losartan 50mg -Hold hctz and losartan in setting of renal failure Currently uncontrolled and on amlodipine 5mg +BB. Required hydralazine 10mg IV today. Increased amlodpiine to 10mg daily. Cont hydralazine PRN and work to identify a better regimen given his renal failure is not improving and HD is not lowering his BP. #HLD - Chronic, stable, cont statin #Controlled DMTII -A1C 6.2% 07/24 -inpt BSG at goal - Holding metformin for now, ISS with accuchecks reveals no need for insulin coverage. Stop BSG checks at this time. -08/04: restarting BSG checks in post op state given anticipation of decadron administration. #hypomagnesemia *resolved #Morbid obesity - BMI of 45, diet and exercise to be encouraged throughout hospital stay DVT ppx: heparin/coumadin GI/FEN: renal/Diabetic diet Lines: 2 PIV, HD line R neck CODE: FULL I spent a total [id number] coordinating, documenting, and providing care for this patient excluding time spent in the performance of separately billed services Blanca Beard DO [facility] Hospitalist Admission and Anticipated Discharge Date Admission Date: July 23, 2023 Subjective 62-year-old incarcerated male presented for sepsis. reports back pain is somewhat improved but still painful Denies any pain in his right leg with swelling greatly improved Constipation has resolved. Heparin held at 0500 this am in preparation for surgery this afternoon. Additional vit K given this am with INR 1.6 Physical Exam Physical Exam: CONSTITUTIONAL: WNWD, vitals as above, NAD EYES: normal conjunctivae, no scleral icterus ENT: external ear and nose normal, MMM NECK: trachea midline, right HD catheter in place. RESPIRATORY: clear to auscultation bilaterally, no crackles, rales or wheezes, normal respiratory effort CARDIOVASCULAR: regular rate and rhythm, S1 and 2 heard without murmurs, gallops or rubs, no JVD, ADAM hose on right leg with trace edema bilateral lower extremities. CHEST: inspection of chest was normal GASTROINTESTINAL: soft, nontender, ND, no guarding MUSCULOSKELETAL: generalized weakness, limited mobility of legs but this is equal throughout, head is normocephalic and atraumatic, unable to ambulate SKIN: warm and dry NEUROLOGIC: CN 2-12 grossly intact, unable to elicit knee DTRs 2/2 weakness and rotated position of legs, no sensory deficit, normal cognition, normal speech, no tremor PSYCHIATRIC: Alert, oriented, cooperative Results & Data Results & Data Vital Signs (Past 12 Hours) Vital Signs Temp Pulse Pulse Pulse Resp BP BP 08/04/23 10:19 77 184/105 H 08/04/23 10:15 37.0 C 82 08/04/23 07:40 37.1 C 89 19 178/79 H 08/04/23 03:42 36.9 C 88 20 172/76 H 08/03/23 22:51 37.1 C 79 20 161/85 H Pulse Ox O2 Del Method 08/04/23 10:19 08/04/23 10:15 08/04/23 07:40 94 Room Air 08/04/23 03:42 94 Room Air 08/03/23 22:51 96 CPAP Laboratory Results [facility] 08/04/23 04:26 Sodium 132 L Potassium 4.8 Chloride 99 Carbon Dioxide 26 BUN 55 H Creatinine 4.62 H* D Glucose 143 H Calcium 8.8 Liver Function 08/04/23 Range/Units 04:26 Albumin 2.8 L (3.4-5.0) gm/dl Medications Administered Current Inpatient Medications Acetaminophen (Acetaminophen 325 Mg Tab) 650 mg PO Q6H [facility] Stop: 08/22/23 13:44 Last Admin: 08/04/23 08:40 Dose: 650 mg Acetaminophen (Acetaminophen 325 Mg Tab) 650 mg PO Q4H PRN PRN Reason: Moderate Pain (Scale 4, 5, 6) Stop: 08/22/23 18:40 Amlodipine Besylate (Amlodipine Besylate 5 Mg Tab) 5 mg PO QAM [facility] Stop: 09/02/23 10:59 Last Admin: 08/04/23 10:21 Dose: Not Given Docusate Sodium (Docusate Sodium 100 Mg Cap) 100 mg PO BID [facility] Stop: 08/26/23 20:59 Last Admin: 08/04/23 08:00 Dose: Not Given Glycerin (Glycerin Adult 12 Supp/Box Supp) 1 supp [place] DAILY PRN PRN Reason: Constipation Stop: 09/01/23 19:01 Last Admin: 08/03/23 04:37 Dose: 1 supp Hydromorphone HCl (Hydromorphone Inj 1 Mg/Ml Syringe) 0.5 mg IV Q6H PRN PRN Reason: Pain Stop: 08/09/23 09:42 Last Admin: 08/02/23 11:43 Dose: 0.5 mg Heparin Sodium/Dextrose (Heparin Sodium/Dextrose) 25,000 units in 500 mls @ 0 mls/hr IV .Q0M [facility]; Protocol Stop: 08/22/23 20:29 Last Titration: 08/04/23 05:10 Dose: 0 units/hr, 0 mls/hr Cefazolin Sodium (Ancef 1000mg) 1,000 mg in 7.5 mls @ 2.5 mls/min IV Q24H [facility]; Protocol Stop: 09/14/23 10:59 Last Admin: 08/03/23 22:09 Dose: 2.5 mls/min Sodium Chloride (Nss) 1,000 mls @ 0 mls/hr IV .Q0M PRN PRN Reason: For Hemodialysis Use ONLY Stop: 08/04/23 12:59 Linezolid (Zyvox) 600 mg in 300 mls @ 200 mls/hr IV Q12H [facility] Stop: 09/14/23 14:59 Last Infusion: 08/04/23 04:06 Dose: Infused Metoprolol Succinate (Metoprolol Succ 25mg Ext Rel Tab) 25 mg PO BID [facility] Stop: 08/27/23 20:59 Last Admin: 08/04/23 10:21 Dose: Not Given Ondansetron HCl (Ondansetron Inj 2 Mg/Ml 2 Ml Vial) 4 mg IV Q4H PRN PRN Reason: Nausea And Vomiting Stop: 08/22/23 18:40 Oxycodone HCl (Oxycodone Hcl Ir 5 Mg Tab (Immediate Release)) 5 mg PO Q4H PRN PRN Reason: Moderate Pain (Scale 4, 5, 6) Stop: 08/06/23 13:42 Last Admin: 08/03/23 21:13 Dose: 5 mg Polyethylene Glycol (Polyethylene (Miralax) 17 Gm Pack) 17 gm PO TID [facility] Stop: 08/29/23 20:59 Last Admin: 08/04/23 08:00 Dose: Not Given Rosuvastatin Calcium (Rosuvastatin Calcium 5 Mg Tab) 5 mg PO DAILY [facility] Stop: 08/23/23 08:59 Sennosides (Senna 8.6 Mg Tab) 17.2 mg PO HS [facility] Stop: 08/29/23 20:59 Last Admin: 08/03/23 20:03 Dose: 17.2 mg Tamsulosin HCl (Tamsulosin Hcl 0.4 Mg Cap) 0.8 mg PO HS [facility] Stop: 08/22/23 20:59 Last Admin: 08/03/23 20:03 Dose: 0.8 mg Warfarin Sodium (Warfarin Sod 2.5 Mg Tab) 2.5 mg PO DAILY@1600 [facility] Stop: 09/01/23 15:59 Last Admin: 08/02/23 17:36 Dose: 2.5 mg
--- NOTE | 2023-08-04 10:39 | Dialysis Progress Note ---
Date of Service August 04, 2023 Assessment & Plan Admission and Anticipated Discharge Date Admission Date: July 23, 2023 Subjective Assessment & Plan (1) Acute kidney injury: Plan: SARWAT --from ATN.- He denies any renal problems in the past, and denies any OTC or NSAIDS, IV fluid were stopped 2/2 pulmonary congestion, He responded well to Lasix challenge , He is comfortable with 2l oxygen and BP and HR are better controlled, first HD on 07/28 At the moment he is making urine , electrolytes are safe. - Continue to hold ARB - Daily BMP, Input and output and daily weights preferably on the same scale - No iv fluids. BP seems high now persistently---amlodipine 5 daily + continue BB massive Increase in urine output 5300 ml and creat went down today without dialysis. So this might be his last Dialysis. good renal recovery. Can lower time to 2.5 hrs for today. (2) Bacteremia: Plan: last + cx 07/23 group B strep renally dose Abx f/u mri --concern for abscess and discitis. Now WBC trending down. Subjective see In dialysis. Still c/o back pain. For OR today. massive Increase in urine output 5300 ml and creat went down today without dialysis. Ongoing back pain; denies sob or worsening edema. Bp is now consistently high Review of Systems Review of Systems: All systems reviewed & are unremarkable except as noted in Subjective Physical Exam Constitutional: well developed, + morbidly obese and cooperative; no acute distress Eyes: EOM intact bilaterally ENMT: Ears: no external ear abnormality Nose: no external nose abnormality Mouth: + dry oral mucous membranes Neck: no nuchal rigidity Respiratory: normal respiratory effort Auscultation: + diminished lung sounds Cardiovascular: Rate/Rhythm: regular rate and regular rhythm Extremities: + edema (trace ble) Gastrointestinal (Abdomen): Inspection/Auscultation: normal bowel sounds Percussion/Palpation: abdomen soft; abdomen nontender Musculoskeletal: Extremities: strength 5/5 throughout Skin: no rashes, warm and dry Neurologic: julien, fluent speech, no tremor Results & Data Vital Signs (Past 12 Hours) Vital Signs Temp Pulse Pulse Pulse Resp BP BP 08/04/23 10:30 80 185/89 H 08/04/23 10:19 37.0 C 77 184/105 H 08/04/23 10:15 37.0 C 82 08/04/23 07:40 37.1 C 89 19 178/79 H 08/04/23 03:42 36.9 C 88 20 172/76 H 08/03/23 22:51 37.1 C 79 20 161/85 H Pulse Ox O2 Del Method 08/04/23 10:30 08/04/23 10:19 08/04/23 10:15 08/04/23 07:40 94 Room Air 08/04/23 03:42 94 Room Air 08/03/23 22:51 96 CPAP
--- NOTE | 2023-08-04 10:52 | Cardiology Consultation ---
Date of Consultation August 04, 2023 Assessment & Plan (1) Preop cardiovascular exam: (2) Spinal epidural abscess: (3) Paroxysmal atrial fibrillation: (4) Acute renal failure: Being managed with dialysis (5) HTN (hypertension): Plan 62-year-old male referred for preoperative evaluation planned orthopedic surgery for epidural abscess/discitis On initial presentation this admission 12 days ago patient with paroxysmal atrial fibrillation with conversion to sinus rhythm Cardiac status stable Course complicated by acute renal failure currently being supported by dialysis Blood pressure is high EKG normal Echocardiogram with preserved LV systolic function Impression: No cardiac contraindications to surgery for necessary urgent procedure, high risk of morbidity if not performed Patient at elevated risk due to multiple medical morbidities including acute renal failure. Possibility of arrhythmias and worsening renal function with surgical procedure Would continue metoprolol and give dose preoperatively Renal function improving continue dialysis support via nephrology recommendations Discussed personally with hospitalist History of Present Illness Reason for Consultation: Preoperative cardiovascular evaluation Requesting Physician: Dr. Beard Attending Physician: Blanca Beard, Allergies Allergy/AdvReac Type Severity Reaction Status Date / Time lisinopril Allergy Intermediate Unknown Unverified 07/23/23 13:02 Home Medications Medication Instructions Recorded Confirmed Type acetaminophen 500 mg tablet 500 mg PO TID PRN Other 07/23/23 07/23/23 History albuterol sulfate 90 mcg/actuation 2 puff inhalation QID PRN Other 07/23/23 07/23/23 History aerosol inhaler (Proventil HFA) amlodipine 10 mg tablet 10 mg PO DAILY 07/23/23 07/23/23 History ciclesonide 160 mcg/actuation 1 puff inhalation BID 07/23/23 07/23/23 History aerosol inhaler (Alvesco) hydrochlorothiazide 25 mg tablet 25 mg PO DAILY 07/23/23 07/23/23 History losartan 50 mg tablet 50 mg PO DAILY 07/23/23 07/23/23 History metformin 500 mg tablet 500 mg PO BID 07/23/23 07/23/23 History rosuvastatin 5 mg tablet 5 mg PO DAILY 07/23/23 07/23/23 History tamsulosin 0.4 mg capsule 0.8 mg PO HS 07/23/23 07/23/23 History Patient History Medical History Spinal epidural abscess DM II (diabetes mellitus, type II), controlled HLD (hyperlipidemia) HTN (hypertension) Morbid obesity History of fracture of right ankle Surgical History Hx of right knee surgery Social History Smoking Status: Never smoker Hx Alcohol Use: No Hx Substance Use: Yes Non-Prescribed Medications: Marijuana Preferred Language: Ecuadorean Communication Ability: Effective Lead Operator Required: No Current Living Situation: Other Current Living Situation Comment: [facility] Other Information That Helps Us Care for You: No Feels Safe at Home: Yes Safety Concerns: Feels Safe At This Time Review of Systems Review of Systems: All systems reviewed & are unremarkable except as noted in HPI & below Physical Exam Constitutional: + morbidly obese Neck: + thick neck Respiratory: no respiratory distress and no labored breathing Auscultation: + diminished lung sounds; no rhonchi and no wheezes Cardiovascular: Rate/Rhythm: regular rate and regular rhythm Heart Sounds: normal S1 and normal S2; no murmur Vessels: no JVD Extremities: no edema Gastrointestinal (Abdomen): Inspection/Auscultation: abdomen normal to inspection and normal bowel sounds; abdomen not distended Neurologic: CN's II-XI intact bilaterally and moves all extremities; no focal motor deficits Results & Data Vital Signs (Past 12 Hours) Vital Signs Temp Pulse Pulse Pulse Resp BP BP 08/04/23 10:30 80 185/89 H 08/04/23 10:19 37.0 C 77 184/105 H 08/04/23 10:15 37.0 C 82 08/04/23 07:40 37.1 C 89 19 178/79 H 08/04/23 03:42 36.9 C 88 20 172/76 H 08/03/23 22:51 37.1 C 79 20 161/85 H Pulse Ox O2 Del Method 08/04/23 10:30 08/04/23 10:19 08/04/23 10:15 08/04/23 07:40 94 Room Air 08/04/23 03:42 94 Room Air 08/03/23 22:51 96 CPAP Laboratory Results Laboratory Results - last 24 hr 08/03/23 08/04/23 08/04/23 17:43 00:37 04:26 PT 17.5 H INR 1.6 H APTT 39.2 H 43.6 H* PTT Ratio 1.4 1.5 Sodium 132 L Potassium 4.8 Chloride 99 Carbon Dioxide 26 Anion Gap 7 BUN 55 H Creatinine 4.62 H* D Est Cr Clr Drug Dosing 28.4 Est GFR ( Amer) 14.7 Est GFR (Non-Af Amer) 12.7 BUN/Creatinine Ratio 11.9 Glucose 143 H Calcium 8.8 Phosphorus 5.7 H Albumin 2.8 L
[2023-08-04] MEDS: HYDROmorphone INJ 1 MG/ML SYRINGE IV PRN ×2 (13:17→22:12)
--- NOTE | 2023-08-04 13:43 | Electrocardiogram Report ---
Test Reason : Blood Pressure : / mmHG Vent. Rate : 084 BPM Atrial Rate : 084 BPM P-R Int : 152 ms QRS Dur : 086 ms QT Int : 376 ms P-R-T Axes : 062 043 072 degrees QTc Int : 444 ms Normal sinus rhythm ST elevation, consider early repolarization, pericarditis, or injury Abnormal ECG When compared with ECG of 26-JUL-2023 09:45, Sinus rhythm has replaced Atrial fibrillation Confirmed by Rodriguez Garcia ([id number]) on 08/04/2023 1:42:54 PM Referred By: Traci SHI Confirmed By:Rodriguez Garcia
[2023-08-04] MEDS ORDERED: POLYETHYLENE (MIRALAX) 17 GM PACK PO PRN (14:25)
--- NOTE | 2023-08-04 14:30 | Anesthesiology Consultation ---
Date of Service August 04, 2023 Assessment & Plan Chart Review Chart Review: Acceptable Risk for Surgery and Patient NOT seen in Pre Admission Testing Consults Requested none ASA [id number] Proposed Anesthesia Anesthesia Type: General Anesthesia Line Insertion: Arterial line History Surgery Operation Date: 08/04/23 07:00 Proposed Procedures p L4-S1 Lumbar Decompression - Rich Kelley MD Height/Weight Height: 6 ft 4 in Weight: 162.2 kg Allergies Allergy/AdvReac Type Severity Reaction Status Date / Time lisinopril Allergy Intermediate Unknown Unverified 07/23/23 13:02 Medications Home Medications Medication Instructions Recorded Confirmed Last Taken acetaminophen 500 mg tablet 500 mg PO TID PRN Other 07/23/23 07/23/23 Unknown albuterol sulfate 90 mcg/actuation 2 puff inhalation QID PRN Other 07/23/23 07/23/23 Unknown aerosol inhaler (Proventil HFA) amlodipine 10 mg tablet 10 mg PO DAILY 07/23/23 07/23/23 Unknown ciclesonide 160 mcg/actuation 1 puff inhalation BID 07/23/23 07/23/23 Unknown aerosol inhaler (Alvesco) hydrochlorothiazide 25 mg tablet 25 mg PO DAILY 07/23/23 07/23/23 Unknown losartan 50 mg tablet 50 mg PO DAILY 07/23/23 07/23/23 Unknown metformin 500 mg tablet 500 mg PO BID 07/23/23 07/23/23 Unknown rosuvastatin 5 mg tablet 5 mg PO DAILY 07/23/23 07/23/23 Unknown tamsulosin 0.4 mg capsule 0.8 mg PO HS 07/23/23 07/23/23 Unknown Active Medications Generic Name Dose Route Start Last Admin Trade Name Yahaira PRN Reason Stop Dose Admin Acetaminophen 650 mg 07/23/23 13:45 08/04/23 13:17 Acetaminophen 325 Mg Tab PO 08/22/23 13:44 650 mg Q6H NEGRITA Administration Amlodipine Besylate 5 mg 08/03/23 11:00 08/04/23 13:14 Amlodipine Besylate 5 Mg Tab PO 09/02/23 10:59 5 mg QAM NEGRITA Administration Docusate Sodium 100 mg 07/27/23 21:00 08/04/23 08:00 Docusate Sodium 100 Mg Cap PO 08/26/23 20:59 Not Given BID NEGRITA Glycerin 1 supp 08/02/23 19:02 08/03/23 04:37 Glycerin Adult 12 Supp/Box Supp NE 09/01/23 19:01 1 supp DAILY PRN Administration Constipation Hydromorphone HCl 0.5 mg 07/29/23 20:46 08/04/23 13:17 Hydromorphone Inj 1 Mg/Ml Syringe IV 08/09/23 09:42 0.5 mg Q6H PRN Administration Pain Heparin Sodium/Dextrose 25,000 units in 500 mls @ 0 mls/hr 07/23/23 20:30 08/04/23 05:10 Heparin Sodium/Dextrose IV 08/22/23 20:29 0 units/hr .Q0M NEGRITA 0 mls/hr Titration Protocol 0 UNITS/HR Cefazolin Sodium 1,000 mg in 7.5 mls @ 2.5 mls/min 08/01/23 23:00 08/03/23 22:09 Ancef 1000mg IV 09/14/23 10:59 2.5 mls/min Q24H NEGRITA Administration Protocol Linezolid 600 mg in 300 mls @ 200 mls/hr 08/03/23 15:00 08/04/23 13:13 Zyvox IV 09/14/23 14:59 200 mls/hr Q12H NEGRITA Administration Metoprolol Succinate 25 mg 07/28/23 21:00 08/04/23 13:14 Metoprolol Succ 25mg Ext Rel Tab PO 08/27/23 20:59 25 mg BID NEGRITA Administration Oxycodone HCl 5 mg 07/31/23 11:02 08/03/23 21:13 Oxycodone Hcl Ir 5 Mg Tab (Immediate Release) PO 08/06/23 13:42 5 mg Q4H PRN Administration Moderate Pain (Scale 4, 5, 6) Sennosides 17.2 mg 07/30/23 21:00 08/03/23 20:03 Senna 8.6 Mg Tab PO 08/29/23 20:59 17.2 mg HS NEGRITA Administration Tamsulosin HCl 0.8 mg 07/23/23 21:00 08/03/23 20:03 Tamsulosin Hcl 0.4 Mg Cap PO 08/22/23 20:59 0.8 mg HS NEGRITA Administration Warfarin Sodium 2.5 mg 08/02/23 16:00 08/02/23 17:36 Warfarin Sod 2.5 Mg Tab PO 09/01/23 15:59 2.5 mg DAILY@1600 NEGRITA Administration Past Medical History Medical History Spinal epidural abscess DM II (diabetes mellitus, type II), controlled HLD (hyperlipidemia) HTN (hypertension) Morbid obesity History of fracture of right ankle DVT right leg ASCVD Ao ARF/SARWAT on H/D Anemia Sepsis A Fib Exercise / Class Metabolic Activity III < 4 Walking/Shop/Light housework Past Surgical History Surgical History Hx of right knee surgery Past Anesthesia History No Hx of Anesthesia Complications and No Family Hx of Anesthesia Complications History of PONV No Hx of PONV and No Hx of Motion Sickness Social History Smoking Status: Never smoker Hx Alcohol Use: No Hx Substance Use: Yes Physical Exam Vital Signs Last Vital Signs Temp 37.0 C 08/04/23 12:50 Pulse 95 H 08/04/23 13:12 Resp 19 08/04/23 07:40 BP 173/94 H 08/04/23 13:12 Pulse Ox 94 08/04/23 13:12 O2 Del Method Room Air 08/04/23 13:12 O2 Flow Rate 2 08/03/23 22:20 Testing Laboratory Results 08/03/23 06:15 08/04/23 04:26 PT 17.5 Seconds (9.0-12.0) H 08/04/23 04:26 INR 1.6 (0.9-1.1) H 08/04/23 04:26 APTT 43.6 Seconds (21.0-31.0) H* 08/04/23 00:37 Hemoglobin A1c 6.2 % (4.5-5.6) H 07/24/23 02:40 Urine Color Yellow 07/31/23 10:08 Urine Appearance Turbid (Clear) A 07/31/23 10:08 Urine pH 5.5 (4.5-7.5) 07/31/23 10:08 Ur Specific [place] 1.011 (1.000-1.030) 07/31/23 10:08 Urine Protein 2+ (Negative) H 07/31/23 10:08 Urine Glucose (UA) Negative (Negative) 07/31/23 10:08 Urine Ketones Negative (Negative) 07/31/23 10:08 Urine Nitrite Negative (Negative) 07/31/23 10:08 Ur Leukocyte Esterase 1+ (Negative) H 07/31/23 10:08 Urine WBC (Auto) >30 /hpf (0-5) H 07/31/23 10:08 Urine RBC (Auto) >30 /hpf (0-4) H 07/31/23 10:08 U Hyaline Cast (Auto) 0 /lpf (0-5) 07/31/23 10:08 U Epithel Cells (Auto) >30 /lpf (0-5) H 07/31/23 10:08 Urine Bacteria (Auto) Negative (Negative) 07/31/23 10:08 07/31/23 10:08 Urine Culture - Final Urine,Straight Cath No growth - less than 1,000 colonies/mL. 07/28/23 08:09 Aerobic Blood Culture - Final Blood No growth in Aerobic bottle after 5 days. Anaerobic Blood Culture - Final No growth in Anaerobic bottle after 5 days. 07/28/23 08:18 Aerobic Blood Culture - Final Blood No growth in Aerobic bottle after 5 days. Anaerobic Blood Culture - Final No growth in Anaerobic bottle after 5 days. 07/25/23 16:47 Aerobic Blood Culture - Final Blood No growth in Aerobic bottle after 5 days. Anaerobic Blood Culture - Final No growth in Anaerobic bottle after 5 days. 07/25/23 17:01 Aerobic Blood Culture - Final Blood No growth in Aerobic bottle after 5 days. Anaerobic Blood Culture - Final No growth in Anaerobic bottle after 5 days. 07/24/23 18:36 Aerobic Blood Culture - Final Blood No growth in Aerobic bottle after 5 days. Anaerobic Blood Culture - Final No growth in Anaerobic bottle after 5 days. 07/24/23 17:44 Aerobic Blood Culture - Final Blood No growth in Aerobic bottle after 5 days. Anaerobic Blood Culture - Final 07/23/23 10:45 Urine Culture - Final Urine,Straight Cath No growth - less than 1,000 colonies/mL. 07/23/23 10:45 Aerobic Blood Culture - Final Blood Group A Beta Strep Anaerobic Blood Culture - Final Group A Beta Strep 07/23/23 11:00 Aerobic Blood Culture - Final Blood Group A Beta Strep Anaerobic Blood Culture - Final Group A Beta Strep Electrocardiogram Date: 08/03/23 Findings: + NSR @ (@ 84; ST elevations) Chest X-Ray Date: 07/31/23 Findings: + cardiomegaly and + pulmonary vascular congestion (stable pulm. vasc. congestion) Echocardiogram Date: 07/23/23 EF: 65% LV Function: normal RWMA: + none Other Findings: + LVH (mild) Valvular Disease: + no significant valvular disease mild pulm. HTN PA sys Pressure 40 torr
[2023-08-04] MEDS ORDERED: fentaNYL citrate PF 100 MCG/2 ML VIAL ONE ×4 (15:22→20:53)
[2023-08-04] MEDS ORDERED: DEXAMETHASONE SOD INJ 4 MG/ML VIAL ONE (15:22)
[2023-08-04] MEDS ORDERED: ONDANSETRON INJ 2 MG/ML 2 ML VIAL ONE (15:22)
[2023-08-04] MEDS ORDERED: LIDOCAINE 2% 2 ML VIAL/AMP(20MG/ML) INFIL ONE (15:22)
[2023-08-04] MEDS ORDERED: MIDAZOLAM HCL 1 MG/ML 2ML VIAL ONE (15:22)
[2023-08-04] MEDS ORDERED: ROCURONIUM BROMIDE 10 MG/ML 5 ML VIAL IV ONE ×12 (15:22→17:30)
[2023-08-04] MEDS ORDERED: PROPOFOL IV EMULSION 10 MG/ML 20 ML VIAL IV ONE ×2 (15:22→17:02)
[2023-08-04] MEDS ORDERED: VANCOMYCIN HCL 1000MG/20ML VIAL ONE (15:24)
[2023-08-04] MEDS ORDERED: BUPIVACAINE/EPINEPHRINE 0.5% MPF 1:200,000 30 ML VIAL ONE (15:24)
[2023-08-04 15:32] LABS: Partial Thromboplastin Ratio 1.2
[2023-08-04] MEDS ORDERED: SODIUM CHLORIDE 0.9% 500 ML IV SCH (16:00)
[2023-08-04 16:10] LABS: Calcium 8.9 mg/dl (8.6-10.3); Creatinine Clr Calc Pharmacy 40.5 ml/min; Est GFR (African American) 23.2 ml/min; Potassium 4.4 mmol/L (3.5-5.1)
--- NOTE | 2023-08-04 16:16 | History & Physical Bridge Note ---
Date of Service August 04, 2023 History & Physical Bridge Note I have examined the patient, reviewed the History & Physical and in the interval since the performance of the History & Physical I have noted the following changes of clinical significance: no changes noted
--- NOTE | 2023-08-04 16:19 | History & Physical Report ---
Date of Service August 04, 2023 Assessment & Plan Admission and Anticipated Discharge Date Admission Date: July 23, 2023 History of Present Illness Chief Complaint: Lumbar infection Primary Care Provider: YURIDIA Aviles 62 year old gentleman with history of hypertension, HLD, DMTII, and chronic RLE edema 2/2 trauma who is admitted for sepsis on 07/23. Patient found to be in A- fib and being managed on PO metoprolol after being on drip throughout the evening of 07/23. Patient is status post an injury to the right lower extremity with chronic edema, but it is an ambulator with a cane. 5 days previous he developed acute onset of low back pain along with the sepsis. Patient reports h maged has not had this back pain before, and it will start in his lower lumbar spine but then radiate into the posterior aspect of the left thigh. She can mobilize in the bed to some degree but this causes an exacerbation of his back pain. Along with the medical issues noted, infectious work up has resulted with bacteremia, group a beta strep. Exam indicates the patient having pain lumbosacral region, his neurologic exam is somewhat compromised secondary to low back pain on exertion, but he has appropriate range strength for EHL, left leg with appropriate ankle plantar dorsiflexion and knee extension but with some back pain and also hip flexion. Right leg due to the edema is somewhat more compromised with these maneuvers once again worsening his low back pain. Right leg with generalized edema. WBC: 13.99 MRI lumbar spine without contrast: July 25, 2023 CLINICAL HISTORY: 62 years-old Male with vertebral osteomyelitis?. Acute low back pain with lower extremity numbness. COMPARISON: CT abdomen and pelvis 07/23/2023. TECHNIQUE: Multiplanar, multi sequence MRI of the lumbar spine was performed without intravenous contrast. FINDINGS: Limited exam secondary to patient body habitus and motion artifact. Conus medullaris terminates at L1. There is moderate marrow edema involving the pedicles and facets at L5-S1 bilaterally. Moderate associated paravertebral e joanne. No acute fracture, subluxation or endplate erosion. T12-L1: Mild facet arthrosis. No central canal or neural foraminal stenosis. L1-L2: Mild facet arthrosis. No central canal or neural foraminal stenosis. L2-L3: Ligamentum flavum thickening with moderate facet arthrosis. Small posterior annular disc bulge. Mild right foraminal narrowing. Central canal and left neuroforamen are patent. L3-L4: Ligamentum flavum thickening with moderate facet arthrosis. Mild intervertebral disc space narrowing with small circumferential annular disc bulging. The central canal is patent. Xiav-ni-yfsxvxjm right with moderate left foraminal narrowing. L4-L5: Jvxi-hg-fquhthqw intervertebral disc space narrowing with spondylotic spurring and small posterior disc osteophyte complex. Ligamentum flavum thickening with fbrviwzg-gc-msigem facet arthrosis. Mild central canal stenosis with AP dimension of the thecal sac measuring 9 mm. Mild left with moderate right lateral recess narrowing. Vdig-lv-lrswgvrt left with ngtbqrzs-gl-cgtpfw right foraminal narrowing. L5-S1: Uwua-jn-ycnmojab intervertebral disc space narrowing with spondylotic spurring, posterior annular disc bulge with small disc osteophyte complex, eccentric to the right. Ligamentum flavum thickening with severe facet arthrosis and small facet effusions. Central canal is patent. Moderate right lateral recess narrowing. Bjqg-aw-kyzjsqhg bilateral foraminal stenosis. IMPRESSION: 1. No acute fracture, subluxation or endplate erosion. 2. Moderate marrow edema within the facets and pedicles at L5-S1 is likely reactive with adjacent soft tissue edema within the paraspinal musculature. 3. Discogenic degeneration with facet arthrosis as above resulting in multilevel foraminal narrowing. 4. No high-grade central canal stenosis. New MRI from 07/31 with contrast: MR Lumbar Spine Without and With Intravenous Contrast CLINICAL HISTORY: Reason for exam: rule out verterbral osteomyelitis/epidural abscess. TECHNIQUE: Magnetic resonance images of the lumbar spine without and with intravenous contrast in multiple planes. CONTRAST: Patient received 17cc gadavist of IV contrast COMPARISON: Comparison made to prior lumbar spine MRI from July 25, 2023. FINDINGS: Vertebrae: There are 5 lumbar type vertebral bodies with a mild generalized curved to the right and normal lumbar lordosis. There is normal vertebral body height and alignment. The vertebral body bone marrow signal is normal. No acute fracture. There is extensive inflammation about the facet joints L5-S1. There is significant increased signal within the L5-S1 disc concerning for discitis. Spinal cord: The conus is normal size, shape and signal characteristics, terminating at L1 to. No abnormal enhancement. Soft tissues: There is an enhancing fluid collection extending from L3- S1 concerning for dorsal epidural abscess. There is increased fluid signal within the interspinous process at L1-2, L2-3 and L3-4 with increased enhancement. There is extensive inflammation of the paraspinous muscles with enhancement. There is an enhancing fluid collection in the right and left paraspinous muscles adjacent to the L5- S1 facet joints. Mild prevertebral soft tissue swelling at L5-S1 concerning for phlegmon/abscess. Possible small ventral epidural abscess/phlegmon at L5. IMPRESSION: Findings concerning for infection of the L5-S1 facet joints, paraspinous muscles and interspinous bursa with dorsal epidural phlegmon/abscess extending from L3-S1. Small abscesses about the L5-S1 facet joints. Findings concerning for discitis at L5-S1 with mild prevertebral phlegmon/abscess. Possible small ventral epidural abscess/phlegmon at L5. Impression: 2 week history of low back pain acute onset along with sepsis and medical issues as mentioned in history, lumbar infection. Plan: Operative decompression lumbar spine with irrigation and debrid ement/cultures. Allergies Allergy/AdvReac Type Severity Reaction Status Date / Time lisinopril Allergy Intermediate Unknown Unverified 07/23/23 13:02 Home Medications Medication Instructions Recorded Confirmed Type acetaminophen 500 mg tablet 500 mg PO TID PRN Other 07/23/23 07/23/23 History albuterol sulfate 90 mcg/actuation 2 puff inhalation QID PRN Other 07/23/23 07/23/23 History aerosol inhaler (Proventil HFA) amlodipine 10 mg tablet 10 mg PO DAILY 07/23/23 07/23/23 History ciclesonide 160 mcg/actuation 1 puff inhalation BID 07/23/23 07/23/23 History aerosol inhaler (Alvesco) hydrochlorothiazide 25 mg tablet 25 mg PO DAILY 07/23/23 07/23/23 History losartan 50 mg tablet 50 mg PO DAILY 07/23/23 07/23/23 History metformin 500 mg tablet 500 mg PO BID 07/23/23 07/23/23 History rosuvastatin 5 mg tablet 5 mg PO DAILY 07/23/23 07/23/23 History tamsulosin 0.4 mg capsule 0.8 mg PO HS 07/23/23 07/23/23 History Past Med/Surg History Medical History Spinal epidural abscess DM II (diabetes mellitus, type II), controlled HLD (hyperlipidemia) HTN (hypertension) Morbid obesity History of fracture of right ankle Surgical History Hx of right knee surgery Social History Smoking Status: Never smoker Hx Alcohol Use: No Hx Substance Use: Yes Non-Prescribed Medications: Marijuana Preferred Language: Croatian Communication Ability: Effective Nursing Resident Required: No Current Living Situation: Other Current Living Situation Comment: [facility] Other Information That Helps Us Care for You: No Feels Safe at Home: Yes Safety Concerns: Feels Safe At This Time Results & Data Results & Data Vital Signs (Past 12 Hours) Vital Signs Temp Pulse Pulse Pulse Pulse Pulse Pulse 08/04/23 14:45 37.7 C H 86 08/04/23 14:23 88 08/04/23 13:12 95 H 08/04/23 12:50 37.0 C 88 88 08/04/23 12:46 37.0 C 90 08/04/23 12:30 85 08/04/23 12:00 80 08/04/23 11:30 79 08/04/23 11:00 74 08/04/23 10:30 80 08/04/23 10:19 37.0 C 77 08/04/23 10:15 37.0 C 82 08/04/23 07:40 37.1 C 89 Resp BP BP BP Pulse Ox O2 Del Method 08/04/23 14:45 20 168/81 H 93 Room Air 08/04/23 14:23 19 196/80 H 96 Room Air 08/04/23 13:12 173/94 H 94 Room Air 08/04/23 12:50 180/98 H 08/04/23 12:46 182/101 H 08/04/23 12:30 183/103 H 08/04/23 12:00 176/115 H 08/04/23 11:30 192/95 H 08/04/23 11:00 157/101 H 08/04/23 10:30 185/89 H 08/04/23 10:19 184/105 H 08/04/23 10:15 08/04/23 07:40 19 178/79 H 94 Room Air Code Status & VTE Plan VTE Prophylaxis Plan VTE Prophylaxis will be ordered: Yes
[2023-08-04] MEDS ORDERED: METOPROLOL TARTRATE 1 MG/ML VIAL IV ONE (16:58)
[2023-08-04] MEDS ORDERED: GENTAMICIN SULFATE 40 MG/ML 2 ML VIAL ONE (17:44)
[2023-08-04] MEDS ORDERED: hydrALAZINE HCL 20 MG/ML VIAL IV PRN (18:14)
[2023-08-04] MEDS ORDERED: GLUCOSE 10 TAB/TUBE PO PRN (18:15)
[2023-08-04] MEDS ORDERED: GLUCAGON FOR INJ 1 MG VIAL SQ PRN (18:15)
[2023-08-04] MEDS ORDERED: DEXTROSE 50% 50 ML SYRINGE IV PRN (18:15)
[2023-08-04] MEDS ORDERED: CARBOHYDRATES FOR HYPOGLYCEMIA PO PRN (18:15)
[2023-08-04] MEDS ORDERED: GLUCOSE 40% GEL 15 GM TUBE PO PRN (18:15)
[2023-08-04] MEDS ORDERED: GELATIN SPONGE SZ 100 ONE (19:16)
--- NOTE | 2023-08-04 20:27 | Post Operative Brief Note ---
PG Immediate Post Op with CF Date of Surgery August 04, 2023 Pre & Post Diagnosis Operation Date: 08/04/23 07:00 Pre-Op Diagnosis: Lumbar Infection Post-Op Diagnosis: Lumbar Infection I identified the patient and participated in the time-out.: Yes Procedure Operation Date: 08/04/23 07:00 Actual Procedures p L3-S1 Irrigation and Debridement and Lumbar Decompression - Rich Kelley MD Surgeon Rich Kelley MD Riprap Placing Supervisor none Estimated Blood Loss 150 Findings Consistent with Post-Op Diagnosis Specimens Specimen Description: A. ParaSpinal Tissue L5 Biopsy B. L4-L5 Interspinous Ligament 1. Right L5-S1 Facet Culture 2. L4-L5 Interspinous Ligament Culture 3. L4-L5 Epidural Space Culture Drains Erazo Catheter
[2023-08-04] MEDS: fentaNYL citrate PF 100 MCG/2 ML VIAL IV PRN ×4 (20:35→21:00)
[2023-08-04] MEDS ORDERED: PROMETHAZINE HCL 12.5 MG in SODIUM CHLORIDE 0.9% 50 ML IV PRN (20:36)
[2023-08-04] MEDS ORDERED: ATROPINE SULFATE 0.1 MG/ML 10ML SYR IV PRN (20:36)
[2023-08-04] MEDS ORDERED: ePHEDrine sulfate 50 MG/ML AMP IV PRN (20:36)
[2023-08-04] MEDS ORDERED: ONDANSETRON INJ 2 MG/ML 2 ML VIAL IV PRN (20:36)
[2023-08-04] MEDS ORDERED: HYDROmorphone INJ 2 MG/ML SYR/VIAL IV PRN (20:36)
[2023-08-04] MEDS ORDERED: NEOSTIGMINE METHYLSULFATE 1 MG/ML 10ML VIAL ONE (20:46)
[2023-08-04] MEDS ORDERED: GLYCOPYRROLATE 0.2 MG/ML VIAL ONE (20:47)
--- NOTE | 2023-08-04 21:38 | Fluoroscopy Report ---
INTRAOPERATIVE RADIOGRAPHS CLINICAL HISTORY: L4-S1 decompression. Fluoro time: 34 seconds Ka,r: 37.40 mGy FINDINGS: 2 spot fluoroscopic views of the lumbar spine are obtained. Surgical probes project posteri ralph at the level of L5 on both images. IMPRESSION: Intraoperative images of the lower lumbar spine as above. See operative report for detail ed findings. Electronically signed by: Manoj Christiansen M.D. 08/04/2023 9:35 PM
[2023-08-04] MEDS ORDERED: Nursing to Pharmacy Communication SCH (21:53)
[2023-08-04] MEDS: TAMSULOSIN HCL 0.4 MG CAP PO SCH (22:26)
[2023-08-04] MEDS: SENNA 8.6 MG TAB PO SCH (22:26)
[2023-08-04] MEDS: INSULIN ASPART PER UNIT CHARGE SC SCH (22:28)
[2023-08-04] MEDS: ACETAMINOPHEN 325 MG TAB PO PRN (22:30)
[2023-08-04] MEDS: ceFAZolin 1000MG 1,000 MG/7.5 ML SYR IV SCH (22:31)
[2023-08-05] MEDS: HEPARIN SODIUM/DEXTROSE 25,000 UNITS/500 ML BAG IV SCH ×5 (00:09→17:07)
[2023-08-05] MEDS: LINEZOLID 600 MG/300 ML BAG IV SCH ×2 (00:56→11:44)
[2023-08-05] MEDS ORDERED: HYDROmorphone INJ 1 MG/ML SYRINGE IV STA (01:17)
[2023-08-05] MEDS: ACETAMINOPHEN 325 MG TAB PO SCH ×4 (02:20→20:46)
--- NOTE | 2023-08-05 02:35 | Anesthesiology Progress Note ---
Date of Service August 05, 2023 Anesthesia Post Procedure Vital Signs Vital Signs: Temp Pulse Pulse Pulse Pulse Pulse Pulse 08/05/23 02:03 36.6 C 86 08/05/23 00:42 36.9 C 85 08/04/23 23:54 36.6 C 84 08/04/23 23:31 36.6 C 86 08/04/23 23:21 67 08/04/23 22:43 36.6 C 88 08/04/23 21:50 36.7 C 80 08/04/23 21:30 78 08/04/23 21:15 36.3 C L 76 08/04/23 21:05 78 08/04/23 20:55 74 08/04/23 20:45 75 08/04/23 20:35 70 08/04/23 20:26 36.3 C L 73 86 08/04/23 14:45 37.7 C H 86 08/04/23 14:23 88 08/04/23 13:12 95 H 08/04/23 12:50 37.0 C 88 88 08/04/23 12:46 37.0 C 90 08/04/23 12:30 85 08/04/23 12:00 80 08/04/23 11:30 79 08/04/23 11:00 74 08/04/23 10:30 80 08/04/23 10:19 37.0 C 77 08/04/23 10:15 37.0 C 82 08/04/23 07:40 37.1 C 89 08/04/23 03:42 36.9 C 88 Resp BP BP BP Pulse Ox O2 Del Method O2 Flow Rate 08/05/23 02:03 20 167/90 H 91 Room Air 08/05/23 00:42 18 164/87 H 94 Room Air 08/04/23 23:54 18 173/87 H 98 BiPAP 08/04/23 23:31 18 167/85 H 98 BiPAP 08/04/23 23:21 16 99 2 08/04/23 22:43 182/95 H 91 Room Air 08/04/23 21:50 189/100 H 93 Room Air 08/04/23 21:30 14 162/82 H 93 Room Air 08/04/23 21:15 20 161/83 H 94 Room Air 08/04/23 21:05 19 157/91 H 98 Room Air 08/04/23 20:55 15 163/79 H 95 Room Air 08/04/23 20:45 12 156/85 H 93 Room Air 08/04/23 20:35 12 156/86 H 94 Room Air 08/04/23 20:26 17 149/79 H 92 Room Air 08/04/23 14:45 20 168/81 H 93 Room Air 08/04/23 14:23 19 196/80 H 96 Room Air 08/04/23 13:12 173/94 H 94 Room Air 08/04/23 12:50 180/98 H 08/04/23 12:46 182/101 H 08/04/23 12:30 183/103 H 08/04/23 12:00 176/115 H 08/04/23 11:30 192/95 H 08/04/23 11:00 157/101 H 08/04/23 10:30 185/89 H 08/04/23 10:19 184/105 H 08/04/23 10:15 08/04/23 07:40 19 178/79 H 94 Room Air 08/04/23 03:42 20 172/76 H 94 Room Air Pain Intensity Generalized: Pain Intensity: 4 Back: Pain Intensity: 5 Right Leg: Pain Intensity: 8 Transfer of Care Handoff Completed per policy Notes Mental Status: alert / awake / arousable and participated in evaluation Patient Amnestic to Procedure: Yes Nausea / Vomiting: adequately controlled Pain: adequately controlled Airway Patency, RR, SpO2: stable & adequate BP & HR: stable & adequate Hydration State: stable & adequate Anesthetic Complications: no major complications apparent
[2023-08-05] MEDS: oxyCODONE HCL IR 5 MG TAB (IMMEDIATE RELEASE) PO PRN ×3 (05:46→11:43)
[2023-08-05 06:42] LABS: Hematocrit (blood only) 31.3 % (42.0-52.0); Mean Corpuscular Hgb Conc 31.9 g/dL (32.0-36.0); Mean Corpuscular Volume 87.7 fL (80.0-100.0); Mean Platelet Volume 9.3 fL (9.4-12.4); Platelet Count 504 K/uL (130-400); RDW Coefficient of Variation 14.5 % (11.5-14.5); RDW Standard Deviation 46.9 fL (36.4-46.3); Red Blood Count 3.57 M/uL (4.70-6.10); White Blood Count 15.67 K/ul (4.8-10.8)
[2023-08-05 07:05] LABS: BUN Creatinine Ratio 10.6 (10-20); Calcium 8.6 mg/dl (8.6-10.3); Creatinine Clr Calc Pharmacy 36.9 ml/min; Est GFR (African American) 20.8 ml/min; Est GFR (Non-African American) 17.9 ml/min; Potassium 5.3 mmol/L (3.5-5.1)
[2023-08-05] MEDS: DOCUSATE SODIUM 100 MG CAP PO SCH (08:07)
[2023-08-05] MEDS: HYDROmorphone INJ 1 MG/ML SYRINGE IV PRN ×3 (08:07→20:47)
[2023-08-05] MEDS: METOPROLOL SUCC 25MG EXT REL TAB PO SCH (08:08)
[2023-08-05] MEDS: amLODIPine BESYLATE 5 MG TAB PO SCH (09:17)
[2023-08-05] MEDS: ROSUVASTATIN CALCIUM 5 MG TAB PO SCH (09:17)
[2023-08-05] MEDS: INSULIN ASPART PER UNIT CHARGE SC SCH ×3 (09:18→16:46)
--- NOTE | 2023-08-05 10:10 | Nephrology Progress Note ---
Date of Service August 05, 2023 Assessment & Plan Admission and Anticipated Discharge Date Admission Date: July 23, 2023 Subjective Assessment & Plan (1) Acute kidney injury: Plan: SARWAT --from [facility].- He denies any renal problems in the past, and denies any OTC or NSAIDS, IV fluid were stopped 2/2 pulmonary congestion, He responded well to Lasix challenge , He is comfortable with 2l oxygen and BP and HR are better controlled, first HD on 07/28 At the moment he is making urine , electrolytes are safe. - Continue to hold ARB - Daily BMP, Input and output and daily weights preferably on the same scale - No iv fluids. BP seems high now persistently---amlodipine 5 daily + continue BB Appears to have renal recovery. May not need dialysis so will assess him before making plan for dialysis (2) Bacteremia: Plan: last + cx 07/23 group B strep renally dose Abx f/u mri --concern for abscess and discitis. S/p Surgery 08/04 Now WBC trending down. Subjective Had dialysis. Still c/o back pain. had Spine Proecure yesterday. UO 2200 ml. Ongoing back pain; denies sob or worsening edema. Bp is now consistently high Review of Systems Review of Systems: All systems reviewed & are unremarkable except as noted in Subjective Physical Exam Constitutional: well developed, + morbidly obese and cooperative; no acute distress Eyes: EOM intact bilaterally ENMT: Ears: no external ear abnormality Nose: no external nose abnormality Mouth: + dry oral mucous membranes Neck: no nuchal rigidity Respiratory: normal respiratory effort Auscultation: + diminished lung sounds Cardiovascular: Rate/Rhythm: regular rate and regular rhythm Extremities: + edema (trace ble) Gastrointestinal (Abdomen): Inspection/Auscultation: normal bowel sounds Percussion/Palpation: abdomen soft; abdomen nontender Musculoskeletal: Extremities: strength 5/5 throughout Skin: no rashes, warm and dry Neurologic: julien, fluent speech, no tremor Results & Data Vital Signs (Past 12 Hours) Vital Signs Temp Pulse Pulse Resp BP Pulse Ox O2 Del Method 08/05/23 07:46 38.1 C H 103 H 18 153/90 H 93 Room Air 08/05/23 04:15 36.5 C 103 H 20 162/97 H 92 BiPAP 08/05/23 03:10 36.6 C 88 18 189/106 H 95 Room Air 08/05/23 02:03 36.6 C 86 20 167/90 H 91 Room Air 08/05/23 00:42 36.9 C 85 18 164/87 H 94 Room Air 08/04/23 23:54 36.6 C 84 18 173/87 H 98 BiPAP 08/04/23 23:31 36.6 C 86 18 167/85 H 98 BiPAP 08/04/23 23:21 67 16 99 08/04/23 22:43 36.6 C 88 182/95 H 91 Room Air O2 Flow Rate 08/05/23 07:46 08/05/23 04:15 08/05/23 03:10 08/05/23 02:03 08/05/23 00:42 08/04/23 23:54 08/04/23 23:31 08/04/23 23:21 2 08/04/23 22:43
--- NOTE | 2023-08-05 11:12 | Hospitalist Progress Note ---
Date of Service August 05, 2023 Assessment & Plan (1) Sepsis: (2) Cellulitis: (3) Urinary tract infection: (4) Hypomagnesemia: (5) DM II (diabetes mellitus, type II), controlled: (6) HLD (hyperlipidemia): (7) HTN (hypertension): (8) Morbid obesity: (9) New onset a-fib: (10) Constipation: Plan Mr. 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 Patient found to be in a fib rvr and now being managed on PO metoprolol after converted to NSR while on Dilt drip the evening of 07/23. Patient found to have DVT in RLE and placed on heparin drip as well. On 07/24, patient was noted to be in exquisite back pain which is concerning given infectious work up has resulted with bacteremia [group a beta strep]. MRI imaging limited to noncontrast given progressive renal injury; this did not reveal discitis or signs overtly suggestive for vertebral osteomyelitis, but still concerning nonetheless. Ortho Spine evaluated patient for any acute neural compression, but there was no notable stenosis on imaging to correlate to pain on exam. Evaluation limited with MRI or CT 2/2 poor renal function. Patient's acute renal failure is likely secondary to prerenal etiology given low pressures/shock resulting in ATN. After no evidence of response to initial lasix challenge, with plateaued UOP and uptrending Cr, it was decided to place temporary HD line at bedside for intermittent hemodialysis. Given there is anticipation of renal recovery, any contrast use at this time is not advised to prevent further insult to kidneys. Plan to obtain further imaging once stable from renal standpoint to aid in assessment of ?osteomyelitis/discitis. Blood Cultures from 07/23 with Group A Strep B, Urine culture negative. ECHO with no clear sign of vegetations. To ensure no persistent bacteremia, blood cultures were obtained on 07/24 and 07/25 without growth to date. However, there was an increase in WBC on 07/28, prompting repeat blood cultures which are still negative WBC trend has improved. Repeat MRI L spine with contrast revealed epidural abscess and discitis L3-S1. Patient underwent washout and decompression on 08/[address] Lakatos given concern for further neurologic compromise. Patient tolerated procedure, now will require updated ID recommendations, as well as PT/OT #Acute lower back pain 2/2 epidural abscess/discitis -Pain control and mobilization as able -Continue abx as outlined below. -MRI lumbar spine (07/25): paravertebral marrow edema. no end plate erosion, no signs of osteomyelitis, however insufficient 2/2 lack of contrast iso ARF -Ortho spine consult: No surgical intervention at this time, consider bone scan if persistent. -MRI L spine with contrast (07/31): epidural abscesses L3-S1 and discitis--> cont current abx. -s/p washout and decompression L3-S1 -Discuss abx duration with ID #Constipation -Likely related to narcotics and minimal movement. Continues on miralax, senna, docusate. *resolved #Acute hypoxic respiratory failure iso IVF hydration/oliguric SARWAT *resolved -CXR with pulm edema, required 2L NC, now on room air -oxygen prn, encourage mobilization which is very suboptimal at this point. Able to sit on side of bed but is a max assist. -continue to optimize fluid management with hemodialysis #Oliguric SARWAT, likely evolving ATN 2/2 ischemia from hypotension/shock #Azotemia #Hypervolemic Hyponatremia -Nephrology consult: HD cath placement 07/28, plan for intermittent dialysis, cont T//Sat -Improved UOP, last HD 08/04 #Bacteremia 2/2 group a beta strep #Sepsis 2/2 bacteremia 2/2 epidural abscess - sepsis criteria with fever, elevated lactate, tachycardia, source likely RLE cellulitis/UTI on admission, *resolved - BCx NGTD; UA NGTD (denied urinary symptoms) - Continue Cefazolin with addition of Linezolid 600mg BID per ID - Gen surg: no surgical intervention on RLE (no fluid collections, predominately chronic changes of RLE) #Right LLE DVT - R ankle fracture 2013, R knee surgery in 2016 causes some enlargement in general in the RLE but this is much more swollen and tender in the calf compared to previously. -lymphedema and age-indeterminate DVT present -started on coumadin 07/31 with 5mg, but one dose caused his INR to go to 4.7 today. Held coumadin and heparin drip and trend INR in am. Restart coumadin at 2.5mg when INR <3.5. -continue IV heparin, continue in interim given renal dysfunction with plans to transition to PO regimen prior to dispo given known DVT/a fib 08/02: cont IV heparin and gave warfarin 2.5mg today, trend INR daily and stop heparin when INR 2-3 x 2 days. 08/03: heparin had been active in the computer but held in the room today incorrectly. RN addressed with event report and heparin was restarted per protocol. Vit K given. Plan to cont heparin until tomorrow am when it will temporarily be held for surgery--likely to be restarted tomorrow evening immediately post op. 08/04: heparin held at 0500, additional 2.5mg IV vit K given. Resume heparin post op. Hold off on restarting warfarin until ortho spine feels no further washouts are needed. 08/05: Heparin to resume this evening at 1600 #New onset atrial fibrillation with RVR, remains in sinus rhythm at this point. After initial evaluation the patient - he went into from what we can tell, new onset afib with RVR with rates of 140-150 CHADsVasc 2 likely iso sepsis/bacteremia -Received Diltazem drip, d/c 07/24 -Continue on metoprolol 25mg PO BID -AC with heparin this evening, and warfarin contingent on clinical course #Elevated troponin*improved -likely demand iso bacteremia and a fib -Downtrended -Monitor on telemetry -consider further evaluation as outpatient. #Hypertension Relative hypotension due to likely shock, resolved with abx/fluid bolus Regimen prior to arrival: amlodipine 10mg, HCTZ 25mg, losartan 50mg -Hold hctz and losartan in setting of renal failure Currently uncontrolled and on amlodipine 5mg +BB. Required hydralazine 10mg IV today. -Continue amlodipine 10mg daily and metoprolol 25mg bid -Cont hydralazine PRN and work to identify a better regimen given his renal failure is not improving and HD is not lowering his BP. #HLD - Chronic, stable, cont statin #Controlled DMTII -A1C 6.2% 07/24 -inpt BSG at goal - Holding metformin for now, ISS with accuchecks reveals no need for insulin coverage. Stop BSG checks at this time. #hypomagnesemia *resolved #Morbid obesity - BMI of 45, diet and exercise to be encouraged throughout hospital stay DVT ppx: heparin/coumadin @ 1600 08/05 GI/FEN: renal/Diabetic diet Lines: 2 PIV, HD line R neck CODE: FULL I spent a total [id number] coordinating, documenting, and providing care for this patient excluding time spent in the performance of separately billed services Admission and Anticipated Discharge Date Admission Date: July 23, 2023 Subjective s/p L3-S1 Irrigation and Debridement and Lumbar Decompression 08/04 Endorses ongoing back pain, no clear change postoperatively that patient could describe Continued UOP noted Denies chest pain, palpitations, subjective fever or other new concerns at this time Review of Systems Review of Systems: All systems reviewed & are unremarkable except as noted in Subjective Physical Exam Constitutional: laying in bed, distress only with movement Respiratory: normal respiratory effort, lungs clear to auscultation Cardiovascular: tachycardic on exam Gastrointestinal (Abdomen): normal bowel sounds, soft, nontender, no hepatosplenomegaly Results & Data Results & Data Vital Signs (Past 12 Hours) Vital Signs Temp Pulse Pulse Resp BP Pulse Ox O2 Del Method 08/05/23 08:00 Room Air 08/05/23 08:00 98 H 08/05/23 07:46 38.1 C H 103 H 18 153/90 H 93 Room Air 08/05/23 04:15 36.5 C 103 H 20 162/97 H 92 BiPAP 08/05/23 03:10 36.6 C 88 18 189/106 H 95 Room Air 08/05/23 02:03 36.6 C 86 20 167/90 H 91 Room Air 08/05/23 00:42 36.9 C 85 18 164/87 H 94 Room Air 08/04/23 23:54 36.6 C 84 18 173/87 H 98 BiPAP 08/04/23 23:31 36.6 C 86 18 167/85 H 98 BiPAP 08/04/23 23:21 67 16 99 O2 Flow Rate 08/05/23 08:00 08/05/23 08:00 08/05/23 07:46 08/05/23 04:15 08/05/23 03:10 08/05/23 02:03 08/05/23 00:42 08/04/23 23:54 08/04/23 23:31 08/04/23 23:21 2 Laboratory Results Short CBC 08/05/23 Range/Units 06:12 WBC 15.67 H (4.8-10.8) K/ul Hgb 10.0 L (14.0-18.0) g/dl Hct 31.3 L (42.0-52.0) % Plt Count 504 H (130-400) K/uL BMP 08/04/23 08/05/23 15:39 06:12 Sodium 134 L 132 L Potassium 4.4 5.3 H D Chloride 102 99 Carbon Dioxide 27 26 BUN 35 H D 37 H Creatinine 3.17 H D 3.48 H D Glucose 130 H 151 H Calcium 8.9 8.6 Medications Administered Home Medications Medication Instructions Recorded Confirmed Last Taken acetaminophen 500 mg tablet 500 mg PO TID PRN Other 07/23/23 07/23/23 Unknown albuterol sulfate 90 mcg/actuation 2 puff inhalation QID PRN Other 07/23/23 07/23/23 Unknown aerosol inhaler (Proventil HFA) amlodipine 10 mg tablet 10 mg PO DAILY 07/23/23 07/23/23 Unknown ciclesonide 160 mcg/actuation 1 puff inhalation BID 07/23/23 07/23/23 Unknown aerosol inhaler (Alvesco) hydrochlorothiazide 25 mg tablet 25 mg PO DAILY 07/23/23 07/23/23 Unknown losartan 50 mg tablet 50 mg PO DAILY 07/23/23 07/23/23 Unknown metformin 500 mg tablet 500 mg PO BID 07/23/23 07/23/23 Unknown rosuvastatin 5 mg tablet 5 mg PO DAILY 07/23/23 07/23/23 Unknown tamsulosin 0.4 mg capsule 0.8 mg PO HS 07/23/23 07/23/23 Unknown Active Medications Generic Name Dose Route Start Last Admin Trade Name Freq PRN Reason Stop Dose Admin Acetaminophen 650 mg 07/23/23 13:45 08/05/23 05:48 Acetaminophen 325 Mg Tab PO 08/22/23 13:44 650 mg Q6H NEGRITA Administration Acetaminophen 650 mg 07/23/23 18:41 08/04/23 22:30 Acetaminophen 325 Mg Tab PO 08/22/23 18:40 650 mg Q4H PRN Administration Moderate Pain (Scale 4, 5, 6) Amlodipine Besylate 10 mg 08/05/23 09:00 08/05/23 09:17 Amlodipine Besylate 5 Mg Tab PO 09/04/23 08:59 10 mg QAM NEGRITA Administration Glycerin 1 supp 08/02/23 19:02 08/03/23 04:37 Glycerin Adult 12 Supp/Box Supp ID 09/01/23 19:01 1 supp DAILY PRN Administration Constipation Hydralazine HCl 10 mg 08/04/23 18:14 08/05/23 03:42 Hydralazine Hcl 20 Mg/Ml Vial IV 09/03/23 18:14 10 mg Q6H PRN Administration SBP>170 Hydromorphone HCl 0.5 mg 07/29/23 20:46 08/04/23 22:12 Hydromorphone Inj 1 Mg/Ml Syringe IV 08/09/23 09:42 0.5 mg Q6H PRN Administration Pain Hydromorphone HCl 1 mg 08/05/23 01:17 08/05/23 08:07 Hydromorphone Inj 1 Mg/Ml Syringe IV 08/19/23 01:16 1 mg Q4H PRN Administration Pain Heparin Sodium/Dextrose 25,000 units in 500 mls @ 0 mls/hr 07/23/23 20:30 08/05/23 00:10 Heparin Sodium/Dextrose IV 08/22/23 20:29 Not Given .Q0M NEGRITA Protocol Per Protocol Cefazolin Sodium 1,000 mg in 7.5 mls @ 2.5 mls/min 08/01/23 23:00 08/04/23 22:31 Ancef 1000mg IV 09/14/23 10:59 2.5 mls/min Q24H NEGRITA Administration Protocol Linezolid 600 mg in 300 mls @ 200 mls/hr 08/03/23 15:00 08/05/23 03:45 Zyvox IV 09/14/23 14:59 Infused Q12H NEGRITA Infusion Sodium Chloride 500 mls @ 0 mls/hr 08/04/23 16:00 08/04/23 16:30 Nss IV 09/03/23 15:59 Infused .Q0M NEGRITA Infusion KVO Insulin Aspart 0 units 08/04/23 21:00 08/05/23 11:39 Insulin Aspart Per Unit Charge SC 09/03/23 20:59 Not Given ACHS NEGRITA Metoprolol Succinate 25 mg 07/28/23 21:00 08/05/23 08:08 Metoprolol Succ 25mg Ext Rel Tab PO 08/27/23 20:59 25 mg BID NEGRITA Administration Oxycodone HCl 5 mg 07/31/23 11:02 08/05/23 00:00 Oxycodone Hcl Ir 5 Mg Tab (Immediate Release) PO 08/06/23 13:42 5 mg Q4H PRN Administration Moderate Pain (Scale 4, 5, 6) Oxycodone HCl 5 - 10 mg 08/05/23 01:19 08/05/23 05:46 Oxycodone Hcl Ir 5 Mg Tab (Immediate Release) PO 08/19/23 01:18 10 mg QID PRN Administration Pain Rosuvastatin Calcium 5 mg 07/24/23 09:00 08/05/23 09:17 Rosuvastatin Calcium 5 Mg Tab PO 08/23/23 08:59 5 mg DAILY NEGRITA Administration Sennosides 17.2 mg 07/30/23 21:00 08/04/23 22:26 Senna 8.6 Mg Tab PO 08/29/23 20:59 17.2 mg HS NEGRITA Administration Tamsulosin HCl 0.8 mg 07/23/23 21:00 08/04/23 22:26 Tamsulosin Hcl 0.4 Mg Cap PO 08/22/23 20:59 0.8 mg HS NEGRITA Administration Warfarin Sodium 2.5 mg 08/02/23 16:00 08/02/23 17:36 Warfarin Sod 2.5 Mg Tab PO 09/01/23 15:59 2.5 mg DAILY@1600 NEGRITA Administration
[2023-08-05] MEDS: ACETAMINOPHEN 325 MG TAB PO PRN (11:44)
[2023-08-05] MEDS ORDERED: LABETALOL HCL IV 5 MG/ML 20ML IV STA (12:13)
[2023-08-05 16:46] LABS: Partial Thromboplastin Ratio 1.2; Partial Thromboplastin Time 35.1 Seconds (21.0-31.0)
[2023-08-05] MEDS: METOPROLOL SUCC 50MG EXT REL TAB PO SCH (20:49)
[2023-08-05] MEDS: SENNA 8.6 MG TAB PO SCH (20:49)
[2023-08-05] MEDS: TAMSULOSIN HCL 0.4 MG CAP PO SCH (20:50)
[2023-08-06 00:24] LABS: Partial Thromboplastin Ratio 1.6
[2023-08-06 00:43] LABS: Partial Thromboplastin Time 45.8 Seconds (21.0-31.0)
[2023-08-06] MEDS: ceFAZolin 1000MG 1,000 MG/7.5 ML SYR IV SCH (01:00)
[2023-08-06] MEDS: LINEZOLID 600 MG/300 ML BAG IV SCH ×3 (01:30→23:18)
[2023-08-06] MEDS: ACETAMINOPHEN 325 MG TAB PO SCH ×4 (02:00→21:09)
[2023-08-06] MEDS: oxyCODONE HCL IR 5 MG TAB (IMMEDIATE RELEASE) PO PRN ×4 (04:14→23:20)
[2023-08-06] MEDS: HEPARIN SODIUM/DEXTROSE 25,000 UNITS/500 ML BAG IV SCH ×3 (04:24→21:21)
[2023-08-06] MEDS: INSULIN ASPART PER UNIT CHARGE SC SCH ×5 (04:26→21:04)
[2023-08-06 05:06] LABS: Hematocrit (blood only) 26.8 % (42.0-52.0); Hemoglobin 8.7 g/dl (14.0-18.0); Mean Corpuscular Hemoglobin 27.6 pg (25.0-34.0); Mean Corpuscular Hgb Conc 32.5 g/dL (32.0-36.0); Mean Corpuscular Volume 85.1 fL (80.0-100.0); Mean Platelet Volume 9.3 fL (9.4-12.4); Platelet Count 478 K/uL (130-400); RDW Coefficient of Variation 14.8 % (11.5-14.5); Red Blood Count 3.15 M/uL (4.70-6.10); White Blood Count 21.03 K/ul (4.8-10.8)
[2023-08-06 05:27] LABS: BUN Creatinine Ratio 11.5 (10-20); Calcium 8.9 mg/dl (8.6-10.3); Est GFR (African American) 20.2 ml/min; Est GFR (Non-African American) 17.4 ml/min; Magnesium 1.6 mg/dl (1.7-2.4); Phosphorus 5.6 mg/dl (2.5-4.9); Potassium 5.2 mmol/L (3.5-5.1)
[2023-08-06 05:32] LABS: INR 1.5 (0.9-1.1); Prothrombin Time 15.8 Seconds (9.0-12.0)
[2023-08-06] MEDS ORDERED: CEFEPIME 2,000 MG in SYRINGE 0 ML IV SCH (08:15)
[2023-08-06 08:47] LABS: Hematocrit (blood only) 27.5 % (42.0-52.0); Hemoglobin 8.9 g/dl (14.0-18.0)
[2023-08-06] MEDS ORDERED: metroNIDAZOLE 500 MG TAB PO SCH (09:00)
[2023-08-06] MEDS ORDERED: PIPER/TAZO 4.5g in D5W MINI-B 100 ML IV ONE (09:15)
[2023-08-06] MEDS: DOCUSATE SODIUM 100 MG CAP PO SCH (09:28)
[2023-08-06] MEDS: amLODIPine BESYLATE 5 MG TAB PO SCH (09:28)
[2023-08-06] MEDS: ROSUVASTATIN CALCIUM 5 MG TAB PO SCH (09:28)
[2023-08-06] MEDS: METOPROLOL SUCC 50MG EXT REL TAB PO SCH ×3 (11:28→21:25)
[2023-08-06] MEDS ORDERED: HOLD ORDER ONE (11:45)
--- NOTE | 2023-08-06 11:46 | Hospitalist Progress Note ---
Date of Service August 06, 2023 Assessment & Plan (1) Sepsis: (2) Cellulitis: (3) Urinary tract infection: (4) Hypomagnesemia: (5) DM II (diabetes mellitus, type II), controlled: (6) HLD (hyperlipidemia): (7) HTN (hypertension): (8) Morbid obesity: (9) New onset a-fib: (10) Constipation: Plan Mr. 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 Patient found to be in a fib rvr and now being managed on PO metoprolol after converted to NSR while on Dilt drip the evening of 07/23. Patient found to have DVT in RLE and placed on heparin drip as well. On 07/24, patient was noted to be in exquisite back pain which is concerning given infectious work up has resulted with bacteremia [group a beta strep]. MRI imaging limited to noncontrast given progressive renal injury; this did not reveal discitis or signs overtly suggestive for vertebral osteomyelitis, but still concerning nonetheless. Ortho Spine evaluated patient for any acute neural compression, but there was no notable stenosis on imaging to correlate to pain on exam. Evaluation limited with MRI or CT 2/2 poor renal function. Patient's acute renal failure is likely secondary to prerenal etiology given low pressures/shock resulting in ATN. After no evidence of response to initial lasix challenge, with plateaued UOP and up trending Cr, it was decided to place temporary HD line at bedside for intermittent hemodialysis. Given there is anticipation of renal recovery, any contrast use at this time is not advised to prevent further insult to kidneys. Plan to obtain further imaging once stable from renal standpoint to aid in assessment of ?osteomyelitis/discitis. Blood Cultures from 07/23 with Group A Strep B, Urine culture negative. ECHO with no clear sign of vegetations. To ensure no persistent bacteremia, blood cultures were obtained on 07/24 and 07/25 without growth to date. However, there was an increase in WBC on 07/28, prompting repeat blood cultures which are still negative WBC trend has improved. Repeat MRI L spine with contrast revealed epidural abscess and discitis L3-S1. Patient underwent washout and decompression on 08/[address] Kelley given concern for further neurologic compromise. Patient tolerated procedure, now will require updated ID recommendations, as well as PT/OT. Heparin was resumed on 08/05 per surgery approval at 1600 without bolus; it was noted that on am labs, as well as recheck hgb down to 8.9 from baseline this admission of 10. Holding heparin given concern for bleeding. Discussion with Dr. Kelley on 08/06 revealed that procedure did not yeild any significant findings for degree of patient's pain--no purulence was appreciated or expressed from washout and decompression. Pathology pending. Patient has been with low grade temperature, tachycardia, and new leukocytosis. Unclear if these are standard changes post-operatively, but given patient's poor progression will assess blood cultures and broaden antibiotic coverage while awaiting final recommendations from Infectious disease. #Acute blood loss anemia, c/f post-operative losses v hemolytic process -Hgb stable at 10, down to 8.9; no reports of blood loss from GI standpoint -Holding heparin fro 24-48 hours -Trend CBC q12, monitor for acute blood loss, transfuse <7.0 -Hemolysis labs and infectious work up #SIRS postoperatively, unclear if infectious source well controlled -Low grade fevers and tachycardia post-operatively; hgb drop, may be contributing -Broadened to Zosyn, continue linezolid -Infectious disease pending further recommendations -No reported diarrhea -Follow up anemia as above #Bacteremia 2/2 group a beta strep #Sepsis 2/2 bacteremia 2/2 epidural abscess - sepsis criteria with fever, elevated lactate, tachycardia, source likely RLE cellulitis/UTI on admission, *resolved - BCx NGTD; UA NGTD (denied urinary symptoms) - Continue Cefazolin with addition of Linezolid 600mg BID per ID - Gen surg: no surgical intervention on RLE (no fluid collections, predominately chronic changes of RLE) #Acute lower back pain 2/2 epidural abscess/discitis -Pain control and mobilization as able -Continue abx as outlined below. -MRI lumbar spine (07/25): paravertebral marrow edema. no end plate erosion, no signs of osteomyelitis, however insufficient 2/2 lack of contrast iso ARF -Ortho spine consult: No surgical intervention at this time, consider bone scan if persistent. -MRI L spine with contrast (07/31): epidural abscesses L3-S1 and discitis--> cont current abx. -s/p washout and decompression L3-S1 -Discuss abx duration with ID,pending formal recommendations #Constipation -Likely related to narcotics and minimal movement. Continues on miralax, senna, docusate. *resolved #Acute hypoxic respiratory failure iso IVF hydration/oliguric SARWAT *resolved -CXR with pulm edema, required 2L NC, now on room air -oxygen prn, encourage mobilization which is very suboptimal at this point. Able to sit on side of bed but is a max assist. -continue to optimize fluid management with hemodialysis #Oliguric SARWAT, likely evolving ATN 2/2 ischemia from hypotension/shock *improving #Azotemia #Hypervolemic Hyponatremia -Nephrology consult: HD cath placement 07/28, plan for intermittent dialysis, cont //Thu -Improved UOP, last HD 08/04 #Right LLE DVT - R ankle fracture 2013, R knee surgery in 2015 causes some enlargement in gene ral in the RLE but this is much more swollen and tender in the calf compared to previously. -lymphedema and age-indeterminate DVT present -started on coumadin 07/31 with 5mg, but one dose caused his INR to go to 4.7 today. Held coumadin and heparin drip and trend INR in am. Restart Coumadin at 2.5mg when INR <3.5. -continue IV heparin, continue in interim given renal dysfunction with plans to transition to PO regimen prior to dispo given known DVT/a fib 08/02: cont IV heparin and gave warfarin 2.5mg today, trend INR daily and stop heparin when INR 2-3 x 2 days. 08/03: heparin had been active in the computer but held in the room today incorrectly. RN addressed with event report and heparin was restarted per protocol. Vit K given. Plan to cont heparin until tomorrow am when it will tem porarily be held for surgery--likely to be restarted tomorrow evening immediately post op. 08/04: heparin held at 0500, additional 2.5mg IV vit K given. Resume heparin post op. Hold off on restarting warfarin until ortho spine feels no further washouts are needed. 08/05: Heparin to resume this evening at 1600 per surgery 08/06: 2 g hgb drop, no clear source; holding heparin as above #New onset atrial fibrillation with RVR, remains in sinus rhythm at this point. After initial evaluation the patient - he went into from what we can tell, new onset afib with RVR with rates of 140-150 CHADsVasc 2 likely iso sepsis/bacteremia -Received Diltazem drip, d/c 07/24 -Continue on metoprolol 25mg PO BID -Holding heparin as above #Elevated troponin*improved -likely demand iso bacteremia and a fib -Downtrended -Monitor on telemetry -consider further evaluation as outpatient. #Hypertension Relative hypotension due to likely shock, resolved with abx/fluid bolus Regimen prior to arrival: amlodipine 10mg, HCTZ 25mg, losartan 50mg -Hold hctz and losartan in setting of renal failure Currently uncontrolled and on amlodipine 5mg +BB. Required hydralazine 10mg IV today. -Continue amlodipine 10mg daily and increased metoprolol 50mg bid -Avoiding hydralazine 2/2 reflex tachycardia #HLD - Chronic, stable, cont statin #Controlled DMTII -A1C 6.2% 07/24 -inpt BSG at goal - Holding metformin for now, ISS with accuchecks reveals no need for insulin coverage. Stop BSG checks at this time. #hypomagnesemia *resolved #Morbid obesity - BMI of 45, diet and exercise to be encouraged throughout hospital stay DVT ppx: heparin/coumadin held GI/FEN: renal/Diabetic diet Lines: 2 PIV, HD line R neck CODE: FULL I spent a total [id number] coordinating, documenting, and providing care for this patient excluding time spent in the performance of separately billed services Admission and Anticipated Discharge Date Admission Date: July 23, 2023 Subjective Heparin started 08/05 @ 1600, drop in hgb, no reported signs of bleeding Patient states pain is still present, but lesser in intensity; mostly with rolls, shifting, moving--whereas previously pain was intolerable laying still Endorses occasional rigors, subjective sensation of fever Denies any coughing/SOB, chest pain, diarrhea, or other infectious like symptoms Telemetry reviewed, sinus rhythm, tachy to 100s few PVCs no afib Review of Systems Review of Systems: All systems reviewed & are unremarkable except as noted in Subjective Physical Exam Constitutional: laying flat, calm conversational Respiratory: normal respiratory effort, lungs clear to auscultation Cardiovascular: tachycardic Musculoskeletal: improved edema of right lower extremity, Results & Data Results & Data Vital Signs (Past 12 Hours) Vital Signs Temp Pulse Pulse Pulse Resp BP BP 08/06/23 07:24 37.9 C H 106 H 18 166/83 H 08/06/23 03:46 38 C H 107 H 163/80 H 08/06/23 00:59 65 08/06/23 00:03 36.8 C 97 H 20 151/83 H Pulse Ox O2 Del Method 08/06/23 07:24 94 Room Air 08/06/23 03:46 98 Room Air 08/06/23 00:59 08/06/23 00:03 98 BiPAP Laboratory Results Short CBC 08/06/23 08/06/23 Range/Units 04:44 08:32 WBC 21.03 H (4.8-10.8) K/ul Hgb 8.7 L 8.9 L (14.0-18.0) g/dl Hct 26.8 L 27.5 L (42.0-52.0) % Plt Count 478 H (130-400) K/uL BMP 08/06/23 04:44 Sodium 131 L Potassium 5.2 H Chloride 99 Carbon Dioxide 25 BUN 41 H Creatinine 3.56 H Glucose 136 H Calcium 8.9 Medications Administered Home Medications Medication Instructions Recorded Confirmed Last Taken acetaminophen 500 mg tablet 500 mg PO TID PRN Other 07/23/23 07/23/23 Unknown albuterol sulfate 90 mcg/actuation 2 puff inhalation QID PRN Other 07/23/23 07/23/23 Unknown aerosol inhaler (Proventil HFA) amlodipine 10 mg tablet 10 mg PO DAILY 07/23/23 07/23/23 Unknown ciclesonide 160 mcg/actuation 1 puff inhalation BID 07/23/23 07/23/23 Unknown aerosol inhaler (Alvesco) hydrochlorothiazide 25 mg tablet 25 mg PO DAILY 07/23/23 07/23/23 Unknown losartan 50 mg tablet 50 mg PO DAILY 07/23/23 07/23/23 Unknown metformin 500 mg tablet 500 mg PO BID 07/23/23 07/23/23 Unknown rosuvastatin 5 mg tablet 5 mg PO DAILY 07/23/23 07/23/23 Unknown tamsulosin 0.4 mg capsule 0.8 mg PO HS 07/23/23 07/23/23 Unknown Active Medications Generic Name Dose Route Start Last Admin Trade Name Freq PRN Reason Stop Dose Admin Acetaminophen 650 mg 07/23/23 13:45 08/06/23 09:28 Acetaminophen 325 Mg Tab PO 08/22/23 13:44 650 mg Q6H NEGRITA Administration Acetaminophen 650 mg 07/23/23 18:41 08/05/23 11:44 Acetaminophen 325 Mg Tab PO 08/22/23 18:40 650 mg Q4H PRN Administration Moderate Pain (Scale 4, 5, 6) Amlodipine Besylate 10 mg 08/05/23 09:00 08/06/23 09:28 Amlodipine Besylate 5 Mg Tab PO 09/04/23 08:59 10 mg QAM NEGRITA Administration Docusate Sodium 100 mg 08/06/23 09:00 08/06/23 09:28 Docusate Sodium 100 Mg Cap PO 09/05/23 08:59 100 mg DAILY NEGRITA Administration Glycerin 1 supp 08/02/23 19:02 08/03/23 04:37 Glycerin Adult 12 Supp/Box Supp TN 09/01/23 19:01 1 supp DAILY PRN Administration Constipation Hydromorphone HCl 0.5 mg 07/29/23 20:46 08/04/23 22:12 Hydromorphone Inj 1 Mg/Ml Syringe IV 08/09/23 09:42 0.5 mg Q6H PRN Administration Pain Hydromorphone HCl 1 mg 08/05/23 01:17 08/05/23 20:47 Hydromorphone Inj 1 Mg/Ml Syringe IV 08/19/23 01:16 1 mg Q4H PRN Administration Pain Heparin Sodium/Dextrose 25,000 units in 500 mls @ 43 mls/hr 07/23/23 20:30 08/06/23 04:24 Heparin Sodium/Dextrose IV 08/22/23 20:29 2,150 units/hr .[id number] NEGRITA 43 mls/hr Administration Protocol 2,150 UNITS/HR Linezolid 600 mg in 300 mls @ 200 mls/hr 08/03/23 15:00 08/06/23 03:30 Zyvox IV 09/14/23 14:59 Infused Q12H NEGRITA Infusion Sodium Chloride 500 mls @ 0 mls/hr 08/04/23 16:00 08/04/23 16:30 Nss IV 09/03/23 15:59 Infused .Q0M NEGRITA Infusion KVO Insulin Aspart 0 units 08/04/23 21:00 08/06/23 08:19 Insulin Aspart Per Unit Charge SC 09/03/23 20:59 Not Given ACHS NEGRITA Metoprolol Succinate 50 mg 08/05/23 21:00 08/06/23 11:28 Metoprolol Succ 50mg Ext Rel Tab PO 09/04/23 20:59 50 mg BID NEGRITA Administration Oxycodone HCl 5 mg 07/31/23 11:02 08/05/23 00:00 Oxycodone Hcl Ir 5 Mg Tab (Immediate Release) PO 08/06/23 13:42 5 mg Q4H PRN Administration Moderate Pain (Scale 4, 5, 6) Oxycodone HCl 5 - 10 mg 08/05/23 01:19 08/06/23 09:27 Oxycodone Hcl Ir 5 Mg Tab (Immediate Release) PO 08/19/23 01:18 10 mg QID PRN Administration Pain Rosuvastatin Calcium 5 mg 07/24/23 09:00 08/06/23 09:28 Rosuvastatin Calcium 5 Mg Tab PO 08/23/23 08:59 5 mg DAILY NEGRITA Administration Sennosides 17.2 mg 07/30/23 21:00 08/05/23 20:49 Senna 8.6 Mg Tab PO 08/29/23 20:59 17.2 mg HS NEGRITA Administration Tamsulosin HCl 0.8 mg 07/23/23 21:00 08/05/23 20:50 Tamsulosin Hcl 0.4 Mg Cap PO 08/22/23 20:59 0.8 mg HS NEGRITA Administration Warfarin Sodium 2.5 mg 08/02/23 16:00 08/02/23 17:36 Warfarin Sod 2.5 Mg Tab PO 09/01/23 15:59 2.5 mg DAILY@1600 NEGRITA Administration
--- NOTE | 2023-08-06 11:54 | Nephrology Progress Note ---
Date of Service August 06, 2023 Assessment & Plan Admission and Anticipated Discharge Date Admission Date: July 23, 2023 Subjective Subjective Assessment & Plan (1) Acute kidney injury: Plan: SARWAT --from ATN.- He denies any renal problems in the past, and denies any OTC or NSAIDS, IV fluid were stopped 2/2 pulmonary congestion, He responded well to Lasix challenge , He is comfortable with 2l oxygen and BP and HR are better controlled, first HD on 07/28. At the moment he is making urine , electrolytes are safe. Continue to hold ARB Daily BMP, Input and output and daily weights preferably on the same scale No iv fluids. BP seems high now persistently---amlodipine 10 daily + continue BB. tolerate somewhat higher BP given acute issues Appears to have renal recovery. May not need dialysis so will assess him before making plan for dialysis. Creat today about same as yesterday and he had 4100 ml urine yesterday. No dialysis today. Will remove Catheter once we start seeing dropping creat to the 2's. K is borderline high--add patiromer. (2) Bacteremia: Plan: last + cx 07/23 group B strep renally dose Abx f/u mri --concern for abscess and discitis. S/p Surgery 08/04 Now WBC trending down. Subjective Had dialysis. Still c/o back pain. had Spine Proecure yesterday. UO 2200 ml. Ongoing back pain; denies sob or worsening edema. Bp is now consistently high Review of Systems Review of Systems: All systems reviewed & are unremarkable except as noted in Subjective Physical Exam Constitutional: well developed, + morbidly obese and cooperative; no acute distress Eyes: EOM intact bilaterally ENMT: Ears: no external ear abnormality Nose: no external nose abnormality Mouth: + dry oral mucous membranes Neck: no nuchal rigidity Respiratory: normal respiratory effort Auscultation: + diminished lung sounds Cardiovascular: Rate/Rhythm: regular rate and regular rhythm Extremities: + edema (trace ble) Gastrointestinal (Abdomen): Inspection/Auscultation: normal bowel sounds Percussion/Palpation: abdomen soft; abdomen nontender Musculoskeletal: Extremities: strength 5/5 throughout Skin: no rashes, warm and dry Neurologic: julien, fluent speech, no tremor Results & Data Vital Signs (Past 12 Hours) Vital Signs Temp Pulse Pulse Pulse Resp BP BP 08/06/23 07:24 37.9 C H 106 H 18 166/83 H 08/06/23 03:46 38 C H 107 H 163/80 H 08/06/23 00:59 65 08/06/23 00:03 36.8 C 97 H 20 151/83 H Pulse Ox O2 Del Method 08/06/23 07:24 94 Room Air 08/06/23 03:46 98 Room Air 08/06/23 00:59 08/06/23 00:03 98 BiPAP
[2023-08-06] MEDS ORDERED: MAGNESIUM SULFATE / D5W 1 GM/100 ML BAG IV SCH (12:15)
[2023-08-06] MEDS: PATIROMER CALCIUM SORBITEX 8.4 GM PACK PO SCH (12:44)
[2023-08-06] MEDS: PIPER/TAZO 4.5g in D5W MINI-B 100 ML IV SCH ×2 (14:21→23:17)
[2023-08-06] MEDS ORDERED: PIPER/TAZO 4.5g in D5W MINI-B 100 ML IV SCH (15:00)
[2023-08-06 16:23] LABS: Hemoglobin 8.7 g/dl (14.0-18.0); Mean Corpuscular Hemoglobin 28.2 pg (25.0-34.0); Mean Corpuscular Hgb Conc 32.2 g/dL (32.0-36.0); Mean Corpuscular Volume 87.4 fL (80.0-100.0); Mean Platelet Volume 9.2 fL (9.4-12.4); Platelet Count 468 K/uL (130-400); RDW Coefficient of Variation 14.6 % (11.5-14.5); RDW Standard Deviation 46.9 fL (36.4-46.3); Red Blood Count 3.09 M/uL (4.70-6.10); Reticulated Hemoglobin 28.1 pg (28.2-36.6); Reticulocyte % 2.1 % (0.5-2.0); Reticulocytes # 0.06 10^6/uL (0.02-0.10); White Blood Count 17.97 K/ul (4.8-10.8)
[2023-08-06 16:42] LABS: Bilirubin Direct 0.4 mg/dl (0-0.2); Bilirubin,Total 1.2 mg/dl (0.2-1.0)
[2023-08-06 17:06] LABS: Folate (Folic Acid),Ser orPlas 20.41 ng/ml (>5.38)
[2023-08-06] MEDS: SENNA 8.6 MG TAB PO SCH (21:05)
[2023-08-06] MEDS: TAMSULOSIN HCL 0.4 MG CAP PO SCH (21:06)
[2023-08-06] MEDS: NIFEdipine 10 MG CAP PO SCH ×2 (21:14→22:32)
[2023-08-07 00:57] LABS: Partial Thromboplastin Ratio 1.6; Partial Thromboplastin Time 45.2 Seconds (21.0-31.0)
[2023-08-07] MEDS: ACETAMINOPHEN 325 MG TAB PO SCH ×4 (02:49→20:34)
[2023-08-07] MEDS: oxyCODONE HCL IR 5 MG TAB (IMMEDIATE RELEASE) PO PRN ×2 (06:26→14:11)
[2023-08-07 06:41] LABS: Hematocrit (blood only) 26.7 % (42.0-52.0); Hemoglobin 8.4 g/dl (14.0-18.0); Mean Corpuscular Hgb Conc 31.5 g/dL (32.0-36.0); Mean Platelet Volume 9.3 fL (9.4-12.4); Platelet Count 495 K/uL (130-400); RDW Coefficient of Variation 14.4 % (11.5-14.5); RDW Standard Deviation 46.6 fL (36.4-46.3); White Blood Count 14.54 K/ul (4.8-10.8)
[2023-08-07 06:54] LABS: Albumin Globulin Ratio 0.5 (0.9-2); Albumin Level 2.8 gm/dl (3.4-5.0); BUN Creatinine Ratio 13.7 (10-20); Bilirubin,Total 1.1 mg/dl (0.2-1.0); Calcium 9.2 mg/dl (8.6-10.3); Creatinine Clr Calc Pharmacy 38.8 ml/min; Est GFR (African American) 22.3 ml/min; Est GFR (Non-African American) 19.2 ml/min; Globulin 5.1 gm/dl (2.5-4.0); Magnesium 1.7 mg/dl (1.7-2.4); Phosphorus 6.1 mg/dl (2.5-4.9); Potassium 4.5 mmol/L (3.5-5.1); Total Protein 7.9 gm/dl (6.0-8.3)
[2023-08-07 06:55] LABS: INR 1.4 (0.9-1.1); Prothrombin Time 15.4 Seconds (9.0-12.0)
[2023-08-07 07:11] LABS: Partial Thromboplastin Ratio 1.6
[2023-08-07 07:46] LABS: Partial Thromboplastin Time 44.1 Seconds (21.0-31.0)
[2023-08-07] MEDS: PIPER/TAZO 4.5g in D5W MINI-B 100 ML IV SCH ×3 (08:20→23:18)
[2023-08-07] MEDS: HEPARIN SODIUM/DEXTROSE 25,000 UNITS/500 ML BAG IV SCH ×2 (09:26→21:19)
[2023-08-07] MEDS: INSULIN ASPART PER UNIT CHARGE SC SCH ×4 (09:26→20:30)
[2023-08-07] MEDS: DOCUSATE SODIUM 100 MG CAP PO SCH (09:31)
[2023-08-07] MEDS: METOPROLOL SUCC 50MG EXT REL TAB PO SCH ×2 (09:31→20:31)
[2023-08-07] MEDS: ROSUVASTATIN CALCIUM 5 MG TAB PO SCH (09:31)
[2023-08-07] MEDS: NIFEdipine 10 MG CAP PO SCH ×3 (09:32→20:30)
--- NOTE | 2023-08-07 10:15 | Nephrology Progress Note ---
Date of Service August 07, 2023 Assessment & Plan Admission and Anticipated Discharge Date Admission Date: July 23, 2023 Subjective Assessment & Plan (1) Acute kidney injury: Plan: SARWAT --from ATN.- He denies any renal problems in the past, and denies any OTC or NSAIDS, IV fluid were stopped 2/2 pulmonary congestion, He responded well to Lasix challenge , He is comfortable with 2l oxygen and BP and HR are better controlled, first HD on 07/28. At the moment he is making urine , electrolytes are safe. Continue to hold ARB Daily BMP, Input and output and daily weights preferably on the same scale No iv fluids. BP seems high now persistently. Conitnue amlodipine 10 daily + continue BB. tolerate somewhat higher BP given acute issues Appears to have renal recovery. May not need dialysis so will assess him before making plan for dialysis. Creat today about slightly less than yesterday and he had 4600 ml urine yesterday. No dialysis today. Will remove Catheter once we start seeing dropping creat to the mid 2's. K is normal today after adding patiromer. will use for few more days. hgb is low. Give procrit 48874 units sub q today. He did receive some with dialysis but most likely he wont need any more dialysis (2) Bacteremia: Plan: last + cx 07/23 group B strep renally dose Abx f/u mri --concern for abscess and discitis. S/p Surgery 08/04 Now WBC trending down. Subjective Had dialysis. Still c/o back pain. had Spine Proecure yesterday. UO 2200 ml. Ongoing back pain; denies sob or worsening edema. Bp is now consistently high Review of Systems Review of Systems: All systems reviewed & are unremarkable except as noted in Subjective Physical Exam Constitutional: well developed, + morbidly obese and cooperative; no acute distress Eyes: EOM intact bilaterally ENMT: Ears: no external ear abnormality Nose: no external nose abnormality Mouth: + dry oral mucous membranes Neck: no nuchal rigidity Respiratory: normal respiratory effort Auscultation: + diminished lung sounds Cardiovascular: Rate/Rhythm: regular rate and regular rhythm Extremities: + edema (trace ble) Gastrointestinal (Abdomen): Inspection/Auscultation: normal bowel sounds Percussion/Palpation: abdomen soft; abdomen nontender Musculoskeletal: Extremities: strength 5/5 throughout Skin: no rashes, warm and dry Neurologic: julien, fluent speech, no tremor Results & Data Vital Signs (Past 12 Hours) Vital Signs Temp Pulse Pulse Resp BP Pulse Ox O2 Del Method 08/07/23 07:13 36.7 C 95 H 20 157/84 H 97 Room Air 08/07/23 03:28 36.8 C 90 22 147/83 H 94 BiPAP 08/07/23 01:00 102 H 08/06/23 23:10 86 16 96 08/06/23 23:09 37.2 C 89 20 140/82 96 BiPAP O2 Flow Rate 08/07/23 07:13 08/07/23 03:28 08/07/23 01:00 08/06/23 23:10 2 08/06/23 23:09
[2023-08-07] MEDS: HYDROmorphone INJ 1 MG/ML SYRINGE IV PRN (11:14)
--- NOTE | 2023-08-07 12:19 | Orthopedic Progress Note ---
Date of Service August 07, 2023 Subjective . Patient 3 days status post exploration of lumbar region posteriorly for inflammatory reaction and possible infection as noted on MRI with contrast. Patient notes continued low back pain, this appears to be similar to what he had prior to the surgery, though it was exacerbated in the 2 days after the surgery. No other new changes. Incision was a limited drainage present. No change in motor function lower extremities. Pathology report: A. Soft tissue, paraspinal tissue L5, biopsy: - Fibroadipose tissue and skeletal muscle with chronic focally active inflammation - Focal fat necrosis B. Ligament and bone, L4-L5 interspinous ligament, removal: - Reactive cartilage and relatively normal appearing marrow elements - Dense fibrous tissue with mild chronic inflammation Preliminary report on cultures, no growth. Collected Result WBC Units Range Specimen Report 08/07/23 06:08 14.54H 08/06/23 16:03 17.97H 08/06/23 04:44 21.03H 08/05/23 06:12 15.67H Impression: Continued low back pain with inflammatory findings on MRI, but no areas of abscess noted in the paraspinal musculature, interspinous region or the spinal canal with L4-5 decompression. WBC decreasing Recommend mobilization with physical therapy, the patient certainly could be mobilized to out of bed to a chair and some limited ambulation, he is also a candidate for getting in the shower this weekend, incision site can be washed and new dressing applied as needed. We will continue to follow. Review of Systems All systems reviewed & are unremarkable except as noted in HPI & below. Physical Exam . Results & Data Results & Data Laboratory Results . Diagnostic Findings . PG Care Time/CCT Total # of Minutes Spent Total Time Spent with Patient: Total time spent is greater than 50% in coordination of care (as documented) at patient's floor/unit and/or counseling patient: Coding Level of Care Code 14081 Post Operative Follow-Up
[2023-08-07] MEDS: EPOETIN ALFA 20,000 UNITS/ML VIAL SQ SCH (12:27)
[2023-08-07] MEDS: LINEZOLID 600 MG/300 ML BAG IV SCH ×2 (12:27→23:18)
--- NOTE | 2023-08-07 12:28 | Operative Report ---
PG Post Operative Report Pre & Post Diagnosis Operation Date: 08/04/23 07:00 Pre-Op Diagnosis: Lumbar Infection Post-Op Diagnosis: Lumbar Infection I identified the patient and participated in the time-out.: Yes Procedure Operation Date: 08/04/23 07:00 Actual Procedures s L3-S1 Irrigation and Debridement Lumbar - Rich Kelley MD p L3-S1 Lumbar Decompression - Rich Kelley MD Surgeon Rich Kelley MD Application Infrastructure Engineer none Estimated Blood Loss 150 Findings Consistent with Post-Op Diagnosis Specimens Several cultures were obtained, bone biopsy, paraspinal muscular tissue along w ith interspinous tissue and ligament L4-5. Description of Procedure 1. L4-5 posterior lumbar decompression with bilateral hemilaminectomies partial medial facetectomies and foraminotomies, cultures obtained. ([id number]) 2. Muscle/ligament biopsy, paraspinal and interspinous muscle and ligament () 3. Deep bone biopsy lumbar, L4 spinous process () 4. Biodegradable antibiotic beads, vancomycin and gentamicin ([id number]) Patient was taken to the operating room after adequate anesthesia was carefully positioned on the Garo frame. All areas were checked for positioning, I then did a preprep of the lumbar spine. C arm was brought in to jayesh the appropriate location for the incision over the L3-S1 region. Incision area was marked, prep and drape was performed, I made a midline incision in the area as stated and advanced this down through the subcutaneous tissues. Upon reaching the spinous processes I incised the fascial layer on either side, and then mobilized the tissues laterally exposing the L4-5 lamina and interspace region, then moving caudally to expose the lateral lamina region of L5 bilaterally and out to the right facet joint at L5-S1. The paraspinal musculature was involved with part of the exposure, visualization of this tissue appeared to be relatively unremarkable, though somewhat slightly discolored relative to its appearance. Muscle tissue was obtained to be sent to pathology as the paraspinal musculature was one of the highlighted areas in the recent MRI. In addition, I remove the interspinous tissue between L4 and L5 spinous processes including the ligament and also removed a section of the L4 spinous process inferiorly. This tissue was then sent for pathology. Cultures were obtained in the same region, I then moved over to the L5-S1 facet region. I was able to mobilize the tissue in this area, and I was able to place a angled curette into the facet joint clearly gaining access to it in this region. No purulent material was expressed, I did take cultures in this region. I then moved to the L4-5 interlaminar/interspace region. I then mobilized the tissues over the L4-5 interspace, thinning the ligamentum flavum. I used a high-speed bur to perform a inferior hemilaminectomy along the inferior aspect of L4 bilaterally and out to the facets on both sides and across the superior laminar edge of L5 across the interspace. I then thinned and remove the remaining ligamentum flavum over the interspace exposing the dura. Some epidural fat was noted, there was no purulent material noted I was able to insert one of the nerve retractors and other instruments heading both cephalad and caudally, no fluid was encountered. A culture was taken regardless, the area then was irrigated in its entirety. I then obtained a piece of Gelfoam placed this over the interspace region. 2 sets of Stimulan beads were produced, 2 5 cc sets 1 with vancomycin powder the other was gentamicin powder combination of these beads were then placed in the deepest portion of the lumbar region extending down to the L5-S1 facet regions up to L4- 5. This operative area was then closed with interrupted 0 Vicryl sutures suturing the fascia back to the supraspinous ligament followed by an additional layer of antibiotic beads and some additional 0 Vicryl sutures. The final layer was 2-0 Vicryl sutures followed by sheyla for the skin, sterile dressing was applied, the patient was taken to recovery room satisfactory condition. The patient had a BMI of 43, due to this at least 50% of additional time was needed to perform the surgical procedure, 22 modifier. I attest to the content of the Intraoperative Record and any orders documented therein. Any exceptions are noted below.
--- NOTE | 2023-08-07 12:48 | Hospitalist Progress Note ---
Date of Service August 07, 2023 Assessment & Plan (1) Sepsis: (2) Cellulitis: (3) Urinary tract infection: (4) Hypomagnesemia: (5) DM II (diabetes mellitus, type II), controlled: (6) HLD (hyperlipidemia): (7) HTN (hypertension): (8) Morbid obesity: (9) New onset a-fib: (10) Constipation: Plan Mr. 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 Patient found to be in a fib rvr and now being managed on PO metoprolol after converted to NSR while on Dilt drip the evening of 07/23. Patient found to have DVT in RLE and placed on heparin drip as well. On 07/24, patient was noted to be in exquisite back pain which is concerning given infectious work up has resulted with bacteremia [group a beta strep]. MRI imaging limited to noncontrast given progressive renal injury; this did not reveal discitis or signs overtly suggestive for vertebral osteomyelitis, but still concerning nonetheless. Ortho Spine evaluated patient for any acute neural compression, but there was no notable stenosis on imaging to correlate to pain on exam. Evaluation limited with MRI or CT 2/2 poor renal function. Patient's acute renal failure is likely secondary to prerenal etiology given low pressures/shock resulting in ATN. After no evidence of response to initial lasix challenge, with plateaued UOP and up trending Cr, it was decided to place temporary HD line at bedside for intermittent hemodialysis. Given there is anticipation of renal recovery, any contrast use at this time is not advised to prevent further insult to kidneys. Plan to obtain further imaging once stable from renal standpoint to aid in assessment of ?osteomyelitis/discitis. Blood Cultures from 07/23 with Group A Strep B, Urine culture negative. ECHO with no clear sign of vegetations. To ensure no persistent bacteremia, blood cultures were obtained on 07/24 and 07/25 without growth to date. However, there was an increase in WBC on 07/28, prompting repeat blood cultures which are still negative WBC trend has improved. Repeat MRI L spine with contrast revealed epidural abscess and discitis L3-S1. Patient underwent washout and decompression on 08/[address] Kelley given concern for further neurologic compromise. Patient tolerated procedure, now will require updated ID recommendations, as well as PT/OT. Heparin was resumed on 08/05 per surgery approval at 1600 without bolus; it was noted that on am labs, as well as recheck hgb down to 8.9 from baseline this admission of 10. Heparin briefly held, but appears that hgb stable prompting resumption of heparin. Discussion with Dr. Kelley on 08/06 revealed that procedure did not yield any significant findings for degree of patient's pain--no purulence was appreciated or expressed from washout and decompression. Pathology pending. Patient was with low grade temperature, tachycardia, and new leukocytosis. Unclear if these are standard changes post-operatively, but given patient's poor progression broaden antibiotic coverage while awaiting final recommendations from Infectious disease. The addition of zosyn seemed to have been followed by a precipitous drop in leukocytosis, as well as resolution of low grade fevers. Patient hypertensive, but seems to have responded to addition of nicardipine 10mg TID. Will transition to XL after stable pressures consistently. #Acute blood loss anemia, c/f post-operative losses v hemolytic process -Hgb stable at 10, down to 8.9; no reports of blood loss from GI standpoint -Holding heparin fro 24-48 hours -Trend CBC q12, monitor for acute blood loss, transfuse <7.0 -Stable, possibly post operative -Nephrology administering procrit #SIRS postoperatively, unclear if infectious source well controlled *improved -Low grade fevers and tachycardia post-operatively; hgb drop, may be contributing -Broadened to Zosyn, continue linezolid -Infectious disease pending further recommendations -No reported diarrhea -Follow up anemia as above #Bacteremia 2/2 group a beta strep #Sepsis 2/2 bacteremia 2/2 epidural abscess - sepsis criteria with fever, elevated lactate, tachycardia, source likely RLE cellulitis/UTI on admission, *resolved - BCx NGTD; UA NGTD (denied urinary symptoms) - Continue Cefazolin with addition of Linezolid 600mg BID per ID - Gen surg: no surgical intervention on RLE (no fluid collections, predominately chronic changes of RLE) #Acute lower back pain 2/2 epidural abscess/discitis -Pain control and mobilization as able -Continue abx as outlined below. -MRI lumbar spine (07/25): paravertebral marrow edema. no end plate erosion, no signs of osteomyelitis, however insufficient 2/2 lack of contrast iso ARF -Ortho spine consult: No surgical intervention at this time, consider bone scan if persistent. -MRI L spine with contrast (07/31): epidural abscesses L3-S1 and discitis--> cont current abx. -s/p washout and decompression L3-S1 -Discuss abx duration with ID,pending formal recommendations #Constipation -Likely related to narcotics and minimal movement. Continues on miralax, senna, docusate. *resolved -OOB as able #Acute hypoxic respiratory failure iso IVF hydration/oliguric SARWAT *resolved -CXR with pulm edema, required 2L NC, now on room air -oxygen prn, encourage mobilization which is very suboptimal at this point. Able to sit on side of bed but is a max assist. -continue to optimize fluid management with hemodialysis #Oliguric SARWAT, likely evolving ATN 2/2 ischemia from hypotension/shock *improving #Azotemia *improving #Hypervolemic Hyponatremia -Nephrology consult: HD cath placement 07/28, plan for intermittent dialysis, cont T//Sat -Improved UOP, last HD 08/04 -Plan to remove HD cath when creat <3.0 #Right LLE DVT - R ankle fracture 2013, R knee surgery in 2016 causes some enlargement in general in the RLE but this is much more swollen and tender in the calf compared to previously. -lymphedema and age-indeterminate DVT present -started on coumadin 07/31 with 5mg, but one dose caused his INR to go to 4.7 today. Held coumadin and heparin drip and trend INR in am. Restart Coumadin at 2.5mg when INR <3.5. -continue IV heparin, continue in interim given renal dysfunction with plans to transition to PO regimen prior to dispo given known DVT/a fib 08/02: cont IV heparin and gave warfarin 2.5mg today, trend INR daily and stop heparin when INR 2-3 x 2 days. 08/03: heparin had been active in the computer but held in the room today incorrectly. RN addressed with event report and heparin was restarted per protocol. Vit K given. Plan to cont heparin until tomorrow am when it will temporarily be held for surgery--likely to be restarted tomorrow evening immediately post op. 08/04: heparin held at 0500, additional 2.5mg IV vit K given. Resume heparin post op. Hold off on restarting warfarin until ortho spine feels no further washouts are needed. 08/05: Heparin to resume this evening at 1600 per surgery 08/06: 2 g hgb drop, no clear source; holding heparin as above 08/07: Hgb stabilized, no signs of bleed, resumed heparin--transition to warfarin upon removal of IJ #New onset atrial fibrillation with RVR, remains in sinus rhythm at this point. After initial evaluation the patient - he went into from what we can tell, new onset afib with RVR with rates of 140-150 CHADsVasc 2 likely iso sepsis/bacteremia -Received Diltazem drip, d/c 07/24 -Continue on metoprolol 50mg PO BID -Heparin as above #Elevated troponin*improved -likely demand iso bacteremia and a fib -Downtrended -Monitor on telemetry -consider further evaluation as outpatient. #Hypertension Relative hypotension due to likely shock, resolved with abx/fluid bolus Regimen prior to arrival: amlodipine 10mg, HCTZ 25mg, losartan 50mg -Hold hctz and losartan in setting of renal failure Currently uncontrolled and on amlodipine 5mg +BB. Required hydralazine 10mg IV today. -Continue amlodipine 10mg daily and increased metoprolol 50mg bid -Avoiding hydralazine 2/2 reflex tachycardia #HLD - Chronic, stable, cont statin #Controlled DMTII -A1C 6.2% 07/24 -inpt BSG at goal - Holding metformin for now, ISS with accuchecks reveals no need for insulin coverage. Stop BSG checks at this time. #hypomagnesemia *resolved #Morbid obesity - BMI of 45, diet and exercise to be encouraged throughout hospital stay DVT ppx: heparin/coumadin held GI/FEN: renal/Diabetic diet Lines: 2 PIV, HD line R neck CODE: FULL I spent a total [id number] coordinating, documenting, and providing care for this patient excluding time spent in the performance of separately billed services Admission and Anticipated Discharge Date Admission Date: July 23, 2023 Subjective NAEO Looks much improved on exam this am, no diaphoresis Reports soreness/discomfort, but eager to start moving as much as able with better pain regimen in place Denies chest pain, palpitations, nausea, vomiting Review of Systems Review of Systems: All systems reviewed & are unremarkable except as noted in Subjective Physical Exam Constitutional: WD/WN, vitals as above Respiratory: normal respiratory effort, lungs clear to auscultation Cardiovascular: RRR, no murmur, no edema Gastrointestinal (Abdomen): normal bowel sounds, soft, nontender, no hepatosplenomegaly Results & Data Results & Data Vital Signs (Past 12 Hours) Vital Signs Temp Pulse Pulse Resp BP Pulse Ox O2 Del Method 08/07/23 11:04 36.7 C 95 H 20 112/61 91 Room Air 08/07/23 07:13 36.7 C 95 H 20 157/84 H 97 Room Air 08/07/23 03:28 36.8 C 90 22 147/83 H 94 BiPAP 08/07/23 01:00 102 H Laboratory Results Short CBC 08/06/23 08/07/23 Range/Units 16:03 06:08 WBC 17.97 H 14.54 H (4.8-10.8) K/ul Hgb 8.7 L 8.4 L (14.0-18.0) g/dl Hct 27.0 L 26.7 L (42.0-52.0) % Plt Count 468 H 495 H (130-400) K/uL BMP 08/07/23 06:08 Sodium 133 L Potassium 4.5 Chloride 99 Carbon Dioxide 26 BUN 45 H Creatinine 3.28 H Glucose 140 H Calcium 9.2 Liver Function 08/06/23 08/07/23 Range/Units 16:03 06:08 Total Bilirubin 1.2 H 1.1 H (0.2-1.0) mg/dl Direct Bilirubin 0.4 H (0-0.2) mg/dl AST 29 (13-39) U/L ALT 8 (7-52) U/L Alkaline Phosphatase 84 (34-104) U/L Albumin 2.8 L (3.4-5.0) gm/dl Medications Administered Home Medications Medication Instructions Recorded Confirmed Last Taken acetaminophen 500 mg tablet 500 mg PO TID PRN Other 07/23/23 07/23/23 Unknown albuterol sulfate 90 mcg/actuation 2 puff inhalation QID PRN Other 07/23/23 07/23/23 Unknown aerosol inhaler (Proventil HFA) amlodipine 10 mg tablet 10 mg PO DAILY 07/23/23 07/23/23 Unknown ciclesonide 160 mcg/actuation 1 puff inhalation BID 07/23/23 07/23/23 Unknown aerosol inhaler (Alvesco) hydrochlorothiazide 25 mg tablet 25 mg PO DAILY 07/23/23 07/23/23 Unknown losartan 50 mg tablet 50 mg PO DAILY 07/23/23 07/23/23 Unknown metformin 500 mg tablet 500 mg PO BID 07/23/23 07/23/23 Unknown rosuvastatin 5 mg tablet 5 mg PO DAILY 07/23/23 07/23/23 Unknown tamsulosin 0.4 mg capsule 0.8 mg PO HS 07/23/23 07/23/23 Unknown Active Medications Generic Name Dose Route Start Last Admin Trade Name Freq PRN Reason Stop Dose Admin Acetaminophen 650 mg 07/23/23 13:45 08/07/23 09:36 Acetaminophen 325 Mg Tab PO 08/22/23 13:44 650 mg Q6H NEGRITA Administration Acetaminophen 650 mg 07/23/23 18:41 08/05/23 11:44 Acetaminophen 325 Mg Tab PO 08/22/23 18:40 650 mg Q4H PRN Administration Moderate Pain (Scale 4, 5, 6) Docusate Sodium 100 mg 08/06/23 09:00 08/07/23 09:31 Docusate Sodium 100 Mg Cap PO 09/05/23 08:59 100 mg DAILY NEGRITA Administration Epoetin Artemio 20,000 units 08/07/23 11:15 08/07/23 12:27 Epoetin Artemio 20,000 Units/Ml Vial SQ 09/06/23 11:14 20,000 units MoFr@0900 NEGRITA Administration Glycerin 1 supp 08/02/23 19:02 08/03/23 04:37 Glycerin Adult 12 Supp/Box Supp DE 09/01/23 19:01 1 supp DAILY PRN Administration Constipation Hydromorphone HCl 0.5 mg 07/29/23 20:46 08/04/23 22:12 Hydromorphone Inj 1 Mg/Ml Syringe IV 08/09/23 09:42 0.5 mg Q6H PRN Administration Pain Hydromorphone HCl 1 mg 08/05/23 01:17 08/07/23 11:14 Hydromorphone Inj 1 Mg/Ml Syringe IV 08/19/23 01:16 1 mg Q4H PRN Administration Pain Heparin Sodium/Dextrose 25,000 units in 500 mls @ 43 mls/hr 07/23/23 20:30 08/07/23 09:26 Heparin Sodium/Dextrose IV 08/22/23 20:29 2,150 units/hr .[id number] NEGRITA 43 mls/hr Administration Protocol 2,150 UNITS/HR Linezolid 600 mg in 300 mls @ 200 mls/hr 08/03/23 15:00 08/07/23 12:27 Zyvox IV 09/14/23 14:59 200 mls/hr Q12H NEGRITA Administration Sodium Chloride 500 mls @ 0 mls/hr 08/04/23 16:00 08/04/23 16:30 Nss IV 09/03/23 15:59 Infused .Q0M NEGIRTA Infusion KVO Piperacillin Sod/Tazobactam 100 mls @ 25 mls/hr 08/06/23 15:00 08/07/23 12:18 Sod 4.5 gm/ Dextrose IV 08/08/23 14:59 Infused Q8H NEGRITA Infusion Protocol Insulin Aspart 0 units 08/04/23 21:00 08/07/23 12:27 Insulin Aspart Per Unit Charge SC 09/03/23 20:59 3 units ACHS NEGRITA Administration Metoprolol Succinate 50 mg 08/05/23 21:00 08/07/23 09:31 Metoprolol Succ 50mg Ext Rel Tab PO 09/04/23 20:59 50 mg BID NEGRITA Administration Nifedipine 10 mg 08/06/23 17:10 08/07/23 09:32 Nifedipine 10 Mg Cap PO 09/05/23 17:09 10 mg TID NEGRITA Administration Oxycodone HCl 5 - 10 mg 08/05/23 01:19 08/07/23 06:26 Oxycodone Hcl Ir 5 Mg Tab (Immediate Release) PO 08/19/23 01:18 10 mg QID PRN Administration Pain Patiromer 8.4 gm 08/06/23 12:00 08/07/23 12:49 Patiromer Calcium Sorbitex 8.4 Gm Pack PO 09/05/23 11:59 8.4 gm DAILY@1200 NEGRITA Administration Rosuvastatin Calcium 5 mg 07/24/23 09:00 08/07/23 09:31 Rosuvastatin Calcium 5 Mg Tab PO 08/23/23 08:59 5 mg DAILY NEGRITA Administration Sennosides 17.2 mg 07/30/23 21:00 08/06/23 21:05 Senna 8.6 Mg Tab PO 08/29/23 20:59 17.2 mg HS NEGRITA Administration Tamsulosin HCl 0.8 mg 07/23/23 21:00 08/06/23 21:06 Tamsulosin Hcl 0.4 Mg Cap PO 08/22/23 20:59 0.8 mg HS NEGRITA Administration Warfarin Sodium 2.5 mg 08/02/23 16:00 08/02/23 17:36 Warfarin Sod 2.5 Mg Tab PO 09/01/23 15:59 2.5 mg DAILY@1600 NEGRITA Administration
[2023-08-07] MEDS: PATIROMER CALCIUM SORBITEX 8.4 GM PACK PO SCH (12:49)
[2023-08-07] MEDS: TAMSULOSIN HCL 0.4 MG CAP PO SCH (20:31)
[2023-08-07] MEDS: SENNA 8.6 MG TAB PO SCH (20:32)
[2023-08-08] MEDS: ACETAMINOPHEN 325 MG TAB PO SCH ×2 (03:10→08:25)
[2023-08-08] MEDS: HEPARIN SODIUM/DEXTROSE 25,000 UNITS/500 ML BAG IV SCH ×2 (07:43→18:16)
[2023-08-08] MEDS: PIPER/TAZO 4.5g in D5W MINI-B 100 ML IV SCH (07:53)
[2023-08-08 07:58] LABS: INR 1.3 (0.9-1.1); Partial Thromboplastin Ratio 1.5; Prothrombin Time 14.2 Seconds (9.0-12.0)
[2023-08-08 08:11] LABS: Partial Thromboplastin Time 43.1 Seconds (21.0-31.0)
[2023-08-08] MEDS: METOPROLOL SUCC 50MG EXT REL TAB PO SCH ×2 (08:26→20:59)
[2023-08-08] MEDS: DOCUSATE SODIUM 100 MG CAP PO SCH (08:26)
[2023-08-08] MEDS: FLUTICASONE FUROATE 200MCG 14 PUFFS/INHALER INH SCH (08:27)
[2023-08-08] MEDS: NIFEdipine 10 MG CAP PO SCH ×2 (08:27→14:20)
[2023-08-08] MEDS: ROSUVASTATIN CALCIUM 5 MG TAB PO SCH (08:27)
[2023-08-08] MEDS: INSULIN ASPART PER UNIT CHARGE SC SCH ×4 (08:28→20:46)
[2023-08-08 08:43] LABS: Hematocrit (blood only) 27.7 % (42.0-52.0); Hemoglobin 8.9 g/dl (14.0-18.0); Mean Corpuscular Hemoglobin 27.9 pg (25.0-34.0); Mean Corpuscular Hgb Conc 32.1 g/dL (32.0-36.0); Mean Corpuscular Volume 86.8 fL (80.0-100.0); Mean Platelet Volume 8.9 fL (9.4-12.4); Platelet Count 529 K/uL (130-400); RDW Standard Deviation 44.9 fL (36.4-46.3); Red Blood Count 3.19 M/uL (4.70-6.10); White Blood Count 10.45 K/ul (4.8-10.8)
[2023-08-08 09:03] LABS: BUN Creatinine Ratio 14.5 (10-20); Calcium 9.2 mg/dl (8.6-10.3); Creatinine Clr Calc Pharmacy 40.3 ml/min; Est GFR (African American) 23.9 ml/min; Est GFR (Non-African American) 20.6 ml/min; Magnesium 1.6 mg/dl (1.7-2.4); Phosphorus 5.6 mg/dl (2.5-4.9); Potassium 4.6 mmol/L (3.5-5.1)
[2023-08-08] MEDS: oxyCODONE HCL IR 5 MG TAB (IMMEDIATE RELEASE) PO PRN (11:28)
[2023-08-08] MEDS: LINEZOLID 600 MG/300 ML BAG IV SCH (12:42)
[2023-08-08] MEDS: PATIROMER CALCIUM SORBITEX 8.4 GM PACK PO SCH (12:54)
--- NOTE | 2023-08-08 12:55 | Nephrology Progress Note ---
Date of Service August 08, 2023 Assessment & Plan (1) Acute kidney injury: Plan: SARWAT -D >>nettie ATN, there may be a prerenal element.- He denies any renal problems in the past, and denies any OTC or NSAIDS, IV fluid were stopped 2/2 pulmonary congestion, He responded well to Lasix challenge , He is comfortable with 2l oxygen and BP and HR are better controlled, first HD on 07/28; Patient is making a lot of urine and recovering renal function. No indication for further dialysis. - Remove temporary dialysis catheter - daily BMP (2) Bacteremia: Plan: WBC had worsened; last + cx 07/23 group B strep - renally dose Abx Admission and Anticipated Discharge Date Admission Date: July 23, 2023 Subjective Seen in follow-up for acute renal failure. Patient is making a lot of urine now. No shortness of breath. Creatinine down trending. Review of Systems 2 Review of Systems: All other systems were reviewed and negative except as noted in HPI Physical Exam 2 Physical Exam: General exam: Appears comfortable, no acute distress HEENT: Pupils are equal and reactive to light Neck: No JVD, neck is supple trachea is midline Respiratory system: Clear breath sounds bilaterally. Gastrointestinal: Abdomen is soft, non distended, non tender, bowel sounds are present CVS: Regular rate and rhythm. No murmurs, rubs or gallops Musculoskeletal: No joint or muscle tenderness Extremities: Non tender, no edema, peripheral pulses are present Neuro: Oriented, no tremors, no focal neurological deficits Skin: No rashes Results & Data Vital Signs (Past 12 Hours) Vital Signs Temp Pulse Pulse Resp BP Pulse Ox O2 Del Method 08/08/23 12:29 36.7 C 84 18 150/82 H 93 Room Air 08/08/23 10:59 96 H 08/08/23 10:53 Room Air 08/08/23 08:34 37.0 C 90 18 143/79 H 97 Room Air 08/08/23 03:31 36.7 C 91 H 18 144/80 H 94 BiPAP Laboratory Results 08/08/23 08:29 08/08/23 08:29 WBC 10.45 RBC 3.19 L MCV 86.8 MCH 27.9 MCHC 32.1 RDW Std Deviation 44.9 RDW Coeff of Wilda 14.0 Plt Count 529 H MPV 8.9 L Phosphorus 5.6 H
--- NOTE | 2023-08-08 13:43 | Hospitalist Progress Note ---
Date of Service August 08, 2023 Assessment & Plan (1) Sepsis: (2) Cellulitis: (3) Urinary tract infection: (4) Hypomagnesemia: (5) DM II (diabetes mellitus, type II), controlled: (6) HLD (hyperlipidemia): (7) HTN (hypertension): (8) Morbid obesity: (9) New onset a-fib: (10) Constipation: Plan Mr. 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 Patient found to be in a fib rvr and now being managed on PO metoprolol after converted to NSR while on Dilt drip the evening of 07/23. Patient found to have DVT in RLE and placed on heparin drip as well. On 07/24, patient was noted to be in exquisite back pain which is concerning given infectious work up has resulted with bacteremia [group a beta strep]. MRI imaging limited to noncontrast given progressive renal injury; this did not reveal discitis or signs overtly suggestive for vertebral osteomyelitis, but still concerning nonetheless. Ortho Spine evaluated patient for any acute neural compression, but there was no notable stenosis on imaging to correlate to pain on exam. Evaluation limited with MRI or CT 2/2 poor renal function. Patient's acute renal failure is likely secondary to prerenal etiology given low pressures/shock resulting in ATN. After no evidence of response to initial lasix challenge, with plateaued UOP and up trending Cr, it was decided to place temporary HD line at bedside for intermittent hemodialysis. Given there is anticipation of renal recovery, any contrast use at this time is not advised to prevent further insult to kidneys. Plan to obtain further imaging once stable from renal standpoint to aid in assessment of ?osteomyelitis/discitis. Blood Cultures from 07/23 with Group A Strep B, Urine culture negative. ECHO with no clear sign of vegetations. To ensure no persistent bacteremia, blood cultures were obtained on 07/24 and 07/25 without growth to date. However, there was an increase in WBC on 07/28, prompting repeat blood cultures which are still negative WBC trend has improved. Repeat MRI L spine with contrast revealed epidural abscess and discitis L3-S1. Patient underwent washout and decompression on 08/[address] Kelley given concern for further neurologic compromise. Patient tolerated procedure, now will require updated ID recommendations, as well as PT/OT. Heparin was resumed on 08/05 per surgery approval at 1600 without bolus; it was noted that on am labs, as well as recheck hgb down to 8.9 from baseline this admission of 10. Heparin briefly held, but appears that hgb stable prompting resumption of heparin. Discussion with Dr. Kelley on 08/06 revealed that procedure did not yield any significant findings for degree of patient's pain--no purulence was appreciated or expressed from washout and decompression. Pathology pending. Patient was with low grade temperature, tachycardia, and new leukocytosis. Unclear if these are standard changes post-operatively, but given patient's poor progression broaden antibiotic coverage while awaiting final recommendations from Infectious disease. The addition of zosyn seemed to have been followed by a precipitous drop in leukocytosis, as well as resolution of low grade fevers; however this could be cofounding from post-operative response from manipulation of infectious like material. Discussion with Dr Thomas with plan to deescalte and monitor response. Patient hypertensive, but seems to have responded to addition of nicardipine 10mg TID. Will transition to XL after stable pressures consistently. #Acute blood loss anemia, c/f post-operative losses *stable -Hgb stable at 10, down to 8.9; no reports of blood loss from GI standpoint -Trend CBC q12, monitor for acute blood loss, transfuse <7.0 -Stable, possibly post operative -Nephrology administering procrit #Bacteremia 2/2 group a beta strep #Sepsis 2/2 bacteremia 2/2 epidural abscess - sepsis criteria with fever, elevated lactate, tachycardia, source likely RLE cellulitis/UTI on admission, *resolved - BCx NGTD; UA NGTD (denied urinary symptoms) - Gen surg: no surgical intervention on RLE (no fluid collections, predominately chronic changes of RLE) - Deescalate Zosyn back to Cefazolin - Discontinue Linezolid 600mg BID per ID - Will assess; will need to discuss resources at facility to determine final treatments #Acute lower back pain 2/2 epidural abscess/discitis*improving -Pain control and mobilization as able -Continue abx as outlined below. -MRI lumbar spine (07/25): paravertebral marrow edema. no end plate erosion, no signs of osteomyelitis, however insufficient 2/2 lack of contrast iso ARF -Ortho spine consult: No surgical intervention at this time, consider bone scan if persistent. -MRI L spine with contrast (07/31): epidural abscesses L3-S1 and discitis--> cont current abx. -s/p washout and decompression L3-S1 -Discuss abx duration with ID,pending formal recommendations #Constipation -Likely related to narcotics and minimal movement. Continues on miralax, senna, docusate. *resolved -OOB as able #Acute hypoxic respiratory failure iso IVF hydration/oliguric SARWAT *resolved -CXR with pulm edema, required 2L NC, now on room air -oxygen prn, encourage mobilization which is very suboptimal at this point. Able to sit on side of bed but is a max assist. -continue to optimize fluid management with hemodialysis #Oliguric SARWAT, likely evolving ATN 2/2 ischemia from hypotension/shock *improving #Azotemia *improving #Hypervolemic Hyponatremia -Nephrology consult: HD cath placement 07/28, plan for intermittent dialysis, cont T//Sat -Improved UOP, last HD 08/04 -Discontinue HD cath #Right LLE DVT - R ankle fracture 2013, R knee surgery in 2016 causes some enlargement in general in the RLE but this is much more swollen and tender in the calf compared to previously. -lymphedema and age-indeterminate DVT present -started on coumadin 07/31 with 5mg, but one dose caused his INR to go to 4.7 today. Held coumadin and heparin drip and trend INR in am. Restart Coumadin at 2.5mg when INR <3.5. -continue IV heparin, continue in interim given renal dysfunction with plans to transition to PO regimen prior to dispo given known DVT/a fib 08/02: cont IV heparin and gave warfarin 2.5mg today, trend INR daily and stop heparin when INR 2-3 x 2 days. 08/03: heparin had been active in the computer but held in the room today incorrectly. RN addressed with event report and heparin was restarted per protocol. Vit K given. Plan to cont heparin until tomorrow am when it will temporarily be held for surgery--likely to be restarted tomorrow evening immediately post op. 08/04: heparin held at 0500, additional 2.5mg IV vit K given. Resume heparin post op. Hold off on restarting warfarin until ortho spine feels no further washouts are needed. 08/05: Heparin to resume this evening at 1600 per surgery 08/06: 2 g hgb drop, no clear source; holding heparin as above 08/07: Hgb stabilized, no signs of bleed, resumed heparin--transition to warfarin upon removal of IJ 08/08: plan to start warfarin 08/09, 24 hours s/p cath removal #New onset atrial fibrillation with RVR, remains in sinus rhythm at this point. After initial evaluation the patient - he went into from what we can tell, new onset afib with RVR with rates of 140-150 CHADsVasc 2 likely iso sepsis/bacteremia -Received Diltazem drip, d/c 07/24 -Continue on metoprolol 50mg PO BID -Heparin as above #Elevated troponin*improved -likely demand iso bacteremia and a fib -Downtrended -Monitor on telemetry -consider further evaluation as outpatient. #Hypertension Relative hypotension due to likely shock, resolved with abx/fluid bolus Regimen prior to arrival: amlodipine 10mg, HCTZ 25mg, losartan 50mg -Hold hctz and losartan in setting of renal failure Currently uncontrolled and on amlodipine 5mg +BB. Required hydralazine 10mg IV today. -Continue amlodipine 10mg daily and increased metoprolol 50mg bid -Avoiding hydralazine 2/2 reflex tachycardia #HLD - Chronic, stable, cont statin #Controlled DMTII -A1C 6.2% 07/24 -inpt BSG at goal - Holding metformin for now, ISS with accuchecks reveals no need for insulin coverage. Stop BSG checks at this time. #hypomagnesemia *resolved #Morbid obesity - BMI of 45, diet and exercise to be encouraged throughout hospital stay DVT ppx: heparin/coumadin held GI/FEN: renal/Diabetic diet Lines: 2 PIV, HD line R neck CODE: FULL I spent a total [id number] coordinating, documenting, and providing care for this patient excluding time spent in the performance of separately billed services Admission and Anticipated Discharge Date Admission Date: July 23, 2023 Subjective NAEO Reports standing for the first time today Review of Systems Review of Systems: All systems reviewed & are unremarkable except as noted in Subjective Physical Exam Constitutional: WD/WN, vitals as above Respiratory: normal respiratory effort, lungs clear to auscultation Cardiovascular: RRR, no murmur, no edema Results & Data Results & Data Vital Signs (Past 12 Hours) Vital Signs Temp Pulse Pulse Resp BP Pulse Ox O2 Del Method 08/08/23 12:29 36.7 C 84 18 150/82 H 93 Room Air 08/08/23 10:59 96 H 08/08/23 10:53 Room Air 08/08/23 08:34 37.0 C 90 18 143/79 H 97 Room Air 08/08/23 03:31 36.7 C 91 H 18 144/80 H 94 BiPAP Laboratory Results Short CBC 08/08/23 Range/Units 08:29 WBC 10.45 (4.8-10.8) K/ul Hgb 8.9 L (14.0-18.0) g/dl Hct 27.7 L (42.0-52.0) % Plt Count 529 H (130-400) K/uL BMP 08/08/23 08:29 Sodium 133 L Potassium 4.6 Chloride 99 Carbon Dioxide 27 BUN 45 H Creatinine 3.10 H Glucose 139 H Calcium 9.2 Medications Administered Home Medications Medication Instructions Recorded Confirmed Last Taken acetaminophen 500 mg tablet 500 mg PO TID PRN Other 07/23/23 07/23/23 Unknown albuterol sulfate 90 mcg/actuation 2 puff inhalation QID PRN Other 07/23/23 07/23/23 Unknown aerosol inhaler (Proventil HFA) amlodipine 10 mg tablet 10 mg PO DAILY 07/23/23 07/23/23 Unknown ciclesonide 160 mcg/actuation 1 puff inhalation BID 07/23/23 07/23/23 Unknown aerosol inhaler (Alvesco) hydrochlorothiazide 25 mg tablet 25 mg PO DAILY 07/23/23 07/23/23 Unknown losartan 50 mg tablet 50 mg PO DAILY 07/23/23 07/23/23 Unknown metformin 500 mg tablet 500 mg PO BID 07/23/23 07/23/23 Unknown rosuvastatin 5 mg tablet 5 mg PO DAILY 07/23/23 07/23/23 Unknown tamsulosin 0.4 mg capsule 0.8 mg PO HS 07/23/23 07/23/23 Unknown Active Medications Generic Name Dose Route Start Last Admin Trade Name Freq PRN Reason Stop Dose Admin Acetaminophen 1,000 mg 08/08/23 14:00 08/08/23 14:20 Acetaminophen 500 Mg Tab PO 09/07/23 13:59 1,000 mg TID NEGRITA Administration Cyclobenzaprine HCl 5 mg 08/08/23 14:00 08/08/23 14:26 Cyclobenzaprine Hcl 5 Mg Tab PO 09/07/23 13:59 5 mg TID NEGRITA Administration Docusate Sodium 100 mg 08/06/23 09:00 08/08/23 08:26 Docusate Sodium 100 Mg Cap PO 09/05/23 08:59 100 mg DAILY NEGRITA Administration Epoetin Artemio 20,000 units 08/07/23 11:15 08/07/23 12:27 Epoetin Artemio 20,000 Units/Ml Vial SQ 09/06/23 11:14 20,000 units MoFr@0900 NEGRITA Administration Fluticasone Furoate 1 puffs 08/08/23 09:00 08/08/23 08:27 Fluticasone Furoate 200mcg 14 Puffs/Inhaler INH 09/07/23 08:59 1 puffs DAILY NEGRITA Administration Protocol Glycerin 1 supp 08/02/23 19:02 08/03/23 04:37 Glycerin Adult 12 Supp/Box Supp MS 09/01/23 19:01 1 supp DAILY PRN Administration Constipation Hydromorphone HCl 0.5 mg 07/29/23 20:46 08/04/23 22:12 Hydromorphone Inj 1 Mg/Ml Syringe IV 08/09/23 09:42 0.5 mg Q6H PRN Administration Pain Hydromorphone HCl 1 mg 08/05/23 01:17 08/07/23 11:14 Hydromorphone Inj 1 Mg/Ml Syringe IV 08/19/23 01:16 1 mg Q4H PRN Administration Pain Heparin Sodium/Dextrose 25,000 units in 500 mls @ 43 mls/hr 07/23/23 20:30 08/08/23 07:43 Heparin Sodium/Dextrose IV 08/22/23 20:29 2,150 units/hr .[id number] NEGRITA 43 mls/hr Administration Protocol 2,150 UNITS/HR Sodium Chloride 500 mls @ 0 mls/hr 08/04/23 16:00 08/04/23 16:30 Nss IV 09/03/23 15:59 Infused .Q0M NEGRITA Infusion KVO Cefazolin Sodium 2,000 mg in 15 mls @ 3.75 mls/min 08/08/23 13:45 08/08/23 14:26 Ancef 2000mg IV 08/22/23 13:44 3.75 mls/min Q8H NEGRITA Administration Insulin Aspart 0 units 08/04/23 21:00 08/08/23 12:35 Insulin Aspart Per Unit Charge SC 09/03/23 20:59 Not Given ACHS NEGRITA Metoprolol Succinate 50 mg 08/05/23 21:00 08/08/23 08:26 Metoprolol Succ 50mg Ext Rel Tab PO 09/04/23 20:59 50 mg BID NEGRITA Administration Nifedipine 10 mg 08/06/23 17:10 08/08/23 14:20 Nifedipine 10 Mg Cap PO 09/05/23 17:09 10 mg TID NEGRITA Administration Oxycodone HCl 5 - 10 mg 08/05/23 01:19 08/08/23 11:28 Oxycodone Hcl Ir 5 Mg Tab (Immediate Release) PO 08/19/23 01:18 10 mg QID PRN Administration Pain Patiromer 8.4 gm 08/06/23 12:00 08/08/23 12:54 Patiromer Calcium Sorbitex 8.4 Gm Pack PO 09/05/23 11:59 8.4 gm DAILY@1200 NEGRITA Administration Rosuvastatin Calcium 5 mg 07/24/23 09:00 08/08/23 08:27 Rosuvastatin Calcium 5 Mg Tab PO 08/23/23 08:59 5 mg DAILY NEGRITA Administration Sennosides 17.2 mg 07/30/23 21:00 08/07/23 20:32 Senna 8.6 Mg Tab PO 08/29/23 20:59 Not Given HS NEGRITA Tamsulosin HCl 0.8 mg 07/23/23 21:00 08/07/23 20:31 Tamsulosin Hcl 0.4 Mg Cap PO 08/22/23 20:59 0.8 mg HS NEGRITA Administration Warfarin Sodium 2.5 mg 08/02/23 16:00 08/02/23 17:36 Warfarin Sod 2.5 Mg Tab PO 09/01/23 15:59 2.5 mg DAILY@1600 NEGRITA Administration
[2023-08-08] MEDS: ACETAMINOPHEN 500 MG TAB PO SCH ×2 (14:20→20:58)
[2023-08-08] MEDS: ceFAZolin 2000MG 2,000 MG/15 ML SYR IV SCH ×2 (14:26→20:57)
[2023-08-08] MEDS: CYCLOBENZAPRINE HCL 5 MG TAB PO SCH ×2 (14:26→21:00)
[2023-08-08] MEDS: POLYETHYLENE (MIRALAX) 17 GM PACK PO SCH ×2 (15:51→21:01)
[2023-08-08] MEDS ORDERED: NIFEdipine 10 MG CAP PO STA (16:05)
[2023-08-08] MEDS: SENNA 8.6 MG TAB PO SCH (20:59)
[2023-08-08] MEDS: TAMSULOSIN HCL 0.4 MG CAP PO SCH (21:00)
[2023-08-08] MEDS ORDERED: NIFEdipine 10 MG CAP PO SCH (21:00)
[2023-08-09] MEDS: oxyCODONE HCL IR 5 MG TAB (IMMEDIATE RELEASE) PO PRN ×2 (00:54→19:29)
[2023-08-09 05:18] LABS: Hematocrit (blood only) 28.4 % (42.0-52.0); Mean Corpuscular Hgb Conc 31.7 g/dL (32.0-36.0); Mean Corpuscular Volume 88.2 fL (80.0-100.0); Platelet Count 561 K/uL (130-400); RDW Coefficient of Variation 13.6 % (11.5-14.5); RDW Standard Deviation 44.1 fL (36.4-46.3); Red Blood Count 3.22 M/uL (4.70-6.10); White Blood Count 9.44 K/ul (4.8-10.8)
[2023-08-09] MEDS: HEPARIN SODIUM/DEXTROSE 25,000 UNITS/500 ML BAG IV SCH ×2 (05:22→17:08)
[2023-08-09] MEDS: ceFAZolin 2000MG 2,000 MG/15 ML SYR IV SCH ×3 (05:22→20:55)
[2023-08-09 05:29] LABS: BUN Creatinine Ratio 15.8 (10-20); Calcium 9.6 mg/dl (8.6-10.3); Est GFR (African American) 27.2 ml/min; Est GFR (Non-African American) 23.5 ml/min; Magnesium 1.6 mg/dl (1.7-2.4); Phosphorus 5.3 mg/dl (2.5-4.9); Potassium 4.4 mmol/L (3.5-5.1)
[2023-08-09 05:58] LABS: INR 1.3 (0.9-1.1); Partial Thromboplastin Ratio 1.4
[2023-08-09 06:14] LABS: Partial Thromboplastin Time 40.4 Seconds (21.0-31.0)
[2023-08-09] MEDS: INSULIN ASPART PER UNIT CHARGE SC SCH ×4 (08:55→20:50)
[2023-08-09] MEDS: MAGNESIUM SULFATE / D5W 1 GM/100 ML BAG IV SCH ×2 (08:59→11:08)
[2023-08-09] MEDS ORDERED: NIFEdipine EXTENDED REL 30 MG TABCR PO SCH (09:00)
[2023-08-09] MEDS: ACETAMINOPHEN 500 MG TAB PO SCH ×3 (09:02→20:55)
[2023-08-09] MEDS: DOCUSATE SODIUM 100 MG CAP PO SCH (09:03)
[2023-08-09] MEDS: METOPROLOL SUCC 50MG EXT REL TAB PO SCH ×2 (09:03→20:55)
[2023-08-09] MEDS: CYCLOBENZAPRINE HCL 5 MG TAB PO SCH ×3 (09:04→20:55)
[2023-08-09] MEDS: ROSUVASTATIN CALCIUM 5 MG TAB PO SCH (09:04)
[2023-08-09] MEDS: FLUTICASONE FUROATE 200MCG 14 PUFFS/INHALER INH SCH (09:04)
[2023-08-09] MEDS: POLYETHYLENE (MIRALAX) 17 GM PACK PO SCH ×3 (09:05→20:56)
[2023-08-09] MEDS: MAGNESIUM OXIDE 400 MG TAB PO SCH ×2 (09:16→20:55)
--- NOTE | 2023-08-09 10:11 | Nephrology Progress Note ---
Date of Service August 09, 2023 Assessment & Plan (1) Acute kidney injury: Plan: SARWAT -D >>nettie ATN, there may be a prerenal element.- He denies any renal problems in the past, and denies any OTC or NSAIDS, IV fluid were stopped 2/2 pulmonary congestion, He responded well to Lasix challenge , He is comfortable with 2l oxygen and BP and HR are better controlled, first HD on 07/28; Patient is making a lot of urine and recovering renal function. No indication for further dialysis. Creatinine today down to 2.7. Potassium 4.4. -Patient needs to drink at least 2 L of fluids daily to avoid dehydration - daily BMP (2) Bacteremia: Plan: WBC had worsened; last + cx 07/23 group B strep - renally dose Abx Admission and Anticipated Discharge Date Admission Date: July 23, 2023 Subjective Seen for acute kidney injury s/p dialysis. Patient continues to improve. Last dialysis was on 08/04/2023. No shortness of breath. He has right leg pain which is chronic. Review of Systems Review of Systems: All other systems were reviewed and negative except as noted in HPI Physical Exam Physical Exam: General exam: Appears comfortable, no acute distress HEENT: Pupils are equal and reactive to light Neck: No JVD, neck is supple trachea is midline Respiratory system: Clear breath sounds bilaterally. Gastrointestinal: Abdomen is soft, non distended, non tender, bowel sounds are present CVS: Regular rate and rhythm. No murmurs, rubs or gallops Musculoskeletal: No joint or muscle tenderness Extremities: Non tender, no edema, peripheral pulses are present Neuro: Oriented, no tremors, no focal neurological deficits Skin: No rashes Results & Data Vital Signs (Past 12 Hours) Vital Signs Temp Pulse Pulse Resp BP Pulse Ox O2 Del Method 08/09/23 09:50 Room Air 08/09/23 08:22 36.9 C 87 18 157/83 H 95 Room Air 08/09/23 08:13 91 H 08/09/23 04:00 37.1 C 88 16 128/72 94 Room Air 08/08/23 23:35 94 H 08/08/23 22:57 37.3 C 101 H 18 123/65 94 Room Air 08/08/23 22:23 19 94 O2 Flow Rate 08/09/23 09:50 08/09/23 08:22 08/09/23 08:13 08/09/23 04:00 08/08/23 23:35 08/08/23 22:57 08/08/23 22:23 2
--- NOTE | 2023-08-09 11:38 | Hospitalist Progress Note ---
Date of Service August 09, 2023 Assessment & Plan (1) Sepsis: (2) Cellulitis: (3) Urinary tract infection: (4) Hypomagnesemia: (5) DM II (diabetes mellitus, type II), controlled: (6) HLD (hyperlipidemia): (7) HTN (hypertension): (8) Morbid obesity: (9) New onset a-fib: (10) Constipation: Plan Mr. 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 Patient found to be in a fib rvr and now being managed on PO metoprolol after converted to NSR while on Dilt drip the evening of 07/23. Patient found to have DVT in RLE and placed on heparin drip as well. On 07/24, patient was noted to be in exquisite back pain which is concerning given infectious work up has resulted with bacteremia [group a beta strep]. MRI imaging limited to noncontrast given progressive renal injury; this did not reveal discitis or signs overtly suggestive for vertebral osteomyelitis, but still concerning nonetheless. Ortho Spine evaluated patient for any acute neural compression, but there was no notable stenosis on imaging to correlate to pain on exam. Evaluation limited with MRI or CT 2/2 poor renal function. Patient's acute renal failure is likely secondary to prerenal etiology given low pressures/shock resulting in ATN. After no evidence of response to initial lasix challenge, with plateaued UOP and up trending Cr, it was decided to place temporary HD line at bedside for intermittent hemodialysis. Given there is anticipation of renal recovery, any contrast use at this time is not advised to prevent further insult to kidneys. Plan to obtain further imaging once stable from renal standpoint to aid in assessment of ?osteomyelitis/discitis. Blood Cultures from 07/23 with Group A Strep B, Urine culture negative. ECHO with no clear sign of vegetations. To ensure no persistent bacteremia, blood cultures were obtained on 07/24 and 07/25 without growth to date. However, there was an increase in WBC on 07/28, prompting repeat blood cultures which are still negative WBC trend has improved. Repeat MRI L spine with contrast revealed epidural abscess and discitis L3-S1. Patient underwent washout and decompression on 08/[address] Kelley given concern for further neurologic compromise. Patient tolerated procedure, now will require updated ID recommendations, as well as PT/OT. Heparin was resumed on 08/05 per surgery approval at 1600 without bolus; it was noted that on am labs, as well as recheck hgb down to 8.9 from baseline this admission of 10. Heparin briefly held, but appears that hgb stable prompting resumption of heparin. Discussion with Dr. Kelley on 08/06 revealed that procedure did not yield any significant findings for degree of patient's pain--no purulence was appreciated or expressed from washout and decompression. Pathology pending. Patient was with low grade temperature, tachycardia, and new leukocytosis. Unclear if these are standard changes post-operatively, but given patient's poor progression broaden antibiotic coverage while awaiting final recommendations from Infectious disease. The addition of zosyn seemed to have been followed by a precipitous drop in leukocytosis, as well as resolution of low grade fevers; however this could be cofounding from post-operative response from manipulation of infectious like material. Discussion with Dr Thomas with plan to deescalte and monitor response. Patient hypertensive, but seems to have responded to addition of nicardipine 20mg TID--transitioned to Nifedipine 60mg this am #Acute blood loss anemia, c/f post-operative losses *stable -Hgb stable at 10, down to 8.9; no reports of blood loss from GI standpoint -Trend CBC q12, monitor for acute blood loss, transfuse <7.0 -Stable, possibly post operative -Nephrology administering procrit #Bacteremia 2/2 group a beta strep #Sepsis 2/2 bacteremia 2/2 epidural abscess - sepsis criteria with fever, elevated lactate, tachycardia, source likely RLE cellulitis/UTI on admission, *resolved - BCx NGTD; UA NGTD (denied urinary symptoms) - Gen surg: no surgical intervention on RLE (no fluid collections, predominately chronic changes of RLE) - Deescalate Zosyn back to Cefazoli and discontinue Linezolid 600mg BID per ID on 08/08 - Continue cefazolin - Will assess; will need to discuss resources at facility to determine final treatments #Acute lower back pain 2/2 epidural abscess/discitis*improving -Pain control and mobilization as able -Continue abx as outlined below. -MRI lumbar spine (07/25): paravertebral marrow edema. no end plate erosion, no signs of osteomyelitis, however insufficient 2/2 lack of contrast iso ARF -Ortho spine consult: No surgical intervention at this time, consider bone scan if persistent. -MRI L spine with contrast (07/31): epidural abscesses L3-S1 and discitis--> cont current abx. -s/p washout and decompression L3-S1 -Discuss abx duration with ID,pending formal recommendations -Encourage ongoing participation, continue tylenol/flexeril combo #Constipation -Likely related to narcotics and minimal movement. Continues on miralax, senna, docusate. *resolved -OOB as able #Hypertension Relative hypotension due to likely shock, resolved with abx/fluid bolus Regimen prior to arrival: amlodipine 10mg, HCTZ 25mg, losartan 50mg -Hold hctz and losartan in setting of renal failure Currently uncontrolled and on amlodipine 5mg +BB. Required hydralazine 10mg IV today. -Avoiding hydralazine 2/2 reflex tachycardia -Continue metoprolol 50mg bid -Started on nifedipine with ok response, start Nifedipine XL 60mg and assess #Oliguric SARWAT, likely evolving ATN 2/2 ischemia from hypotension/shock *improving #Azotemia *improving #Hypervolemic Hyponatremia -Nephrology consult: HD cath placement 07/28, plan for intermittent dialysis, cont T//Sat -Improved UOP, last HD 08/04 -Discontinue HD cath -Plan to DC pacheco in next 24-48 hours #Right LLE DVT - R ankle fracture 2013, R knee surgery in 2016 causes some enlargement in general in the RLE but this is much more swollen and tender in the calf compared to previously. -lymphedema and age-indeterminate DVT present -started on coumadin 07/31 with 5mg, but one dose caused his INR to go to 4.7 today. Held coumadin and heparin drip and trend INR in am. Restart Coumadin at 2.5mg when INR <3.5. -continue IV heparin, continue in interim given renal dysfunction with plans to transition to PO regimen prior to dispo given known DVT/a fib 08/02: cont IV heparin and gave warfarin 2.5mg today, trend INR daily and stop heparin when INR 2-3 x 2 days. 08/03: heparin had been active in the computer but held in the room today incorrectly. RN addressed with event report and heparin was restarted per protocol. Vit K given. Plan to cont heparin until tomorrow am when it will temporarily be held for surgery--likely to be restarted tomorrow evening immediately post op. 08/04: heparin held at 0500, additional 2.5mg IV vit K given. Resume heparin post op. Hold off on restarting warfarin until ortho spine feels no further washouts are needed. 08/05: Heparin to resume this evening at 1600 per surgery 08/06: 2 g hgb drop, no clear source; holding heparin as above 08/07: Hgb stabilized, no signs of bleed, resumed heparin--transition to warfarin upon removal of IJ 08/08: plan to start warfarin 08/09, 24 hours s/p cath removal 08/09: Warfarin tonight, 2.5mg #New onset atrial fibrillation with RVR, remains in sinus rhythm at this point. After initial evaluation the patient - he went into from what we can tell, new onset afib with RVR with rates of 140-150 CHADsVasc 2 likely iso sepsis/bacteremia -Received Diltazem drip, d/c 07/24 -Continue on metoprolol 50mg PO BID -Heparin as above and warfarin #Acute hypoxic respiratory failure iso IVF hydration/oliguric SARWAT *resolved -CXR with pulm edema, required 2L NC, now on room air -oxygen prn, encourage mobilization which is very suboptimal at this point. Able to sit on side of bed but is a max assist. -continue to optimize fluid management with hemodialysis #Elevated troponin*resolved -likely demand iso bacteremia and a fib -Downtrended -Monitor on telemetry -consider further evaluation as outpatient. #HLD - Chronic, stable, cont statin #Controlled DMTII -A1C 6.2% 07/24 -inpt BSG at goal - Holding metformin for now, ISS with accuchecks reveals no need for insulin coverage. Stop BSG checks at this time. #hypomagnesemia -Replace prn #Morbid obesity - BMI of 45, diet and exercise to be encouraged throughout hospital stay DVT ppx: heparin/coumadin started GI/FEN: renal/Diabetic diet Lines: 2 PIV, HD line R neck CODE: FULL I spent a total [id number] coordinating, documenting, and providing care for this patient excluding time spent in the performance of separately billed services Admission and Anticipated Discharge Date Admission Date: July 23, 2023 Subjective NAEO HD cath removed yesterday Excited about progress, moving legs in bed with improved pain, though pain is persistent it has become more mild Review of Systems Review of Systems: All systems reviewed & are unremarkable except as noted in Subjective Physical Exam Constitutional: WD/WN, vitals as above Respiratory: normal respiratory effort, lungs clear to auscultation Cardiovascular: RRR, no murmur, no edema Gastrointestinal (Abdomen): normal bowel sounds, soft, nontender, no hepatosplenomegaly Results & Data Results & Data Vital Signs (Past 12 Hours) Vital Signs Temp Pulse Pulse Resp BP Pulse Ox O2 Del Method 08/09/23 11:08 83 16 154/70 H 95 Room Air 08/09/23 09:50 Room Air 08/09/23 08:22 36.9 C 87 18 157/83 H 95 Room Air 08/09/23 08:13 91 H 08/09/23 04:00 37.1 C 88 16 128/72 94 Room Air 08/08/23 23:35 94 H Laboratory Results Short CBC 08/09/23 Range/Units 04:54 WBC 9.44 (4.8-10.8) K/ul Hgb 9.0 L (14.0-18.0) g/dl Hct 28.4 L (42.0-52.0) % Plt Count 561 H (130-400) K/uL BMP 08/09/23 04:54 Sodium 135 L Potassium 4.4 Chloride 101 Carbon Dioxide 26 BUN 44 H Creatinine 2.78 H D Glucose 172 H Calcium 9.6 Medications Administered Home Medications Medication Instructions Recorded Confirmed Last Taken acetaminophen 500 mg tablet 500 mg PO TID PRN Other 07/23/23 07/23/23 Unknown albuterol sulfate 90 mcg/actuation 2 puff inhalation QID PRN Other 07/23/23 07/23/23 Unknown aerosol inhaler (Proventil HFA) amlodipine 10 mg tablet 10 mg PO DAILY 07/23/23 07/23/23 Unknown ciclesonide 160 mcg/actuation 1 puff inhalation BID 07/23/23 07/23/23 Unknown aerosol inhaler (Alvesco) hydrochlorothiazide 25 mg tablet 25 mg PO DAILY 07/23/23 07/23/23 Unknown losartan 50 mg tablet 50 mg PO DAILY 07/23/23 07/23/23 Unknown metformin 500 mg tablet 500 mg PO BID 07/23/23 07/23/23 Unknown rosuvastatin 5 mg tablet 5 mg PO DAILY 07/23/23 07/23/23 Unknown tamsulosin 0.4 mg capsule 0.8 mg PO HS 07/23/23 07/23/23 Unknown Active Medications Generic Name Dose Route Start Last Admin Trade Name Yahaira PRN Reason Stop Dose Admin Acetaminophen 1,000 mg 08/08/23 14:00 08/09/23 09:02 Acetaminophen 500 Mg Tab PO 09/07/23 13:59 1,000 mg TID NEGRITA Administration Cyclobenzaprine HCl 5 mg 08/08/23 14:00 08/09/23 09:04 Cyclobenzaprine Hcl 5 Mg Tab PO 09/07/23 13:59 5 mg TID NEGRITA Administration Docusate Sodium 100 mg 08/06/23 09:00 08/09/23 09:03 Docusate Sodium 100 Mg Cap PO 09/05/23 08:59 100 mg DAILY NEGRITA Administration Epoetin Artemio 20,000 units 08/07/23 11:15 08/07/23 12:27 Epoetin Artemio 20,000 Units/Ml Vial SQ 09/06/23 11:14 20,000 units MoFr@0900 NEGRITA Administration Fluticasone Furoate 1 puffs 08/08/23 09:00 08/09/23 09:04 Fluticasone Furoate 200mcg 14 Puffs/Inhaler INH 09/07/23 08:59 1 puffs DAILY NEGRITA Administration Protocol Glycerin 1 supp 08/02/23 19:02 08/03/23 04:37 Glycerin Adult 12 Supp/Box Supp [place] 09/01/23 19:01 1 supp DAILY PRN Administration Constipation Hydromorphone HCl 1 mg 08/05/23 01:17 08/07/23 11:14 Hydromorphone Inj 1 Mg/Ml Syringe IV 08/19/23 01:16 1 mg Q4H PRN Administration Pain Heparin Sodium/Dextrose 25,000 units in 500 mls @ 43 mls/hr 07/23/23 20:30 08/09/23 06:50 Heparin Sodium/Dextrose IV 08/22/23 20:29 2,150 units/hr .[id number] NEGRITA 43 mls/hr Titration Protocol 2,150 UNITS/HR Sodium Chloride 500 mls @ 0 mls/hr 08/04/23 16:00 08/04/23 16:30 Nss IV 09/03/23 15:59 Infused .Q0M NEGRITA Infusion KVO Cefazolin Sodium 2,000 mg in 15 mls @ 3.75 mls/min 08/08/23 13:45 08/09/23 05:22 Ancef 2000mg IV 08/22/23 13:44 3.75 mls/min Q8H NEGRITA Administration Insulin Aspart 0 units 08/04/23 21:00 08/09/23 08:55 Insulin Aspart Per Unit Charge SC 09/03/23 20:59 1 units ACHS NEGRITA Administration Magnesium Oxide 400 mg 08/09/23 09:00 08/09/23 09:16 Magnesium Oxide 400 Mg Tab PO 09/08/23 08:59 400 mg BID NEGRITA Administration Metoprolol Succinate 50 mg 08/05/23 21:00 08/09/23 09:03 Metoprolol Succ 50mg Ext Rel Tab PO 09/04/23 20:59 50 mg BID NEGRITA Administration Nifedipine 60 mg 08/09/23 09:00 08/09/23 09:16 Nifedipine Extended Rel 30 Mg Tabcr PO 09/08/23 08:59 60 mg QAM NEGRITA Administration Oxycodone HCl 5 - 10 mg 08/05/23 01:19 08/09/23 00:54 Oxycodone Hcl Ir 5 Mg Tab (Immediate Release) PO 08/19/23 01:18 10 mg QID PRN Administration Pain Patiromer 8.4 gm 08/06/23 12:00 08/08/23 12:54 Patiromer Calcium Sorbitex 8.4 Gm Pack PO 09/05/23 11:59 8.4 gm DAILY@1200 NEGRITA Administration Polyethylene Glycol 17 gm 08/08/23 14:45 08/09/23 09:05 Polyethylene (Miralax) 17 Gm Pack PO 09/07/23 14:44 17 gm TID NEGRITA Administration Rosuvastatin Calcium 5 mg 07/24/23 09:00 08/09/23 09:04 Rosuvastatin Calcium 5 Mg Tab PO 08/23/23 08:59 5 mg DAILY NEGRITA Administration Sennosides 17.2 mg 07/30/23 21:00 08/08/23 20:59 Senna 8.6 Mg Tab PO 08/29/23 20:59 17.2 mg HS NEGRITA Administration Tamsulosin HCl 0.8 mg 07/23/23 21:00 08/08/23 21:00 Tamsulosin Hcl 0.4 Mg Cap PO 08/22/23 20:59 0.8 mg HS NEGRITA Administration Warfarin Sodium 2.5 mg 08/02/23 16:00 08/02/23 17:36 Warfarin Sod 2.5 Mg Tab PO 09/01/23 15:59 2.5 mg DAILY@1600 NEGRITA Administration
[2023-08-09] MEDS: PATIROMER CALCIUM SORBITEX 8.4 GM PACK PO SCH (12:59)
[2023-08-09] MEDS: WARFARIN SOD 2.5 MG TAB PO SCH (16:31)
[2023-08-09] MEDS: TAMSULOSIN HCL 0.4 MG CAP PO SCH (20:55)
[2023-08-09] MEDS: SENNA 8.6 MG TAB PO SCH (20:56)
[2023-08-10] MEDS: HEPARIN SODIUM/DEXTROSE 25,000 UNITS/500 ML BAG IV SCH ×2 (04:47→16:26)
[2023-08-10] MEDS: ceFAZolin 2000MG 2,000 MG/15 ML SYR IV SCH ×3 (05:25→20:55)
[2023-08-10] MEDS: oxyCODONE HCL IR 5 MG TAB (IMMEDIATE RELEASE) PO PRN ×3 (05:40→23:35)
[2023-08-10 06:21] LABS: Hematocrit (blood only) 30.1 % (42.0-52.0); Hemoglobin 9.2 g/dl (14.0-18.0); Mean Corpuscular Hemoglobin 27.3 pg (25.0-34.0); Mean Corpuscular Hgb Conc 30.6 g/dL (32.0-36.0); Mean Corpuscular Volume 89.3 fL (80.0-100.0); Platelet Count 573 K/uL (130-400); RDW Coefficient of Variation 13.6 % (11.5-14.5); RDW Standard Deviation 44.6 fL (36.4-46.3); Red Blood Count 3.37 M/uL (4.70-6.10); White Blood Count 9.63 K/ul (4.8-10.8)
[2023-08-10 06:43] LABS: BUN Creatinine Ratio 17.2 (10-20); Calcium 9.2 mg/dl (8.6-10.3); Creatinine Clr Calc Pharmacy 55.1 ml/min; Est GFR (African American) 34.8 ml/min; Magnesium 1.8 mg/dl (1.7-2.4); Potassium 4.4 mmol/L (3.5-5.1)
[2023-08-10 06:59] LABS: INR 1.3 (0.9-1.1); Partial Thromboplastin Ratio 1.6; Prothrombin Time 14.1 Seconds (9.0-12.0)
[2023-08-10 07:01] LABS: Partial Thromboplastin Time 43.8 Seconds (21.0-31.0)
--- NOTE | 2023-08-10 07:30 | Hospitalist Progress Note ---
Date of Service August 10, 2023 Assessment & Plan (1) Sepsis: (2) Cellulitis: (3) Urinary tract infection: (4) Hypomagnesemia: (5) DM II (diabetes mellitus, type II), controlled: (6) HLD (hyperlipidemia): (7) HTN (hypertension): (8) Morbid obesity: (9) New onset a-fib: (10) Constipation: Plan Mr. 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 Patient found to be in a fib rvr and now being managed on PO metoprolol after converted to NSR while on Dilt drip the evening of 07/23. Patient found to have DVT in RLE and placed on heparin drip as well. On 07/24, patient was noted to be in exquisite back pain which is concerning given infectious work up has resulted with bacteremia [group a beta strep]. MRI imaging limited to noncontrast given progressive renal injury; this did not reveal discitis or signs overtly suggestive for vertebral osteomyelitis, but still concerning nonetheless. Ortho Spine evaluated patient for any acute neural compression, but there was no notable stenosis on imaging to correlate to pain on exam. Evaluation limited with MRI or CT 2/2 poor renal function. Patient's acute renal failure is likely secondary to prerenal etiology given low pressures/shock resulting in ATN. After no evidence of response to initial lasix challenge, with plateaued UOP and up trending Cr, it was decided to place temporary HD line at bedside for intermittent hemodialysis. Given there is anticipation of renal recovery, any contrast use at this time is not advised to prevent further insult to kidneys. Plan to obtain further imaging once stable from renal standpoint to aid in assessment of ?osteomyelitis/discitis. Blood Cultures from 07/23 with Group A Strep B, Urine culture negative. ECHO with no clear sign of vegetations. To ensure no persistent bacteremia, blood cultures were obtained on 07/24 and 07/25 without growth to date. However, there was an increase in WBC on 07/28, prompting repeat blood cultures which are still negative WBC trend has improved. Repeat MRI L spine with contrast revealed epidural abscess and discitis L3-S1. Patient underwent washout and decompression on 08/[address] Kelley given concern for further neurologic compromise. Patient tolerated procedure, now will require updated ID recommendations, as well as PT/OT. Heparin was resumed on 08/05 per surgery approval at 1600 without bolus; it was noted that on am labs, as well as recheck hgb down to 8.9 from baseline this admission of 10. Heparin briefly held, but appears that hgb stable prompting resumption of heparin. Discussion with Dr. Kelley on 08/06 revealed that procedure did not yield any significant findings for degree of patient's pain--no purulence was appreciated or expressed from washout and decompression. Pathology pending. Patient was with low grade temperature, tachycardia, and new leukocytosis. Unclear if these are standard changes post-operatively, but given patient's poor progression broaden antibiotic coverage while awaiting final recommendations from Infectious disease. The addition of zosyn seemed to have been followed by a precipitous drop in leukocytosis, as well as resolution of low grade fevers; however this could be cofounding from post-operative response from manipulation of infectious like material. Discussion with Dr Thomas with plan to deescalte and monitor response. Patient hypertensive, but seems to have responded to addition of nicardipine 20mg TID--transitioned to Nifedipine 60mg this am #Bacteremia 2/2 group a beta strep #Sepsis 2/2 bacteremia 2/2 epidural abscess - sepsis criteria with fever, elevated lactate, tachycardia, source likely RLE cellulitis/UTI on admission, *resolved - BCx NGTD; UA NGTD (denied urinary symptoms) - Gen surg: no surgical intervention on RLE (no fluid collections, predominately chronic changes of RLE) - Deescalate Zosyn back to Cefazoli and discontinue Linezolid 600mg BID per ID on 08/08 - Continue cefazolin IV, will need PICC prior to dispo, EOT TBD #Acute lower back pain 2/2 epidural abscess/discitis*improving -Pain control and mobilization as able -Continue abx as outlined below. -MRI lumbar spine (07/25): paravertebral marrow edema. no end plate erosion, no signs of osteomyelitis, however insufficient 2/2 lack of contrast iso ARF -Ortho spine consult: No surgical intervention at this time, consider bone scan if persistent. -MRI L spine with contrast (07/31): epidural abscesses L3-S1 and discitis--> cont current abx. -s/p washout and decompression L3-S1 -Discuss abx duration with ID,pending formal recommendations -Encourage ongoing participation, continue tylenol/flexeril combo #Constipation -Likely related to narcotics and minimal movement. Continues on miralax, senna, docusate. *resolved -OOB as able #Hypertension Relative hypotension due to likely shock, resolved with abx/fluid bolus Regimen prior to arrival: amlodipine 10mg, HCTZ 25mg, losartan 50mg -Hold hctz and losartan in setting of renal failure Currently uncontrolled and on amlodipine 5mg +BB. Required hydralazine 10mg IV today. -Avoiding hydralazine 2/2 reflex tachycardia -Increased Nifedipine to 90mg daily and transitioned to coreg 25mg bid for better BP management #Oliguric SARWAT, likely evolving ATN 2/2 ischemia from hypotension/shock *improving #Azotemia *improving #Hypervolemic Hyponatremia -Nephrology consult: HD cath placement 07/28, plan for intermittent dialysis, cont //Thu -Improved UOP, last HD 08/04 -Discontinued HD cath 08/08 -Plan to DC paulino pacheco trial today #Right LLE DVT - R ankle fracture 2013, R knee surgery in 2016 causes some enlargement in general in the RLE but this is much more swollen and tender in the calf compared to previously. -lymphedema and age-indeterminate DVT present -started on coumadin 07/31 with 5mg, but one dose caused his INR to go to 4.7 today. Held coumadin and heparin drip and trend INR in am. Restart Coumadin at 2.5mg when INR <3.5. -continue IV heparin, continue in interim given renal dysfunction with plans to transition to PO regimen prior to dispo given known DVT/a fib 08/02: cont IV heparin and gave warfarin 2.5mg today, trend INR daily and stop heparin when INR 2-3 x 2 days. 08/03: heparin had been active in the computer but held in the room today incorrectly. RN addressed with event report and heparin was restarted per protocol. Vit K given. Plan to cont heparin until tomorrow am when it will temporarily be held for surgery--likely to be restarted tomorrow evening immediately post op. 08/04: heparin held at 0500, additional 2.5mg IV vit K given. Resume heparin post op. Hold off on restarting warfarin until ortho spine feels no further washouts are needed. 08/05: Heparin to resume this evening at 1600 per surgery 08/06: 2 g hgb drop, no clear source; holding heparin as above 08/07: Hgb stabilized, no signs of bleed, resumed heparin--transition to warfarin upon removal of IJ 08/08: plan to start warfarin 08/09, 24 hours s/p cath removal 08/09: Warfarin tonight, 2.5mg 08/10: Warfarin 5mg daily, trend INR #New onset atrial fibrillation with RVR, remains in sinus rhythm at this point. After initial evaluation the patient - he went into from what we can tell, new onset afib with RVR with rates of 140-150 CHADsVasc 2 likely iso sepsis/bacteremia -Received Diltazem drip, d/c 07/24 -Transitioning to coreg for better BP control, can consider future adjustment--avoiding renally targeted BP control at this time -Heparin as above and warfarin #Acute hypoxic respiratory failure iso IVF hydration/oliguric SARWAT *resolved -CXR with pulm edema, required 2L NC, now on room air -oxygen prn, encourage mobilization which is very suboptimal at this point. Able to sit on side of bed but is a max assist. -continue to optimize fluid management with hemodialysis #Elevated troponin*resolved -likely demand iso bacteremia and a fib -Downtrended -Monitor on telemetry -consider further evaluation as outpatient. #Acute blood loss anemia, c/f post-operative losses *stable -Hgb stable at 10, down to 8.9; no reports of blood loss from GI standpoint -Trend CBC q12, monitor for acute blood loss, transfuse <7.0 -Stable, possibly post operative -Nephrology administering procrit #HLD - Chronic, stable, cont statin #Controlled DMTII -A1C 6.2% 07/24 -inpt BSG at goal - Holding metformin for now, ISS with accuchecks reveals no need for insulin coverage. Stop BSG checks at this time. #hypomagnesemia -Replace prn #Morbid obesity - BMI of 45, diet and exercise to be encouraged throughout hospital stay DVT ppx: heparin/coumadin GI/FEN: renal/Diabetic diet Lines: 2 PIV, HD line R neck CODE: FULL I spent a total [id number] coordinating, documenting, and providing care for this patient excluding time spent in the performance of separately billed ser vices Admission and Anticipated Discharge Date Admission Date: July 23, 2023 Subjective NAEO Renal function improving and patient eager for void trial Improving with PT, though notably weak Denies any new acute symptoms or pain Discussed dispo with nurse car wash supervisor at [facility]--reported needs of rehab and IV abx, awaiting confirmation of possible dispo to [facility] Review of Systems Review of Systems: All systems reviewed & are unremarkable except as noted in Subjective Physical Exam Constitutional: WD/WN, vitals as above Respiratory: normal respiratory effort, lungs clear to auscultation Cardiovascular: RRR, no murmur, no edema Gastrointestinal (Abdomen): normal bowel sounds, soft, nontender, no hepatosplenomegaly Results & Data Results & Data Vital Signs (Past 12 Hours) Vital Signs Temp Pulse Pulse Resp BP BP Pulse Ox 08/10/23 03:32 36.8 C 86 16 174/97 H 95 08/09/23 23:43 37.0 C 88 16 159/83 H 95 08/09/23 23:13 84 08/09/23 20:21 37.0 C 89 18 175/83 H O2 Del Method 08/10/23 03:32 Room Air 08/09/23 23:43 Room Air 08/09/23 23:13 08/09/23 20:21 Room Air Laboratory Results Short CBC 08/10/23 Range/Units 05:48 WBC 9.63 (4.8-10.8) K/ul Hgb 9.2 L (14.0-18.0) g/dl Hct 30.1 L (42.0-52.0) % Plt Count 573 H (130-400) K/uL BMP 08/10/23 05:48 Sodium 135 L Potassium 4.4 Chloride 102 Carbon Dioxide 27 BUN 39 H Creatinine 2.27 H D Glucose 154 H Calcium 9.2 Medications Administered Home Medications Medication Instructions Recorded Confirmed Last Taken acetaminophen 500 mg tablet 500 mg PO TID PRN Other 07/23/23 07/23/23 Unknown albuterol sulfate 90 mcg/actuation 2 puff inhalation QID PRN Other 07/23/23 07/23/23 Unknown aerosol inhaler (Proventil HFA) amlodipine 10 mg tablet 10 mg PO DAILY 07/23/23 07/23/23 Unknown ciclesonide 160 mcg/actuation 1 puff inhalation BID 07/23/23 07/23/23 Unknown aerosol inhaler (Alvesco) hydrochlorothiazide 25 mg tablet 25 mg PO DAILY 07/23/23 07/23/23 Unknown losartan 50 mg tablet 50 mg PO DAILY 07/23/23 07/23/23 Unknown metformin 500 mg tablet 500 mg PO BID 07/23/23 07/23/23 Unknown rosuvastatin 5 mg tablet 5 mg PO DAILY 07/23/23 07/23/23 Unknown tamsulosin 0.4 mg capsule 0.8 mg PO HS 07/23/23 07/23/23 Unknown Active Medications Generic Name Dose Route Start Last Admin Trade Name Freq PRN Reason Stop Dose Admin Acetaminophen 1,000 mg 08/08/23 14:00 08/09/23 20:55 Acetaminophen 500 Mg Tab PO 09/07/23 13:59 1,000 mg TID NEGRITA Administration Cyclobenzaprine HCl 5 mg 08/08/23 14:00 08/09/23 20:55 Cyclobenzaprine Hcl 5 Mg Tab PO 09/07/23 13:59 5 mg TID NEGRITA Administration Docusate Sodium 100 mg 08/06/23 09:00 08/09/23 09:03 Docusate Sodium 100 Mg Cap PO 09/05/23 08:59 100 mg DAILY NEGRITA Administration Epoetin Artemio 20,000 units 08/07/23 11:15 08/07/23 12:27 Epoetin Artemio 20,000 Units/Ml Vial SQ 09/06/23 11:14 20,000 units MoFr@0900 NEGRITA Administration Fluticasone Furoate 1 puffs 08/08/23 09:00 08/09/23 09:04 Fluticasone Furoate 200mcg 14 Puffs/Inhaler INH 09/07/23 08:59 1 puffs DAILY NEGRITA Administration Protocol Glycerin 1 supp 08/02/23 19:02 08/03/23 04:37 Glycerin Adult 12 Supp/Box Supp NM 09/01/23 19:01 1 supp DAILY PRN Administration Constipation Heparin Sodium/Dextrose 25,000 units in 500 mls @ 43 mls/hr 07/23/23 20:30 08/10/23 07:10 Heparin Sodium/Dextrose IV 08/22/23 20:29 2,150 units/hr .[id number] NEGRITA 43 mls/hr Titration Protocol 2,150 UNITS/HR Sodium Chloride 500 mls @ 0 mls/hr 08/04/23 16:00 08/04/23 16:30 Nss IV 09/03/23 15:59 Infused .Q0M NEGRITA Infusion KVO Cefazolin Sodium 2,000 mg in 15 mls @ 3.75 mls/min 08/08/23 13:45 08/10/23 05:25 Ancef 2000mg IV 08/22/23 13:44 3.75 mls/min Q8H NEGRITA Administration Insulin Aspart 0 units 08/04/23 21:00 08/09/23 20:50 Insulin Aspart Per Unit Charge SC 09/03/23 20:59 Not Given ACHS [facility] Magnesium Oxide 400 mg 08/09/23 09:00 08/09/23 20:55 Magnesium Oxide 400 Mg Tab PO 09/08/23 08:59 400 mg BID NEGRITA Administration Metoprolol Succinate 50 mg 08/05/23 21:00 08/09/23 20:55 Metoprolol Succ 50mg Ext Rel Tab PO 09/04/23 20:59 50 mg BID NEGRITA Administration Oxycodone HCl 5 - 10 mg 08/05/23 01:19 08/10/23 05:40 Oxycodone Hcl Ir 5 Mg Tab (Immediate Release) PO 08/19/23 01:18 10 mg QID PRN Administration Pain Patiromer 8.4 gm 08/06/23 12:00 08/09/23 12:59 Patiromer Calcium Sorbitex 8.4 Gm Pack PO 09/05/23 11:59 8.4 gm DAILY@1200 NEGRITA Administration Polyethylene Glycol 17 gm 08/08/23 14:45 08/09/23 20:56 Polyethylene (Miralax) 17 Gm Pack PO 09/07/23 14:44 Not Given TID NEGRITA Rosuvastatin Calcium 5 mg 07/24/23 09:00 08/09/23 09:04 Rosuvastatin Calcium 5 Mg Tab PO 08/23/23 08:59 5 mg DAILY NEGRITA Administration Sennosides 17.2 mg 07/30/23 21:00 08/09/23 20:56 Senna 8.6 Mg Tab PO 08/29/23 20:59 Not Given HS NEGRITA Tamsulosin HCl 0.8 mg 07/23/23 21:00 08/09/23 20:55 Tamsulosin Hcl 0.4 Mg Cap PO 08/22/23 20:59 0.8 mg HS NEGRITA Administration
[2023-08-10] MEDS: INSULIN ASPART PER UNIT CHARGE SC SCH ×4 (08:38→20:54)
[2023-08-10] MEDS: ACETAMINOPHEN 500 MG TAB PO SCH ×3 (08:41→20:53)
[2023-08-10] MEDS: MAGNESIUM OXIDE 400 MG TAB PO SCH ×2 (08:43→20:54)
[2023-08-10] MEDS: CYCLOBENZAPRINE HCL 5 MG TAB PO SCH ×3 (08:44→20:54)
[2023-08-10] MEDS: ROSUVASTATIN CALCIUM 5 MG TAB PO SCH (08:45)
[2023-08-10] MEDS: FLUTICASONE FUROATE 200MCG 14 PUFFS/INHALER INH SCH (08:45)
[2023-08-10] MEDS: DOCUSATE SODIUM 100 MG CAP PO SCH (08:45)
[2023-08-10] MEDS: POLYETHYLENE (MIRALAX) 17 GM PACK PO SCH ×3 (08:46→20:56)
[2023-08-10] MEDS: carvediloL 25 MG TAB PO SCH ×2 (08:57→17:29)
[2023-08-10] MEDS ORDERED: TAMSULOSIN HCL 0.4 MG CAP PO SCH (09:00)
--- NOTE | 2023-08-10 09:17 | Nephrology Progress Note ---
Date of Service August 10, 2023 Assessment & Plan (1) Acute kidney injury: Plan: improving SARWAT, formerly SARWAT -D, from ATN. Baseline creatinine 1.3. on RA now first HD on 07/28; last HD 08/04. Patient is making a lot of urine and recovering renal function. No indication for further dialysis. Creatinine today down to 2.3. Potassium stable at 4.4. -reasonable at this point to stop veltassa and monitor K -Patient needs to drink at least 2 L of fluids daily to avoid dehydration - daily BMP -HTN remains uncontrolled > continue coreg, nifedipine; consider hydralazine trial versus low dose diuretic if needed Will continue to follow while in house If for d/c to [facility], check bmp at least 2X weekly (2) Bacteremia: Plan: WBC had worsened; last + cx 07/23 group B strep; has discitis - renally dose Abx Admission and Anticipated Discharge Date Admission Date: July 23, 2023 Subjective no acute interval events clinically; TDC has been removed. no sob no n/v no confusion Review of Systems 2 Review of Systems: All systems reviewed & are unremarkable except as noted in Subjective Physical Exam 2 Constitutional: well developed, + morbidly obese, + frail appearing and cooperative; no acute distress Eyes: EOM intact bilaterally ENMT: Ears: no external ear abnormality Nose: no external nose abnormality Mouth: + dry oral mucous membranes Neck: no nuchal rigidity Respiratory: normal respiratory effort Auscultation: + diminished lung sounds Cardiovascular: Rate/Rhythm: regular rate and regular rhythm Extremities: n o edema Gastrointestinal (Abdomen): Inspection/Auscultation: normal bowel sounds P ercussion/Palpation: abdomen soft; abdomen nontender Musculoskeletal: Extremities: + abnormal strength Skin: no rashes, warm and dry Neurologic: julien, fluent speech, no tremor Psychiatric: Orientation: alert and oriented x 3 Results & Data Vital Signs (Past 12 Hours) Vital Signs Temp Pulse Pulse Resp BP BP Pulse Ox 08/10/23 03:32 36.8 C 86 16 174/97 H 95 08/09/23 23:43 37.0 C 88 16 159/83 H 95 08/09/23 23:13 84 O2 Del Method 08/10/23 03:32 Room Air 08/09/23 23:43 Room Air 08/09/23 23:13 Laboratory Results 08/10/23 05:48 08/10/23 05:48
[2023-08-10] MEDS: EPOETIN ALFA 20,000 UNITS/ML VIAL SQ SCH (11:33)
[2023-08-10] MEDS: NIFEdipine EXTENDED REL 30 MG TABCR PO SCH (11:33)
[2023-08-10] MEDS ORDERED: hydrALAZINE HCL 20 MG/ML VIAL IV PRN (16:34)
[2023-08-10] MEDS: WARFARIN SOD 5 MG TAB PO SCH (16:36)
[2023-08-10] MEDS: TAMSULOSIN HCL 0.4 MG CAP PO SCH (20:53)
[2023-08-10] MEDS: SENNA 8.6 MG TAB PO SCH (20:55)
[2023-08-11] MEDS: HEPARIN SODIUM/DEXTROSE 25,000 UNITS/500 ML BAG IV SCH ×2 (05:12→15:46)
[2023-08-11 05:13] LABS: Hematocrit (blood only) 28.2 % (42.0-52.0); Hemoglobin 8.8 g/dl (14.0-18.0); Mean Corpuscular Hemoglobin 27.6 pg (25.0-34.0); Mean Corpuscular Hgb Conc 31.2 g/dL (32.0-36.0); Mean Corpuscular Volume 88.4 fL (80.0-100.0); Mean Platelet Volume 8.9 fL (9.4-12.4); Platelet Count 570 K/uL (130-400); RDW Coefficient of Variation 13.4 % (11.5-14.5); RDW Standard Deviation 43.3 fL (36.4-46.3); Red Blood Count 3.19 M/uL (4.70-6.10); White Blood Count 10.58 K/ul (4.8-10.8)
[2023-08-11 05:21] LABS: BUN Creatinine Ratio 20.1 (10-20); Calcium 9.6 mg/dl (8.6-10.3); Creatinine Clr Calc Pharmacy 61.3 ml/min; Est GFR (African American) 39.6 ml/min; Est GFR (Non-African American) 34.2 ml/min; Magnesium 1.7 mg/dl (1.7-2.4); Phosphorus 5.3 mg/dl (2.5-4.9); Potassium 4.3 mmol/L (3.5-5.1)
[2023-08-11 05:48] LABS: Partial Thromboplastin Ratio 1.6
[2023-08-11 05:52] LABS: Partial Thromboplastin Time 46.4 Seconds (21.0-31.0)
[2023-08-11] MEDS: ceFAZolin 2000MG 2,000 MG/15 ML SYR IV SCH ×3 (06:03→20:53)
[2023-08-11] MEDS: carvediloL 25 MG TAB PO SCH ×2 (08:44→16:02)
[2023-08-11] MEDS: INSULIN ASPART PER UNIT CHARGE SC SCH ×4 (08:44→20:38)
[2023-08-11] MEDS: MAGNESIUM OXIDE 400 MG TAB PO SCH ×2 (08:44→20:46)
[2023-08-11] MEDS: ACETAMINOPHEN 500 MG TAB PO SCH ×3 (08:44→20:47)
[2023-08-11] MEDS: CYCLOBENZAPRINE HCL 5 MG TAB PO SCH ×3 (08:44→20:46)
[2023-08-11] MEDS: NIFEdipine EXTENDED REL 30 MG TABCR PO SCH (08:45)
[2023-08-11] MEDS: FLUTICASONE FUROATE 200MCG 14 PUFFS/INHALER INH SCH (08:45)
[2023-08-11] MEDS: ROSUVASTATIN CALCIUM 5 MG TAB PO SCH (08:45)
[2023-08-11] MEDS: POLYETHYLENE (MIRALAX) 17 GM PACK PO SCH ×3 (08:46→20:46)
[2023-08-11] MEDS: DOCUSATE SODIUM 100 MG CAP PO SCH (08:47)
[2023-08-11 09:50] LABS: INR 1.3 (0.9-1.1); Prothrombin Time 13.9 Seconds (9.0-12.0)
--- NOTE | 2023-08-11 10:08 | Nephrology Progress Note ---
Date of Service August 11, 2023 Assessment & Plan (1) Acute kidney injury: Plan: Further improving SARWAT, formerly SARWAT -D, from ATN. Baseline creatinine 1.3. on RA now first HD on 07/28; last HD 08/04. TDC out. Patient is making a lot of urine and recovering renal function. No indication for further dialysis. Creatinine further improved today down to 2. Potassium stable at 4.3. -K controlled; no indication to resume veltassa -Patient needs to drink at least 2 L of fluids daily to avoid dehydration - daily BMP -HTN remains uncontrolled > continue coreg, nifedipine; consider hydralazine trial versus low dose diuretic if needed but would give creatinine time to improve further first if possible and cont to focus on pain control Will continue to follow while in house If for d/c to [facility], -check bmp at least 2X weekly x2 wks then weekly while on abtx -recommend bmp (2) Bacteremia: Plan: WBC had worsened; last + cx 07/23 group B strep; has discitis - renally dose Abx Admission and Anticipated Discharge Date Admission Date: July 23, 2023 Subjective no acute interval clinical events. chronic stable/slightly better controlled pain back and BL legs. no sob. no n/v. denies voiding concerns Review of Systems 2 Review of Systems: All systems reviewed & are unremarkable except as noted in Subjective Physical Exam 2 Constitutional: well developed, + morbidly obese, + frail appearing and cooperative; no acute distress Eyes: EOM intact bilaterally ENMT: Ears: no external ear abnormality Nose: no external nose abnormality Mouth: + dry oral mucous membranes Neck: no nuchal rigidity Respiratory: normal respiratory effort Auscultation: + diminished lung sounds Cardiovascular: Rate/Rhythm: regular rate and regular rhythm Extremities: + edema (2+ RLE; none LLE) Gastrointestinal (Abdomen): Inspection/Auscultation: normal bowel sounds P ercussion/Palpation: abdomen soft; abdomen nontender Musculoskeletal: Extremities: strength 5/5 throughout and + abnormal strength Skin: no rashes, warm and dry Psychiatric: Orientation: alert and oriented x 3 Results & Data Vital Signs (Past 12 Hours) Vital Signs Temp Pulse Pulse Resp BP BP Pulse Ox 08/11/23 08:53 08/11/23 08:03 36.8 C 80 19 167/96 H 96 08/11/23 07:55 87 08/11/23 04:03 36.9 C 81 18 157/88 H 97 08/11/23 00:00 79 08/10/23 23:25 36.7 C 61 18 148/66 H 95 O2 Del Method O2 Flow Rate 08/11/23 08:53 Room Air 08/11/23 08:03 Nasal Cannula 2.0 08/11/23 07:55 08/11/23 04:03 Nasal Cannula 2 08/11/23 00:00 08/10/23 23:25 Room Air Laboratory Results 08/11/23 04:43 08/11/23 04:43
[2023-08-11] MEDS ORDERED: NIFEdipine EXTENDED REL 30 MG TABCR PO STA (10:35)
--- NOTE | 2023-08-11 10:40 | Hospitalist Progress Note ---
Date of Service August 11, 2023 Assessment & Plan (1) Sepsis: (2) Cellulitis: (3) Urinary tract infection: (4) Hypomagnesemia: (5) DM II (diabetes mellitus, type II), controlled: (6) HLD (hyperlipidemia): (7) HTN (hypertension): (8) Morbid obesity: (9) New onset a-fib: (10) Constipation: Plan Mr. 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 Patient found to be in a fib rvr and now being managed on PO metoprolol after converted to NSR while on Dilt drip the evening of 07/23. Patient found to have DVT in RLE and placed on heparin drip as well. On 07/24, patient was noted to be in exquisite back pain which is concerning given infectious work up has resulted with bacteremia [group a beta strep]. MRI imaging limited to noncontrast given progressive renal injury; this did not reveal discitis or signs overtly suggestive for vertebral osteomyelitis, but still concerning nonetheless. Ortho Spine evaluated patient for any acute neural compression, but there was no notable stenosis on imaging to correlate to pain on exam. Evaluation limited with MRI or CT 2/2 poor renal function. Patient's acute renal failure is likely secondary to prerenal etiology given low pressures/shock resulting in ATN. After no evidence of response to initial lasix challenge, with plateaued UOP and up trending Cr, it was decided to place temporary HD line at bedside for intermittent hemodialysis. Given there is anticipation of renal recovery, any contrast use at this time is not advised to prevent further insult to kidneys. Plan to obtain further imaging once stable from renal standpoint to aid in assessment of ?osteomyelitis/discitis. Blood Cultures from 07/23 with Group A Strep B, Urine culture negative. ECHO with no clear sign of vegetations. To ensure no persistent bacteremia, blood cultures were obtained on 07/24 and 07/25 without growth to date. However, there was an increase in WBC on 07/28, prompting repeat blood cultures which are still negative WBC trend has improved. Repeat MRI L spine with contrast revealed epidural abscess and discitis L3-S1. Patient underwent washout and decompression on 08/[address] Kelley given concern for further neurologic compromise. Patient tolerated procedure, now will require updated ID recommendations, as well as PT/OT. Heparin was resumed on 08/05 per surgery approval at 1600 without bolus; it was noted that on am labs, as well as recheck hgb down to 8.9 from baseline this admission of 10. Heparin briefly held, but appears that hgb stable prompting resumption of heparin. Discussion with Dr. Kelley on 08/06 revealed that procedure did not yield any significant findings for degree of patient's pain--no purulence was appreciated or expressed from washout and decompression. Pathology pending. Patient was with low grade temperature, tachycardia, and new leukocytosis. Unclear if these are standard changes post-operatively, but given patient's poor progression broaden antibiotic coverage while awaiting final recommendations from Infectious disease. The addition of zosyn seemed to have been followed by a precipitous drop in leukocytosis, as well as resolution of low grade fevers; however this could be cofounding from post-operative response from manipulation of infectious like material. Zosyn was deescalted and transitioned to Cefazolin 18 with EOT 09/15. Patient now undergoing blood pressure medication titration and heparin briding. Facility cannot do heparin, however, renal function is improving and lovenox may be suitable alternative. #Bacteremia 2/2 group a beta strep #Sepsis 2/2 bacteremia 2/2 epidural abscess - sepsis criteria with fever, elevated lactate, tachycardia, source likely RLE cellulitis/UTI on admission, *resolved - BCx NGTD; UA NGTD (denied urinary symptoms) - Gen surg: no surgical intervention on RLE (no fluid collections, predominately chronic changes of RLE) - Deescalate Zosyn back to Cefazoli and discontinue Linezolid 600mg BID per ID on 08/08 - Continue cefazolin IV, will need PICC prior to dispo, EOT 09/15 #Acute lower back pain 2/2 epidural abscess/discitis*improving -Pain control and mobilization as able -Continue abx as outlined below. -MRI lumbar spine (07/25): paravertebral marrow edema. no end plate erosion, no signs of osteomyelitis, however insufficient 2/2 lack of contrast iso ARF -Ortho spine consult: No surgical intervention at this time, consider bone scan if persistent. -MRI L spine with contrast (07/31): epidural abscesses L3-S1 and discitis--> cont current abx. -s/p washout and decompression L3-S1 -Discuss abx duration with ID,pending formal recommendations -Encourage ongoing participation, continue tylenol/flexeril combo #Constipation -Likely related to narcotics and minimal movement. Continues on miralax, senna, docusate. *resolved -OOB as able #Hypertension Relative hypotension due to likely shock, resolved with abx/fluid bolus Regimen prior to arrival: amlodipine 10mg, HCTZ 25mg, losartan 50mg -Hold hctz and losartan in setting of renal failure Currently uncontrolled and on amlodipine 5mg +BB. Required hydralazine 10mg IV today. -Avoiding hydralazine 2/2 reflex tachycardia -Increased Nifedipine to 90mg daily and transitioned to coreg 25mg bid for bet ter BP management #Oliguric SARWAT, likely evolving ATN 2/2 ischemia from hypotension/shock *improving #Azotemia *improving #Hypervolemic Hyponatremia -Nephrology consult: HD cath placement 07/28, plan for intermittent dialysis, cont T//Thu -Improved UOP, last HD 08/04 -Discontinued HD cath 08/08 -Plan to DC paulino pacheco trial today #Right LLE DVT - R ankle fracture 2013, R knee surgery in 2016 causes some enlargement in general in the RLE but this is much more swollen and tender in the calf compared to previously. -lymphedema and age-indeterminate DVT present -started on coumadin 07/31 with 5mg, but one dose caused his INR to go to 4.7 today. Held coumadin and heparin drip and trend INR in am. Restart Coumadin at 2.5mg when INR <3.5. -continue IV heparin, continue in interim given renal dysfunction with plans to transition to PO regimen prior to dispo given known DVT/a fib 08/02: cont IV heparin and gave warfarin 2.5mg today, trend INR daily and stop heparin when INR 2-3 x 2 days. 08/03: heparin had been active in the computer but held in the room today incorrectly. RN addressed with event report and heparin was restarted per protocol. Vit K given. Plan to cont heparin until tomorrow am when it will temporarily be held for surgery--likely to be restarted tomorrow evening immediately post op. 08/04: heparin held at 0500, additional 2.5mg IV vit K given. Resume heparin post op. Hold off on restarting warfarin until ortho spine feels no further washouts are needed. 08/05: Heparin to resume this evening at 1600 per surgery 08/06: 2 g hgb drop, no clear source; holding heparin as above 08/07: Hgb stabilized, no signs of bleed, resumed heparin--transition to warfarin upon removal of IJ 08/08: plan to start warfarin 08/09, 24 hours s/p cath removal 08/09: Warfarin tonight, 2.5mg 08/10: Warfarin 5mg daily, trend INR #New onset atrial fibrillation with RVR, remains in sinus rhythm at this point. After initial evaluation the patient - he went into from what we can tell, new onset afib with RVR with rates of 140-150 CHADsVasc 2 likely iso sepsis/bacteremia -Received Diltazem drip, d/c 07/24 -Transitioning to coreg for better BP control, can consider future adjustment--avoiding renally targeted BP control at this time -Heparin as above and warfarin #Acute hypoxic respiratory failure iso IVF hydration/oliguric SARWAT *resolved -CXR with pulm edema, required 2L NC, now on room air -oxygen prn, encourage mobilization which is very suboptimal at this point. Able to sit on side of bed but is a max assist. -continue to optimize fluid management with hemodialysis #Elevated troponin*resolved -likely demand iso bacteremia and a fib -Downtrended -Monitor on telemetry -consider further evaluation as outpatient. #Acute blood loss anemia, c/f post-operative losses *stable -Hgb stable at 10, down to 8.9; no reports of blood loss from GI standpoint -Trend CBC q12, monitor for acute blood loss, transfuse <7.0 -Stable, possibly post operative -Nephrology administering procrit #HLD - Chronic, stable, cont statin #Controlled DMTII -A1C 6.2% 07/24 -inpt BSG at goal - Holding metformin for now, ISS with accuchecks reveals no need for insulin coverage. Stop BSG checks at this time. #hypomagnesemia -Replace prn #Morbid obesity - BMI of 45, diet and exercise to be encouraged throughout hospital stay DVT ppx: heparin/coumadin GI/FEN: renal/Diabetic diet Lines: 2 PIV, HD line R neck CODE: FULL I spent a total [id number] coordinating, documenting, and providing care for this patient excluding time spent in the performance of separately billed services Admission and Anticipated Discharge Date Admission Date: July 23, 2023 Subjective NAEO Review of Systems Review of Systems: All systems reviewed & are unremarkable except as noted in Subjective Physical Exam Constitutional: WD/WN, vitals as above Respiratory: normal respiratory effort, lungs clear to auscultation Cardiovascular: RRR, no murmur, no edema Results & Data Results & Data Vital Signs (Past 12 Hours) Vital Signs Temp Pulse Pulse Resp BP BP Pulse Ox 08/11/23 08:53 08/11/23 08:03 36.8 C 80 19 167/96 H 96 08/11/23 07:55 87 08/11/23 04:03 36.9 C 81 18 157/88 H 97 08/11/23 00:00 79 08/10/23 23:25 36.7 C 61 18 148/66 H 95 O2 Del Method O2 Flow Rate 08/11/23 08:53 Room Air 08/11/23 08:03 Nasal Cannula 2.0 08/11/23 07:55 08/11/23 04:03 Nasal Cannula 2 08/11/23 00:00 08/10/23 23:25 Room Air
[2023-08-11] MEDS: oxyCODONE HCL IR 5 MG TAB (IMMEDIATE RELEASE) PO PRN (12:55)
[2023-08-11] MEDS: WARFARIN SOD 5 MG TAB PO SCH (16:02)
[2023-08-11] MEDS: TAMSULOSIN HCL 0.4 MG CAP PO SCH (20:46)
[2023-08-11] MEDS: SENNA 8.6 MG TAB PO SCH (20:47)
[2023-08-12] MEDS: HEPARIN SODIUM/DEXTROSE 25,000 UNITS/500 ML BAG IV SCH ×3 (01:31→13:33)
[2023-08-12] MEDS: oxyCODONE HCL IR 5 MG TAB (IMMEDIATE RELEASE) PO PRN ×3 (01:31→21:06)
[2023-08-12 06:14] LABS: Hematocrit (blood only) 27.8 % (42.0-52.0); Hemoglobin 8.8 g/dl (14.0-18.0); Mean Corpuscular Hemoglobin 27.8 pg (25.0-34.0); Mean Corpuscular Hgb Conc 31.7 g/dL (32.0-36.0); Mean Corpuscular Volume 87.7 fL (80.0-100.0); Mean Platelet Volume 8.6 fL (9.4-12.4); Platelet Count 569 K/uL (130-400); RDW Coefficient of Variation 13.5 % (11.5-14.5); RDW Standard Deviation 43.5 fL (36.4-46.3); Red Blood Count 3.17 M/uL (4.70-6.10); White Blood Count 9.96 K/ul (4.8-10.8)
[2023-08-12] MEDS: ceFAZolin 2000MG 2,000 MG/15 ML SYR IV SCH ×3 (06:20→21:04)
[2023-08-12 06:29] LABS: BUN Creatinine Ratio 19.8 (10-20); Calcium 9.7 mg/dl (8.6-10.3); Creatinine Clr Calc Pharmacy 66.1 ml/min; Est GFR (Non-African American) 37.9 ml/min; Magnesium 1.6 mg/dl (1.7-2.4); Phosphorus 5.2 mg/dl (2.5-4.9); Potassium 4.6 mmol/L (3.5-5.1)
[2023-08-12 06:37] LABS: INR 1.4 (0.9-1.1); Prothrombin Time 14.8 Seconds (9.0-12.0)
[2023-08-12] MEDS: INSULIN ASPART PER UNIT CHARGE SC SCH ×4 (08:19→20:48)
[2023-08-12] MEDS: carvediloL 25 MG TAB PO SCH ×2 (08:26→16:45)
[2023-08-12] MEDS: ACETAMINOPHEN 500 MG TAB PO SCH ×3 (08:26→20:59)
[2023-08-12] MEDS: NIFEdipine EXTENDED REL 30 MG TABCR PO SCH (08:27)
[2023-08-12] MEDS: CYCLOBENZAPRINE HCL 5 MG TAB PO SCH ×3 (08:27→21:00)
[2023-08-12] MEDS: MAGNESIUM OXIDE 400 MG TAB PO SCH ×2 (08:27→20:59)
[2023-08-12] MEDS: DOCUSATE SODIUM 100 MG CAP PO SCH (08:27)
[2023-08-12] MEDS: POLYETHYLENE (MIRALAX) 17 GM PACK PO SCH ×3 (08:27→19:47)
[2023-08-12] MEDS: FERROUS SULFATE 325 MG TAB PO SCH (08:27)
[2023-08-12] MEDS: ROSUVASTATIN CALCIUM 5 MG TAB PO SCH (08:27)
[2023-08-12] MEDS: FLUTICASONE FUROATE 200MCG 14 PUFFS/INHALER INH SCH (08:28)
[2023-08-12] MEDS: MAGNESIUM SULFATE / D5W 1 GM/100 ML BAG IV SCH ×2 (10:35→12:18)
[2023-08-12] MEDS: WARFARIN SOD 5 MG TAB PO SCH (16:45)
--- NOTE | 2023-08-12 18:18 | Hospitalist Progress Note ---
Date of Service August 12, 2023 Assessment & Plan (1) Sepsis: (2) Cellulitis: (3) Urinary tract infection: (4) Hypomagnesemia: (5) DM II (diabetes mellitus, type II), controlled: (6) HLD (hyperlipidemia): (7) HTN (hypertension): (8) Morbid obesity: (9) New onset a-fib: (10) Constipation: Plan Per prior attending with addendum: Mr. 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 Patient found to be in a fib rvr and now being managed on PO metoprolol after converted to NSR while on Dilt drip the evening of 07/23. Patient found to have DVT in RLE and placed on heparin drip as well. On 07/24, patient was noted to be in exquisite back pain which is concerning given infectious work up has resulted with bacteremia [group a beta strep]. MRI imaging limited to noncontrast given progressive renal injury; this did not reveal discitis or signs overtly suggestive for vertebral osteomyelitis, but still concerning nonetheless. Ortho Spine evaluated patient for any acute neural compression, but there was no notable stenosis on imaging to correlate to pain on exam. Evaluation limited with MRI or CT 2/2 poor renal function. Patient's acute renal failure is likely secondary to prerenal etiology given low pressures/shock resulting in ATN. After no evidence of response to initial lasix challenge, with plateaued UOP and up trending Cr, it was decided to place temporary HD line at bedside for intermittent hemodialysis. Given there is anticipation of renal recovery, any contrast use at this time is not advised to prevent further insult to kidneys. Plan to obtain further imaging once stable from renal standpoint to aid in assessment of ?osteomyelitis/discitis. Blood Cultures from 07/23 with Group A Strep B, Urine culture negative. ECHO with no clear sign of vegetations. To ensure no persistent bacteremia, blood cultures were obtained on 07/24 and 07/25 without growth to date. However, there was an increase in WBC on 07/28, prompting repeat blood cultures which are still negative WBC trend has improved. Repeat MRI L spine with contrast revealed epidural abscess and discitis L3-S1. Patient underwent washout and decompression on 08/[address] Kelley given concern for further neurologic compromise. Patient tolerated procedure, now will require updated ID recommendations, as well as PT/OT. Heparin was resumed on 08/05 per surgery approval at 1600 without bolus; it was noted that on am labs, as well as recheck hgb down to 8.9 from baseline this admission of 10. Heparin briefly held, but appears that hgb stable prompting resumption of heparin. Discussion with Dr. Kelley on 08/06 revealed that procedure did not yield any significant findings for degree of patient's pain--no purulence was appreciated or expressed from washout and decompression. Pathology pending. Patient was with low grade temperature, tachycardia, and new leukocytosis. Unclear if these are standard changes post-operatively, but given patient's poor progression broaden antibiotic coverage while awaiting final recommendations from Infectious disease. The addition of zosyn seemed to have been followed by a precipitous drop in leukocytosis, as well as resolution of low grade fevers; however this could be cofounding from post-operative response from manipulation of infectious like material. Zosyn was deescalted and transitioned to Cefazolin 18 with EOT 09/15. Patient now undergoing blood pressure medication titration and heparin briding. Facility cannot do heparin, however, renal function is improving and lovenox may be suitable alternative. #Bacteremia 2/2 group a beta strep #Sepsis 2/2 bacteremia 2/2 epidural abscess - sepsis criteria with fever, elevated lactate, tachycardia, source likely RLE cellulitis/UTI on admission, *resolved - BCx NGTD; UA NGTD (denied urinary symptoms) - Gen surg: no surgical intervention on RLE (no fluid collections, predominately chronic changes of RLE) - Deescalate Zosyn back to Cefazoli and discontinue Linezolid 600mg BID per ID on 08/08 - Continue cefazolin IV, will need PICC prior to dispo, EOT 09/15. #Acute lower back pain 2/2 epidural abscess/discitis*improving -Pain control and mobilization as able -Continue abx as outlined below. -MRI lumbar spine (07/25): paravertebral marrow edema. no end plate erosion, no signs of osteomyelitis, however insufficient 2/2 lack of contrast iso ARF -Ortho spine consult: No surgical intervention at this time, consider bone scan if persistent. -MRI L spine with contrast (07/31): epidural abscesses L3-S1 and discitis--> cont current abx. -s/p washout and decompression L3-S1 -Discuss abx duration with ID,pending formal recommendations -Encourage ongoing participation, continue tylenol/flexeril combo #Constipation -Likely related to narcotics and minimal movement. Continues on miralax, senna, docusate. *resolved -OOB as able #Hypertension Relative hypotension due to likely shock, resolved with abx/fluid bolus Regimen prior to arrival: amlodipine 10mg, HCTZ 25mg, losartan 50mg -Hold hctz and losartan in setting of renal failure Currently uncontrolled and on amlodipine 5mg +BB. Required hydralazine 10mg IV today. -Avoiding hydralazine 2/2 reflex tachycardia -Increased Nifedipine to 90mg daily and transitioned to coreg 25mg bid for better BP management #Oliguric SARWAT, likely evolving ATN 2/2 ischemia from hypotension/shock *improving #Azotemia *improving #Hypervolemic Hyponatremia -Nephrology consult: HD cath placement 07/28, plan for intermittent dialysis, cont T//Thu -Improved UOP, last HD 08/04 -Discontinued HD cath 08/08 -Plan to DC paulino pacheco trial today #Right LLE DVT - R ankle fracture 2013, R knee surgery in 2016 causes some enlargement in general in the RLE but this is much more swollen and tender in the calf compared to previously. -lymphedema and age-indeterminate DVT present -started on coumadin 07/31 with 5mg, but one dose caused his INR to go to 4.7 today. Held coumadin and heparin drip and trend INR in am. Restart Coumadin at 2.5mg when INR <3.5. -continue IV heparin, continue in interim given renal dysfunction with plans to transition to PO regimen prior to dispo given known DVT/a fib 08/02: cont IV heparin and gave warfarin 2.5mg today, trend INR daily and stop heparin when INR 2-3 x 2 days. 08/03: heparin had been active in the computer but held in the room today incorrectly. RN addressed with event report and heparin was restarted per protocol. Vit K given. Plan to cont heparin until tomorrow am when it will temporarily be held for surgery--likely to be restarted tomorrow evening immediately post op. 08/04: heparin held at 0500, additional 2.5mg IV vit K given. Resume heparin post op. Hold off on restarting warfarin until ortho spine feels no further washouts are needed. 08/05: Heparin to resume this evening at 1600 per surgery 08/06: 2 g hgb drop, no clear source; holding heparin as above 08/07: Hgb stabilized, no signs of bleed, resumed heparin--transition to warfarin upon removal of IJ 08/08: plan to start warfarin 08/09, 24 hours s/p cath removal 08/09: Warfarin tonight, 2.5mg 08/10: Warfarin 5mg daily, trend INR #New onset atrial fibrillation with RVR, remains in sinus rhythm at this point. After initial evaluation the patient - he went into from what we can tell, new onset afib with RVR with rates of 140-150 CHADsVasc 2 likely iso sepsis/bacteremia -Received Diltazem drip, d/c 07/24 -Transitioning to coreg for better BP control, can consider future adjustment--avoiding renally targeted BP control at this time -Heparin as above and warfarin #Acute hypoxic respiratory failure iso IVF hydration/oliguric SARWAT *resolved -CXR with pulm edema, required 2L NC, now on room air -oxygen prn, encourage mobilization which is very suboptimal at this point. Able to sit on side of bed but is a max assist. -continue to optimize fluid management with hemodialysis #Elevated troponin*resolved -likely demand iso bacteremia and a fib -Downtrended -Monitor on telemetry -consider further evaluation as outpatient. #Acute blood loss anemia, c/f post-operative losses *stable -Hgb stable at 10, down to 8.9; no reports of blood loss from GI standpoint -Trend CBC q12, monitor for acute blood loss, transfuse <7.0 -Stable, possibly post operative -Nephrology administering procrit #HLD - Chronic, stable, cont statin #Controlled DMTII -A1C 6.2% 07/24 -inpt BSG at goal - Holding metformin for now, ISS with accuchecks reveals no need for insulin coverage. Stop BSG checks at this time. #hypomagnesemia -Replace prn #Morbid obesity - BMI of 45, diet and exercise to be encouraged throughout hospital stay DVT ppx: heparin/coumadin GI/FEN: renal/Diabetic diet Lines: 2 PIV, HD line R neck CODE: FULL I spent a total [id number] coordinating, documenting, and providing care for this patient excluding time spent in the performance of separately billed services Addendum: Patient was seen and examined at bedside as a follow-up of sepsis secondary to bacteremia secondary to epidural abscess. Patient hemodynamically stable, reports feeling better and back to his baseline. PICC line placed today. Patient getting IV cefazolin. Patient will need [facility]. INR 1.4 today, being bridged with heparin for RLE DVT. Will repeat INR in a.m., if still low consider Lovenox bridging upon discharge based on renal function at the time. Baseline creatinine is 1.3, creatinine today is 1.87 which is improving trend. Patient otherwise feels better. Continue current management. Patient initially received hemodialysis x 2 for worsening renal function. Now not needing hemodialysis. Admission and Anticipated Discharge Date Admission Date: July 23, 2023 Subjective no acute interval clinical events. chronic stable/slightly better controlled pain back and BL legs. no sob. no n/v. denies voiding concerns. Denies other ROS. Reports feeling better. Physical Exam Physical Exam: GENERAL: Alert and oriented x3. NAD, on RA. Morbidly obese. Weak/frail appearing. HEENT: No pallor, no icterus. Pupils equal, round and reactive to light. Oral mucosa moist. NECK: No JVD, no neck masses. HEART: S1 and S2 heard. Regular rate and rhythm. No murmur, no gallop. RESPIRATORY SYSTEM: Normal AP diameter. No accessory muscle use. No wheezing, diminished lung sounds. ABDOMEN: Soft, bowel sounds present, nontender, no distention. CENTRAL NERVOUS SYSTEM: No facial droop. Speech is clear. Obeys simple commands. Moves extremities. EXTREMITIES: 2+ RLE edema. Results & Data Results & Data Vital Signs (Past 12 Hours) Vital Signs Temp Pulse Pulse Resp BP BP Pulse Ox 08/12/23 16:00 78 08/12/23 14:48 36.7 C 75 18 130/77 99 08/12/23 11:30 36.5 C 76 16 146/81 H 97 08/12/23 11:25 36.5 C 98 H 20 183/96 H 08/12/23 09:00 08/12/23 09:00 85 08/12/23 07:13 36.7 C 79 18 158/79 H 95 O2 Del Method O2 Flow Rate 08/12/23 16:00 08/12/23 14:48 Room Air 08/12/23 11:30 Room Air 08/12/23 11:25 High Flow Nasal Cannula 20 08/12/23 09:00 Room Air 08/12/23 09:00 08/12/23 07:13 Room Air
[2023-08-12] MEDS: SENNA 8.6 MG TAB PO SCH (20:59)
[2023-08-12] MEDS: TAMSULOSIN HCL 0.4 MG CAP PO SCH (21:00)
[2023-08-13] MEDS: HEPARIN SODIUM/DEXTROSE 25,000 UNITS/500 ML BAG IV SCH ×2 (00:17→12:01)
[2023-08-13] MEDS: ceFAZolin 2000MG 2,000 MG/15 ML SYR IV SCH ×2 (05:58→13:51)
[2023-08-13 06:38] LABS: Hematocrit (blood only) 29.4 % (42.0-52.0); Hemoglobin 9.1 g/dl (14.0-18.0); Mean Corpuscular Hemoglobin 27.8 pg (25.0-34.0); Mean Corpuscular Volume 89.9 fL (80.0-100.0); Mean Platelet Volume 8.9 fL (9.4-12.4); Platelet Count 571 K/uL (130-400); RDW Coefficient of Variation 13.6 % (11.5-14.5); RDW Standard Deviation 44.4 fL (36.4-46.3); Red Blood Count 3.27 M/uL (4.70-6.10); White Blood Count 9.77 K/ul (4.8-10.8)
[2023-08-13 06:53] LABS: BUN Creatinine Ratio 19.6 (10-20); Calcium 9.7 mg/dl (8.6-10.3); Creatinine Clr Calc Pharmacy 69.3 ml/min; Est GFR (African American) 46.4 ml/min; Magnesium 1.8 mg/dl (1.7-2.4); Potassium 4.4 mmol/L (3.5-5.1)
[2023-08-13 07:08] LABS: INR 1.5 (0.9-1.1); Partial Thromboplastin Ratio 2.3; Prothrombin Time 15.8 Seconds (9.0-12.0)
[2023-08-13] MEDS: oxyCODONE HCL IR 5 MG TAB (IMMEDIATE RELEASE) PO PRN (07:36)
[2023-08-13] MEDS: FERROUS SULFATE 325 MG TAB PO SCH (09:10)
[2023-08-13] MEDS: carvediloL 25 MG TAB PO SCH (09:10)
[2023-08-13] MEDS: ROSUVASTATIN CALCIUM 5 MG TAB PO SCH (09:10)
[2023-08-13] MEDS: ACETAMINOPHEN 500 MG TAB PO SCH ×2 (09:11→14:13)
[2023-08-13] MEDS: DOCUSATE SODIUM 100 MG CAP PO SCH (09:11)
[2023-08-13] MEDS: POLYETHYLENE (MIRALAX) 17 GM PACK PO SCH ×2 (09:11→14:13)
[2023-08-13] MEDS: FLUTICASONE FUROATE 200MCG 14 PUFFS/INHALER INH SCH (09:11)
[2023-08-13] MEDS: CYCLOBENZAPRINE HCL 5 MG TAB PO SCH ×2 (09:11→14:13)
[2023-08-13] MEDS: MAGNESIUM OXIDE 400 MG TAB PO SCH (09:12)
[2023-08-13] MEDS: INSULIN ASPART PER UNIT CHARGE SC SCH ×2 (09:33→12:01)
[2023-08-13] MEDS: NIFEdipine EXTENDED REL 30 MG TABCR PO SCH (10:13)
--- NOTE | 2023-08-13 11:00 | Nephrology Progress Note ---
Date of Service August 13, 2023 Assessment & Plan (1) Acute kidney injury: Plan: Further improving SARWAT, formerly SARWAT -D, from ATN. Baseline creatinine 1.3. on RA now first HD on 07/28; last HD 08/04. TDC out. Patient is making a lot of urine and recovering renal function. No indication for further dialysis. Creatinine further improved today down to 2. Potassium stable at 4.3. -K controlled; no indication to resume veltassa -Patient needs to drink at least 2 L of fluids daily to avoid dehydration - daily BMP -HTN remains uncontrolled but is improving > continue coreg, nifedipine; consider hydralazine trial versus low dose diuretic if needed but would give creatinine time to improve further first if possible and cont to focus on pain control Will sign off If for d/c to [facility], -check bmp at least 2X weekly x2 wks then weekly while on abtx -would not resume losartna, hctz, or metformin unless renal function stable and appropriate > 1 wk and with careful f/u labs/monitoring -recommend at least one time evaluation by recreation aide w/in a month of [facility] discharge Care coordinated w/ Dr Quintanilla (2) Bacteremia: Plan: WBC had worsened; last + cx 07/23 group B strep; has discitis - renally dose Abx Admission and Anticipated Discharge Date Admission Date: July 23, 2023 Subjective sbp a bit better; renal function improving. pain better controlled today. tolerating po; no sob Review of Systems 2 Review of Systems: All systems reviewed & are unremarkable except as noted in Subjective Physical Exam 2 Constitutional: well developed, + morbidly obese, + frail appearing and cooperative; no acute distress Eyes: EOM intact bilaterally ENMT: Ears: no external ear abnormality Nose: no external nose abnormality Mouth: + dry oral mucous membranes Neck: no nuchal rigidity Respiratory: normal respiratory effort Auscultation: + diminished lung sounds Cardiovascular: Rate/Rhythm: regular rate and regular rhythm Extremities: + edema (1+ RLE; none LLE) Gastrointestinal (Abdomen): Inspection/Auscultation: normal bowel sounds P ercussion/Palpation: abdomen soft; abdomen nontender Musculoskeletal: Extremities: strength 5/5 throughout and + abnormal strength Skin: no rashes, warm and dry Psychiatric: Orientation: alert and oriented x 3 Results & Data Vital Signs (Past 12 Hours) Vital Signs Temp Pulse Pulse Resp BP BP Pulse Ox 08/13/23 10:40 36.8 C 84 18 141/81 H 96 08/13/23 08:12 84 08/13/23 08:03 08/13/23 07:31 36.6 C 83 18 153/82 H 96 08/13/23 03:25 36.8 C 78 20 157/88 H 100 08/13/23 02:51 26 H 96 08/12/23 22:57 36.9 C 78 18 131/70 100 O2 Del Method O2 Flow Rate 08/13/23 10:40 Room Air 08/13/23 08:12 08/13/23 08:03 Room Air 08/13/23 07:31 Room Air 08/13/23 03:25 CPAP 08/13/23 02:51 2 08/12/23 22:57 CPAP Laboratory Results 08/13/23 06:00 08/13/23 06:00
--- NOTE | 2023-08-13 13:10 | Discharge Summary ---
Date of Service August 13, 2023 Admission HPI Per Admitting Provider 62 year old gentleman with history of hypertension, HLD, DMTII, and chronic RLE edema 2/2 trauma who is admitted for sepsis on 07/23. Patient found to be in A- fib and being managed on PO metoprolol after being on drip throughout the evening of 07/23. Patient is status post an injury to the right lower extremity with chronic edema, but it is an ambulator with a cane. 5 days previous he developed acute onset of low back pain along with the sepsis. Patient reports he has not had this back pain before, and it will start in his lower lumbar spine but then radiate into the posterior aspect of the left thigh. She can mobilize in the bed to some degree but this causes an exacerbation of his back pain. Along with the medical issues noted, infectious work up has resulted with bacteremia, group a beta strep. Exam indicates the patient having pain lumbosacral region, his neurologic exam is somewhat compromised secondary to low back pain on exertion, but he has appropriate range strength for EHL, left leg with appropriate ankle plantar dorsiflexion and knee extension but with some back pain and also hip flexion. Right leg due to the edema is somewhat more compromised with these maneuvers once again worsening his low back pain. Right leg with generalized edema. WBC: 13.99 MRI lumbar spine without contrast: July 25, 2023 CLINICAL HISTORY: 62 years-old Male with vertebral osteomyelitis?. Acute low back pain with lower extremity numbness. COMPARISON: CT abdomen and pelvis 07/23/2023. TECHNIQUE: Multiplanar, multi sequence MRI of the lumbar spine was performed without intravenous contrast. FINDINGS: Limited exam secondary to patient body habitus and motion artifact. Conus medullaris terminates at L1. There is moderate marrow edema involving the pedicles and facets at L5-S1 bilaterally. Moderate associated paravertebral edema. No acute fracture, subluxation or endplate erosion. T12-L1: Mild facet arthrosis. No central canal or neural foraminal stenosis. L1-L2: Mild facet arthrosis. No central canal or neural foraminal stenosis. L2-L3: Ligamentum flavum thickening with moderate facet arthrosis. Small posterior annular disc bulge. Mild right foraminal narrowing. Central canal and left neuroforamen are patent. L3-L4: Ligamentum flavum thickening with moderate facet arthrosis. Mild intervertebral disc space narrowing with small circumferential annular disc bulging. The central canal is patent. Uwuc-xk-qwfruymo right with moderate left foraminal narrowing. L4-L5: Qozz-qh-qctbbznu intervertebral disc space narrowing with spondylotic spurring and small posterior disc osteophyte complex. Ligamentum flavum thickening with locczyxd-bv-blepuh facet arthrosis. Mild central canal stenosis with AP dimension of the thecal sac measuring 9 mm. Mild left with moderate right lateral recess narrowing. Zynj-aq-jozepsjw left with ufnmwhox-xk-ogzrlo right foraminal narrowing. L5-S1: Hvot-ng-xzjdmpvj intervertebral disc space narrowing with spondylotic spurring, posterior annular disc bulge with small disc osteophyte complex, eccentric to the right. Ligamentum flavum thickening with severe facet arthrosis and small facet effusions. Central canal is patent. Moderate right lateral recess narrowing. Dmzn-gm-ixffpdkh bilateral foraminal stenosis. IMPRESSION: 1. No acute fracture, subluxation or endplate erosion. 2. Moderate marrow edema within the facets and pedicles at L5-S1 is likely reactive with adjacent soft tissue edema within the paraspinal musculature. 3. Discogenic degeneration with facet arthrosis as above resulting in multilevel foraminal narrowing. 4. No high-grade central canal stenosis. New MRI from 07/31 with contrast: MR Lumbar Spine Without and With Intravenous Contrast CLINICAL HISTORY: Reason for exam: rule out verterbral osteomyelitis/epidural abscess. TECHNIQUE: Magnetic resonance images of the lumbar spine without and with intravenous contrast in multiple planes. CONTRAST: Patient received 17cc gadavist of IV contrast COMPARISON: Comparison made to prior lumbar spine MRI from July 25, 2023. FINDINGS: Vertebrae: There are 5 lumbar type vertebral bodies with a mild generalized curved to the right and normal lumbar lordosis. There is normal vertebral body height and alignment. The vertebral body bone marrow signal is normal. No acute fracture. There is extensive inflammation about the facet joints L5-S1. There is significant increased signal within the L5-S1 disc concerning for discitis. Spinal cord: The conus is normal size, shape and signal characteristics, terminating at L1 to. No abnormal enhancement. Soft tissues: There is an enhancing fluid collection extending from L3- S1 concerning for dorsal epidural abscess. There is increased fluid signal within the interspinous process at L1-2, L2-3 and L3-4 with increased enhancement. There is extensive inflammation of the paraspinous muscles with enhancement. There is an enhancing fluid collection in the right and left paraspinous muscles adjacent to the L5- S1 facet joints. Mild prevertebral soft tissue swelling at L5-S1 concerning for phlegmon/abscess. Possible small ventral epidural abscess/phlegmon at L5. IMPRESSION: Findings concerning for infection of the L5-S1 facet joints, paraspinous muscles and interspinous bursa with dorsal epidural phlegmon/abscess extending from L3-S1. Small abscesses about the L5-S1 facet joints. Findings concerning for discitis at L5-S1 with mild prevertebral phlegmon/abscess. Possible small ventral epidural abscess/phlegmon at L5. Impression: 2 week history of low back pain acute onset along with sepsis and medical issues as mentioned in history, lumbar infection. Plan: Operative decompression lumbar spine with irrigation and debridement/cultures. Admission Exam Per Admitting Provider General: awake, alert, Appears in mild distress, obese, black male Head: Normocephalic, atraumatic ENT: PERRL, EOMI, no pharyngeal exudate, mucous membranes slightly dry Chest: Clear to auscultation, on room air, no adventitious breath sounds Cardiac: +Sinus tachycardia, no murmur, no JVD, normal peripheral pulses, good capillary refill Abdominal: NABS x 4 quadrants, soft, nondistended, nontender to palpation, no rebound or guarding Extremities: RLE diffusely edematous up to groin, +warmth, + difficult to assess erythema due to skin color, no open wounds or obvious source of infection, LLE with trace edema as well, otherwise Normal inspection, no peripheral edema or erythema, calfs tender to palpation Psych: Normal mood and affect Neuro: AAO x 3, strength intact bilaterally and rated 5/5, no motor deficits, speech is clear, no peripheral sensory deficits Principal Diagnosis Sepsis secondary to bacteremia secondary to epidural abscess Acute kidney injury RLE DVT Discharge Exam GENERAL: Alert and oriented x3. NAD, on RA. Morbidly obese. Weak/frail appearing. HEENT: No pallor, no icterus. Pupils equal, round and reactive to light. Oral mucosa moist. NECK: No JVD, no neck masses. HEART: S1 and S2 heard. Regular rate and rhythm. No murmur, no gallop. RESPIRATORY SYSTEM: Normal AP diameter. No accessory muscle use. No wheezing, diminished lung sounds. ABDOMEN: Soft, bowel sounds present, nontender, no distention. CENTRAL NERVOUS SYSTEM: No facial droop. Speech is clear. Obeys simple commands. Moves extremities. EXTREMITIES: 2+ RLE edema. Discharge Data Allergies Allergy/AdvReac Type Severity Reaction Status Date / Time lisinopril Allergy Intermediate Swelling Verified 08/10/23 14:42 of the Eye Consultations 07/23/23 12:54 ED Decision to Admit Stat 07/23/23 14:17 Consult Cardiology Routine 07/24/23 09:15 Consult Infectious Diseases Routine 07/25/23 07:36 Consult General Surgery Routine Consult Nephrology Routine 07/26/23 09:05 Consult Orthopedic Spine Surgery Routine 07/28/23 11:00 Consult Sustainability Project Coordinator Routine 08/02/23 16:31 Consult Pain Management Routine 08/03/23 10:17 Consult Orthopedic Spine Surgery Routine Procedures Performed Operation Date: 08/04/23 07:00 Actual Procedures s L3-S1 Irrigation and Debridement Lumbar - Rich Kelley MD p L3-S1 Lumbar Decompression - Rich Kelley MD Ordered Studies 07/23/23 10:36 CT abd pelvis wo con Stat 07/23/23 10:47 US venous doppler LE BI Stat 07/25/23 10:10 MR lumbar spine wo con Urgent 07/28/23 14:06 US point of care ultrasound Routine 07/31/23 09:00 MR lumbar spine wo/w con Routine 08/04/23 11:00 FL lumbar spine 2-3V Routine Hospital Course (1) Sepsis: (2) Cellulitis: (3) Urinary tract infection: (4) Hypomagnesemia: (5) DM II (diabetes mellitus, type II), controlled: (6) HLD (hyperlipidemia): (7) HTN (hypertension): (8) Morbid obesity: (9) New onset a-fib: (10) Constipation: Plan Per prior attending with addendum: Mr. 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 Patient found to be in a fib rvr and now being managed on PO metoprolol after converted to NSR while on Dilt drip the evening of 07/23. Patient found to have DVT in RLE and placed on heparin drip as well. On 07/24, patient was noted to be in exquisite back pain which is concerning given infectious work up has resulted with bacteremia [group a beta strep]. MRI imaging limited to noncontrast given progressive renal injury; this did not reveal discitis or signs overtly suggestive for vertebral osteomyelitis, but still concerning nonetheless. Ortho Spine evaluated patient for any acute neural compression, but there was no notable stenosis on imaging to correlate to pain on exam. Evaluation limited with MRI or CT 2/2 poor renal function. Patient's acute renal failure is likely secondary to prerenal etiology given low pressures/shock resulting in ATN. After no evidence of response to initial lasix challenge, with plateaued UOP and up trending Cr, it was decided to place tempo rary HD line at bedside for intermittent hemodialysis. Given there is anticipation of renal recovery, any contrast use at this time is not advised to prevent further insult to kidneys. Plan to obtain further imaging once stable from renal standpoint to aid in assessment of ?osteomyelitis/discitis. Blood Cultures from 07/23 with Group A Strep B, Urine culture negative. ECHO with no clear sign of vegetations. To ensure no persistent bacteremia, blood cultures were obtained on 07/24 and 07/25 without growth to date. However, there was an increase in WBC on 07/28, prompting repeat blood cultures which are still negative WBC trend has improved. Repeat MRI L spine with contrast revealed epidural abscess and discitis L3-S1. Patient underwent washout and decompression on 08/[address] Kelley given concern for further neurologic compromise. Patient tolerated procedure, now will require updated ID recommendations, as well as PT/OT. Heparin was resumed on 08/05 per surgery approval at 1600 without bolus; it was noted that on am labs, as well as recheck hgb down to 8.9 from baseline this admission of 10. Heparin briefly held, but appears that hgb stable prompting resumption of heparin. Discussion with Dr. Kelley on 08/06 revealed that procedure did not yield any significant findings for degree of patient's pain--no purulence was appreciated or expressed from washout and decompression. Pathology pending. Patient was with low grade temperature, tachycardia, and new leukocytosis. Unclear if these are standard changes post-operatively, but given patient's poor progression broaden antibiotic coverage while awaiting final recommendations from Infectious disease. The addition of zosyn seemed to have been followed by a precipitous drop in leukocytosis, as well as resolution of low grade fevers; however this could be cofounding from post-operative response from manipulation of infectious like material. Zosyn was deescalted and transitioned to Cefazolin 18 with EOT 09/15. Patient now undergoing blood pressure medication titration and heparin briding. Facility cannot do heparin, however, renal function is improving and lovenox may be suitable alternative. #Bacteremia 2/2 group a beta strep #Sepsis 2/2 bacteremia 2/2 epidural abscess - sepsis criteria with fever, elevated lactate, tachycardia, source likely RLE cellulitis/UTI on admission, *resolved - BCx NGTD; UA NGTD (denied urinary symptoms) - Gen surg: no surgical intervention on RLE (no fluid collections, predominately chronic changes of RLE) - Deescalate Zosyn back to Cefazoli and discontinue Linezolid 600mg BID per ID on 08/08 - Continue cefazolin IV, will need PICC prior to dispo, EOT 09/15. #Acute lower back pain 2/2 epidural abscess/discitis*improving -Pain control and mobilization as able -Continue abx as outlined below. -MRI lumbar spine (07/25): paravertebral marrow edema. no end plate erosion, no signs of osteomyelitis, however insufficient 2/2 lack of contrast iso ARF -Ortho spine consult: No surgical intervention at this time, consider bone scan if persistent. -MRI L spine with contrast (07/31): epidural abscesses L3-S1 and discitis--> cont current abx. -s/p washout and decompression L3-S1 -Discuss abx duration with ID,pending formal recommendations -Encourage ongoing participation, continue tylenol/flexeril combo #Constipation -Likely related to narcotics and minimal movement. Continues on miralax, senna, docusate. *resolved -OOB as able #Hypertension Relative hypotension due to likely shock, resolved with abx/fluid bolus Regimen prior to arrival: amlodipine 10mg, HCTZ 25mg, losartan 50mg -Hold hctz and losartan in setting of renal failure Currently uncontrolled and on amlodipine 5mg +BB. Required hydralazine 10mg IV today. -Avoiding hydralazine 2/2 reflex tachycardia -Increased Nifedipine to 90mg daily and transitioned to coreg 25mg bid for better BP management #Oliguric SARWAT, likely evolving ATN 2/2 ischemia from hypotension/shock *improving #Azotemia *improving #Hypervolemic Hyponatremia -Nephrology consult: HD cath placement 07/28, plan for intermittent dialysis, cont T/Th/Sat -Improved UOP, last HD 08/04 -Discontinued HD cath 08/08 -Plan to DC paulino pacheco trial today #Right LLE DVT - R ankle fracture 2013, R knee surgery in 2016 causes some enlargement in general in the RLE but this is much more swollen and tender in the calf compared to previously. -lymphedema and age-indeterminate DVT present -started on coumadin 07/31 with 5mg, but one dose caused his INR to go to 4.7 today. Held coumadin and heparin drip and trend INR in am. Restart Coumadin at 2.5mg when INR <3.5. -continue IV heparin, continue in interim given renal dysfunction with plans to transition to PO regimen prior to dispo given known DVT/a fib 08/02: cont IV heparin and gave warfarin 2.5mg today, trend INR daily and stop heparin when INR 2-3 x 2 days. 08/03: heparin had been active in the computer but held in the room today incorrectly. RN addressed with event report and heparin was restarted per protocol. Vit K given. Plan to cont heparin until tomorrow am when it will temporarily be held for surgery--likely to be restarted tomorrow evening immediately post op. 08/04: heparin held at 0500, additional 2.5mg IV vit K given. Resume heparin post op. Hold off on restarting warfarin until ortho spine feels no further washouts are needed. 08/05: Heparin to resume this evening at 1600 per surgery 08/06: 2 g hgb drop, no clear source; holding heparin as above 08/07: Hgb stabilized, no signs of bleed, resumed heparin--transition to warfarin upon removal of IJ 08/08: plan to start warfarin 08/09, 24 hours s/p cath removal 08/09: Warfarin tonight, 2.5mg 08/10: Warfarin 5mg daily, trend INR #New onset atrial fibrillation with RVR, remains in sinus rhythm at this point. After initial evaluation the patient - he went into from what we can tell, new onset afib with RVR with rates of 140-150 CHADsVasc 2 likely iso sepsis/bacteremia -Received Diltazem drip, d/c 07/24 -Transitioning to coreg for better BP control, can consider future adjustment--avoiding renally targeted BP control at this time -Heparin as above and warfarin #Acute hypoxic respiratory failure iso IVF hydration/oliguric SARWAT *resolved -CXR with pulm edema, required 2L NC, now on room air -oxygen prn, encourage mobilization which is very suboptimal at this point. Able to sit on side of bed but is a max assist. -continue to optimize fluid management with hemodialysis #Elevated troponin*resolved -likely demand iso bacteremia and a fib -Downtrended -Monitor on telemetry -consider further evaluation as outpatient. #Acute blood loss anemia, c/f post-operative losses *stable -Hgb stable at 10, down to 8.9; no reports of blood loss from GI standpoint -Trend CBC q12, monitor for acute blood loss, transfuse <7.0 -Stable, possibly post operative -Nephrology administering procrit #HLD - Chronic, stable, cont statin #Controlled DMTII -A1C 6.2% 07/24 -inpt BSG at goal - Holding metformin for now, ISS with accuchecks reveals no need for insulin coverage. Stop BSG checks at this time. #hypomagnesemia -Replace prn #Morbid obesity - BMI of 45, diet and exercise to be encouraged throughout hospital stay DVT ppx: heparin/coumadin GI/FEN: renal/Diabetic diet Lines: 2 PIV, HD line R neck CODE: FULL I spent a total [id number] coordinating, documenting, and providing care for this patient excluding time spent in the performance of separately billed services Addendum 08/12: Patient was seen and examined at bedside as a follow-up of sepsis secondary to bacteremia secondary to epidural abscess. Patient hemodynamically stable, reports feeling better and back to his baseline. PICC line placed today. Patient getting IV cefazolin. Patient will need encompass. INR 1.4 today, being bridged with heparin for RLE DVT. Will repeat INR in a.m., if still low consider Lovenox bridging upon discharge based on renal function at the time. Baseline creatinine is 1.3, creatinine today is 1.87 which is improving trend. Patient otherwise feels better. Continue current management. Patient initially received hemodialysis x 2 for worsening renal function. Now not needing hemodialysis. Addendum 08/13: Patient was seen and examined at bedside, INR today 1.5, will use Lovenox 1 Mg per KG twice daily as a bridge until INR number is between 2-3. Patient will continue with IV antibiotic. Patient offers no new complaints. Discussed with nephrology, holding losartan/hydrochlorothiazide/metformin until renal function improves. Patient to coordinate with either PCP or nephrology prior to resuming those medications. Patient being discharged to [facility] with following instruction at the point of discharge: Follow-up with your primary care physician within a week time and likely you will need labs CBC/CMP/magnesium/phosphorus. For your sepsis secondary to bacteremia secondary to epidural abscess status post washout and decompression L3-S1, you are being discharged on IV cefazolin. End of therapy 09/15/2023. Continue with probiotic. For your deconditioning/generalized weakness, continue with rehab/physical therapy. For your right lower extremity DVT, you have been started on warfarin. You will be discharged on Lovenox as a bridge until your warfarin number/PT/INR is between 2-3. At such time, your Lovenox will be discontinued. You will need ongoing monitoring for your Coumadin management. For your acute kidney injury, you will need BMP twice weekly for 2 weeks then weekly while on IV antibiotic. Your losartan/HCTZ/metformin needs to be held until 1 week after your renal function stabilizes; you will need close monitoring of your renal function for next 1 to 2 weeks when these medications are started. You will use sliding scale insulin until you can resume your metformin back. Follow-up with embroidery supervisor in 3 to 4 weeks time upon discharge. Continue with bowel regimen while using pain medications. Please make sure that you are able to get your medications today by calling your pharmacy before you leave the hospital so that your treatment continuity is not broken. Home Health Attestation I certify that this patient is under my care and that I, or a physicians assistant infant toddler teacher working with me, had a face to-face encounter that meets the home health [id number] encounter requirements with this patient. The encounter with the patient was in whole, or in part, for the following medical condition, which is the primary reason for home health care (list medical condition): I certify that, based on my findings, the following services are medically necessary home health services: My clinical findings support the need for the above services because: Further, I certify that my clinical findings support that this patient is homebound (i.e. absences from home require considerable and taxing effort and are for medical reasons or catholic services or infrequently or of short duration when for other reasons) because: Certification for Home Health Services: Based on the above findings, I certify that this patient is confined to the home and needs intermittent detention care, physical therapy and/or speech therapy or continues to need occupational therapy. The patient is under my care, and I have initiated the establishment of the plan of care. This patient will be followed by a physician who will periodically review the plan of care. Total Time Total Time Spent Total Time Spent (In Minutes): 50 Discharge Plan Discharge Items Patient Disposition: Transfer Inpatient Rehab Fac Reason For Visit: SEPSIS Discharge Diagnosis: Sepsis secondary to bacteremia secondary to epidural abscess Acute kidney injury RLE DVT Condition on Discharge: Serious Activity: As commented below Activity Comment: Continue with physical therapy/Occupational Therapy. Non-emergency contact: Primary Care Provider Call non-emergency contact if: you have any medication questions, your symptoms worsen, your pain is worsening and your temperature is above 101 Follow-up/Referrals: Traci SHI [Primary Care Provider] - Diet: Carb Consistent or DM2 and Heart Healthy Addtl Attending Provider Instructions: Follow-up with your primary care physician within a week time and likely you will need labs CBC/CMP/magnesium/phosphorus. For your sepsis secondary to bacteremia secondary to epidural abscess status post washout and decompression L3-S1, you are being discharged on IV cefazolin. End of therapy 09/15/2023. Continue with probiotic. For your deconditioning/generalized weakness, continue with rehab/physical therapy. For your right lower extremity DVT, you have been started on warfarin. You will be discharged on Lovenox as a bridge until your warfarin number/PT/INR is between 2-3. At such time, your Lovenox will be discontinued. You will need ongoing monitoring for your Coumadin management. For your acute kidney injury, you will need BMP twice weekly for 2 weeks then weekly while on IV antibiotic. Your losartan/HCTZ/metformin needs to be held until 1 week after your renal function stabilizes; you will need close monitoring of your renal function for next 1 to 2 weeks when these medications are started. You will use sliding scale insulin until you can resume your metformin back. Follow-up with embroidery supervisor in 3 to 4 weeks time upon discharge. Continue with bowel regimen while using pain medications. Please make sure that you are able to get your medications today by calling your pharmacy before you leave the hospital so that your treatment continuity is not broken. Pending Studies at Discharge: No Stand-Alone Forms: [facility] Skilled Items Patient informed of condition?: Yes DNR: No Discharge Level of Care: Acute rehab Communicable Disease: No Discharge Prognosis: Stable Lines: PICC Urinary Catheter: No Medications and DC Order Prescriptions: New cyclobenzaprine 5 mg Tablet 5 mg PO TID Qty: 90 0RF ferrous sulfate 325 mg (65 mg iron) Tablet,Delayed Release (Dr/Ec) 325 mg PO QAM Qty: 30 0RF warfarin 5 mg Tablet 5 mg PO DAILY@1600 Qty: 30 0RF carvedilol 25 mg Tablet 25 mg PO BIDM Qty: 60 0RF nifedipine [Procardia XL] 30 mg Tablet Extended Release 24hr 120 mg PO QAM Qty: 120 0RF oxycodone 5 mg Tablet 5 - 10 mg PO QID PRN (Reason: pain) Qty: 20 0RF docusate sodium 100 mg Capsule 100 mg PO DAILY Qty: 30 0RF magnesium oxide 400 mg (241.3 mg magnesium) Tablet 400 mg PO BID Qty: 60 0RF polyethylene glycol 3350 [Miralax] 17 gram Powder In Packet 17 g PO TID PRN (Reason: laxative effect) Qty: 30 0RF sennosides [Senokot] 8.6 mg Tablet 17.2 mg PO HS Qty: 30 0RF insulin aspart U-100 [Novolog U-100 Insulin aspart] 100 unit/mL Solution 1 - 2 unit SC ACHS Qty: 10 0RF Rx Instructions: Sliding scale insulin ACHS. Arnuity Ellipta 200 mcg/actuation Blister With Device 1 inh inhalation DAILY Qty: 30 0RF enoxaparin [Lovenox] 150 mg/mL syringe 150 mg subcut BID Qty: 10 0RF cefazolin 2 gram recon soln 2 g IV Q8H Qty: 100 0RF Rx Instructions: 2 gm IV Q8H until 09/15/23. Probiotic 3 billion cell capsule 3,000 mmu cells PO DAILY Qty: 60 0RF Rx Instructions: administer with a meal Continued acetaminophen 500 mg Tablet 500 mg PO TID PRN (Reason: Other) Rx Instructions: Can take up to 4 times daily tamsulosin 0.4 mg Capsule 0.8 mg PO HS albuterol sulfate [Proventil HFA] 90 mcg/actuation Hfa Aerosol Inhaler 2 puff INHALATION QID PRN (Reason: Other) rosuvastatin 5 mg Tablet 5 mg PO DAILY Alvesco 160 mcg/actuation Hfa Aerosol Inhaler 1 puff INHALATION BID Held losartan 50 mg Tablet 50 mg PO DAILY Hold Instructions: Resume on 09/03/23. Hold Until nephro f/u in 2-3 weeks. Resume w/ instructions from either pcp or nephrology once renal function improves. metformin 500 mg Tablet 500 mg PO BID Hold Instructions: Resume on 09/03/23. Hold Until nephro f/u in 2-3 weeks. Resume w/ instructions from either pcp or nephrology once renal function improves. hydrochlorothiazide 25 mg Tablet 25 mg PO DAILY Hold Instructions: Resume on 09/03/23. Hold Until nephro f/u in 2-3 weeks. Resume w/ instructions from either pcp or nephrology once renal function improves. Discontinued amlodipine 10 mg Tablet 10 mg PO DAILY Discharge Orders: Discharge Order (Routine); Ordered 08/13/23 Ordered By: Tea Cabrera/Other Patient Handouts: Managing Type 2 Diabetes Admission Data Admit Date/Time: 07/23/23 13:00 Attending Provider: Tea Quintanilla Admit Provider: Bianka Rodriguez I. Primary Care Provider: Traci SHI Other Providers: Rich Kelley; Bianka Rodriguez I.; Agustin Knapp; Fiordaliza Monroe; Antonio Thomas I.; Mumtaz Howell II; Ruthy Tobar; Osmany Tse; Moi Mooney; Tushar Glaser; Darrell Lewis; Nury Hernandez; Jacques Moncada; Mitra Cavanaugh; [facility]
== END 2023-08-13 14:53 | DRG 853 ==
LOC: ED 10:26 → SUATTDRO 13:00 → EDINP 13:00 → 4W 07-24 09:34